=== PATIENT | female | born 1940 | race Caucasian/White ===

== ENCOUNTER 2024-08-25 16:09 | Inpatient (IN) | payer MEDICARE, SELFPAY ==
[2024-08-25] VITALS (8 sets, daily range): BP systolic 125–162; BP diastolic 47–122; BMI 27.3
[2024-08-25 11:14] LABS: % Basophils 0.6 % (0-2); % Eosinophils 2.3 % (0-6); % Immature Granulocytes 0.4 % (0-0.5); % Monocytes 8.4 % (1.7-9.3); % Neutrophils 79.3 % (42.2-75.2); Absolute Basophils 0.1 10^3/uL (0-0.2); Absolute Eosinophils 0.3 10^3/uL (0-0.7); Absolute Immature Granulocytes 0.1 10^3/uL (0-0.05); Absolute Neutrophils 9.2 10^3/uL (1.4-6.5); Hematocrit 25.5 % (37.0-47.0); Hemoglobin 8.4 g/dL (12.0-16.0); Mean Corp Hgb Conc. 32.9 g/dL (33.0-37.0); Mean Corpuscular Volume 87.9 fL (81.0-99.0); Mean Platelet Volume 8.8 fL (7.4-10.4); Nucleated Red Blood Cells % 0 %; Platelet Count 293 10^3/uL (130-400); Red Cell Dist. Width 14.1 % (11.5-14.5); White Blood Cell Count 11.5 10^3/uL (4.8-10.8)
[2024-08-25 11:38] LABS: ALT (SGPT) 16 U/L (0-35); AST (SGOT) 15 U/L (14-36); Albumin 3.8 g/dl (3.5-5.0); Alkaline Phosphatase 96 U/L (38-126); Blood Urea Nitrogen 37 mg/dl (7-17); Calcium 8.3 mg/dl (8.4-10.2); Carbon Dioxide 23 mmol/L (22-30); Chloride 96 mmol/L (98-107); Glucose 99 mg/dl (70-99); Potassium 4.5 mmol/L (3.5-5.1); Sodium 130 mmol/L (135-145); Total Bilirubin 0.4 mg/dl (0.2-1.3); Total Protein 6.4 g/dl (6.3-8.2); eGFR 19.19
[2024-08-25 11:43] LABS: NT-proBNP 12700 pg/ml
--- NOTE | 2024-08-25 15:09 | ED.GENMED ---
History of Present Illness
General
Chief Complaint: Cough
Source: patient and family
Exam Limitations: none
Time Seen by Provider: 08/25/24 14:45
Nursing documentation reviewed up to this point in time: agreed with
History of Present Illness
History of Present Illness:
84-year-old female with a past medical history of hypertension, hyperlipidemia, CHF, CKD, diabetes who presents to the emergency department for evaluation of worsening cough and shortness of breath. Patient presents with her daughter who aids with
collateral history. Apparently patient was hospitalized early last month for UTI at [facility]. She was discharged home and return to the hospital a week later with CHF and has had 2 visits to [facility] where she was admitted for
CHF since then; most recently discharged in early July 2 rehab at [facility]. She has been home for the past 2 weeks but has had progressive shortness of breath and cough as well as swelling in the legs since then. They have been
following with her service center representative Dr. Aaron Campos, she was recently switched from Lasix to Bumex 2 mg twice daily but despite compliance has noticed worsening symptoms and so daughter brought her to the emergency room to be evaluated.
Review of Systems
Review of Systems
All Other Systems: ROS reviewed and negative except as documented in HPI and ROS
Constitutional: Denies fever or chills
Respiratory: Reports cough and trouble breathing
ABD/GI: Denies abdominal pain, nausea or vomiting
: Denies flank pain
Musculoskeletal: Reports edema; Denies neck pain or back pain
Neurological: Denies dizzy or headache
Phy Exam
Physical Exam
Physical Exam:
General: Awake, alert, oriented x3; no acute distress
Head: Normocephalic, atraumatic
Eyes: Conjunctiva normal, sclera anicteric
Throat: Airway intact, handling secretions
Neck: Trachea midline, slight JVD
Lungs: Scattered wheezing throughout all lung rhodes; acceptable respiratory rate, acceptable pulse ox on room air
Heart: Regular rate and rhythm, faint systolic murmur
Abd: Soft, non distended, nontender
Neuro: No gross deficits
Skin: no rash
Extremities: +2 pitting edema bilateral lower extremities
Scores
Heart Failure Risk
Heart Failure Risk Score: Yes
History of Stroke or TIA: No
History of intubation for respiratory distress: No
Heart rate on ED arrival >/= 110: No
SaO2 <90% on arrival on room air: No
HR >/=110 during 3min walk test (or too ill to perform test): Yes
ECG has acute ischemic changes: No
Urea >/=12mmol/L (BUN 33.6mg/dL): Yes
Serum CO2>/=35mmol/L: No
Troponin I or T elevated to HI Level (0.4mg/dL): No
NT-proBNP >/=5,000ng/L (5,000pg/ml): Yes
HF Risk Score: 4
Admission Status: HIGH RISK 26.1% Consider SNF treatment or admission to hospital
Heart Score for Chest Pain Patients
STEMI patient?: Not applicable
Withdrawal Assessment of Alcohol
Withdrawal Assessment Completed?: Not applicable
Course
Orders/Labs/Results
Orders:
Orders
08/25/24 10:39
CR Chest - 2 Views Urgent
Comment:
Reason For Exam: cough
08/25/24 10:55
Complete Blood Count/With Diff Urgent
Comprehensive Metabolic Panel Urgent
NT-proBNP Urgent
08/25/24 15:09
Bumetanide [Bumex] 2 mg IV NOW STA
Abnormal Lab Results
08/25/24
10:55
WBC 11.5 H 10^3/uL
(4.8-10.8)
RBC 2.90 L 10^6/uL
(4.20-5.40)
Hgb 8.4 L g/dL
(12.0-16.0)
Hct 25.5 L %
(37.0-47.0)
MCHC 32.9 L g/dL
(33.0-37.0)
Abs Immat Gran (auto) 0.1 H 10^3/uL
(0-0.05)
Absolute Neuts (auto) 9.2 H 10^3/uL
(1.4-6.5)
Absolute Lymphs (auto) 1.0 L 10^3/uL
(1.2-3.4)
Absolute Monos (auto) 1.0 H 10^3/uL
(0.1-0.6)
Neutrophils % 79.3 H %
(42.2-75.2)
Lymphocytes % 9.0 L %
(20.5-51.1)
Sodium 130 L mmol/L
(135-145)
Chloride 96 L mmol/L
(98-107)
BUN 37 H mg/dl
(7-17)
Creatinine 2.4 H mg/dL
(0.6-1.0)
Calcium 8.3 L mg/dl
(8.4-10.2)
08/25/24 10:55
08/25/24 10:55
Vital Signs
Initial and Last Documented VS:
Initial Vital Signs
Temp Pulse Resp BP Pulse Ox
36.3 C 72 16 132/89 98
08/25/24 10:34 08/25/24 10:34 08/25/24 10:34 08/25/24 10:34 08/25/24 10:34
Last Documented Vital Signs
Temp Pulse Resp BP Pulse Ox
36.3 C 78 14 138/52 98
08/25/24 10:34 08/25/24 14:00 08/25/24 14:00 08/25/24 14:00 08/25/24 10:34
MDM/Problems Addressed
Differential Diagnosis Includes:
CHF, pneumonia, bronchitis
MDM/Problems Addressed:
84-year-old female presents to the emergency room for evaluation of increasing cough, shortness of breath, swelling of the legs despite multiple recent hospitalizations and outpatient adjustments to her diuretic. She has been compliant takes Bumex
2 mg twice daily. Follows with Dr. Aaron Campos for cardiology. She had labs sent off including a CBC and a CMP�she has marginal leukocytosis, anemia 8.4, chronic kidney disease with a creatinine of 2.40�no baseline available for comparison but
she does reports that she has been told she has stage IV CKD. Her proBNP is markedly elevated at 12,700. Chest x-ray consistent with CHF. With worsening symptoms despite outpatient adjustments and significant chronic kidney disease will plan to
admit for diuresis. Dose with 2 mg IV Bumex here. Case discussed with hospitalist for admission.
Chronic conditions affecting care:
CHF, CKD
*Radiology
Radiology exam reviewed: preliminary read by ED provider (CHF) and radiology read reviewed
*Pulse Oximetry
Patient hypoxic: no
*Critical Care Note
Total Time (30-74mins, 75-104mins- exclusive of procedures): Not Applicable
Data Reviewed
Source: patient, family and ambulance crew
Patient Management
Discussion with other providers: Hospitalist (Discussed with hospitalist)
Escalation/DeEscalation of care consider admission/obs:
Admission indicated
ED Attending Note
-
Portions of this chart may have been created with voice recognition software.� Occasional wrong word or��sound alike� substitutions may have occurred due to the inherent limitations of voice recognition software.
Discharge Plan
Departure
Patient Disposition: Admit
Date of Disposition: 08/25/24
Time of Disposition: 15:18
Admit to doctor: Hiren
Presentation/result/management discussed w/ accepting MD/DO: Hospitalist
Discharge Problem:
CHF exacerbation
Referrals:
BAMBI Mari [Other]
Discharge Date and Time
Print Language: HEBREW
[2024-08-25] MEDS: BUMEX 2 MG IV (15:27)
--- NOTE | 2024-08-25 16:00 | HPS.HSE ---
Addendum entered and electronically signed by Jada Maradiaga MD 08/25/24 16:04:
Hold Losartan due to potential ERICK.
Original Note:
Family Physician
-
Family Physician: BAMBI Mari
Chief Complaint
-
cough, swelling
History of Present Illness
84-year-old female past medical history of hypertension, hyperlipidemia, CHF, stage IV CKD, diabetes, presenting with worsening cough and shortness of breath. Patient was hospitalized earlier last month for UTI at [facility]. She was
discharged home and return to the hospital a week later with CHF exacerbation and had 2 visits at [facility] for CHF since then. Most recently she was discharged in early July to rehab at [facility]. She has been home for the past 2
weeks has had progressive cough minimal shortness of breath and swelling in the leg since then. She has gained 2 pounds. Her calender worker helper is Dr. Aaron Campos. She was recently switched from Lasix to Bumex 2 mg twice daily but despite this she
has had worsening symptoms so she was brought to the emergency room. She denies any fevers or chills. Denies any chest pain.
Medical History
Past Medical History
Past Medical History: Reports Other (hypertension, hyperlipidemia, CHF, stage IV CKD, diabetes)
Past Surgical History: Reports None
Social History
Tobacco: Non-smoker
Alcohol: None
Drug: None
Family History
Family History: Not pertinent
Allergies / Home Medications
Allergies reflects when Allergies were last updated in [facility].
Home Medications with original date entered in [facility]
Allergy/Medication List:
Allergies
Allergy/AdvReac Type Severity Reaction Status Date / Time
No Known Allergies Allergy Unverified 08/25/24 15:21
Home Medications
amlodipine 10 mg tablet (Norvasc) 10 mg PO DAILY 08/25/24
atorvastatin 80 mg tablet (Lipitor) 80 mg PO QPM 08/25/24
bumetanide 2 mg tablet 2 mg PO BID 08/25/24
cholecalciferol (vitamin D3) 25 mcg (1,000 unit) tablet (Vitamin D3) 25 mcg PO DAILY 08/25/24
coQ10 (ubiquinol) 100 mg capsule 300 mg PO DAILY 08/25/24
ferrous sulfate 325 mg (65 mg iron) tablet 325 mg PO DAILY 08/25/24
gabapentin 300 mg capsule 300 mg PO HS 08/25/24
glipizide 5 mg tablet 5 mg PO DAILY 08/25/24
labetalol 200 mg tablet 200 mg PO BID 08/25/24
losartan 100 mg tablet 100 mg PO DAILY 08/25/24
magnesium oxide 250 mg PO DAILY 08/25/24
pantoprazole 40 mg tablet,delayed release (Protonix) 40 mg PO DAILY 08/25/24
psyllium 1 packet PO DAILY 08/25/24
Review of Systems
-
History Source: Patient
A 12 point ROS was completed and negative except as noted: Yes
Constitutional: Reports No Symptoms
EENT: Reports No Symptoms
Respiratory: Reports See HPI
Cardiac: Reports See HPI
Abdomen/GI: Reports No Symptoms
: Reports No Symptoms
Musculoskeletal: Reports No Symptoms
Skin: Reports No Symptoms
Neurological: Reports No Symptoms
Endocrine: Reports No Symptoms
Hematologic/Lymphatic: Reports No Symptoms
Psych: Reports No Symptoms
Physical Exam
Vital Signs
Vital Signs
Temp Pulse Resp BP Pulse Ox
97.4 F 84 19 144/122 98
08/25/24 10:34 08/25/24 15:30 08/25/24 15:36 08/25/24 15:27 08/25/24 10:34
Physical Exam
General: Well Developed, Well Nourished and No Apparent Distress
HEENT: NormoCephalic, Moist mucous membranes and Atraumatic
Respiratory: Clear
Cardiac: S1/S2 and Regular Rhythm; No Murmur or Rub
GI: Soft, Non Tender, Non Distended and Normal Bowel Sounds; No Organomegaly
Rectal: Deferred by Provider
Musculoskeletal: No Clubbing, No Cyanosis and No Edema
Skin: No Rash
Neuro: Nonfocal/grossly intact
Laboratory Results
-
08/25/24 10:55
08/25/24 10:55
Laboratory Results
Total Bilirubin 0.4 mg/dl (0.2-1.3) 08/25/24 10:55
AST 15 U/L (14-36) 08/25/24 10:55
ALT 16 U/L (0-35) 08/25/24 10:55
Alkaline Phosphatase 96 U/L (38-126) 08/25/24 10:55
Data Reviewed
-
Lab Data: Labs Reviewed by me
Old Records: Reviewed
Impression/Plan
-
IMPRESSION:
PLAN:
# Acute CHF exacerbation
-BNP of 12,000
-Chest x-ray shows mild cardiomegaly, mild prominence of the interstitial compartment, mild cephalization of the pulmonary vasculature, small bilateral pleural effusions,
-Check I's and O's, daily weights
-Increase Bumex to 3 mg twice daily
-Will need to obtain records from calender worker helper Dr. Aaron Campos
-Cardiology consulted
Stage IV CKD
-Continue 2.4, unknown baseline
-Monitor with diuresis
Presumably chronic anemia
-Hemoglobin 8.4, no prior baseline
Essential hypertension
-Continue losartan, amlodipine, labetalol, hydralazine
Hyperlipidemia
-Continue statin
Type 2 diabetes
-Hold glipizide
-Insulin sliding scale
GERD
-continue Protonix
DNR/DNI
DVT prophylaxis�heparin
Cardiac diet
[2024-08-25] MEDS: BUMEX 1 MG IV (16:13)
[2024-08-25] MEDS: TRANDATE 200 MG PO (19:48)
[2024-08-25] MEDS: LIPITOR 80 MG PO (19:48)
[2024-08-25] MEDS: HEPARIN 5000 UNITS SC (19:50)
[2024-08-25] MEDS: NOVOLOG FLEXPEN-LOW RESISTANCE SC (19:51)
[2024-08-25] MEDS: NEURONTIN 300 MG PO (21:37)
[2024-08-25 21:41] LABS: Glucose - Point of Care 176 mg/dl (70-99)
[2024-08-26 03:50] VITALS: BP 133/59
[2024-08-26 05:04] VITALS: BMI 26.5
[2024-08-26 07:15] LABS: % Basophils 0.9 % (0-2); % Eosinophils 2.4 % (0-6); % Immature Granulocytes 0.4 % (0-0.5); % Lymphocytes 10.9 % (20.5-51.1); % Neutrophils 76.4 % (42.2-75.2); Absolute Basophils 0.1 10^3/uL (0-0.2); Absolute Eosinophils 0.2 10^3/uL (0-0.7); Absolute Lymphocytes 1.1 10^3/uL (1.2-3.4); Absolute Monocytes 0.9 10^3/uL (0.1-0.6); Absolute Neutrophils 7.5 10^3/uL (1.4-6.5); Hematocrit 26.5 % (37.0-47.0); Hemoglobin 8.9 g/dL (12.0-16.0); Mean Corp Hgb Conc. 33.6 g/dL (33.0-37.0); Mean Corpuscular Hgb 29.4 pg (27.0-31.0); Mean Corpuscular Volume 87.5 fL (81.0-99.0); Mean Platelet Volume 9.1 fL (7.4-10.4); Nucleated Red Blood Cells % 0 %; Platelet Count 332 10^3/uL (130-400); Red Blood Cell Count 3.03 10^6/uL (4.20-5.40); Red Cell Dist. Width 14.4 % (11.5-14.5); White Blood Cell Count 9.8 10^3/uL (4.8-10.8)
[2024-08-26 07:21] LABS: ALT (SGPT) 15 U/L (0-35); AST (SGOT) 15 U/L (14-36); Albumin 3.8 g/dl (3.5-5.0); Alkaline Phosphatase 108 U/L (38-126); Blood Urea Nitrogen 41 mg/dl (7-17); Calcium 8.5 mg/dl (8.4-10.2); Carbon Dioxide 24 mmol/L (22-30); Chloride 97 mmol/L (98-107); Estimated Creatinine Clearance 15 ml/min; Glucose 107 mg/dl (70-99); Potassium 4.6 mmol/L (3.5-5.1); Sodium 131 mmol/L (135-145); Total Bilirubin 0.5 mg/dl (0.2-1.3); Total Protein 6.5 g/dl (6.3-8.2); eGFR 19.19
[2024-08-26 07:22] LABS: Glucose - Point of Care 132 mg/dl (70-99)
[2024-08-26 07:25] VITALS: BP 141/62
--- NOTE | 2024-08-26 07:53 | CON.CAR ---
Addendum entered and electronically signed by Abiel Parker MD 08/26/24 13:54:
I saw and examined the patient.
The BIOMEDICAL EQUIPMENT TECHNICIAN's note was reviewed and I agree with the note.
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 Lasix was changed to Bumex. She is
here today for continuous cough- denies fever or chills. She has also noted weight gain and LE edema. This is likely related to dietary indiscretion.
- IV diuresis
Original Note:
Consultation
Consultation Request
Date/Time Consultation Requested: 08/25/242228
Date/Time Consultation Performed: 08/26/24 904
Requesting Provider: Dr. Maradiaga
Performing Provider: Margi GUEVARA for Dr. Parker
Reason for Consultation: CHF
Medical History
-
Chief Complaint: cough
History of Present Illness:
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 Lasix was changed to Bumex. She is here
today for continuous cough- denies fever or chills. She has also noted weight gain and LE edema. She is in no distress at the time of my assessment, but continues to cough.
Past Medical History
Past Medical History: CHF, GERD, HTN, Hypercholesterolemia, NIDDM and Renal Failure
Social History
Tobacco: Former Smoker (quit 1986)
Family History
Family History: Reviewed & Not Pertinent
Allergies / Home Medications
Allergy/AdvReac Type Severity Reaction Status Date / Time
No Known Allergies Allergy Unverified 08/25/24 15:21
�Medication �Instructions �Recorded �Confirmed �Type
amlodipine 10 mg tablet (Norvasc) 10 mg PO DAILY 08/25/24 08/25/24 History
atorvastatin 80 mg tablet (Lipitor) 80 mg PO QPM 08/25/24 08/25/24 History
bumetanide 2 mg tablet 2 mg PO BID 08/25/24 08/25/24 History
cholecalciferol (vitamin D3) 25 25 mcg PO DAILY 08/25/24 08/25/24 History
mcg (1,000 unit) tablet (Vitamin
D3)
coQ10 (ubiquinol) 100 mg capsule 300 mg PO DAILY 08/25/24 08/25/24 History
ferrous sulfate 325 mg (65 mg 325 mg PO DAILY 08/25/24 08/25/24 History
iron) tablet
gabapentin 300 mg capsule 300 mg PO HS 08/25/24 08/25/24 History
glipizide 5 mg tablet 5 mg PO DAILY 08/25/24 08/25/24 History
labetalol 200 mg tablet 200 mg PO BID 08/25/24 08/25/24 History
losartan 100 mg tablet 100 mg PO DAILY 08/25/24 08/25/24 History
magnesium oxide 250 mg PO DAILY 08/25/24 08/25/24 History
pantoprazole 40 mg tablet,delayed 40 mg PO DAILY 08/25/24 08/25/24 History
release (Protonix)
psyllium 1 packet PO DAILY 08/25/24 08/25/24 History
Review of Systems
-
History Source: Patient and Other (and chart)
All other systems: Negative unless noted
Constitutional: Weight Gain
Respiratory: Cough
Musculoskeletal: Edema
Physical Exam
Vital Signs
Temp Pulse Resp BP Pulse Ox
98.3 F 86 20 133/59 93
08/26/24 03:50 08/26/24 03:50 08/26/24 03:50 08/26/24 03:50 08/26/24 03:50
Lab Results
08/26/24 06:23
08/26/24 06:23
Iqg-Z-Honjzqrwqdc Pept 57922 pg/ml 08/25/24 10:55
Physical Exam
General: Well Developed, Well Nourished and No Apparent Distress
HEENT: Normocephalic and Anicteric
Respiratory: Other (coarse lung sounds to bases)
Cardiac: Regular Rhythm
Musculoskeletal: Edema (+1-2 BLE edema)
Skin: Warm and Dry
Neuro: AO x 3
Psych: Calm
Impression / Plan
-
Fasyt-tn-jkxoper HF (type unknown):
-obtain cardiology records. Otherwise, can get echo here.
-agree with IV Bumex, which requires intensive monitoring
-she believes her dry weight is 150-151 lbs. She is currently 154 lbs. LE edema noted and she normally does not have that.
-CHF education, diet
HTN:
-stable on medical therapy
CKD:
-monitor with diuresis
Anemia:
-unknown baseline, but stable from yesterday
DM:
-on medical therapy
-management per primary team
Data Reviewed
-
EKG: Tracing Personally Visualized and interpreted (NSR 78 BPM, NS ST and T abnormality)
Radiology: Report Reviewed by me (CXR: . Mild pulmonary edema. Small bilateral pleural effusions.)
Labs: Labs Reviewed by me
[2024-08-26] MEDS: NOVOLOG FLEXPEN-LOW RESISTANCE SC (08:14)
[2024-08-26] MEDS: FLUSH (NSS) 1 FLUSH IV ×3 (08:18→16:19)
[2024-08-26] MEDS: BUMEX 3 MG IV ×2 (08:18→16:19)
[2024-08-26] MEDS: MAGNESIUM OXIDE 250 MG PO (08:18)
[2024-08-26] MEDS: FEOSOL 325 MG PO (08:19)
[2024-08-26] MEDS: TRANDATE 200 MG PO ×2 (08:19→21:26)
[2024-08-26] MEDS: PROTONIX 40 MG PO (08:19)
[2024-08-26] MEDS: NORVASC 10 MG PO (08:19)
[2024-08-26] MEDS: METAMUCIL, KONSYL 1 PACKET PO (08:19)
[2024-08-26] MEDS: VITAMIN D3 (cholecalciferol) 25 MCG PO (08:20)
[2024-08-26] MEDS: HEPARIN 5000 UNITS SC ×2 (08:20→21:26)
[2024-08-26 09:06] LABS: Glycohemoglobin (HgbA1c) 6.2 % (4.0-5.6)
--- NOTE | 2024-08-26 10:32 | W.PN.HOSP.TC ---
Today's Communication/Plan
-
Treat as COPD with steroid and nebulizer
c/w Bumex IV
Assessment / Plan
Assessment / Plan
Physical Exam
General: Well Developed, Well Nourished and No Apparent Distress
HEENT: Normocephalic, Moist mucous membranes and Atraumatic
Respiratory: limited with fine rales/ wheezes.
Cardiac: S1/S2
GI: Soft, Non Tender, Non Distended and Normal Bowel Sounds;
Rectal: No bleeding
Musculoskeletal: No Clubbing, No Cyanosis and mild edema in both legs
Psych: calm
Neuro: Nonfocal/grossly intact
# Acute CHF exacerbation, unknown type . Pt is new to [facility] and [place] snot know details
-BNP of 12,000
-Chest x-ray shows mild cardiomegaly, mild prominence of the interstitial compartment, mild cephalization of the pulmonary vasculature, small bilateral pleural effusions,
-Check I's and O's, daily weights
-Increased Bumex to 3 mg twice daily
- Order echo
- Primary resident director Dr. Aaron Campos at [facility]. Tried to office on Wednesday but no answer.
-Cardiology consulted
# Acute respiratory distress
Hx of tobacco use > 20 years, 1ppd
She has wheezes and limited sounds, seems c/w COPD exacerbation
will do Nebulizer [place], add steroid to help reduce persistent cough
Stage IV CKD
-Continue 2.4, unknown baseline
-Monitor with diuresis
Anemia of chronic disease
No bleeding
denies melena
-Hemoglobin 8.4, no prior baseline
Hyponatremia
Essential hypertension
-Continue losartan, amlodipine, labetalol, hydralazine
Hyperlipidemia
-Continue statin
Type 2 diabetes
-Hold glipizide
-Insulin sliding scale
GERD
-continue Protonix
DNR/DNI
DVT prophylaxis�heparin
Cardiac diet
Total time spent to see the patient, examine the patient, review data and lab results, discuss the treatment plan with patient, nursing staff around 55 minutes
Anticipated Discharge: > 48 hours
Subjective/Interval History
-
Date of Service: August 26, 2024
No chest pain
Has persistent cough
Objective Data
-
Labs:
Laboratory Results
08/26/24
06:23
WBC 9.8
Hgb 8.9 L
Hct 26.5 L
Plt Count 332
Sodium 131 L
Potassium 4.6
Chloride 97 L
Carbon Dioxide 24
BUN 41 H
Creatinine 2.4 H
Glucose 107 H
Calcium 8.5
Total Bilirubin 0.5
AST 15
ALT 15
Alkaline Phosphatase 108
Vital Signs:
Vital Signs
Temp Pulse Resp BP Pulse Ox
97.7 F 86 16 140/62 95
08/26/24 07:25 08/26/24 08:19 08/26/24 07:25 08/26/24 08:19 08/26/24 08:14
[2024-08-26 11:10] VITALS: BP 149/58
[2024-08-26] MEDS: PULMICORT 0.25 MG INH (11:52)
[2024-08-26] MEDS: DUONEB 3 ML INH ×3 (11:52→19:37)
[2024-08-26 12:17] LABS: Glucose - Point of Care 211 mg/dl (70-99)
[2024-08-26] MEDS: SOLU-MEDROL PF 40 MG IV ×2 (12:31→17:12)
[2024-08-26] MEDS: NOVOLOG FLEXPEN-LOW RESISTANCE 2 UNITS SC (12:52)
--- NOTE | 2024-08-26 12:58 | CM ---
CM following re: discharge planning.
Reviewed pt's chart, met with pt.
Pt is an 84 year old female, admitted with primary dx of CHF exacerbation.
Pt reports she lives alone 2SH, 1 step to enter, has 5 supportive children. 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 Pt reports she did not have VN
services. Pt expressed her desire to return back home at discharge with family support.
PT and OT will evaluate the pt to determine a level of care at discharge.
PCP: Berta Box
Pharmacy: [facility]
D/c plan: most likely home with VN services and family support. Family to transport at discharge.
CM will follow with discharge plan updates as hospitalization progresses
[2024-08-26 15:30] VITALS: BP 144/68
--- NOTE | 2024-08-26 16:16 | PTCARENOTE ---
Pt AAO x3, BAUGH well, OOB to BR with minimal assistance/walker, aldo well, no c/o weakness/dizziness. VSS. Telemetry:NSR. On room air- pulse ox 96%, pt with frequent harsh,non-productive cough; denies SOB. Abd soft, rounded, aldo PO well. Voids in
BR without difficulty. resting in bed at present, no c/o. Will continue to monitor.
[2024-08-26] MEDS: TESSALON PERLES 100 MG PO (16:19)
[2024-08-26 16:38] LABS: Glucose - Point of Care 386 mg/dl (70-99)
[2024-08-26] MEDS: NOVOLOG FLEXPEN-LOW RESISTANCE 5 UNITS SC (16:41)
[2024-08-26] MEDS: LIPITOR 80 MG PO (17:12)
[2024-08-26 19:47] VITALS: BP 146/65
[2024-08-26 21:16] LABS: Glucose - Point of Care 389 mg/dl (70-99)
[2024-08-26] MEDS: NEURONTIN 300 MG PO (21:26)
[2024-08-26] MEDS: MUCINEX 600 MG PO (21:26)
[2024-08-26] MEDS: NOVOLOG FLEXPEN 5 UNITS SC (21:33)
[2024-08-26 23:17] VITALS: BP 127/56
[2024-08-27 03:17] VITALS: BP 137/61
[2024-08-27 04:26] LABS: Glucose - Point of Care 300 mg/dl (70-99)
[2024-08-27 06:00] VITALS: BMI 27.0
[2024-08-27 06:17] LABS: Hematocrit 22.8 % (37.0-47.0); Hemoglobin 7.9 g/dL (12.0-16.0); Mean Corp Hgb Conc. 34.6 g/dL (33.0-37.0); Mean Corpuscular Hgb 29.5 pg (27.0-31.0); Mean Corpuscular Volume 85.1 fL (81.0-99.0); Mean Platelet Volume 9.1 fL (7.4-10.4); Platelet Count 289 10^3/uL (130-400); Red Blood Cell Count 2.68 10^6/uL (4.20-5.40); White Blood Cell Count 12.1 10^3/uL (4.8-10.8)
[2024-08-27 06:42] LABS: Blood Urea Nitrogen 51 mg/dl (7-17); Calcium 8.2 mg/dl (8.4-10.2); Carbon Dioxide 19 mmol/L (22-30); Chloride 94 mmol/L (98-107); Estimated Creatinine Clearance 14 ml/min; Glucose 263 mg/dl (70-99); Potassium 5.2 mmol/L (3.5-5.1); Sodium 127 mmol/L (135-145); eGFR 18.27
[2024-08-27] MEDS: DUONEB 3 ML INH ×4 (07:29→19:17)
[2024-08-27 07:36] LABS: Iron 33 ug/dl (37-170)
[2024-08-27 07:38] VITALS: BP 134/65
[2024-08-27 07:56] LABS: Glucose - Point of Care 291 mg/dl (70-99)
[2024-08-27] MEDS: HEPARIN 5000 UNITS SC ×2 (08:15→20:51)
[2024-08-27] MEDS: NOVOLOG FLEXPEN-LOW RESISTANCE 3 UNITS SC (08:15)
[2024-08-27] MEDS: MUCINEX 600 MG PO ×2 (08:17→21:01)
[2024-08-27] MEDS: MAGNESIUM OXIDE 250 MG PO (08:17)
[2024-08-27] MEDS: TRANDATE 200 MG PO ×2 (08:19→21:00)
[2024-08-27] MEDS: METAMUCIL, KONSYL 1 PACKET PO (08:19)
[2024-08-27] MEDS: BUMEX 3 MG IV ×2 (08:20→15:20)
[2024-08-27] MEDS: PROTONIX 40 MG PO (08:20)
[2024-08-27] MEDS: NORVASC 10 MG PO (08:20)
[2024-08-27] MEDS: FEOSOL 325 MG PO (08:20)
[2024-08-27] MEDS: VITAMIN D3 (cholecalciferol) 25 MCG PO (08:20)
[2024-08-27] MEDS: SOLU-MEDROL PF IV (08:37)
[2024-08-27] MEDS: SOLU-MEDROL PF 20 MG IV (08:37)
[2024-08-27 11:50] VITALS: BP 131/60
--- NOTE | 2024-08-27 11:52 | W.PN.HOSP.TC ---
Today's Communication/Plan
-
Lokelma X one dose
Adjust insulin [place]
Reduce steroid
c/w Nebulizer, Mucinex and PRN cough medicine
Start on Iron pills
c/w Bumex
Assessment / Plan
Assessment / Plan
Physical Exam
General: Well Developed, Well Nourished and No Apparent Distress
HEENT: Normocephalic, Moist mucous membranes and Atraumatic
Respiratory: better today, less fine rales/ no wheezes.
Cardiac: S1/S2
GI: Soft, Non Tender, Non Distended and Normal Bowel Sounds;
Rectal: No bleeding
Musculoskeletal: No Clubbing, No Cyanosis and mild edema in both legs
Psych: calm
Neuro: Nonfocal/grossly intact
# Acute CHF exacerbation, unknown type . Pt is new to us and does not know details
-BNP of 12,000
-Chest x-ray shows mild cardiomegaly, mild prominence of the interstitial compartment, mild cephalization of the pulmonary vasculature, small bilateral pleural effusions,
-Check I's and O's, daily weights
-Increased Bumex to 3 mg twice daily
- Order echo 08/18
- Primary mobile nurse Dr. Aaron Campos at [facility]. Tried to office on Wednesday but no answer.
-Cardiology consulted
# Acute respiratory distress, possible acute bronchitis. She was treated for same cough at [facility] but she does not know exactly the diagnosis.
She feels better
No hypoxia
started on steroid IV with Nebulizer. Good response, decrease steroid dose, can change to oral in AM.
Hx of tobacco use > 20 years, 1ppd
She has wheezes and limited sounds, seems c/w COPD exacerbation
PRN cough medicine
# Stage IV CKD
-Continue 2.4, pt reports kidney problems and sees Dr Puri at
-Monitor with diuresis
# Anemia of chronic disease
No bleeding
denies melena
-Hemoglobin 7-8
Low iron level
started on oral iron.
# hyperkalemia due to CKD and hyperglycemia
, c/w Bumex
Give Lokelma
#Hyponatremia
Essential hypertension
-Continue losartan, amlodipine, labetalol, hydralazine
Hyperlipidemia
-Continue statin
Type 2 diabetes
Uncontrolled. Add Lantus and pre-meal insulin
Decrease dose of steroid
Resume glipizide
-Insulin sliding scale
GERD
-continue Protonix
DNR/DNI
DVT prophylaxis�heparin
Cardiac & diabetic diet
Total time spent to see the patient, examine the patient, review data and lab results, discuss the treatment plan with patient, nursing staff around 55 minutes
Anticipated Discharge: > 48 hours
Subjective/Interval History
-
Date of Service: August 27, 2024
She feels better
No chest pain
less sob
Less cough
Objective Data
-
Labs:
Laboratory Results
08/27/24
06:01
WBC 12.1 H
Hgb 7.9 L
Hct 22.8 L
Plt Count 289
Sodium 127 L
Potassium 5.2 H
Chloride 94 L
Carbon Dioxide 19 L
BUN 51 H
Creatinine 2.5 H
Glucose 263 H
Calcium 8.2 L
Vital Signs:
Vital Signs
Temp Pulse Resp BP Pulse Ox
98.4 F 81 16 134/65 93
08/27/24 07:38 08/27/24 11:24 08/27/24 11:24 08/27/24 07:38 08/27/24 11:24
I&O
08/26/24 08/27/24 08/28/24
06:59 06:59 06:59
Intake Total 1460 / 1460
Output Total 500 / 500
Balance 960 / 960
--- NOTE | 2024-08-27 12:10 | W.PN.CD ---
Today's Communication / Plan
-
Cont IV diuresis
Impression / Plan
-
Yqesl-op-cozxqkw HF (type unknown):
-obtain cardiology records. Otherwise, can get echo here.
-agree with IV Bumex, which requires intensive monitoring
-she believes her dry weight is 150-151 lbs. She is currently 154 lbs. LE edema noted and she normally does not have that.
-CHF education, diet
HTN:
-stable on medical therapy
CKD:
-monitor with diuresis
Anemia:
-unknown baseline, but stable from yesterday
DM:
-on medical therapy
-management per primary team
Subjective: Tired today but increased urination from yesterday
Physical Exam
Vital Signs/Labs
Vital Signs
Temp Pulse Resp BP Pulse Ox
98.4 F 81 16 134/65 93
08/27/24 07:38 08/27/24 11:24 08/27/24 11:24 08/27/24 07:38 08/27/24 11:24
08/26/24 08/27/24 08/28/24
06:59 06:59 06:59
Actual Weight 154 lb 3 oz 157 lb 3 oz
08/27/24 06:01
08/27/24 06:01
08/25/24
10:55
Jgr-P-Frizjwsvipf Pept [id number]
Physical Exam
Constitutional: No acute distress and Comfortable
EENT: Anicteric
Cardiovascular: Rhythm & rate is regular and Pedal edema present
Respiratory: Respiratory effort normal and Crackles Present
GI: Soft
Neuro/Psych: Alert and Oriented
Data Reviewed
-
Date of Service: August 27, 2024
EKG: Tracing Personally Visualized and interpreted (sr)
Echo: Ordered by me
Labs: Labs Reviewed by me
[2024-08-27 12:45] LABS: Glucose - Point of Care 325 mg/dl (70-99)
[2024-08-27] MEDS: NOVOLOG FLEXPEN-LOW RESISTANCE 4 UNITS SC ×2 (12:47→16:58)
[2024-08-27] MEDS: LOKELMA 10 GRAM PO (12:47)
[2024-08-27] MEDS: LANTUS 0.2 UNITS SC (12:48)
[2024-08-27 15:30] VITALS: BP 124/63
[2024-08-27 16:20] LABS: Glucose - Point of Care 321 mg/dl (70-99)
[2024-08-27] MEDS: NOVOLOG FLEXPEN 5 UNITS SC (16:58)
[2024-08-27] MEDS: LIPITOR 80 MG PO (16:59)
[2024-08-27 19:24] VITALS: BP 133/67
[2024-08-27] MEDS: TESSALON PERLES 100 MG PO (20:59)
[2024-08-27] MEDS: NEURONTIN 300 MG PO (21:00)
[2024-08-27 21:03] LABS: Glucose - Point of Care 286 mg/dl (70-99)
[2024-08-27 23:29] VITALS: BP 128/61
[2024-08-28] VITALS (8 sets, daily range): BP systolic 111–136; BP diastolic 54–66; PULSE 89; O2SAT 92–93; BMI 26.9
[2024-08-28] MEDS: DUONEB 3 ML INH ×3 (07:35→19:21)
[2024-08-28 07:49] LABS: Glucose - Point of Care 172 mg/dl (70-99)
[2024-08-28] MEDS: BUMEX 3 MG IV ×2 (08:57→16:42)
[2024-08-28] MEDS: MUCINEX 600 MG PO ×2 (09:00→21:23)
[2024-08-28] MEDS: VITAMIN D3 (cholecalciferol) 25 MCG PO (09:00)
[2024-08-28] MEDS: MAGNESIUM OXIDE 250 MG PO (09:00)
[2024-08-28] MEDS: NORVASC 10 MG PO (09:00)
[2024-08-28] MEDS: HEPARIN 5000 UNITS SC ×2 (09:01→21:24)
[2024-08-28] MEDS: TRANDATE 200 MG PO ×2 (09:01→21:23)
[2024-08-28] MEDS: PROTONIX 40 MG PO (09:01)
[2024-08-28] MEDS: METAMUCIL, KONSYL 1 PACKET PO (09:01)
[2024-08-28] MEDS: DELTASONE 20 MG PO (09:01)
[2024-08-28] MEDS: FEOSOL 325 MG PO (09:01)
[2024-08-28] MEDS: NOVOLOG FLEXPEN 5 UNITS SC ×3 (09:02→16:39)
[2024-08-28] MEDS: NOVOLOG FLEXPEN-LOW RESISTANCE 1 UNITS SC ×3 (09:03→16:38)
--- NOTE | 2024-08-28 09:11 | W.PN.CD ---
Addendum entered and electronically signed by Archana Christian MD 08/28/24 10:28:
I saw and examined the patient.
The DATABASE SECURITY ADMINISTRATOR's note was reviewed and I agree with the note.
Comment: She still quite short of breath. She has a cough that is nonproductive most of the times but at times can get up some sputum. No chest pain or pressure. On exam she is short of breath with conversation lying at about 30 degrees. Regular
rate and rhythm with a 2 out of 6 crescendo decrescendo murmur at the right upper sternal border, lungs have diffuse rhonchi with bibasilar rales. Extremities with 1-2+ pitting edema. JVP is elevated but large V wave seen. We will increase her
diuresis as she has not had a great response. Will add 2.5 mg of metolazone today and see how she responds in the p.m. This will require intensive monitoring of blood pressure and laboratories. Dr. Burton at the bedside, agree that there seems to
be some reactive airway as well. He plans to add nebulizer treatments which should help. Plan discussed with him at the bedside. Will follow.
Original Note:
Today's Communication / Plan
-
-Await AM labs before making any change to diuretic plan (such as add dose metolazone today), as she had renal dysfunction and hyponatremia- if these are worsening, may need nephrology help. If they are stable, will add PM metolazone dose.
Impression / Plan
-
Oqpfh-ir-bsacmiz HFpEF:
-I personally called Dr. Campos's office and recent OV note received and now in chart. Echo from 07/11/24: EF 55%, moderate MAC and mild MR, aortic sclerosis with mild stenosis (peak/mean 14/9 mmhg)
-agree with IV Bumex, which requires intensive monitoring- she is already on high dose, but not diuresing much- may need to add metolazone today- await labs
-she believes her dry weight is 150 lbs. She is currently 156 lbs. LE edema noted and she normally does not have that.
-CHF education, diet- there was reported dietary indiscretion before coming in
-she does not appear to be improving overall to my assessment (I saw her two days ago). I will await AM labs before making any changes, as she had renal dysfunction and hyponatremia- if these are worsening, may need nephrology help. If these are
okay, will add metolazone.
Cough: continues
-primary team treating for COPD as well
HTN:
-stable on medical therapy
CKD:
-monitor with diuresis
Anemia:
-unknown baseline
-monitor
DM:
-on medical therapy
-management per primary team
Subjective:
Patient reports she is feeling okay, but she clearly still has presenting cough. There is still LE edema and no significant diuresis.
Physical Exam
Vital Signs/Labs
Vital Signs
Temp Pulse Resp BP Pulse Ox
99.4 F 92 18 134/64 94
08/28/24 07:44 08/28/24 07:44 08/28/24 07:44 08/28/24 07:44 08/28/24 08:45
08/27/24 08/28/24 08/29/24
06:59 06:59 06:59
Actual Weight 71.299 kg 71.016 kg
08/25/24
10:55
Xvo-L-Qvlhnhfdidz Pept [id number]
Physical Exam
Constitutional: No acute distress
EENT: Anicteric
Cardiovascular: Rhythm & rate is regular, Pedal edema present (mild BLE edema) and Systolic murmur present (II/ systolic)
Respiratory: Crackles Present and Rhonchi Present
Neuro/Psych: AO x 3
Data Reviewed
-
Date of Service: August 28, 2024
EKG: Other (tele SR)
Medical Tests (PFT, Pathology etc): Report Reviewed by me (Echo report reviewed and as noted)
Labs: Other (yesterday's labs reviewed, this AM's labs pending)
Old Records: Reviewed (Dr. Campos OV 08/15/24- adjust diuretic from lasix to bumex due to excess volume)
[2024-08-28 10:14] LABS: Hematocrit 23.3 % (37.0-47.0); Hemoglobin 7.9 g/dL (12.0-16.0); Mean Corp Hgb Conc. 33.9 g/dL (33.0-37.0); Mean Corpuscular Hgb 29.7 pg (27.0-31.0); Mean Corpuscular Volume 87.6 fL (81.0-99.0); Mean Platelet Volume 9.2 fL (7.4-10.4); Platelet Count 388 10^3/uL (130-400); Red Blood Cell Count 2.66 10^6/uL (4.20-5.40); Red Cell Dist. Width 14.3 % (11.5-14.5); White Blood Cell Count 17.2 10^3/uL (4.8-10.8)
[2024-08-28 10:21] LABS: Blood Urea Nitrogen 55 mg/dl (7-17); Calcium 8.4 mg/dl (8.4-10.2); Carbon Dioxide 16 mmol/L (22-30); Chloride 93 mmol/L (98-107); Estimated Creatinine Clearance 14 ml/min; Glucose 205 mg/dl (70-99); Potassium 4.4 mmol/L (3.5-5.1); Sodium 128 mmol/L (135-145); eGFR 18.27
[2024-08-28] MEDS: DUONEB INH (11:12)
[2024-08-28 12:02] LABS: Glucose - Point of Care 185 mg/dl (70-99)
--- NOTE | 2024-08-28 12:35 | CM ---
Addendum entered by Katharina Motley 08/28/24 12:47:
Spoke with Bertha at [facility], Patient is current and they do use [facility].
Referral sent.
[facility]
phone# [phone]
fax# [phone]
Original Note:
Patient seen bedside.
PT/OT recommending home with VN.
Per patient she uis current with a VN, TC to daughter Jodi, patient current with [facility] [phone].
Plan: home with [facility] once stable
--- NOTE | 2024-08-28 13:35 | W.PN.HOSP.TC ---
Today's Communication/Plan
-
Assessment / Plan
Assessment / Plan
# Acute on chronic HFpEF exacerbation
-IV diuresis
-Add metolazone per cardiology
-Ins and outs
-Daily weights
-Keep K greater than 4
-Keep magnesium greater than 2
-Monitored on telemetry
-Cardiology following
Acute bronchitis, likely underlying COPD however not formulary diagnosed
-Steroids p.o. should be continued
-MDIs ATC
-Neb treatments
-Incentive spirometer
-As needed antitussive
-Check FLu and Covid
HAGMA
-Check VBG
-Check Urine Ketones
Stage IV CKD
-Baseline cr 2.4-2.5
-Monitor UOP
-Avoid Nephrotoxins and hypotension
Anemia of chronic disease
-Low iron level, high ferritin, likely
-Will DC Oral Iron
-Hgb stbale without evidence of acute bleeding
Hyperkalemia due to CKD and hyperglycemia
C/w Bumex
s/p Lokelma Lokelma
Hypervolemic Hyponatremia
-Fluid restrict
-Diurese
Essential hypertension
-Continue losartan, amlodipine, labetalol, hydralazine
Hyperlipidemia
-Continue statin
Type 2 diabetes
Uncontrolled. Add Lantus and pre-meal insulin
Decrease dose of steroid
Resume glipizide
-Insulin sliding scale
-BG Goal 140-180
-CCDiet
-Accuchecks
GERD
-Continue Protonix
DNR/DNI
DVT prophylaxis�heparin
Cardiac & diabetic diet
Anticipated Discharge: Today
Subjective/Interval History
-
Date of Service: August 28, 2024
Seen and examined. No new complaints. No acute overnight events.
Still has a cough nonproductive, sometimes able to cough stuff up when she sits forward
Has noted weight gain and lower extremity swelling
Objective Data
-
Labs:
Laboratory Results
08/28/24
08:45
WBC 17.2 H
Hgb 7.9 L
Hct 23.3 L
Plt Count 388 D
Sodium 128 L
Potassium 4.4
Chloride 93 L
Carbon Dioxide 16 L
BUN 55 H
Creatinine 2.5 H
Glucose 205 H
Calcium 8.4
Vital Signs:
Vital Signs
Temp Pulse Resp BP Pulse Ox
98.8 F 93 20 122/63 94
08/28/24 11:42 08/28/24 11:42 08/28/24 11:42 08/28/24 11:42 08/28/24 11:42
I&O
08/27/24 08/28/24 08/29/24
06:59 06:59 06:59
Intake Total 1460 / 1460 620 / 620
Output Total 500 / 500 250 / 250
Balance 960 / 960 370 / 370
Physical Exam
-
General: Well Developed and Well Nourished
HEENT: Normocephalic and Atraumatic
Respiratory: Rales and Crackles
Cardiac: Regular Rhythm, S1/S2, Murmur and JVD
GI: Soft, Nontender, Nondistended and Normal Bowel Sounds
Musculoskeletal: No Clubbing, No Cyanosis, Edema, Right Lower Extrem and Edema, Left Lower Extrem
Neuro: Awake, Alert, Oriented and AO x 3
Psych: Calm
[2024-08-28 15:04] LABS: COVID-19 Antigen Negative (Negative)
[2024-08-28] MEDS: ZAROXOLYN 2.5 MG PO (16:13)
[2024-08-28 16:22] LABS: Glucose - Point of Care 188 mg/dl (70-99)
[2024-08-28 16:36] LABS: Urine Albumin 1+ (Neg - Trace); Urine Bilirubin Negative (Negative); Urine Character Clear (Clear); Urine Color Yellow; Urine Glucose Negative (Negative); Urine Ketone Negative (Negative); Urine Leukocyte 2+ (Negative); Urine Nitrite Negative (Negative); Urine Occult Blood 1+ (Negative); Urine Specific Gravity 1.015 (<1.030); Urine Urobilinogen Negative (Neg - 1+)
[2024-08-28] MEDS: LIPITOR 80 MG PO (16:45)
[2024-08-28 16:48] LABS: Urine Sodium 31 mmol/L (30-90)
[2024-08-28 17:13] LABS: Urine Bacteria Few (Negative); Urine White Cell 50-60 /HPF (0-5)
[2024-08-28] MEDS: NEURONTIN 300 MG PO (21:23)
[2024-08-28 21:24] LABS: Glucose - Point of Care 264 mg/dl (70-99)
[2024-08-29 03:29] VITALS: BP 133/59
--- NOTE | 2024-08-29 04:00 | PTCARENOTE ---
Assumed care of patient. No changes from prior assessment. Pt is resting comfortable in bed at this time. Plan of care ongoing.
[2024-08-29 06:00] VITALS: BMI 26.8
[2024-08-29 07:21] LABS: Glucose - Point of Care 183 mg/dl (70-99)
[2024-08-29 07:25] VITALS: BP 153/65
[2024-08-29] MEDS: DUONEB 3 ML INH ×4 (07:27→20:44)
[2024-08-29] MEDS: NOVOLOG FLEXPEN 5 UNITS SC ×3 (07:50→17:48)
[2024-08-29] MEDS: NOVOLOG FLEXPEN-LOW RESISTANCE 1 UNITS SC (07:50)
[2024-08-29] MEDS: MAGNESIUM OXIDE 250 MG PO (07:51)
[2024-08-29] MEDS: MUCINEX 600 MG PO ×2 (07:51→21:58)
[2024-08-29] MEDS: TRANDATE 200 MG PO ×2 (07:51→22:01)
[2024-08-29] MEDS: PROTONIX 40 MG PO (07:51)
[2024-08-29] MEDS: NORVASC 10 MG PO (07:52)
[2024-08-29] MEDS: HEPARIN 5000 UNITS SC ×2 (07:52→22:00)
[2024-08-29] MEDS: DELTASONE 20 MG PO (07:52)
[2024-08-29] MEDS: VITAMIN D3 (cholecalciferol) 25 MCG PO (07:52)
[2024-08-29] MEDS: BUMEX 3 MG IV (07:52)
[2024-08-29] MEDS: METAMUCIL, KONSYL 1 PACKET PO (07:53)
--- NOTE | 2024-08-29 08:28 | W.PN.CD ---
Today's Communication / Plan
-
Awaiting AM labs. Apparnaetly phlebotomy had issue with draw this morning.
if renal function stable , then can consider metolazone dose again today
treatment of anemia as directed by primary team.
Patient wants to go home. At dischage she will follow up with her primary cardiolgoist in [place].
Impression / Plan
-
Rnoro-jy-bztajnr HFpEF:
- Dr. Campos's / OV note received and now in chart. Echo from 07/11/24: EF 55%, moderate MAC and mild MR, aortic sclerosis with mild stenosis (peak/mean 14/9 mmhg)
- IV Bumex . Also given metolazone 2.5mg on 08/28/24. weight tending down. I/O down 600over 24hr
-she believes her dry weight is 150 lbs.
-CHF education, diet- there was reported dietary indiscretion before coming in
anemia
- iron 33
- treatment of anemia as directed by primary team.
- improvement in anemia will help wiht overall management.
- mild
hyponamtremia - monitor with diuresis. fluid restrict
-
Cough: continues
-primary team treating for COPD as well
HTN:
-stable on medical therapy
CKD:
-monitor with diuresis
DM:
-on medical therapy
-management per primary team
Subjective:
no cp or sob. . mildedema present
Physical Exam
Vital Signs/Labs
Vital Signs
Temp Pulse Resp BP Pulse Ox
98.0 F 81 16 153/65 96
08/29/24 07:25 08/29/24 07:31 08/29/24 07:31 08/29/24 07:25 08/29/24 07:31
08/28/24 08/29/24 08/30/24
06:59 06:59 06:59
Actual Weight 71.016 kg 70.817 kg
08/28/24 08:45
08/25/24
10:55
Uow-C-Fnbqnpwrdoc Pept [id number]
Data Reviewed
-
Date of Service: August 29, 2024
Medical Decision Making: Reviewed Test Results
Medical Tests (PFT, Pathology etc): Report Reviewed by me
Labs: Labs Reviewed by me
--- NOTE | 2024-08-29 10:33 | CM ---
PT OT indicated VN.
Pt requested to resume with [facility]
Family will transport home.
[facility]
phone# [phone]
fax# [phone]
Plan: Home with [facility] once stable
[2024-08-29 11:57] LABS: Glucose - Point of Care 247 mg/dl (70-99)
[2024-08-29] MEDS: NOVOLOG FLEXPEN-LOW RESISTANCE 2 UNITS SC (12:44)
[2024-08-29 12:59] LABS: Venous Blood Gas B.E. -1.8 mmol/L (-4 to +4); Venous Blood Gas HCO3 23.1 mmol/L (22-27); Venous Blood Gas O2 Sat % 98.2 %; Venous Blood Gas pCO2 39 mmHg (35-48); Venous Blood Gas pH 7.38 (7.32-7.43); Venous Blood Gas pO2 95 mmHg (30-50)
[2024-08-29 13:47] LABS: Blood Urea Nitrogen 66 mg/dl (7-17); Calcium 8.5 mg/dl (8.4-10.2); Carbon Dioxide 23 mmol/L (22-30); Chloride 89 mmol/L (98-107); Estimated Creatinine Clearance 12 ml/min; Glucose 235 mg/dl (70-99); Potassium 4.4 mmol/L (3.5-5.1); Sodium 128 mmol/L (135-145); eGFR 15.95
[2024-08-29 15:04] VITALS: BP 130/60
--- NOTE | 2024-08-29 15:23 | W.PN.HOSP.TC ---
Today's Communication/Plan
-
Assessment / Plan
Assessment / Plan
# Acute on chronic HFpEF exacerbation
-Will hold additional IV diuretics as Cr bumped
-S/p metolazone
-Ins and outs
-Daily weights
-Keep K greater than 4
-Keep magnesium greater than 2
-Monitored on telemetry
-Cardiology following
Acute bronchitis, likely underlying COPD however not formulary diagnosed
-Steroids p.o. should be continued
-MDIs ATC
-Neb treatments
-Incentive spirometer
-As needed antitussive
-Check FLu and Covid
HAGMA
-Resolved
Stage IV CKD
-Baseline cr 2.4-2.5, slightly worse today, likely secondary to overdiuresis
-Monitor UOP
-Avoid Nephrotoxins and hypotension
-Repeat BMP in the a.m.
--Will stop Losartan
Anemia of chronic disease
-Low iron level, high ferritin, likely
-Will DC Oral Iron
-Hgb stbale without evidence of acute bleeding
Hyperkalemia due to CKD and hyperglycemia
C/w Bumex
s/p Lokelma Lokelma
Hypervolemic Hyponatremia
-Fluid restrict
-Diurese
Essential hypertension
-Continue losartan, amlodipine, labetalol, hydralazine
Hyperlipidemia
-Continue statin
Type 2 diabetes, complicated by hyperglycemia
Uncontrolled. Add Lantus and pre-meal insulin
Decrease dose of steroid
Resume glipizide
-Insulin sliding scale
-BG Goal 140-180
-CCDiet
-Accuchecks
GERD
-Continue Protonix
DNR/DNI
DVT prophylaxis�heparin
Cardiac & diabetic diet
Repeat BMP in the a.m. If blood pressure improved we will plan to discharge home
Anticipated Discharge: Within 24 hours
Subjective/Interval History
-
Date of Service: August 29, 2024
Seen and examined. No new complaints. No acute overnight events.
Objective Data
-
Labs:
Laboratory Results
08/29/24
12:45
Sodium 128 L
Potassium 4.4
Chloride 89 L
Carbon Dioxide 23
BUN 66 H
Creatinine 2.8 H
Glucose 235 H
Calcium 8.5
Vital Signs:
Vital Signs
Temp Pulse Resp BP Pulse Ox
97.8 F 79 18 130/60 94
08/29/24 15:04 08/29/24 15:04 08/29/24 15:04 08/29/24 15:04 08/29/24 15:04
I&O
08/28/24 08/29/24 08/30/24
06:59 06:59 06:59
Intake Total 620 / 620 720 / 720
Output Total 250 / 250 1325 / 1325
Balance 370 / 370 -605 / -605
Physical Exam
-
General: Well Developed and Well Nourished
HEENT: Normocephalic and Atraumatic
Respiratory: Clear to Auscultation
Cardiac: Regular Rhythm, S1/S2 and Murmur
GI: Soft, Nontender and Nondistended
Musculoskeletal: No Clubbing, No Cyanosis and No Edema
Neuro: Awake, Alert, Oriented and AO x 3
Psych: Calm
[2024-08-29 16:24] LABS: Glucose - Point of Care 264 mg/dl (70-99)
[2024-08-29] MEDS: NOVOLOG FLEXPEN-LOW RESISTANCE 3 UNITS SC (17:48)
[2024-08-29] MEDS: LIPITOR 80 MG PO (17:48)
[2024-08-29 19:55] VITALS: BP 150/72
[2024-08-29 21:26] LABS: Glucose - Point of Care 328 mg/dl (70-99)
[2024-08-29] MEDS: NOVOLOG FLEXPEN 4 UNITS SC (22:04)
[2024-08-29] MEDS: NEURONTIN 300 MG PO (22:21)
[2024-08-29 23:11] VITALS: BP 127/58
[2024-08-30 03:06] VITALS: BP 126/64
[2024-08-30 06:00] VITALS: BMI 26.5
[2024-08-30 06:59] LABS: Hematocrit 23.6 % (37.0-47.0); Hemoglobin 8.3 g/dL (12.0-16.0); Mean Corp Hgb Conc. 35.2 g/dL (33.0-37.0); Mean Corpuscular Hgb 29.6 pg (27.0-31.0); Mean Corpuscular Volume 84.3 fL (81.0-99.0); Mean Platelet Volume 9.1 fL (7.4-10.4); Platelet Count 403 10^3/uL (130-400); Red Cell Dist. Width 13.8 % (11.5-14.5); White Blood Cell Count 14.2 10^3/uL (4.8-10.8)
[2024-08-30 07:03] LABS: Glucose - Point of Care 172 mg/dl (70-99)
[2024-08-30] MEDS: DUONEB INH (07:18)
[2024-08-30 07:20] VITALS: BP 131/55
[2024-08-30 07:27] LABS: Blood Urea Nitrogen 75 mg/dl (7-17); Carbon Dioxide 22 mmol/L (22-30); Chloride 92 mmol/L (98-107); Estimated Creatinine Clearance 14 ml/min; Glucose 149 mg/dl (70-99); Sodium 129 mmol/L (135-145); eGFR 18.27
[2024-08-30] MEDS: METAMUCIL, KONSYL PO (08:21)
[2024-08-30] MEDS: NOVOLOG FLEXPEN 5 UNITS SC ×2 (08:22→13:00)
[2024-08-30] MEDS: NOVOLOG FLEXPEN-LOW RESISTANCE 1 UNITS SC ×2 (08:22→12:59)
[2024-08-30] MEDS: HEPARIN 5000 UNITS SC (08:23)
[2024-08-30] MEDS: MAGNESIUM OXIDE 250 MG PO (08:24)
[2024-08-30] MEDS: PROTONIX 40 MG PO (08:24)
[2024-08-30] MEDS: TRANDATE 200 MG PO (08:24)
[2024-08-30] MEDS: MUCINEX 600 MG PO (08:25)
[2024-08-30] MEDS: DELTASONE 10 MG PO (08:25)
[2024-08-30] MEDS: VITAMIN D3 (cholecalciferol) 25 MCG PO (08:25)
[2024-08-30] MEDS: NORVASC 10 MG PO (08:25)
[2024-08-30] MEDS: FLUSH (NSS) 1 FLUSH IV (08:26)
[2024-08-30 12:00] VITALS: BP 128/50
[2024-08-30 12:13] VITALS: BMI 26.5
[2024-08-30 12:19] LABS: Glucose - Point of Care 196 mg/dl (70-99)
--- NOTE | 2024-08-30 14:37 | W.PN.HOSP.TC ---
Today's Communication/Plan
-
DC home
More than 30 minutes spent in discharge including
Final examination of the patient
Summarizing hospital stay
Instructions for continuing care to all relevant caregivers
Preparation of discharge records, prescriptions, and referral forms
Total time spent (in minutes): 33mins
Assessment / Plan
Assessment / Plan
# Acute on chronic HFpEF exacerbation
-Transition to PO
-S/p metolazone
-Ins and outs
-Daily weights
-Keep K greater than 4
-Keep magnesium greater than 2
-Monitored on telemetry
-Cardiology following
Acute bronchitis, likely underlying COPD however not formulary diagnosed
-Steroids p.o. should be continued for additional 2days
-MDIs ATC
-Neb treatments
-Incentive spirometer
-As needed antitussive
-Check FLu and Covid
HAGMA
-Resolved
Stage IV CKD
-Baseline cr 2.4-2.5, slightly worse today, likely secondary to overdiuresis
-Monitor UOP
-Avoid Nephrotoxins and hypotension
-Repeat BMP in the a.m.
--Will stop Losartan
----Per daughter renal function was significantly higher then 2.5 and her proofer black and white was aware
Simple right renal cyst
Complex left renal cyst vs renal mass 2.2cm
--Outpt Uro follow up
---Discussed with Ms. Mina and her daughter over the phone
Anemia of chronic disease
-Low iron level, high ferritin, likely
-Will DC Oral Iron
-Hgb stbale without evidence of acute bleeding
Hyperkalemia due to CKD and hyperglycemia
C/w Bumex
s/p Lokelma Lokelma
Hypervolemic Hyponatremia
-Fluid restrict
Essential hypertension
-Continue losartan, amlodipine, labetalol, hydralazine
Hyperlipidemia
-Continue statin
Type 2 diabetes, complicated by hyperglycemia
Uncontrolled. Add Lantus and pre-meal insulin
Decrease dose of steroid
Resume glipizide
-Insulin sliding scale
-BG Goal 140-180
-CCDiet
-Accuchecks
GERD
-Continue Protonix
DNR/DNI
DVT prophylaxis�heparin
Cardiac & diabetic diet
Anticipated Discharge: Today
Subjective/Interval History
-
Date of Service: August 30, 2024
Seen and examined. No new complaints. No acute overnight events
Objective Data
-
Labs:
Laboratory Results
08/30/24
06:15
WBC 14.2 H
Hgb 8.3 L
Hct 23.6 L
Plt Count 403 H
Sodium 129 L
Potassium 4.0
Chloride 92 L
Carbon Dioxide 22
BUN 75 H
Creatinine 2.5 H
Glucose 149 H
Calcium 8.0 L
Vital Signs:
Vital Signs
Temp Pulse Resp BP Pulse Ox
97.9 F 82 16 131/55 95
08/30/24 07:20 08/30/24 08:25 08/30/24 07:20 08/30/24 08:25 08/30/24 08:17
I&O
08/29/24 08/30/24 08/31/24
06:59 06:59 06:59
Intake Total 720 / 720 720 / 720
Output Total 1325 / 1325 1800 / 1800
Balance -605 / -605 -1080 / -1080
Physical Exam
-
General: Well Developed and Well Nourished
HEENT: Normocephalic and Atraumatic
Respiratory: Clear to Auscultation
Cardiac: Regular Rhythm, S1/S2 and Murmur
GI: Soft, Nontender, Nondistended and Normal Bowel Sounds
Skin: Warm
Neuro: Awake, Alert, Oriented and AO x 3
Psych: Calm
--- NOTE | 2024-08-30 14:37 | W.DCSUMMARY ---
Discharge Summary
Discharge Data
Date of Admission: 08/25/24
Date of Discharge: 08/30/24
-
Pending Results: No
Hospital Course
84 female history of hypertension hyperlipidemia CHF stage IV CKD diabetes
Presented with worsening cough shortness of breath. Chest x-ray that showed pulmonary edema along with bilateral pleural effusions. BNP which was 12,700. Therefore, admitted for heart failure exacerbation with potential of acute bronchitis. 2D
echocardiogram demonstrated a EF of 55 to 60% with stage II diastolic dysfunction. Evaluated by cardiology. Recommended IV diuresis. Kidney function bumped to 2.8 and diuretics were held. Renal bladder ultrasound was obtained that demonstrated
right simple cyst, left 2.2 complex cyst versus solid mass with some debris in the bladder. Due to creatinine being consistently 2.5/2.8 in the hospital it was decided after speaking with cardiology to discontinue losartan 100 mg as this could
adversely affect kidney function even further and it would be unclear as to if it was still having renal protective properties.
-If gains more than 3 pounds in 1 day or 5 pounds in 5 days take 1 additional Bumex tablet. Please wear compression stocking while awake and remove while sleeping
Because of the cough and the high white count COVID and influenza was checked. This was negative. Was afebrile throughout the hospitalization therefore low concern for bacterial pneumonia. White count that peaked at 17.2 however this was believed
to be related to steroids and was coming down on the day of discharge.
It was recommended to follow-up with nephrology, cardiology, pulmonary and PCP.
CXR
IMPRESSION:
1. Mild pulmonary edema.
2. Small bilateral pleural effusions.
RBUS
IMPRESSION:
1. No sonographic evidence for hydronephrosis.
2. Large simple right renal cyst.
3. Indeterminate isoechoic lesion of the left midpole measuring 2.2 cm, which may represent a complex cyst or solid mass.
4. Mild debris in the urinary bladder lumen.
2d echo
CONCLUSIONS
Normal biventricular size and systolic function without regional wall motion
abnormality.
Stage II diastolic dysfunction suggestive of abnormal relaxation and increased
filling pressures.
Aortic sclerosis.
Moderate tricuspid regurgitation with moderate pulmonary hypertension.
No prior study available for comparison.
Discharge Plan
-
Patient Disposition: Home (Routine Discharge)
Discharge Diagnosis/Procedures: HFpEF exacterbation
Condition: Fair
Diet: Low Sodium, 2 Gram Sodium, No added salt and Restrict fluids to 48 oz
Activity: As tolerated
Driving Restrictions: As prior to admission
Activity Restrictions/Additional Instructions:
Presented with worsening cough shortness of breath. Chest x-ray that showed pulmonary edema along with bilateral pleural effusions. BNP which was 12,700. Therefore, admitted for heart failure exacerbation with potential of acute bronchitis. 2D
echocardiogram demonstrated a EF of 55 to 60% with stage II diastolic dysfunction. Evaluated by cardiology. Recommended IV diuresis. Kidney function bumped to 2.8 and diuretics were held. Renal bladder ultrasound was obtained that demonstrated
right simple cyst, left 2.2 complex cyst versus solid mass with some debris in the bladder. Due to creatinine being consistently 2.5/2.8 in the hospital it was decided after speaking with cardiology to discontinue losartan 100 mg as this could
adversely affect kidney function even further and it would be unclear as to if it was still having renal protective properties.
-If gains more than 3 pounds in 1 day or 5 pounds in 5 days take 1 additional Bumex tablet. Please wear compression stocking while awake and remove while sleeping
Because of the cough and the high white count COVID and influenza was checked. This was negative. Was afebrile throughout the hospitalization therefore low concern for bacterial pneumonia. White count that peaked at 17.2 however this was believed
to be related to steroids and was coming down on the day of discharge.
It was recommended to follow-up with nephrology, cardiology, pulmonary, urology and PCP.
CXR
IMPRESSION:
1. Mild pulmonary edema.
2. Small bilateral pleural effusions.
RBUS
IMPRESSION:
1. No sonographic evidence for hydronephrosis.
2. Large simple right renal cyst.
3. Indeterminate isoechoic lesion of the left midpole measuring 2.2 cm, which may represent a complex cyst or solid mass.
4. Mild debris in the urinary bladder lumen.
2d echo
CONCLUSIONS
Normal biventricular size and systolic function without regional wall motion
abnormality.
Stage II diastolic dysfunction suggestive of abnormal relaxation and increased
filling pressures.
Aortic sclerosis.
Moderate tricuspid regurgitation with moderate pulmonary hypertension.
No prior study available for comparison.
Instructions: Chronic kidney disease, Acute bronchitis in adults, Heart failure with preserved ejection fraction, *PCP/Other Blowing Engineer Heart Failure Instructions
Referrals:
Aaron Campos DO [Non-Admitting Privileges] - in one to two weeks
Juanito Ledbetter MD [Active] - in three to four weeks
Jordin Puri MD [Non-Admitting Privileges] - in two weeks
Bishnu Bond MD [Active] - in one month
UNKNOWN - PT NOT,INTERVIEWE [Family Provider] -
Prescriptions:
New
prednisone 10 mg Tablet
10 mg PO DAILY 2 Days Qty: 2 0RF
Continued
labetalol 200 mg Tablet
200 mg PO BID
atorvastatin [Lipitor] 80 mg Tablet
80 mg PO QPM
bumetanide 2 mg Tablet
2 mg PO BID
psyllium Packet
1 packet PO DAILY
amlodipine [Norvasc] 10 mg Tablet
10 mg PO DAILY
pantoprazole [Protonix] 40 mg Tablet,Delayed Release (Dr/Ec)
40 mg PO DAILY
ferrous sulfate 325 mg (65 mg iron) Tablet
325 mg PO DAILY
gabapentin 300 mg Capsule
300 mg PO HS
glipizide 5 mg Tablet
5 mg PO DAILY
magnesium oxide 250 mg magnesium Tablet
250 mg PO DAILY
cholecalciferol (vitamin D3) [Vitamin D3] 25 mcg (1,000 unit) Tablet
25 mcg PO DAILY
coQ10 (ubiquinol) 100 mg Capsule
300 mg PO DAILY
Discontinued
losartan 100 mg Tablet
100 mg PO DAILY
Discharge Orders:
Discharge Patient (As Directed); Ordered 08/30/24
Ordered By: Luis Burton
Discharge Date and Time
Print Language: VIET[place]ESE
== END 2024-08-30 16:19 | disposition home health service (06) | DRG 291 ==
LOC: 4 EAST ACU 16:09
PROVIDERS: Emergency Medicine; Internal Medicine; Nurse Practitioner; ADMITTING PHYSICIAN Hospitalist; ATTENDING PHYSICIAN Hospitalist; CONSULT PHYSICIAN Internal Medicine Cardiovascular Disease; EMERGENCY PHYSICIAN Emergency Medicine
DX: I13.0 Hypertensive heart and chronic kidney disease with heart failure and stage 1 through stage 4 chronic kidney disease, or unspecified chronic kidney disease (principal); I50.33 Acute on chronic diastolic (congestive) heart failure; N18.4 Chronic kidney disease, stage 4 (severe); E87.20 Acidosis, unspecified; E78.00 Pure hypercholesterolemia, unspecified; E11.22 Type 2 diabetes mellitus with diabetic chronic kidney disease; Z79.84 Long term (current) use of oral hypoglycemic drugs; T38.0X5A Adverse effect of glucocorticoids and synthetic analogues, initial encounter; D72.829 Elevated white blood cell count, unspecified; N28.1 Cyst of kidney, acquired; I70.0 Atherosclerosis of aorta; I27.20 Pulmonary hypertension, unspecified; I08.3 Combined rheumatic disorders of mitral, aortic and tricuspid valves; Z79.899 Other long term (current) drug therapy; J20.9 Acute bronchitis, unspecified; K21.9 Gastro-esophageal reflux disease without esophagitis; Z66 Do not resuscitate; Z87.891 Personal history of nicotine dependence; D64.9 Anemia, unspecified; D63.1 Anemia in chronic kidney disease
CPT/HCPCS: 71046; 76770; 80048; 80053; 81003; 81015; 82570; 82728; 82805; 82962; 83036; 83540; 83880; 84300; 85025; 85027; 87502; 87811; 93005; 93306; 94640; 96374; 97161; 97166; 99285

== ENCOUNTER 2024-12-12 15:11 | Inpatient (IN) | payer MEDICARE, SELFPAY ==
[2024-12-12] VITALS (8 sets, daily range): BP systolic 113–139; BP diastolic 49–71; BMI 25.8; BMI 26.2
[2024-12-12 11:48] LABS: % Basophils 0.2 % (0-2); % Eosinophils 4.1 % (0-6); % Immature Granulocytes 2.2 % (0-0.5); % Lymphocytes 5.3 % (20.5-51.1); % Monocytes 7.7 % (1.7-9.3); % Neutrophils 80.5 % (42.2-75.2); Absolute Eosinophils 0.5 10^3/uL (0-0.7); Absolute Immature Granulocytes 0.3 10^3/uL (0-0.05); Absolute Lymphocytes 0.6 10^3/uL (1.2-3.4); Absolute Monocytes 0.9 10^3/uL (0.1-0.6); Hematocrit 24.1 % (37.0-47.0); Hemoglobin 8.5 g/dL (12.0-16.0); Mean Corp Hgb Conc. 35.3 g/dL (33.0-37.0); Mean Corpuscular Hgb 29.7 pg (27.0-31.0); Mean Corpuscular Volume 84.3 fL (81.0-99.0); Mean Platelet Volume 9.9 fL (7.4-10.4); Nucleated Red Blood Cells % 0 %; Platelet Count 228 10^3/uL (130-400); Red Blood Cell Count 2.86 10^6/uL (4.20-5.40); White Blood Cell Count 11.2 10^3/uL (4.8-10.8)
[2024-12-12 12:12] LABS: Blood Urea Nitrogen 109 mg/dl (7-17); Calcium 7.5 mg/dl (8.4-10.2); Carbon Dioxide 16 mmol/L (22-30); Chloride 90 mmol/L (98-107); Estimated Creatinine Clearance 9 ml/min; Glucose 211 mg/dl (70-99); NT-proBNP > 27000 pg/ml; Sodium 125 mmol/L (135-145); eGFR 10.72
[2024-12-12] MEDS: NSS 1000 IV (12:35)
--- NOTE | 2024-12-12 12:38 | ED.GENMED ---
History of Present Illness
General
Chief Complaint: Breathing Problem
Time Seen by Provider: 12/12/24 11:34
History of Present Illness
History of Present Illness:
84-year-old female with history of CHF, hypertension, CKD, hyperlipidemia, diabetes presenting to the emergency department for persistent cough and fatigue. Patient notes that she was admitted for 6 days at [facility] for pneumonia, was
discharged 2 days ago. She reports that she still feeling very weak and has been coughing, and is now having some right-sided rib pain. She reports dyspnea with exertion. Patient lives at home by herself. No report of any fall or trauma. No
recent fevers. Daughter at bedside notes that she has recently gained 10 pounds since discharge from hospital, known history of heart failure. Patient denying any chest pain. No additional history obtained at this time
Phy Exam
Physical Exam
Physical Exam:
General: Well-appearing, no clinical signs of dehydration, nontoxic and in no acute distress
HEENT: protecting airway
Neck: appears supple
CV: Normal heart rate, regular rhythm
Resp: No accessory muscle use, no increased work of breathing, lungs clear to auscultation bilaterally. Mild tenderness to the right anterior and inferior rib angles. No crepitus
Abd: Soft and non-distended, no tenderness to palpation
Extremities: No deformities, no swelling, no erythema
Neuro: alert, no focal neurologic deficit
: deferred
Rectal: deferred
Psych: Normal affect
Skin: Intact
Scores
Heart Failure Risk
Heart Failure Risk Score: Not Applicable
Course
Orders/Labs/Results
Orders:
Orders
12/12/24 11:33
Electrocardiogram (*1) Urgent
Reason for Study: Shortness of Breath
EKG- Treatment ONCE
CR Chest - 2 Views Urgent
Comment:
Reason For Exam: SOB
12/12/24 11:39
Basic Metabolic Panel Urgent
Complete Blood Count/With Diff Urgent
Pro-BNP [NT-proBNP] Urgent
12/12/24 12:17
COVID-19 Antigen Urgent
Source: Nasal Swab
Comprehensive Metabolic Panel Urgent
Influenza A+B Rapid Molecular Urgent
PABLO Source: Nasal Swab
Specimen Description:
12/12/24 12:20
0.9% Sodium Chloride 1000 ml [Nss] 1,000 ml IV BOLUS
12/12/24 14:23
Cefepime HCl [Maxipime] 2,000 mg IV NOW STA
12/12/24 14:55
Furosemide [Lasix] 40 mg IV NOW STA
12/12/24 14:56
Admit/Transfer Patient As Directed
Co-Sign Provider:
Level of Care: Inpatient admission
Assign to:: Telemetry
Physician / Group: nam finley
Diagnosis: CHF/pneumonia
Reason for Telemetry: Subacute Heart Failure
Date to Stop Telemetry: 12/14/24
Time to Stop Telemetry: 11:00
Reason for Hospitalization: CHF exacerbation
pneumonia
Expected length of stay greater than two midnights?: Yes
ELOS- Estimated Length of Stay in days: 3
I certify the patient meets the requirements for IP care: Yes
PRN Pain Medication Management As Directed
May give lesser potent ordered pain med per pt: Yes
preference::
Protocol:: Medication orders for pain may be administered in a
manner that supports deferring to patient preference
when the pt is:
- Requesting an ordered lesser potent pain medication.
Least to most potent pain medications are defined
as: acetaminophen < NSAID < tramadol < opioids
(morphine, oxycodone, hydromorphone).
- Requesting a lesser dose of the same medication IF
ORDERED.
- Requesting a less intrusive route of administration
if both routes are prescribed by the provider (PO <
IV).
12/12/24 14:58
Code Status As Directed
Resuscitation Status: Do not resuscitate
Reached after discussion with pt or family/Healthcare POA: Yes
DNR Bracelet Application ONCE
12/12/24 15:00
Vancomycin [Vancocin] 1,500 mg 0.9% Sodium Chloride 500 ml [Nss] 500 ml IV NOW
12/14/24 11:00
DC Protocol for Telemetry ONCE
Abnormal Lab Results
12/12/24 12/12/24
11:39 12:17
WBC 11.2 H 10^3/uL
(4.8-10.8)
RBC 2.86 L 10^6/uL
(4.20-5.40)
Hgb 8.5 L g/dL
(12.0-16.0)
Hct 24.1 L %
(37.0-47.0)
RDW 17.0 H %
(11.5-14.5)
Abs Immat Gran (auto) 0.3 H 10^3/uL
(0-0.05)
Absolute Neuts (auto) 9.0 H 10^3/uL
(1.4-6.5)
Absolute Lymphs (auto) 0.6 L 10^3/uL
(1.2-3.4)
Absolute Monos (auto) 0.9 H 10^3/uL
(0.1-0.6)
Immature Gran % 2.2 H %
(0-0.5)
Neutrophils % 80.5 H %
(42.2-75.2)
Lymphocytes % 5.3 L %
(20.5-51.1)
Sodium 125 L mmol/L 124 L mmol/L
(135-145) (135-145)
Chloride 90 L mmol/L 91 L mmol/L
(98-107) (98-107)
Carbon Dioxide 16 L mmol/L 16 L mmol/L
(22-30) (22-30)
BUN 109 H* mg/dl 108 H* mg/dl
(7-17) (7-17)
Creatinine 3.9 H mg/dL 3.9 H mg/dL
(0.6-1.0) (0.6-1.0)
Glucose 211 H mg/dl 208 H mg/dl
(70-99) (70-99)
Calcium 7.5 L mg/dl 7.5 L mg/dl
(8.4-10.2) (8.4-10.2)
Total Protein 5.7 L g/dl
(6.3-8.2)
Albumin 3.1 L g/dl
(3.5-5.0)
12/12/24 11:39
12/12/24 12:17
Vital Signs
Initial and Last Documented VS:
Initial Vital Signs
BP
114/51
12/12/24 11:24
Last Documented Vital Signs
Temp Pulse Resp BP Pulse Ox
97.3 F 55 21 125/53 93
12/12/24 12:15 12/12/24 15:30 12/12/24 15:30 12/12/24 13:00 12/12/24 15:15
MDM/Problems Addressed
MDM/Problems Addressed:
84-year-old female with history of diabetes, hypertension, hyperlipidemia, CHF, CKD presenting for cough, shortness of breath, fatigue. Vital signs on arrival are significant for bradycardia.
On exam, patient is resting comfortably, no acute distress. She does appear fatigued, however nontoxic. She is in no respiratory distress with benign cardiac and pulmonary exam. Does have some reproducible tenderness to the right rib region.
Suspected muscular strain from persistent coughing due to recent pneumonia. Suspect that patient's symptoms could be from persistent infection from pneumonia versus deconditioned state after hospitalization versus dehydration. Plan for laboratory
analysis, chest x-ray imaging. No significant signs of volume overload at this time.
12:30 - Labs show mild leukocytosis. However chemistry panel is concerning for hyponatremia and acute on chronic renal disease. Starting IV fluids for suspected dehydration component.
14:00 -chest x-ray is consistent with pleural effusion and concern for pneumonia. Will start patient again on antibiotics with plan for admission given her dehydration, hyponatremia, failure of outpatient therapy. Patient will be admitted to
hospitalist service
*EKG
Interpreted by ED Provider?: Yes
EKG Intrepretation Date: 12/12/24
EKG Intrepretation Time: 12:41
Interpretation: normal
Comparison EKG: changes noted (david)
Heart Rate: 49
Rate: bradycardiac
Rhythm: sinus
Bigfoot: normal axis
Interval: normal interval
QRS Pattern: normal QRS
Ischemia: no ischemia
*Critical Care Note
Total Time (30-74mins, 75-104mins- exclusive of procedures): Not Applicable
ED Attending Note
-
Portions of this chart may have been created with voice recognition software.� Occasional wrong word or��sound alike� substitutions may have occurred due to the inherent limitations of voice recognition software.
Discharge Plan
Departure
Patient Disposition: Admit
Date of Disposition: 12/12/24
Time of Disposition: 14:32
Presentation/result/management discussed w/ accepting MD/DO: Hospitalist
Patient with high blood pressure during this ER visit?: No
Condition: Fair
Discharge Problem:
Acute hyponatremia, Acute on chronic kidney failure, Pneumonia involving right lung
Interventions
Interventions:
*Risk Screen - Suicide Last Done: 12/12/24 11:31
*General Assessment Last Done: 12/12/24 11:27
*Neglect/Abuse Screening Last Done: 12/12/24 11:31
*ED- Fall Risk Assessment Last Done: 12/12/24 11:31
*ED COVID-19 Vaccine History Last Done: 12/12/24 11:31
ED- Cardiac Assessment Last Done: 12/12/24 11:44
ED- Pulmonary Assessment Last Done: 12/12/24 11:44
[2024-12-12 12:50] LABS: ALT (SGPT) 17 U/L (0-35); AST (SGOT) 15 U/L (14-36); Albumin 3.1 g/dl (3.5-5.0); Alkaline Phosphatase 116 U/L (38-126); Blood Urea Nitrogen 108 mg/dl (7-17); Calcium 7.5 mg/dl (8.4-10.2); Carbon Dioxide 16 mmol/L (22-30); Chloride 91 mmol/L (98-107); Estimated Creatinine Clearance 9 ml/min; Glucose 208 mg/dl (70-99); Potassium 4.8 mmol/L (3.5-5.1); Sodium 124 mmol/L (135-145); Total Bilirubin 0.5 mg/dl (0.2-1.3); Total Protein 5.7 g/dl (6.3-8.2); eGFR 10.72
[2024-12-12 13:04] LABS: COVID-19 Antigen Negative (Negative)
--- NOTE | 2024-12-12 14:33 | HPS.HSE ---
Family Physician
-
Family Physician: Isauro Howard
Chief Complaint
-
fatiuge weakness
History of Present Illness
84-year-old female with history of CHF, hypertension, CKD, hyperlipidemia, diabetes presenting to the emergency department for persistent cough and fatigue. Patient notes that she was admitted for 6 days at [facility] for pneumonia, was
discharged 2 days ago on oral abx. she finished one abx. She reports that she still feeling very weak and has been coughing, and is now having some right-sided rib pain, shoulder pain from coughing. denied HOLMAN, dizzy or syncope. denied abdominal
pain,n,v,d. denied dysuria or hematuria. she noticed slight LE edema and gained 10lbs since the discharge.
On arrival WBCs 11.2, BNP >27,000, COVID flu negative. Chest x-ray concerning for moderate right pleural effusion. Mild right lower lobe pneumonia. Patient received cefepime and Vanco in ER. Normal saline in ER. Admitting for further management
Medical History
Past Medical History
Past Medical History: Reports Other
Additional Past Medical History:
hypertension, hyperlipidemia, CHF, stage IV CKD, diabetes
Past Surgical History: Reports None and Other
Social History
Tobacco: Former Smoker
Alcohol: None
Drug: None
Personal: Single
Living: Alone
Family History
Family History: Not pertinent
Allergies / Home Medications
Allergies reflects when Allergies were last updated in [facility].
Home Medications with original date entered in [facility]
Allergy/Medication List:
Allergies
Allergy/AdvReac Type Severity Reaction Status Date / Time
No Known Allergies Allergy Unverified 08/25/24 15:21
Home Medications
amlodipine 10 mg tablet (Norvasc) 10 mg PO DAILY 08/25/24
atorvastatin 80 mg tablet (Lipitor) 80 mg PO QPM 08/25/24
bumetanide 2 mg tablet 2 mg PO BID 08/25/24
cholecalciferol (vitamin D3) 25 mcg (1,000 unit) tablet (Vitamin D3) 25 mcg PO DAILY 08/25/24
coQ10 (ubiquinol) 100 mg capsule 300 mg PO DAILY 08/25/24
ferrous sulfate 325 mg (65 mg iron) tablet 325 mg PO DAILY 08/25/24
gabapentin 300 mg capsule 300 mg PO HS 08/25/24
labetalol 200 mg tablet 200 mg PO BID 08/25/24
magnesium oxide 400 mg PO DAILY 08/25/24
pantoprazole 40 mg tablet,delayed release (Protonix) 40 mg PO DAILY 08/25/24
psyllium 1 packet PO DAILY 08/25/24
acetaminophen 325 mg tablet (Tylenol) 650 mg PO DAILYPRN PRN mild pain 12/12/24
ascorbic acid (vitamin C) 500 mg tablet (Vitamin C) 500 mg PO DAILY 12/12/24
diphenhydramine 25 mg-acetaminophen 500 mg tablet (Acetaminophen PM) 2 tab PO HS 12/12/24
loratadine 10 mg tablet 10 mg PO DAILY 12/12/24
Review of Systems
-
Constitutional: Reports Weight Gain and Fatigue
EENT: Reports No Symptoms
Respiratory: Reports Cough
Cardiac: Reports No Symptoms
Abdomen/GI: Reports No Symptoms
: Reports No Symptoms
Musculoskeletal: Reports Edema
Skin: Reports No Symptoms
Neurological: Reports No Symptoms and Weakness
Endocrine: Reports No Symptoms
Hematologic/Lymphatic: Reports No Symptoms
Psych: Reports No Symptoms
Physical Exam
Vital Signs
Vital Signs
Temp Pulse Resp BP Pulse Ox
97.3 F 50 15 125/53 92
12/12/24 12:15 12/12/24 13:45 12/12/24 13:45 12/12/24 13:00 12/12/24 13:45
Physical Exam
General: Well Developed, Well Nourished and No Apparent Distress
HEENT: NormoCephalic, Moist mucous membranes and Atraumatic
Respiratory: Clear
Cardiac: S1/S2 and Regular Rhythm; No Murmur or Rub
GI: Soft, Non Tender, Non Distended and Normal Bowel Sounds; No Organomegaly
Rectal: Deferred by Provider
Musculoskeletal: No Clubbing, No Cyanosis and Other (Bilateral lower extremities edema)
Skin: No Rash
Neuro: Nonfocal/grossly intact
Laboratory Results
-
12/12/24 11:39
12/12/24 12:17
Laboratory Results
PT Cancelled 12/12/24 11:33
INR Cancelled 12/12/24 11:33
Total Bilirubin 0.5 mg/dl (0.2-1.3) 12/12/24 12:17
AST 15 U/L (14-36) 12/12/24 12:17
ALT 17 U/L (0-35) 12/12/24 12:17
Alkaline Phosphatase 116 U/L (38-126) 12/12/24 12:17
Data Reviewed
-
Diagnostic Radiology: Report Reviewed by me
Lab Data: Labs Reviewed by me
Impression/Plan
-
# Generalized weakness, fatigue, cough, short of breath likely from right lower lobe pneumonia/right pleural effusion
- WBC 11.2
- COVID-negative, flu 9
- Chest x-ray with moderate right pleural effusion progressed. Findings concerning for developing mild right lower lobe pneumonia
- IV cefepime and Vanco continued
- Tylenol as needed for fever or pain
- PT/OT consult
-IR consulted for pleural effusion
-Mucinex prn cough
# CHF exacerbation
- Bumex iv continued
- Echo with EF of 55-60 percentage
- Strict JAELYN, daily weight, fluid restriction
- Cardiology consulted
# Anemia of chronic disease
- Hemoglobin stable at 8.5
- No active bleeding
-ferrous sulfate
- Continue to monitor
# Chronic hyponatremia
- Sodium 124
- Continue to monitor
# anion gap Metabolic acidosis/ERICK on CKD stage IV likely from fluid overload
- Creatinine 3.9
- Diuretics
- BMP in a.m.
-nephrology consulted
#essential hypertension
-Continue Norvasc and labetalol
#Hyperlipidemia
-Continue statin
Type 2 diabetes with hyperglycemia complicated by hyperglycemia
#neuropathy
-sliding scale
-gabapentin continued
#GERD
-Continue Protonix
DNR/DNI
DVT prophylaxis�heparin
[2024-12-12] MEDS: MAXIPIME 2000 MG IV (14:34)
--- NOTE | 2024-12-12 15:09 | W.PN.UPDATE ---
Update Note
Progress Note Update
This note serves as an addendum to the H&P by leaf conditioner DIAN
Lizzy MAURI
HPI
84F HX Chr HFpEF, HTN, CKD4, DM, HX chr hyponatremia pw weakness, fatigue, cough.
- he was admitted at [facility] for 6 days for PNA then discharged 2 days ago
- she is feeling more weak and SO
CXR shows R-pleural effusion RLL pneumonia so giving abx
Vital Signs
Temp Pulse Resp BP Pulse Ox
97.3 F 50 15 125/53 92
12/12/24 12:15 12/12/24 13:45 12/12/24 13:45 12/12/24 13:00 12/12/24 13:45
PE
Gen: nontoxic and in no acute distress
HEENT:anicteric
Neck: supple
Lungs: CTA
Cor: RRR S1 S2
Abdomen: Soft and non-distended, no tenderness to palpation
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
MS: Giovany 3 + edema
Psych:nl mood
Abnormal Lab Results
12/12/24 12/12/24
11:39 12:17
WBC 11.2 H
RBC 2.86 L
Hgb 8.5 L
Hct 24.1 L
RDW 17.0 H
Abs Immat Gran (auto) 0.3 H
Absolute Neuts (auto) 9.0 H
Absolute Lymphs (auto) 0.6 L
Absolute Monos (auto) 0.9 H
Immature Gran % 2.2 H
Neutrophils % 80.5 H
Lymphocytes % 5.3 L
Sodium 125 L 124 L
Chloride 90 L 91 L
Carbon Dioxide 16 L 16 L
BUN 109 H* 108 H*
Creatinine 3.9 H 3.9 H
Glucose 211 H 208 H
Calcium 7.5 L 7.5 L
Total Protein 5.7 L
Albumin 3.1 L
CXR
- Moderate right pleural effusion. Progressed.
- Findings concerning for developing mild right lower lobe pneumonia.
- Moderate elevation of the right hemidiaphragm. Progressed.
EKG
Low atrial rhythm
CANNOT RULE OUT ANTERIOR INFARCT , AGE UNDETERMINED
ABNORMAL ECG
WHEN COMPARED WITH ECG OF 25-AUG-2024 15:23,
VENT. RATE HAS DECREASED BY 29 BPM
Confirmed by IRIS OVERTON MD ([id number]) on 12/12/2024 12:46:55 PM
08/28/24 TTE
Normal biventricular size and systolic function without regional wall motion abnormality.
Stage II diastolic dysfunction suggestive of abnormal relaxation and increased
filling pressures.
Aortic sclerosis.
Moderate tricuspid regurgitation with moderate pulmonary hypertension.
No prior study available for comparison.
ASSESSMENT & PLAN
Mod Rt sided pleural effusion presumed parapneumonic effusion
Underlying Rt LLL PNA
- Recently on ABx for PNA at OSH - would not BCx
- c/w IV vanco and CFP
- IR consult for eval on R sided thoracentesis ( Rxtic and Dxtic )
[id number] HFpEF: somewhat wt is stable
Echo from 07/11/24: EF 55%, mild aortic sclerosis with mild stenosis (peak/mean 14/9 mmhg)
- IV Bumex daily
- F/U IOs, daily Wt
- CBC card consult
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
HX Stage IV CKD with baselien cr mid 2s
ACDz with stable Hgb mid 8s
- avoid any nephrotoxic agents
- Trend Cr in response to IV Diuresis
- Renal consult
Chr hyponatremia suspect hypervolemic - monitor with diuresis. fluid restrict
- await Renal evaluation
Essential HTN
- c/w amlodipine, labetalol, hydralazine
Hyperlipidemia
- on statin
T2DM
- Holding Glipizide due to risk of hypoglycemia with low eGFR
- add ISS low
GERD
-continue Protonix
DVT Px: SQH
DNR
IP TLM
[2024-12-12] MEDS: VANCOCIN 530 MG IV (15:23)
[2024-12-12] MEDS: BUMEX 2 MG IV (15:39)
[2024-12-12] MEDS: LIDOCAINE 4% PATCH 1 PATCH TOPICAL (15:41)
--- NOTE | 2024-12-12 15:48 | PHA.VAN.IN ---
Assessment
- Assessment
Renal Function: Unknown baseline (3.9)
Concomitant Antimicrobials: Cefepime x1 dose
Plan
- Plan
Initial / Loading Dose: Vanco 1500mg loading dose administered 12/12/24 1523
Maintenance Regimen: Dose by level
Monitoring: R level 12/13/24 0600
Pharmacokinetics Vancomycin I
- -
Patient Age: 84
Patient Sex: Female
Vancomycin Day #: 1
Indication: Pulmonary/Respiratory
Requesting Provider: PANCHO
Pertinent Antimicrobial Allergies:
No known drug allergies
Height / Weight:
Height 5 ft 5 in
Actual Weight 70.4 kg
Pertinent Past Medical History: T2DM, CHF
- Vital Signs / Lab Results
Temp Pulse Resp BP Pulse Ox
97.3 F 60 21 137/57 93
12/12/24 12:15 12/12/24 15:39 12/12/24 15:30 12/12/24 15:39 12/12/24 15:15
Lab Results - Hematology
12/12/24
11:39
WBC 11.2 H
Lab Results - Chemistry
12/12/24 12/12/24
11:39 12:17
BUN 109 H* 108 H*
Creatinine 3.9 H 3.9 H
Estimated Creat Clear 9 9
Albumin Cancelled 3.1 L
Microbiology Results
12/12/24 12:17 Influenza Types A & B (JERRY) - Final
Nasal Swab Negative for Influenza A & B, NAAT
Negative results must be combined with clinical observations
and patient history.
Nucleic Acid Amplification test (NAAT)performed on the
[employer] platform.
[2024-12-12 16:46] LABS: Glucose - Point of Care 207 mg/dl (70-99)
--- NOTE | 2024-12-12 17:16 | CON.CAR ---
Addendum entered and electronically signed by Feroz Grant MD 12/12/24 17:57:
I saw and examined the patient.
The VEHICLE SERVICE ATTENDANT's note was reviewed and I agree with the note.
84-year-old woman with a history of HFpEF, CKD, diabetes and hypertension who was discharged from [facility] after recent admission with pneumonia patient presented with cough and fatigue. She says she just generally did not feel well.
Patient noted to have ERICK with creatinine up to 3.9 , metabolic acidosis and a bicarbonate of 16. Sodium 124 chest x-ray shows right-sided pleural effusion and right-sided pneumonia. Multiple factors may contribute to this patient feeling poorly
including, pneumonia, pleural effusion, ERICK, metabolic acidosis, hyponatremic natremia and anemia. And anemia. Patient currently breathing comfortably on room air. proBNP is elevated but difficult to interpret in the setting of ERICK.
# pneumonia and pleural effusion. Patient with recent hospitalization for pneumonia unclear how this x-ray compares to previous. Unclear if patient has inadequately treated pneumonia and has had progression of infiltrate and effusion.
-Antibiotics as directed by primary team
#ERICK. Monitor closely.
- Await input from nephrology consult
- Will need additional records including labs from [place] and list of antibiotics and meds from discharge
- Treatment of metabolic acidosis and hyponatremia as directed by primary team and nephrology.
# Hyponatremia. Treatment as directed by primary team and nephrology
# Treatment of anemia as directed by primary team
# HFpEF. Patient with history of HFpEF. Although she says her weight is normally 140 her weight is currently similar to her last hospitalization.. proBNP elevated but difficult to assess in setting of ERICK.
- Can continue current diuretic and monitor renal function closely.
- Monitor respiratory status.
- Will await additional input from nephrology
Original Note:
Consultation
Consultation Request
Date/Time Consultation Requested: 12/12/2024 16:25
Date/Time Consultation Performed: 12/12/2024 17:15
Requesting Provider: PAOLA Grimm
Performing Provider: PAOLA Reeder for Dr. Grant
Reason for Consultation: Acute on chronic heart failure
Medical History
-
History of Present Illness:
Kera Mina is an 84-year-old female (known to Dr. Aaron Campos, her primary product marketing coordinator), with chronic HFpEF, hypertension, dyslipidemia, chronic kidney disease, type 2 diabetes, and GERD with recent hospitalization at [facility] for
treatment of pneumonia who presents with fatigue and weakness. She was discharged 2 days ago from [facility] on oral antibiotics for pneumonia. She had a 6-day admission. She presented with fatigue, weakness, lower extremity edema, and
weight gain. She was found have a proBNP >27,000, CXR with moderate right pleural effusion, mild right lower lobe pneumonia, hyponatremia with a sodium of 125, and an acute kidney injury with a creatinine of 3.9. Cardiology was consulted for heart
failure management.
Past Medical History
Past Medical History: CHF, GERD, HTN, Hypercholesterolemia and Renal Failure (CKD)
Social History
Tobacco: Former Smoker
Allergies / Home Medications
Allergy/AdvReac Type Severity Reaction Status Date / Time
No Known Allergies Allergy Unverified 08/25/24 15:21
�Medication �Instructions �Recorded �Confirmed �Type
amlodipine 10 mg tablet (Norvasc) 10 mg PO DAILY 08/25/24 12/12/24 History
atorvastatin 80 mg tablet (Lipitor) 80 mg PO QPM 08/25/24 12/12/24 History
bumetanide 2 mg tablet 2 mg PO BID 08/25/24 12/12/24 History
cholecalciferol (vitamin D3) 25 25 mcg PO DAILY 08/25/24 12/12/24 History
mcg (1,000 unit) tablet (Vitamin
D3)
coQ10 (ubiquinol) 100 mg capsule 300 mg PO DAILY 08/25/24 12/12/24 History
ferrous sulfate 325 mg (65 mg 325 mg PO DAILY 08/25/24 12/12/24 History
iron) tablet
gabapentin 300 mg capsule 300 mg PO HS 08/25/24 12/12/24 History
labetalol 200 mg tablet 200 mg PO BID 08/25/24 12/12/24 History
magnesium oxide 400 mg PO DAILY 08/25/24 12/12/24 History
pantoprazole 40 mg tablet,delayed 40 mg PO DAILY 08/25/24 12/12/24 History
release (Protonix)
psyllium 1 packet PO DAILY 08/25/24 12/12/24 History
acetaminophen 325 mg tablet 650 mg PO DAILYPRN PRN mild pain 12/12/24 12/12/24 History
(Tylenol)
ascorbic acid (vitamin C) 500 mg 500 mg PO DAILY 12/12/24 12/12/24 History
tablet (Vitamin C)
diphenhydramine 25 2 tab PO HS 12/12/24 12/12/24 History
mg-acetaminophen 500 mg tablet
(Acetaminophen PM)
loratadine 10 mg tablet 10 mg PO DAILY 12/12/24 12/12/24 History
Review of Systems
-
History Source: Patient
All other systems: Negative unless noted
Constitutional: Weight Gain and Fatigue
EENT: No Symptoms
Respiratory: Cough
Cardiac: No Symptoms
Abdomen/GI: No Symptoms
: No Symptoms
Musculoskeletal: Edema
Skin: No Symptoms
Neurological: Weakness
Endocrine: No Symptoms
Hematologic/Lymphatic: No Symptoms
Physical Exam
Vital Signs
Temp Pulse Resp BP Pulse Ox
97.4 F 60 18 137/51 95
12/12/24 16:53 12/12/24 16:53 12/12/24 16:53 12/12/24 16:53 12/12/24 16:53
Lab Results
Qun-P-Yffpilcannh Pept > 39000 pg/ml 12/12/24 11:39
Physical Exam
General: Well Developed, Well Nourished, No Apparent Distress and Comfortable
HEENT: Normocephalic, Anicteric and Moist Mucous Membranes
Respiratory: Non Labored Respirations
Cardiac: S1/S2, Regular Rhythm and Murmur (I/ soft BRANDI)
Breast: Deferred by me
GI: Soft, Non Tender, Non Distended and Normal Bowel Sounds
Rectal: Deferred by Provider
Genito-urinary: No Costovertebral Tender
Musculoskeletal: Edema (trace LE)
Skin: Warm and Dry
Neuro: AO x 3
Hematologic/Lymphatic: No Lymphadenopathy
Psych: Calm
Impression / Plan
-
I/P: 84F with chronic HFpEF, hypertension, dyslipidemia, chronic kidney disease, type 2 diabetes, and GERD with recent hospitalization at [facility] for treatment of pneumonia who presents with fatigue and weakness.
Outpatient product marketing coordinator: Dr. Aaron Campos
HFpEF, acute on chronic
- proBNP >27,000 with a moderate right-sided pleural effusion
- IR consulted by primary service for thoracentesis
- Not a significant change in prior weights, up about 1 kg per our records, she thinks her dry weight is about 63 kg
- Diuresis with intravenous bumetanide, this requires intensive monitoring, of note she required metolazone 2.5mg last admission
- Trend daily weight, I/O, and BMP with diuresis
- HF education
RLL PNA, per primary
Sinus bradycardia, on labetalol, telemetry stable
Hyponatremia, appears chronic, follow with diuresis
ERICK on CKD, with acidosis, nephrology consulted
Mild aortic stenosis
Moderate tricuspid regurgitation
Hypertension, chronic, continue current medical therapy
DATA:
Transthoracic echocardiogram, 08/28/2024:
Normal biventricular size and systolic function without regional wall motion
abnormality.
Stage II diastolic dysfunction suggestive of abnormal relaxation and increased
filling pressures.
Aortic sclerosis.
Moderate tricuspid regurgitation with moderate pulmonary hypertension.
No prior study available for comparison.
Data Reviewed
-
EKG: Report Reviewed by me (Sinus bradycardia, rate 49)
Radiology: Report Reviewed by me (Moderate right pleural effusion, progressed. Mild opacification of the right lower lobe lung field concerning for pneumonia)
Labs: Labs Reviewed by me
Old Records: Reviewed
[2024-12-12] MEDS: NOVOLOG FLEXPEN-LOW RESISTANCE 2 UNITS SC (17:27)
[2024-12-12] MEDS: LIPITOR 80 MG PO (17:29)
[2024-12-12 19:59] LABS: Hematocrit 24.8 % (37.0-47.0)
[2024-12-12] MEDS: TRANDATE 200 MG PO (20:04)
[2024-12-12] MEDS: MUCINEX 600 MG PO (20:04)
[2024-12-12] MEDS: HEPARIN 5000 UNITS SC (20:04)
[2024-12-12 20:12] LABS: Glucose 184 mg/dl (70-99); LDH 164 U/L (120-246)
[2024-12-12 21:35] LABS: Glucose - Point of Care 226 mg/dl (70-99)
[2024-12-12] MEDS: NEURONTIN 300 MG PO (21:38)
[2024-12-12] MEDS: BENADRYL 50 MG PO (21:38)
[2024-12-12] MEDS: TYLENOL 1000 MG PO (21:38)
[2024-12-13] VITALS (8 sets, daily range): BP systolic 68–150; BP diastolic 43–65; PULSE 49–93; BMI 25.2
[2024-12-13] MEDS: TESSALON PERLES 100 MG PO (01:00)
--- NOTE | 2024-12-13 06:51 | W.PN.HOSP.TC ---
Today's Communication/Plan
-
cont abx
diuresis as per nephro cardio
monitor orthostatic vitals
blood pressure control
PT/OT
Assessment / Plan
Assessment / Plan
Physical Exam
General: no acute distress appears comfortable at this time
HEENT: NormoCephalic, Moist mucous membranes and Atraumatic
Respiratory: right sided basilar crackles
Cardiac: S1/S2 and Regular Rhythm; No Murmur or Rub
GI: Soft, Non Tender, Non Distended and Normal Bowel Sounds; No Organomegaly
Musculoskeletal: No Clubbing, No Cyanosis, No edema
Skin: No Rash
Neuro: Nonfocal/grossly intact
84F HFpEF HTN CKD4 HLD DM here for PNA possible Heart Failure and worsening Kidney Function ERICK vs progression CKD
# Generalized weakness, fatigue, cough, short of breath likely from right lower lobe pneumonia/right pleural effusion
#MRSA screen positive
- COVID/Flu neg
- Chest x-ray with moderate right pleural effusion progressed. Findings concerning for developing mild right lower lobe pneumonia
- IV cefepime and Vanco continued renally dosed
- Tylenol as needed for fever or pain
- PT/OT consult
-IR consulted for thoracentesis Rt pleural effusion however procedure was aborted as effusion was too small
-Mucinex prn cough
-follow cultures
# Possible Acute on Chronic vs simply Chronic HFpEF
- Bumex iv diuresis placed on hold as per Nephro
- ECHO appreciated EF 51% worsening MR TR and Pulm htn in comparison to babak ECHO 07/2024
- Strict JAELYN, daily weight, fluid restriction
- Cardiology consult appreciated
# Anemia of chronic disease
- H&H stable
- No active bleeding
- cont home ferrous sulfate
- Continue to monitor
# Chronic hyponatremia
-124 on admission since improved
- Continue to monitor
# anion gap Metabolic acidosis/ERICK on CKD stage IV vs progression CKD
-nephrology consult appreciated no acute need for HD at this time, hold diuretics
#essential hypertension
#Dizziness suspect symptomatic orthostatic hypotension
-Continue Norvasc and labetalol with holding parameters
-monitor orthostatic vitals
#Hyperlipidemia
-Continue statin
Type 2 diabetes with hyperglycemia complicated by hyperglycemia
#neuropathy
-sliding scale
-gabapentin continued
#GERD
-Continue Protonix
DNR/DNI
DVT prophylaxis�heparin
discussed with patient and patient's daughter Jodi
I spent a total of 50 minutes with the patient or on the floor. More than 50% of this time involved counseling and coordination of care.
Anticipated Discharge: 24 - 48 hours
Subjective/Interval History
-
Date of Service: December 13, 2024
Sitting up comfortably in chair no acute distress. Reporting dizziness/lightheadedness. Stable respiratory status on room air.
Objective Data
-
Labs:
Laboratory Results
12/12/24 12/13/24
19:50 06:00
WBC Pending
Hgb Pending
Hct 24.8 L Pending
Plt Count Pending
Sodium Pending
Potassium Pending
Chloride Pending
Carbon Dioxide Pending
BUN Pending
Creatinine Pending
Glucose 184 H Pending
Calcium Pending
Vital Signs:
Vital Signs
Temp Pulse Resp BP Pulse Ox
97.6 F 58 20 129/58 91
12/13/24 03:16 12/13/24 03:16 12/13/24 03:16 12/13/24 03:16 12/13/24 03:16
I&O
12/11/24 12/12/24 12/13/24
06:59 06:59 06:59
Intake Total 960 / 960
Output Total 450 / 450
Balance 510 / 510
[2024-12-13 07:52] LABS: Glucose - Point of Care 149 mg/dl (70-99)
[2024-12-13] MEDS: NOVOLOG FLEXPEN-LOW RESISTANCE SC (07:57)
[2024-12-13] MEDS: BUMEX 2 MG IV (07:58)
[2024-12-13] MEDS: CLARITIN 10 MG PO (07:59)
[2024-12-13] MEDS: MAG-TAB SR 84 MG PO (07:59)
[2024-12-13] MEDS: PROTONIX 40 MG PO (08:00)
[2024-12-13] MEDS: VITAMIN D3 (cholecalciferol) 25 MCG PO (08:00)
[2024-12-13] MEDS: MUCINEX 600 MG PO ×2 (08:00→21:40)
[2024-12-13] MEDS: FEOSOL 325 MG PO (08:01)
[2024-12-13] MEDS: LIDOCAINE 4% PATCH 1 PATCH TOPICAL (08:01)
[2024-12-13] MEDS: HEPARIN 5000 UNITS SC ×2 (08:01→21:40)
[2024-12-13] MEDS: METAMUCIL, KONSYL 1 PACKET PO (08:01)
[2024-12-13] MEDS: TRANDATE 200 MG PO ×2 (08:06→21:40)
[2024-12-13] MEDS: NORVASC 10 MG PO (08:06)
--- NOTE | 2024-12-13 08:56 | W.PN.CD ---
Today's Communication / Plan
-
IV diuresis
monitor Cr
nephro input pending
Impression / Plan
-
I/P: 84F with chronic HFpEF, hypertension, dyslipidemia, chronic kidney disease, type 2 diabetes, and GERD with recent hospitalization at [facility] for treatment of pneumonia who presents with fatigue and weakness.
Outpatient pamphlet distributor: Dr. Aaron Campos
HFpEF, acute on chronic
- proBNP >27,000 with a moderate right-sided pleural effusion
- IR consulted by primary service for thoracentesis
- Not a significant change in prior weights, up about 1 kg per our records, she thinks her dry weight is about 63 kg, 140 lbs, down to about 151 lbs today
- Cont IV bumex for now
- nephro to see
- Trend daily weight, I/O, and BMP with diuresis
- HF education
RLL PNA, per primary
Sinus bradycardia, on labetalol, telemetry stable
Hyponatremia, appears chronic, follow with diuresis
ERICK on CKD, with acidosis, nephrology consulted
- Cr 3.9 December 12
Mild aortic stenosis
Moderate tricuspid regurgitation
Hypertension, chronic, continue current medical therapy
DATA:
Transthoracic echocardiogram, 08/28/2024:
Normal biventricular size and systolic function without regional wall motion
abnormality.
Stage II diastolic dysfunction suggestive of abnormal relaxation and increased
filling pressures.
Aortic sclerosis.
Moderate tricuspid regurgitation with moderate pulmonary hypertension.
No prior study available for comparison.
Physical Exam
Vital Signs/Labs
Vital Signs
Temp Pulse Resp BP Pulse Ox
97.6 F 58 20 129/58 91
12/13/24 03:16 12/13/24 03:16 12/13/24 03:16 12/13/24 03:16 12/13/24 03:16
12/12/24 12/13/24 12/14/24
06:59 06:59 06:59
Actual Weight 151 lb 7 oz
PT Cancelled 12/12/24 11:33
INR Cancelled 12/12/24 11:33
12/12/24
11:39
Yyv-P-Ufgcqzvozxv Pept > 05558
Physical Exam
Constitutional: No acute distress and Comfortable
EENT: Anicteric
Cardiovascular: Rhythm & rate is regular and Pedal edema is absent
Respiratory: Respiratory effort normal and Crackles Present (soft b/l decreased b/s b/l bases)
GI: Soft
Neuro/Psych: Alert and Oriented
Data Reviewed
-
Date of Service: December 13, 2024
EKG: Tracing Personally Visualized and interpreted (sr)
Echo: Report Reviewed by me
Labs: Labs Reviewed by me
[2024-12-13 09:04] LABS: Hematocrit 25.4 % (37.0-47.0); Hemoglobin 8.6 g/dL (12.0-16.0); Mean Corp Hgb Conc. 33.9 g/dL (33.0-37.0); Mean Corpuscular Hgb 28.9 pg (27.0-31.0); Mean Corpuscular Volume 85.2 fL (81.0-99.0); Platelet Count 283 10^3/uL (130-400); Red Blood Cell Count 2.98 10^6/uL (4.20-5.40); Red Cell Dist. Width 17.2 % (11.5-14.5); White Blood Cell Count 11.8 10^3/uL (4.8-10.8)
[2024-12-13 09:43] LABS: Vancomycin Random 15.1 ug/ml
[2024-12-13 10:14] LABS: Blood Urea Nitrogen 107 mg/dl (7-17); Calcium 7.8 mg/dl (8.4-10.2); Carbon Dioxide 18 mmol/L (22-30); Chloride 95 mmol/L (98-107); Estimated Creatinine Clearance 9 ml/min; Glucose 135 mg/dl (70-99); HDL Cholesterol 18 mg/dl; LDL Cholesterol, Calculated 7.99999 mg/dl; Magnesium 2.3 mg/dl (1.6-2.3); Sodium 129 mmol/L (135-145); Total Cholesterol < 50 mg/dl (50-199); Triglyceride 120 mg/dl (10-149); Very Low Density Lipoprotein 24 mg/dl (0-30)
[2024-12-13 10:22] LABS: Glycohemoglobin (HgbA1c) 6.7 % (4.0-5.6)
--- NOTE | 2024-12-13 11:11 | PHA.VAN.FU ---
Vancomycin Assessment / Plan
- Assessment
Renal Function: SCR Increasing (3.9->4.2)
WBC's are: Stable (11.8)
Concomitant Antimicrobials: Cefepime
- Assessment - Therapeutic Drug Monitoring
Random Level: 15.1 ~29hrs after 1500mg loading dose
- Dosing Plan
Dosing by Level: Hold off on dosing today
- Monitoring Plan
Random Level: 12/14/24 0600
MRSA Screen: Ordered per protocol
- Follow Up
Pharmacy will continue to follow.
Vancomycin Follow UP
- -
Patient Age: 84
Patient Sex: Female
Vancomycin Day #: 2
Indication: Pulmonary/Respiratory
Requesting Provider: PANCHO
Pertinent Antimicrobial Allergies:
No known drug allergies
Height / Weight:
Height 5 ft 5 in
Actual Weight 68.691 kg
Pertinent Past Medical History: T2DM, CHF
- Vital Signs / Lab Results
Temp Pulse Resp BP Pulse Ox
98.0 F 68 16 143/57 95
12/13/24 08:55 12/13/24 08:55 12/13/24 08:55 12/13/24 08:55 12/13/24 08:55
Lab Results - Hematology
12/12/24 12/13/24
11:39 08:16
WBC 11.2 H 11.8 H
Lab Results - Chemistry
12/12/24 12/12/24 12/13/24
11:39 12:17 08:16
BUN 109 H* 108 H* 107 H*
Creatinine 3.9 H 3.9 H 4.2 H*
Estimated Creat Clear 9 9 9
Albumin Cancelled 3.1 L
Microbiology Results
12/12/24 19:58 Legionella Urinary Antigen - Final
Urine Negative for Legionella pneumophila Serogroup 1 antigen.
A negative result does not rule out the possiblity of
Legionella infection due to other serogroups or species of
Legionella. Clinical correlation is recommended.
Streptococcus pneumoniae Antigen (M - Final
Negative for Streptococcus pneumoniae antigen.
A negative result does not exclude infection with
Streptococcus pneumoniae. Clinical correlation is
recommended.
12/12/24 12:17 Influenza Types A & B (JERRY) - Final
Nasal Swab Negative for Influenza A & B, NAAT
Negative results must be combined with clinical observations
and patient history.
Nucleic Acid Amplification test (NAAT)performed on the
[employer] platform.
Therapeutic Drug Monitoring
Random Vancomycin 15.1 ug/ml 12/13/24 08:16
--- NOTE | 2024-12-13 11:47 | W.CON.NEPH ---
Consultation
-
Date/Time Consultation Requested: December 12, 2024 at 4 PM
Date/Time Consultation Performed: December 13, 2024 at 11 AM
Requesting Provider: Dr. Antonio
Performing Provider: Dr. Ricketts
Reason for Consultation: Acute on chronic kidney disease
Medical History
-
Chief Complaint: Acute on chronic kidney disease
History of Present Illness:
84-year-old female with history of CHF, hypertension, CKD, hyperlipidemia, diabetes presenting to the emergency department for persistent cough and fatigue. Patient notes that she was admitted for 6 days at [facility] for pneumonia, was
discharged 2 days ago on oral abx. she finished one abx. She reports that she still feeling very weak and has been coughing
Renal consult for acute on chronic kidney disease and hyponatremia.
Reviewed all records from [facility]. Her creatinine peaked at 4.2 on December 09.
follows with nephrology in [place]
Past Medical History
CHF, hypertension, CKD, hyperlipidemia, diabetes
Social History
Tobacco: Non-Smoker
Alcohol: None
Family History
Family History: Not Pertinent
Allergies / Home Medications
Allergy/AdvReac Type Severity Reaction Status Date / Time
No Known Allergies Allergy Unverified 08/25/24 15:21
�Medication �Instructions �Recorded �Confirmed �Type
amlodipine 10 mg tablet (Norvasc) 10 mg PO DAILY 08/25/24 12/12/24 History
atorvastatin 80 mg tablet (Lipitor) 80 mg PO QPM 08/25/24 12/12/24 History
bumetanide 2 mg tablet 2 mg PO BID 08/25/24 12/12/24 History
cholecalciferol (vitamin D3) 25 25 mcg PO DAILY 08/25/24 12/12/24 History
mcg (1,000 unit) tablet (Vitamin
D3)
coQ10 (ubiquinol) 100 mg capsule 300 mg PO DAILY 08/25/24 12/12/24 History
ferrous sulfate 325 mg (65 mg 325 mg PO BID 08/25/24 12/13/24 History
iron) tablet
gabapentin 300 mg capsule 300 mg PO HS 08/25/24 12/12/24 History
labetalol 200 mg tablet 200 mg PO BID 08/25/24 12/12/24 History
magnesium oxide 400 mg PO DAILY 08/25/24 12/12/24 History
pantoprazole 40 mg tablet,delayed 40 mg PO Q12H 08/25/24 12/13/24 History
release (Protonix)
psyllium 1 packet PO DAILY 08/25/24 12/12/24 History
acetaminophen 325 mg tablet 650 mg PO DAILYPRN PRN mild pain 12/12/24 12/12/24 History
(Tylenol)
ascorbic acid (vitamin C) 500 mg 1,000 mg PO BID 12/12/24 12/13/24 History
tablet (Vitamin C)
diphenhydramine 25 2 tab PO HS 12/12/24 12/12/24 History
mg-acetaminophen 500 mg tablet
(Acetaminophen PM)
loratadine 10 mg tablet 10 mg PO DAILY 12/12/24 12/12/24 History
azithromycin 500 mg tablet 500 mg PO DAILY PNA 12/13/24 12/13/24 History
cefuroxime axetil 500 mg tablet 500 mg PO BID PNA 12/13/24 12/13/24 History
cetirizine 10 mg chewable tablet 10 mg PO DAILY 12/13/24 12/13/24 History
(Zyrtec)
Review of Systems
-
Cough dizziness
All other systems: Negative unless noted
Physical Exam
Vital Signs
Vital Signs
Temp Pulse Resp BP Pulse Ox
98.0 F 68 16 143/57 95
12/13/24 08:55 12/13/24 08:55 12/13/24 08:55 12/13/24 08:55 12/13/24 08:55
Lab Results
WBC 11.8 10^3/uL (4.8-10.8) H 12/13/24 08:16
RBC 2.98 10^6/uL (4.20-5.40) L 12/13/24 08:16
Hgb 8.6 g/dL (12.0-16.0) L 12/13/24 08:16
Hct 25.4 % (37.0-47.0) L 12/13/24 08:16
Plt Count 283 10^3/uL (130-400) D 12/13/24 08:16
Sodium 129 mmol/L (135-145) L 12/13/24 08:16
Potassium 5.0 mmol/L (3.5-5.1) 12/13/24 08:16
Chloride 95 mmol/L (98-107) L 12/13/24 08:16
Carbon Dioxide 18 mmol/L (22-30) L 12/13/24 08:16
BUN 107 mg/dl (7-17) H* 12/13/24 08:16
Creatinine 4.2 mg/dL (0.6-1.0) H* 12/13/24 08:16
eGFR 9.80 12/13/24 08:16
Glucose 135 mg/dl (70-99) H 12/13/24 08:16
Calcium 7.8 mg/dl (8.4-10.2) L 12/13/24 08:16
Yul-N-Hzogyminazd Pept > 92937 pg/ml 12/12/24 11:39
Albumin 3.1 g/dl (3.5-5.0) L 12/12/24 12:17
Physical Exam
General no acute distress
HEENT no cephalic atraumatic extraocular muscle intact no scleral icterus no JVD neck supple
lungs rhonchi throughout lung rhodes
heart regular S1-S2 positive
abdomen soft nontender positive bowel sounds
extremities no edema pulses present bilateral
Neurologically nonfocal alert and oriented x 3
Skin no lesions no abrasions no petechiae
Psych normal affect no bizarre behavior
Data Reviewed
-
Radiology: Image Personally Visualized and interpreted
Labs: Labs Reviewed by me, Discussed with Physician and Discussed with Patient
Assessment/Plan
-
84-year-old female with history of CHF, hypertension, CKD, hyperlipidemia, diabetes presenting to the emergency department for persistent cough and fatigue. Patient notes that she was admitted for 6 days at [facility] for pneumonia, was
discharged 2 days ago on oral abx. she finished one abx. She reports that she still feeling very weak and has been coughing
Renal consult for acute on chronic kidney disease and hyponatremia.
Reviewed all records from [facility]. Her creatinine peaked at 4.2 on December 09.
follows with nephrology in [place]
Baseline creatinine 2.5 as of August 2024.
Sodium 125 on admission= 129 on consult
Impression.
Acute on chronic kidney disease stage IV.
Acute on chronic hyponatremia.
CHF�compensated.
Pneumonia.
Hypertension.
Plan.
No overt volume overload.
She was discharged from [facility] with creatinine 4.
I would hold diuretics now.
Continue antibiotics.
Check weights daily.
Check bladder scan.
No acute need for dialysis at this time.
Check urine indices
[2024-12-13 13:00] LABS: Urine Albumin 3+ (Neg - Trace); Urine Bilirubin Negative (Negative); Urine Character Clear (Clear); Urine Color Yellow; Urine Glucose Negative (Negative); Urine Ketone Negative (Negative); Urine Leukocyte 3+ (Negative); Urine Nitrite Negative (Negative); Urine Occult Blood 1+ (Negative); Urine Urobilinogen Negative (Neg - 1+)
[2024-12-13 13:10] LABS: Glucose - Point of Care 249 mg/dl (70-99)
[2024-12-13 13:25] LABS: Urine Bacteria Few (Negative); Urine Red Blood Cell 0-2 /HPF (0-2); Urine White Cell 21-25 /HPF (0-5)
[2024-12-13] MEDS: NOVOLOG FLEXPEN-LOW RESISTANCE 2 UNITS SC ×2 (13:32→18:03)
[2024-12-13 13:41] LABS: TSH Reflex To Free T4 1.52 uIU/ml (0.47-4.68)
[2024-12-13 16:36] LABS: Urine Sodium 21 mmol/L (30-90)
[2024-12-13 16:58] LABS: Glucose - Point of Care 236 mg/dl (70-99)
--- NOTE | 2024-12-13 16:59 | CM ---
restaurant floor manager reviewed patient's chart and met with patient and patient lives alone in a 2 story home with one step to enter, patient is independent with adl's and used a walker with ambulation.
PCP: Isauro
Pharmacy [facility].
Plan; Home when stable.
--- NOTE | 2024-12-13 17:11 | PTCARENOTE ---
pt transferred to [phone] from [phone] this afternoon. Her assesment remained consistant from this morning. Pt resting comfotably, call [facility]ison in reach
[2024-12-13] MEDS: MAXIPIME 1000 MG IV (18:04)
[2024-12-13] MEDS: STERILE WATER FOR INJECTION 10 ML IV (18:04)
[2024-12-13] MEDS: LIPITOR 80 MG PO (18:05)
[2024-12-13] MEDS: TYLENOL 1000 MG PO (21:40)
[2024-12-13] MEDS: BENADRYL 50 MG PO (21:40)
[2024-12-13] MEDS: NEURONTIN 300 MG PO (21:40)
[2024-12-13 21:41] LABS: Glucose - Point of Care 183 mg/dl (70-99)
[2024-12-14] VITALS (9 sets, daily range): BP systolic 105–145; BP diastolic 43–85; PULSE 63; O2SAT 95; BMI 25.5
[2024-12-14] MEDS: BenGay-Like 1 APPLIC TOPICAL ×5 (00:02→23:23)
[2024-12-14 01:00] LABS: Glucose - Point of Care 185 mg/dl (70-99)
[2024-12-14] MEDS: LIDOCAINE 4% PATCH 1 PATCH TOPICAL ×2 (01:39→08:41)
--- NOTE | 2024-12-14 03:58 | PTCARENOTE ---
Patient had an episode of confusion around 0115. She wanted to turn off the burners and was pointing in her bed, wanted global technical writer to put out stacks of money to help someone buy a car, and wanted to get dressed for the day. Blood sugar is 185, pulse ox
is 95% on room air, BP 107/57, temp 97.3 RR 16. RACKING MACHINE OPERATOR notified, discussed HS meds pt received.
--- NOTE | 2024-12-14 06:47 | W.PN.HOSP.TC ---
Today's Communication/Plan
-
cont abx as per ID
hold diuresis as per nephro cardio
PT/OT
blood pressure control
monitor orthostatic vitals
Assessment / Plan
Assessment / Plan
Physical Exam
General: no acute distress appears comfortable at this time
HEENT: NormoCephalic, Moist mucous membranes and Atraumatic
Respiratory: right sided basilar crackles
Cardiac: S1/S2 and Regular Rhythm; No Murmur or Rub
GI: Soft, Non Tender, Non Distended and Normal Bowel Sounds; No Organomegaly
Musculoskeletal: No Clubbing, No Cyanosis, No edema
Skin: No Rash
Neuro: Nonfocal/grossly intact
84F HFpEF HTN CKD4 HLD DM here for PNA possible Heart Failure and worsening Kidney Function ERICK vs progression CKD
# Generalized weakness, fatigue, cough, short of breath likely from right lower lobe pneumonia/right pleural effusion
#MRSA screen positive
- COVID/Flu neg
- Chest x-ray with moderate right pleural effusion progressed. Findings concerning for developing mild right lower lobe pneumonia
- ID eval appreciated IV cefepime and Vanco narrowed to ceftriaxone
- Tylenol as needed for fever or pain
- PT/OT consult appreciated SNF vs home PT
-IR consulted for thoracentesis Rt pleural effusion however procedure was aborted as effusion was too small
-Mucinex prn cough
# Possible Acute on Chronic vs simply Chronic HFpEF
- Bumex iv diuresis placed on hold as per Nephro
- ECHO appreciated EF 51% worsening MR TR and Pulm htn in comparison to babak ECHO 07/2024
- Strict JAELYN, daily weight
- Cardiology consult appreciated fluid restriction liberalized
# Anemia of chronic disease
- H&H stable
- No active bleeding
- cont home ferrous sulfate
- Continue to monitor
# Chronic hyponatremia
-124 on admission since improved
- Continue to monitor
# anion gap Metabolic acidosis/ERICK on CKD stage IV vs progression CKD
-nephrology consult appreciated no acute need for HD at this time, hold diuretics
-patient has made clear that she would not want HD even if indicated
#essential hypertension
#Dizziness suspect symptomatic orthostatic hypotension
-Continue Norvasc and labetalol with holding parameters
-monitor orthostatic vitals
#Hyperlipidemia
-Continue statin
Type 2 diabetes with hyperglycemia complicated by hyperglycemia
#neuropathy
-sliding scale
-gabapentin continued
#GERD
-Continue Protonix
DNR/DNI
DVT prophylaxis�heparin
discussed with patient
I spent a total of 50 minutes with the patient or on the floor. More than 50% of this time involved counseling and coordination of care.
Anticipated Discharge: 24 - 48 hours
Subjective/Interval History
-
Date of Service: December 14, 2024
No acute distress, appears comfortable. Notes improvement in dizziness. Frustrated with multiple hospitalizations in the last year.
Objective Data
-
Labs:
Laboratory Results
12/14/24
06:00
WBC Pending
Hgb Pending
Hct Pending
Plt Count Pending
Sodium Pending
Potassium Pending
Chloride Pending
Carbon Dioxide Pending
BUN Pending
Creatinine Pending
Glucose Pending
Calcium Pending
Vital Signs:
Vital Signs
Temp Pulse Resp BP Pulse Ox
97.5 F 67 16 140/48 97
12/14/24 03:25 12/14/24 03:25 12/14/24 03:25 12/14/24 03:25 12/14/24 03:25
I&O
12/12/24 12/13/24 12/14/24
06:59 06:59 06:59
Intake Total 960 / 960 1320 / 1320
Output Total 450 / 450
Balance 510 / 510 1320 / 1320
[2024-12-14 07:55] LABS: Glucose - Point of Care 182 mg/dl (70-99)
[2024-12-14 07:58] LABS: Hematocrit 24.1 % (37.0-47.0); Hemoglobin 8.3 g/dL (12.0-16.0); Mean Corp Hgb Conc. 34.4 g/dL (33.0-37.0); Mean Corpuscular Hgb 29.2 pg (27.0-31.0); Mean Corpuscular Volume 84.9 fL (81.0-99.0); Mean Platelet Volume 9.9 fL (7.4-10.4); Platelet Count 270 10^3/uL (130-400); Red Blood Cell Count 2.84 10^6/uL (4.20-5.40); Red Cell Dist. Width 17.2 % (11.5-14.5); White Blood Cell Count 9.8 10^3/uL (4.8-10.8)
[2024-12-14 08:15] LABS: Vancomycin Random 12.5 ug/ml
[2024-12-14] MEDS: NOVOLOG FLEXPEN-LOW RESISTANCE 1 UNITS SC ×2 (08:39→17:37)
[2024-12-14] MEDS: MUCINEX 600 MG PO ×2 (08:40→19:49)
[2024-12-14] MEDS: CLARITIN 10 MG PO (08:40)
[2024-12-14] MEDS: HEPARIN 5000 UNITS SC ×2 (08:40→19:49)
[2024-12-14] MEDS: MAG-TAB SR 84 MG PO (08:41)
[2024-12-14] MEDS: FEOSOL 325 MG PO (08:41)
[2024-12-14] MEDS: TRANDATE 200 MG PO ×2 (08:42→19:49)
[2024-12-14] MEDS: PROTONIX 40 MG PO (08:42)
[2024-12-14] MEDS: NORVASC 10 MG PO (08:42)
[2024-12-14] MEDS: METAMUCIL, KONSYL 1 PACKET PO (08:42)
[2024-12-14] MEDS: VITAMIN D3 (cholecalciferol) 25 MCG PO (08:43)
[2024-12-14 08:50] LABS: Blood Urea Nitrogen 107 mg/dl (7-17); Calcium 7.7 mg/dl (8.4-10.2); Carbon Dioxide 17 mmol/L (22-30); Chloride 96 mmol/L (98-107); Estimated Creatinine Clearance 8 ml/min; Glucose 137 mg/dl (70-99); Magnesium 2.2 mg/dl (1.6-2.3); Phosphorus 6.9 mg/dl (2.5-4.5); Potassium 4.4 mmol/L (3.5-5.1); Sodium 128 mmol/L (135-145); eGFR 9.53
--- NOTE | 2024-12-14 09:05 | W.PN.CD ---
Today's Communication / Plan
-
Hold diuresis
Liberalize fluid restriction
Impression / Plan
-
I/P: 84F with chronic HFpEF, hypertension, dyslipidemia, chronic kidney disease, type 2 diabetes, and GERD with recent hospitalization at [facility] for treatment of pneumonia who presents with fatigue and weakness. Cardiology is consulted
due to concern for acute on chronic HFpEF.
Outpatient health administrator: Dr. Aaron Campos
ERICK on CKD
- Wonder if she had prerenal ERICK with recent pneumonia. BUN:Cr ratio >20
- Hold diuresis
- Trend Cr
- Nephrology following
HFpEF, chronic
- TTE/: LVEF 51%, stage II DD, mod MR, severe TR, PASP 68 (previously 54)
- proBNP >27,000 on admission but in the setting of CKD. Had small R pleural effusion but maybe parapneumonic. Weight stable from prior admissions. Overall examines euvolemic
- Hold Bumex
- Trend daily weight, I/O, and BMP with diuresis
- HF education
- Liberalize fluid restriction
RLL PNA
- Abx per primary
Sinus bradycardia, on labetalol, telemetry stable
Hyponatremia, appears chronic, follow with diuresis
Mild aortic stenosis
Moderate tricuspid regurgitation
Hypertension, chronic, continue current medical therapy
DATA:
Transthoracic echocardiogram, 08/28/2024:
Normal biventricular size and systolic function without regional wall motion
abnormality.
Stage II diastolic dysfunction suggestive of abnormal relaxation and increased
filling pressures.
Aortic sclerosis.
Moderate tricuspid regurgitation with moderate pulmonary hypertension.
No prior study available for comparison.
Subjective: Prosper out of sorts this morning. Cough is improved. No CV complaints. She is complaining about fluid restriction.
Physical Exam
Vital Signs/Labs
Vital Signs
Temp Pulse Resp BP Pulse Ox
97.3 F 70 18 145/58 95
04/17/25 07:00 12/14/24 07:00 12/14/24 07:00 12/14/24 07:00 12/14/24 07:00
12/13/24 12/14/24 12/15/24
06:59 06:59 06:59
Actual Weight 151 lb 7 oz 153 lb 3 oz
12/14/24 07:08
12/14/24 07:08
PT Cancelled 12/12/24 11:33
INR Cancelled 12/12/24 11:33
Magnesium 2.2 mg/dl (1.6-2.3) 12/14/24 07:08
Triglycerides 120 mg/dl (10-149) 12/13/24 08:16
LDL Cholesterol, Calc 7.90689 mg/dl 12/13/24 08:16
VLDL Cholesterol, Calc 24 mg/dl (0-30) 12/13/24 08:16
HDL Cholesterol 18 mg/dl 12/13/24 08:16
12/12/24
11:39
Fhx-U-Soldstyvcjz Pept > 75822
Physical Exam
Constitutional: No acute distress and Comfortable
Cardiovascular: Rhythm & rate is regular, Pedal edema present (1+ pitting edema to ankles bilaterally), S1S2 is normal and Murmur/rub/gallop absent
Respiratory: Respiratory effort normal and Lungs clear to auscul.
Data Reviewed
-
Date of Service: December 14, 2024
Medical Decision Making: Reviewed Test Results, Independent Historian Assessment, Test Interpretation and Review of Case with other Provider
EKG: Tracing Personally Visualized and interpreted
Echo: Report Reviewed by me
X-Ray/CT/US/MRI/NUC/PET: Report Reviewed by me
Labs: Labs Reviewed by me
--- NOTE | 2024-12-14 09:43 | PHA.VAN.FU ---
Vancomycin Assessment / Plan
- Assessment
Renal Function: SCR Increasing (4.3)
WBC's are: WNL (9.8)
Concomitant Antimicrobials: Cefepime
- Assessment - Therapeutic Drug Monitoring
Random Level: 12.5 ~23hrs after previous level of 15.1
- Dosing Plan
Dosing by Level: Hold off on dosing today (Level expected to remain >10 for over 24H based on current PK)
- Monitoring Plan
Random Level: 12/15/24 0600
- Follow Up
Pharmacy will continue to follow.
Vancomycin Follow UP
- -
Patient Age: 84
Patient Sex: Female
Vancomycin Day #: 3
Indication: Pulmonary/Respiratory
Requesting Provider: S Jesse
Pertinent Antimicrobial Allergies:
No known drug allergies
Height / Weight:
Height 5 ft 5 in
Actual Weight 69.485 kg
Pertinent Past Medical History: T2DM, CHF
- Vital Signs / Lab Results
Temp Pulse Resp BP Pulse Ox
97.3 F 70 18 145/58 95
12/14/24 07:00 12/14/24 08:42 12/14/24 07:00 12/14/24 08:42 12/14/24 07:00
Lab Results - Hematology
12/12/24 12/13/24 12/14/24
11:39 08:16 07:08
WBC 11.2 H 11.8 H 9.8
Lab Results - Chemistry
12/12/24 12/12/24 12/13/24
11:39 12:17 08:16
BUN 109 H* 108 H* 107 H*
Creatinine 3.9 H 3.9 H 4.2 H*
Estimated Creat Clear 9 9 9
Albumin Cancelled 3.1 L
12/14/24
07:08
BUN 107 H*
Creatinine 4.3 H*
Estimated Creat Clear 8
Albumin
Lab Results - Urine
12/13/24
10:08
Urine Nitrite Negative
Ur Leukocyte Esterase 3+ A
Urine WBC 21-25 A
Ur Squamous Epith Cells 11-15
Urine Bacteria Few A
Microbiology Results
12/13/24 11:44 Nasal Screen MRSA (PCR) - Final
Nose Staph aureus MRSA
12/12/24 19:58 Legionella Urinary Antigen - Final
Urine Negative for Legionella pneumophila Serogroup 1 antigen.
A negative result does not rule out the possiblity of
Legionella infection due to other serogroups or species of
Legionella. Clinical correlation is recommended.
Streptococcus pneumoniae Antigen (M - Final
Negative for Streptococcus pneumoniae antigen.
A negative result does not exclude infection with
Streptococcus pneumoniae. Clinical correlation is
recommended.
12/12/24 12:17 Influenza Types A & B (JERRY) - Final
Nasal Swab Negative for Influenza A & B, NAAT
Negative results must be combined with clinical observations
and patient history.
Nucleic Acid Amplification test (NAAT)performed on the
[employer] platform.
Therapeutic Drug Monitoring
Random Vancomycin 12.5 ug/ml 12/14/24 07:08
[2024-12-14 11:35] LABS: Glucose - Point of Care 297 mg/dl (70-99)
[2024-12-14] MEDS: NOVOLOG FLEXPEN-LOW RESISTANCE 3 UNITS SC (12:18)
--- NOTE | 2024-12-14 13:51 | CON.ID ---
Consultation
-
Date/Time Consultation Requested: 12/14/2024 1212
Date/Time Consultation Performed: 12/14/24 1323
Requesting Provider: Dr. Conway
Performing Provider: Dr. Birmingham
Reason for Consultation: Pneumonia
Chief Complaint / Past History
History of Present Illness
Kera Mina is an 84-year-old female with a significant past medical history of CHF and chronic kidney disease being evaluated at the request of Dr. Conway in regards to pneumonia. History is obtained from chart review, along with patient interview.
The patient reports that approximately 8 days ago she was admitted to [facility] and treated for pneumonia. During that hospitalization she developed ERICK, with a peak creatinine of 4.2 on 12/09. She reports that she was discharged
approximately 4 days ago, to continue with a course of Ceftin and Azithromycin.
She reports that she was doing well for approximately 1 day at home, where she lives alone, but then began to have increasing cough and fatigue. She also reported some right rib discomfort. She admits to GRAFF.
She denies any fevers or chills. She admits to ongoing cough which is noted to be dry and nonproductive. Ultimately she came back to the hospital when she found it difficult to get around. According to reviewed notes she has had a 10 pound weight
gain since her hospitalization.
In the emergency room she was not found to be febrile, but did have a low-grade white count.
Past History
Additional Past Medical History:
CHF
CKD stage IV
HLD
DM
Additional Past Surgical History:
Cholecystectomy
SHREYAS
Left foot ORIF secondary to fracture
Tonsillectomy
Allergy History:
No Known Allergies Allergy (Unverified 08/25/24 15:21)
Medications Reviewed: Yes
Current Antibiotics:
Vancomycin
Cefepime
Social History
Tobacco: Former Smoker
Alcohol: None
Drug: None
Personal: Single
Living: Alone
Employment: Retired
Review of Systems
Vital Signs
Temp Pulse Resp BP Pulse Ox
97.3 F 63 22 119/52 96
12/14/24 07:00 12/14/24 11:11 12/14/24 11:11 12/14/24 11:11 12/14/24 11:11
Physical Exam
Physical Exam
Constitutional: Comfortable, Chronically Ill and Non-toxic
Head: Normocephalic
Eyes: Pupils Equal, Pupils Round and No Conjunctival Hemorrhage
Oral: No Thrush and No Ulcers
Cardiovascular: Regular Rate and S1/S2; Negative S3/S4
Pulmonary: Wheezes, Coarse and Non Labored; Negative Rales
Gastrointestinal: Soft, Non Tender, Non Distended and Normal Bowel Sounds
Extremities: Negative Edema, Cyanosis or Erythema
Musculoskeletal: Negative Joint Swelling or Joint Effusion
Skin: Warm and Dry; Negative Rash or Jaundice
Neurological: Awake, Alert and Oriented
Psychological: Calm
.
Lab / Diagnostic Study Results
12/14/24 07:08
12/14/24 07:08
Abs Immat Gran (auto) 0.3 10^3/uL (0-0.05) H 12/12/24 11:39
Absolute Neuts (auto) 9.0 10^3/uL (1.4-6.5) H 12/12/24 11:39
Absolute Lymphs (auto) 0.6 10^3/uL (1.2-3.4) L 12/12/24 11:39
Absolute Monos (auto) 0.9 10^3/uL (0.1-0.6) H 12/12/24 11:39
Absolute Basos (auto) 0.0 10^3/uL (0-0.2) 12/12/24 11:39
Immature Gran % 2.2 % (0-0.5) H 12/12/24 11:39
Neutrophils % 80.5 % (42.2-75.2) H 12/12/24 11:39
Lymphocytes % 5.3 % (20.5-51.1) L 12/12/24 11:39
Monocytes % 7.7 % (1.7-9.3) 12/12/24 11:39
Eosinophils % 4.1 % (0-6) 12/12/24 11:39
Basophils % 0.2 % (0-2) 12/12/24 11:39
PT Cancelled 12/12/24 11:33
INR Cancelled 12/12/24 11:33
Urine WBC 21-25 /HPF (0-5) A 12/13/24 10:08
Ur Squamous Epith Cells 11-15 /LPF (Few) 12/13/24 10:08
Microbiology Results
Micro:
12/13/24 11:44 Nasal Screen MRSA (PCR) - Final
Nose Staph aureus MRSA
12/12/24 19:58 Legionella Urinary Antigen - Final
Urine Negative for Legionella pneumophila Serogroup 1 antigen.
Streptococcus pneumoniae Antigen (M - Final
Negative for Streptococcus pneumoniae antigen.
12/12/24 12:17 Influenza Types A & B (JERRY) - Final
Nasal Swab Negative for Influenza A & B, NAAT
Imaging:
12/12/24 CXR (2 view): Mild opacification of the right lower lung field above the mid hemidiaphragm concerning for developing pneumonia. No pneumothorax. Moderate right pleural effusion.
Assessment / Plan
Cough
Recent diagnosis of PNA ([facility]; discharged 4 days ago on cefdinir and Zithromax)
Elevated BNP
Leukocytosis; resolved
ERICK on CKD stage IV
CHF
HLD
DM
Recommendations:
X-ray reviewed. Difficult to interpret acuity of infiltrates given recent diagnosis of pneumonia at OSH.
Continue antibiotic coverage, although narrow to ceftriaxone.
Follow white count and temperature curve.
Check procalcitonin
--- NOTE | 2024-12-14 14:06 | W.PN.NEPH.PH ---
Today's Communication / Plan
-
Continue to hold diuretics
Assessment/Plan
-
84-year-old female with history of CHF, hypertension, CKD, hyperlipidemia, diabetes presenting to the emergency department for persistent cough and fatigue. Patient notes that she was admitted for 6 days at [facility] for pneumonia, was
discharged 2 days ago on oral abx. she finished one abx. She reports that she still feeling very weak and has been coughing
Renal consult for acute on chronic kidney disease and hyponatremia.
Reviewed all records from [facility]. Her creatinine peaked at 4.2 on December 09.
follows with nephrology in [place]
Baseline creatinine 2.5 as of August 2024.
Sodium 125 on admission= 129 on consult
Impression.
Acute on chronic kidney disease stage IV.
Acute on chronic hyponatremia.
CHF�compensated.
Pneumonia.
Hypertension.
Plan.
No overt volume overload.
She was discharged from [place] with creatinine 4.
Continue hold diuretics now.
Continue antibiotics.
Check weights daily.
No acute need for dialysis at this time.
I brought up the discussion of dialysis with the patient she adamantly stop me before I finished and said she absolutely would not want that
Continue with supportive care medical management
-
-
Date of Service: December 14, 2024
CC / HPI / ROS
-
Chief Complaint:
Acute on chronic kidney disease
History of Present Illness:
Presents with shortness of breath cough pneumonia and progressive CKD stage V
Review of Systems:
Comfortable no chest pain or shortness of breath
Labs
-
Labs:
WBC 9.8 10^3/uL (4.8-10.8) 12/14/24 07:08
RBC 2.84 10^6/uL (4.20-5.40) L 12/14/24 07:08
Hgb 8.3 g/dL (12.0-16.0) L 12/14/24 07:08
Hct 24.1 % (37.0-47.0) L 12/14/24 07:08
Plt Count 270 10^3/uL (130-400) 12/14/24 07:08
Sodium 128 mmol/L (135-145) L 12/14/24 07:08
Potassium 4.4 mmol/L (3.5-5.1) 12/14/24 07:08
Chloride 96 mmol/L (98-107) L 12/14/24 07:08
Carbon Dioxide 17 mmol/L (22-30) L 12/14/24 07:08
BUN 107 mg/dl (7-17) H* 12/14/24 07:08
Creatinine 4.3 mg/dL (0.6-1.0) H* 12/14/24 07:08
eGFR 9.53 12/14/24 07:08
Glucose 137 mg/dl (70-99) H 12/14/24 07:08
Calcium 7.7 mg/dl (8.4-10.2) L 12/14/24 07:08
Phosphorus 6.9 mg/dl (2.5-4.5) H 12/14/24 07:08
Joo-J-Cynjwbzznue Pept > 53794 pg/ml 12/12/24 11:39
Albumin 3.1 g/dl (3.5-5.0) L 12/12/24 12:17
Physical Exam
-
Vital Signs:
Vital Signs
Temp Pulse Resp BP Pulse Ox
97.3 F 63 22 119/52 96
12/14/24 07:00 12/14/24 11:11 12/14/24 11:11 12/14/24 11:11 12/14/24 11:11
Respiratory:: Bilateral: Coarse
Lung Excursion:: Normal
Abdomen:: Soft
Bowel Sounds:: Normal
Extremity Edema:: +1: Bilateral:
[2024-12-14] MEDS: STERILE WATER FOR INJECTION 10 ML IV (14:21)
[2024-12-14] MEDS: ROCEPHIN 1000 MG IV (14:21)
--- NOTE | 2024-12-14 14:39 | CM ---
CM reviewed chart, patient seen bedside, discussed therapy recommendations of SNF vs VN. Patient reports she has been to [facility] SNF in the past, is unsure if she wants to return home with services versus SNF and will speak to her daughter.
No auth required. CM will continue to follow for all discharge planning needs.
Plan; SNF vs VN, patient will speak with daughter
[2024-12-14 15:33] LABS: Procalcitonin 0.45 ng/ml (0.0-0.25)
[2024-12-14 16:44] LABS: Glucose - Point of Care 194 mg/dl (70-99)
[2024-12-14] MEDS: LIPITOR 80 MG PO (17:38)
[2024-12-14 21:47] LABS: Glucose - Point of Care 213 mg/dl (70-99)
[2024-12-14] MEDS: BENADRYL PO (22:09)
[2024-12-14] MEDS: TYLENOL PO (22:09)
[2024-12-14] MEDS: NEURONTIN 300 MG PO (23:23)
[2024-12-14] MEDS: TYLENOL 1000 MG PO (23:25)
[2024-12-15] VITALS (7 sets, daily range): BP systolic 117–139; BP diastolic 43–60; PULSE 60–63; BMI 25.7
--- NOTE | 2024-12-15 07:31 | W.PN.HOSP.TC ---
Today's Communication/Plan
-
cont abx as per ID
hold diuresis and liberalize fluid restiction as per nephro cardio
PT/OT
blood pressure control
monitor orthostatic vitals
hold Labetalol d/t heart pause, hydralazine prn HTN
cont telemonitoring
Assessment / Plan
Assessment / Plan
Physical Exam
General: no acute distress appears comfortable at this time
HEENT: NormoCephalic, Moist mucous membranes and Atraumatic
Respiratory: right sided basilar crackles
Cardiac: S1/S2 and Regular Rhythm; No Murmur or Rub
GI: Soft, Non Tender, Non Distended and Normal Bowel Sounds; No Organomegaly
Musculoskeletal: No Clubbing, No Cyanosis, No edema
Skin: No Rash
Neuro: Nonfocal/grossly intact
84F HFpEF HTN CKD4 HLD DM here for PNA possible Heart Failure and worsening Kidney Function ERICK vs progression CKD
# Generalized weakness, fatigue, cough, short of breath likely from right lower lobe pneumonia/right pleural effusion
#MRSA screen positive
- COVID/Flu neg
- Chest x-ray with moderate right pleural effusion progressed. Findings concerning for developing mild right lower lobe pneumonia
- ID eval appreciated IV cefepime and Vanco narrowed to ceftriaxone
- Tylenol as needed for fever or pain
- PT/OT consult appreciated SNF vs home PT
-IR consulted for thoracentesis Rt pleural effusion however procedure was aborted as effusion was too small
-Mucinex prn cough
# Possible Acute on Chronic vs simply Chronic HFpEF
- Bumex iv diuresis placed on hold as per Nephro
- ECHO appreciated EF 51% worsening MR TR and Pulm htn in comparison to babak ECHO 07/2024
- Strict JAELYN, daily weight
- Cardiology consult appreciated fluid restriction liberalized
#Heart Pause noted on Telemonitor 12/15 asymptomatic
home Labetalol placed on hold as per discussion with Cardio
Hydralazine prn SBP>160 or DBP>100 ordered
# Anemia of chronic disease
- H&H stable
- No active bleeding
- cont home ferrous sulfate
- Continue to monitor
# Chronic hyponatremia
-124 on admission since improved
- Continue to monitor
# anion gap Metabolic acidosis/ERICK on CKD stage IV vs progression CKD
-nephrology consult appreciated no acute need for HD at this time, hold diuretics
-patient previously made clear that she would not want HD even if indicated, patient since changed her made, more open to considering, pt discussing with family, await decision
#essential hypertension
#Dizziness suspect symptomatic orthostatic hypotension
-Continue Norvasc with holding parameters
-Labetalol placed on hold d/t heart pause as above, hydralazine IV prn
-monitor orthostatic vitals
-TEDs
#Hyperlipidemia
-Continue statin
Type 2 diabetes with hyperglycemia complicated by hyperglycemia
#neuropathy
-sliding scale
-gabapentin continued
#GERD
-Continue Protonix
DNR/DNI
DVT prophylaxis�heparin
discussed with patient
I spent a total of 45 minutes with the patient or on the floor. More than 50% of this time involved counseling and coordination of care.
Anticipated Discharge: 24 - 48 hours
Subjective/Interval History
-
Date of Service: December 15, 2024
no acute distress resting comfortably in bed. Reports general malaise/fatigue.
Objective Data
-
Labs:
Laboratory Results
12/15/24
06:00
WBC Pending
Hgb Pending
Hct Pending
Plt Count Pending
Sodium Pending
Potassium Pending
Chloride Pending
Carbon Dioxide Pending
BUN Pending
Creatinine Pending
Glucose Pending
Calcium Pending
Vital Signs:
Vital Signs
Temp Pulse Resp BP Pulse Ox
97.3 F 65 18 136/57 94
12/15/24 03:22 12/15/24 03:22 12/15/24 03:22 12/15/24 03:22 12/15/24 03:22
I&O
12/14/24 12/15/24 12/16/24
06:59 06:59 06:59
Intake Total 1320 / 1320 780 / 780
Balance 1320 / 1320 780 / 780
[2024-12-15 08:51] LABS: Glucose - Point of Care 181 mg/dl (70-99)
[2024-12-15] MEDS: NOVOLOG FLEXPEN-LOW RESISTANCE 1 UNITS SC (10:00)
[2024-12-15 10:01] LABS: Hematocrit 23.9 % (37.0-47.0); Hemoglobin 8.3 g/dL (12.0-16.0); Mean Corp Hgb Conc. 34.7 g/dL (33.0-37.0); Mean Corpuscular Hgb 29.4 pg (27.0-31.0); Mean Corpuscular Volume 84.8 fL (81.0-99.0); Mean Platelet Volume 9.9 fL (7.4-10.4); Platelet Count 282 10^3/uL (130-400); Red Blood Cell Count 2.82 10^6/uL (4.20-5.40); Red Cell Dist. Width 17.2 % (11.5-14.5); White Blood Cell Count 9.4 10^3/uL (4.8-10.8)
[2024-12-15] MEDS: BenGay-Like 1 APPLIC TOPICAL ×4 (10:36→22:57)
[2024-12-15] MEDS: METAMUCIL, KONSYL PO (10:36)
[2024-12-15] MEDS: MUCINEX 600 MG PO ×2 (10:37→20:25)
[2024-12-15] MEDS: MAG-TAB SR 84 MG PO (10:37)
[2024-12-15] MEDS: NORVASC 10 MG PO (10:38)
[2024-12-15] MEDS: FEOSOL 325 MG PO (10:39)
[2024-12-15] MEDS: PROTONIX 40 MG PO (10:39)
[2024-12-15] MEDS: TRANDATE 200 MG PO (10:39)
[2024-12-15] MEDS: CLARITIN 10 MG PO (10:40)
[2024-12-15] MEDS: HEPARIN 5000 UNITS SC ×2 (10:40→20:25)
[2024-12-15] MEDS: VITAMIN D3 (cholecalciferol) 25 MCG PO (10:40)
[2024-12-15] MEDS: LIDOCAINE 4% PATCH 1 PATCH TOPICAL (10:41)
[2024-12-15 10:50] LABS: Blood Urea Nitrogen 109 mg/dl (7-17); Calcium 8.1 mg/dl (8.4-10.2); Carbon Dioxide 19 mmol/L (22-30); Chloride 97 mmol/L (98-107); Estimated Creatinine Clearance 9 ml/min; Glucose 145 mg/dl (70-99); Magnesium 2.3 mg/dl (1.6-2.3); Phosphorus 6.6 mg/dl (2.5-4.5); Potassium 5.3 mmol/L (3.5-5.1); Sodium 130 mmol/L (135-145)
--- NOTE | 2024-12-15 10:54 | W.PN.ID1 ---
Date of Service
Date of Service: December 15, 2024
Today's Communication
Continue ceftriaxone.
Assessment / Plan
Cough
Recent diagnosis of PNA ([facility]; discharged ~12/10 on cefdinir and Zithromax)
Elevated BNP
Leukocytosis
- improved
ERICK on CKD stage IV
Elevated procalcitonin
CHF
HLD
DM
Recommendations:
X-ray reviewed. Difficult to interpret acuity of infiltrates given recent diagnosis of pneumonia at OSH.
Continue ceftriaxone.
Follow white count and temperature curve.
Chief Complaint
-: Pneumonia
Subjective / Review of Systems
Review of Systems: No Fever, No Chills, Cough and No Sputum Production
Vital Signs / Physical Exam
Vital Signs
Vital Signs
Temp Pulse Resp BP Pulse Ox
97.3 F 65 18 136/57 94
12/15/24 03:22 12/15/24 03:22 12/15/24 03:22 12/15/24 03:22 12/15/24 03:22
Physical Exam
Constitutional: Comfortable, Chronically Ill and Non-toxic
Eyes: No Conjunctival Hemorrhage and Sclera Anicteric
Cardiovascular: S1/S2; Negative S3/S4
Pulmonary: Non Labored
Gastrointestinal: Soft and Non Tender
Neurological: Awake and Alert
Psychological: Calm
Objective Data
Lab Data
Lab Results
12/15/24 09:33
12/15/24 09:33
PT Cancelled 12/12/24 11:33
INR Cancelled 12/12/24 11:33
Estimated Creat Clear 9 ml/min 12/15/24 09:33
Total Bilirubin 0.5 mg/dl (0.2-1.3) 12/12/24 12:17
AST 15 U/L (14-36) 12/12/24 12:17
ALT 17 U/L (0-35) 12/12/24 12:17
Alkaline Phosphatase 116 U/L (38-126) 12/12/24 12:17
Most recent labs reviewed.
Micro Results:
12/13/24 11:44 Nasal Screen MRSA (PCR) - Final
Nose Staph aureus MRSA
12/12/24 19:58 Legionella Urinary Antigen - Final
Urine Negative for Legionella pneumophila Serogroup 1 antigen.
A negative result does not rule out the possiblity of
Legionella infection due to other serogroups or species of
Legionella. Clinical correlation is recommended.
Streptococcus pneumoniae Antigen (M - Final
Negative for Streptococcus pneumoniae antigen.
A negative result does not exclude infection with
Streptococcus pneumoniae. Clinical correlation is
recommended.
12/12/24 12:17 Influenza Types A & B (JERRY) - Final
Nasal Swab Negative for Influenza A & B, NAAT
Negative results must be combined with clinical observations
and patient history.
Nucleic Acid Amplification test (NAAT)performed on the
[employer] platform.
--- NOTE | 2024-12-15 11:15 | W.PN.CD ---
Today's Communication / Plan
-
Creatinine unchanged despite holding Lasix and liberalizing fluid restriction
Will possibly need initiation of HD this admission per renal
Impression / Plan
-
I/P: 84F with chronic HFpEF, hypertension, dyslipidemia, chronic kidney disease, type 2 diabetes, and GERD with recent hospitalization at [facility] for treatment of pneumonia who presents with fatigue and weakness. Cardiology is consulted
due to concern for acute on chronic HFpEF.
Outpatient metal buggy operator: Dr. Aaron Campos
ERICK on CKD
- Wonder if she had prerenal ERICK with recent pneumonia. BUN:Cr ratio >20. May just be worsening of CKD
- Hold diuresis
- Trend Cr
- Nephrology following. Possible HD this admission. Cr still not improving
HFpEF, chronic
- TTE 12/13/24: LVEF 51%, stage II DD, mod MR, severe TR, PASP 68 (previously 54)
- proBNP >27,000 on admission but in the setting of CKD. Had small R pleural effusion but maybe parapneumonic. Weight stable from prior admissions. Overall examines euvolemic
- Hold Bumex
- Trend daily weight, I/O, and BMP with diuresis
- HF education
- Liberalize fluid restriction
RLL PNA
- Abx per primary
Sinus bradycardia, on labetalol, telemetry stable
Hyponatremia, appears chronic, follow with diuresis
Mild aortic stenosis
Moderate tricuspid regurgitation
Hypertension, chronic, continue current medical therapy
DATA:
Transthoracic echocardiogram, 08/28/2024:
Normal biventricular size and systolic function without regional wall motion
abnormality.
Stage II diastolic dysfunction suggestive of abnormal relaxation and increased
filling pressures.
Aortic sclerosis.
Moderate tricuspid regurgitation with moderate pulmonary hypertension.
No prior study available for comparison.
Subjective: Feels very tired and dizzy.
Physical Exam
Vital Signs/Labs
Vital Signs
Temp Pulse Resp BP Pulse Ox
97.4 F 65 18 128/60 96
12/15/24 07:00 12/15/24 07:00 12/15/24 07:00 12/15/24 07:00 12/15/24 07:00
12/14/24 12/15/24 12/16/24
06:59 06:59 06:59
Actual Weight 153 lb 3 oz 154 lb 3 oz
12/15/24 09:33
12/15/24 09:33
PT Cancelled 12/12/24 11:33
INR Cancelled 12/12/24 11:33
Magnesium 2.3 mg/dl (1.6-2.3) 12/15/24 09:33
Triglycerides 120 mg/dl (10-149) 12/13/24 08:16
LDL Cholesterol, Calc 7.89198 mg/dl 12/13/24 08:16
VLDL Cholesterol, Calc 24 mg/dl (0-30) 12/13/24 08:16
HDL Cholesterol 18 mg/dl 12/13/24 08:16
12/12/24
11:39
Qrs-S-Fwafbslfikc Pept > [id number]
Physical Exam
Constitutional: No acute distress and Comfortable
Cardiovascular: Rhythm & rate is regular, Pedal edema is absent, S1S2 is normal and Murmur/rub/gallop absent
Respiratory: Respiratory effort normal and Lungs clear to auscul.
Data Reviewed
-
Date of Service: December 15, 2024
Medical Decision Making: Reviewed Test Results, Independent Historian Assessment, Test Interpretation and Review of Case with other Provider
EKG: Tracing Personally Visualized and interpreted
Echo: Report Reviewed by me
Labs: Labs Reviewed by me
[2024-12-15 11:55] LABS: Glucose - Point of Care 273 mg/dl (70-99)
--- NOTE | 2024-12-15 12:46 | CM ---
CM reviewed chart, patient seen bedside. Patient reports she would prefer to return home with VN when stable for discharge. Patient reports she has been to [facility] SNF in past and would not be opposed if necessary. Patient remains on IV
antibiotics. Patient reports she lives independently, has a walker at home but typically ambulates with no device. Nephro following. CM will continue to follow for all discharge planning needs.
Plan; home with VN vs SNF, watch for home antibiotic needs
[2024-12-15] MEDS: NOVOLOG FLEXPEN-LOW RESISTANCE 3 UNITS SC ×2 (13:00→17:16)
[2024-12-15] MEDS: TYLENOL 650 MG PO ×2 (14:34→20:08)
--- NOTE | 2024-12-15 15:49 | W.PN.NEPH.PH ---
Today's Communication / Plan
-
GOC discussion with pt and family
Assessment/Plan
-
84-year-old female with history of CHF, hypertension, CKD, hyperlipidemia, diabetes presenting to the emergency department for persistent cough and fatigue. Patient notes that she was admitted for 6 days at [facility] for pneumonia, was
discharged 2 days ago on oral abx. she finished one abx. She reports that she still feeling very weak and has been coughing
Renal consult for acute on chronic kidney disease and hyponatremia.
Reviewed all records from [facility]. Her creatinine peaked at 4.2 on December 09.
follows with nephrology in [place]
Baseline creatinine 2.5 as of August 2024.
Sodium 125 on admission= 129 on consult
Impression.
Acute on chronic kidney disease stage IV.
Acute on chronic hyponatremia.
CHF�compensated.
Pneumonia.
Hypertension.
Plan.
No overt volume overload.
She was discharged from [place] with creatinine 4.
cr remains at 4.2, BUN 109
Continue hold diuretics now.
Continue antibiotics.
Check weights daily-stable
mild met acidosis is better
mild hyperkalemia-low K diet , Lokelma
Continue with supportive care medical management
d/w daughter in detail about FISCAL SERVICES DIRECTOR and its total burden on QOL-no decision made, daughter will discuss with pt
Dr Ricketts brought up the discussion of dialysis with the patient she adamantly stopped before he finished and said she absolutely would not want that
high risk encounter
-
-
Date of Service: December 15, 2024
CC / HPI / ROS
-
Chief Complaint:
Acute on chronic kidney disease
History of Present Illness:
Presents with shortness of breath cough pneumonia and progressive CKD stage V
cr high at 4.2, k 5.3
bicabr better at 19
BP stable, wt no sig change
Review of Systems:
c/o not feeling well, right shoulder pain
Comfortable no chest pain or shortness of breath
Labs
-
Labs:
WBC 9.4 10^3/uL (4.8-10.8) 12/15/24 09:33
RBC 2.82 10^6/uL (4.20-5.40) L 12/15/24 09:33
Hgb 8.3 g/dL (12.0-16.0) L 12/15/24 09:33
Hct 23.9 % (37.0-47.0) L 12/15/24 09:
Plt Count 282 10^3/uL (130-400) 12/15/24 09:33
Sodium 130 mmol/L (135-145) L 12/15/24 09:33
Potassium 5.3 mmol/L (3.5-5.1) H 12/15/24 09:33
Chloride 97 mmol/L (98-107) L 12/15/24 09:33
Carbon Dioxide 19 mmol/L (22-30) L 12/15/24 09:33
BUN 109 mg/dl (7-17) H* 12/15/24 09:33
Creatinine 4.2 mg/dL (0.6-1.0) H* 12/15/24 09:33
eGFR 9.80 12/15/24 09:33
Glucose 145 mg/dl (70-99) H 12/15/24 09:33
Calcium 8.1 mg/dl (8.4-10.2) L 12/15/24 09:33
Phosphorus 6.6 mg/dl (2.5-4.5) H 12/15/24 09:33
Xfk-J-Uiaghvqfpgx Pept > 47526 pg/ml 12/12/24 11:39
Albumin 3.1 g/dl (3.5-5.0) L 12/12/24 12:17
Physical Exam
-
Vital Signs:
Vital Signs
Temp Pulse Resp BP Pulse Ox
97.3 F 60 20 126/53 95
12/15/24 11:00 12/15/24 11:00 12/15/24 11:00 12/15/24 11:00 12/15/24 11:00
Cardiovascular:: Regular rate and rhythm
Respiratory:: Bilateral: CTA (decreased)
Lung Excursion:: Normal
Abdomen:: Nontender and Soft
Bowel Sounds:: Normal
Extremity Edema:: None: Bilateral:
Kirkland Catheter: No
[2024-12-15] MEDS: ROCEPHIN 1000 MG IV (17:04)
[2024-12-15] MEDS: STERILE WATER FOR INJECTION 10 ML IV (17:04)
[2024-12-15] MEDS: LIPITOR 80 MG PO (17:04)
[2024-12-15 17:07] LABS: Glucose - Point of Care 265 mg/dl (70-99)
--- NOTE | 2024-12-15 18:45 | PTCARENOTE ---
1824 On telemetry rhythm bradycardia then noted had a first pause measure aproximately 4.23 second pause shorter measure aproximately 2.53. Checked Pt, Pt mention felt fatigue and her eyes felt watery. [place] text Dr. Conway and Dr. Garcia, sent a
copy of telemetry strip.
1839 Noted orders to hold trandate med, continue to monitor pt closely.
1844 Report given to shift engineer nurse.
[2024-12-15 22:17] LABS: Glucose - Point of Care 233 mg/dl (70-99)
[2024-12-15] MEDS: NEURONTIN 300 MG PO (22:57)
[2024-12-15] MEDS: BENADRYL PO (22:59)
[2024-12-15] MEDS: TYLENOL 1000 MG PO (23:09)
[2024-12-16] VITALS (9 sets, daily range): BP systolic 103–156; BP diastolic 50–85; BMI 25.3
--- NOTE | 2024-12-16 04:42 | PTCARENOTE ---
While assisting pt back to bed from [facility], tele alarm went off and recorded 5.3 sec pause. Pt asymptomatic, BP 120/70, 96% on RA. Pt also shown to be in afib on monitor, confirmed with EKG. Pt has had several pauses following this incident. Sherwin GUEVARA
made aware. No new orders received.
--- NOTE | 2024-12-16 06:30 | W.PN.HOSP.TC ---
Today's Communication/Plan
-
see a/p
Assessment / Plan
Assessment / Plan
Physical Exam
General: mild moderate distress
HEENT: NormoCephalic, Moist mucous membranes and Atraumatic
Respiratory: right sided basilar crackles
Cardiac: S1/S2 and Regular Rhythm; No Murmur or Rub
GI: Soft, Non Tender, Non Distended and Normal Bowel Sounds; No Organomegaly
Musculoskeletal: No Clubbing, No Cyanosis, No edema
Skin: No Rash
Neuro: AOx3 conversant coherent
Psych: Appears anxious tearful at times, frequently reporting that she wants to do, denies any thoughts or plans to harm herself or others
84F HFpEF HTN CKD4 HLD DM here for PNA possible Heart Failure and worsening Kidney Function ERICK vs progression CKD
# Generalized weakness, fatigue, cough, short of breath likely from right lower lobe pneumonia/right pleural effusion
#MRSA screen positive
- COVID/Flu neg
- Chest x-ray with moderate right pleural effusion progressed. Findings concerning for developing mild right lower lobe pneumonia
- ID eval appreciated IV cefepime and Vanco narrowed to ceftriaxone
- Tylenol as needed for fever or pain
- PT/OT consult appreciated SNF vs home PT
-IR consulted for thoracentesis Rt pleural effusion however procedure was aborted as effusion was too small
-Mucinex prn cough
# Possible Acute on Chronic vs simply Chronic HFpEF
- Bumex iv diuresis placed on hold as per Nephro
- ECHO appreciated EF 51% worsening MR TR and Pulm htn in comparison to babak ECHO 07/2024
- Strict JAELYN, daily weight
- Cardiology consult appreciated fluid restriction liberalized
#Heart Pauses noted on Telemonitor
#New onset afib
Possibly symptomatic general malaise (denied chest pain palpitations)
Cardio eval appreciated
-home Labetalol stopped
-Amiodarone and Anticoagulation started
-Eliquis not affordable, started on warfarin bridging with Eliquis 2.5 mg BID renally dosed
# Anemia of chronic disease
- H&H stable
- No active bleeding
- cont home ferrous sulfate
- Continue to monitor
# Chronic hyponatremia
-124 on admission since improved
- Continue to monitor
# anion gap Metabolic acidosis/ERICK on CKD stage IV vs progression CKD
-nephrology consult appreciated no acute need for HD at this time, hold diuretics
-pt initially refused to consider HD if indicated, has since changed her mind after discussion w/ family
#essential hypertension
#Dizziness suspect symptomatic orthostatic hypotension
-Continue Norvasc with holding parameters
-Labetalol placed on hold d/t heart pause as above, hydralazine IV prn
-monitor orthostatic vitals
-TEDs
#Hyperlipidemia
-Continue statin
Type 2 diabetes with hyperglycemia complicated by hyperglycemia
#neuropathy
-sliding scale
-gabapentin continued
#GERD
-Continue Protonix
#Anxiety/Depression/Insomnia
#Patient frequently reporting that she wants to , denies any thoughts/plans to harm herself or others
Psych eval appreciated bedtime Melatonin started
Low dose IV ativan prn anxiety
DNR/DNI
DVT prophylaxis�heparin
discussed with patient and patient's daughter Jodi
I spent a total of 50 minutes with the patient or on the floor. More than 50% of this time involved counseling and coordination of care.
Anticipated Discharge: 24 - 48 hours
Subjective/Interval History
-
Date of Service: December 16, 2024
Seen and examined at bedside in mild moderate distress. Patient reports feeling unwell but unable to further characterize why. Denied significant pain. Appeared anxious. Endorsed poor sleep.
Objective Data
-
Labs:
Laboratory Results
12/16/24
06:00
WBC Pending
Hgb Pending
Hct Pending
Plt Count Pending
Sodium Pending
Potassium Pending
Chloride Pending
Carbon Dioxide Pending
BUN Pending
Creatinine Pending
Glucose Pending
Calcium Pending
Vital Signs:
Vital Signs
Temp Pulse Resp BP Pulse Ox
97.8 F 53 18 120/70 96
12/16/24 03:40 12/16/24 03:40 12/16/24 04:35 12/16/24 04:35 12/16/24 04:35
I&O
12/14/24 12/15/24 12/16/24
06:59 06:59 06:59
Intake Total 1320 / 1320 780 / 780 1680 / 1680
Balance 1320 / 1320 780 / 780 1680 / 1680
[2024-12-16 07:17] LABS: Hematocrit 24.7 % (37.0-47.0); Hemoglobin 8.5 g/dL (12.0-16.0); Mean Corp Hgb Conc. 34.4 g/dL (33.0-37.0); Mean Corpuscular Hgb 29.3 pg (27.0-31.0); Mean Corpuscular Volume 85.2 fL (81.0-99.0); Mean Platelet Volume 9.9 fL (7.4-10.4); Platelet Count 297 10^3/uL (130-400); Red Cell Dist. Width 17.2 % (11.5-14.5); White Blood Cell Count 11.3 10^3/uL (4.8-10.8)
[2024-12-16 07:50] LABS: Blood Urea Nitrogen 108 mg/dl (7-17); Calcium 7.8 mg/dl (8.4-10.2); Carbon Dioxide 19 mmol/L (22-30); Chloride 98 mmol/L (98-107); Estimated Creatinine Clearance 9 ml/min; Glucose 157 mg/dl (70-99); Magnesium 2.3 mg/dl (1.6-2.3); Potassium 4.9 mmol/L (3.5-5.1); Sodium 130 mmol/L (135-145); eGFR 10.39
[2024-12-16 08:06] LABS: Glucose - Point of Care 175 mg/dl (70-99)
[2024-12-16] MEDS: NOVOLOG FLEXPEN-LOW RESISTANCE 1 UNITS SC (08:40)
--- NOTE | 2024-12-16 09:00 | PTCARENOTE ---
0845 Noted on heart monitor pt continue to have pauses at intervals, heart rhythm currently Atrial Fibrillation. Pt mention at times feels very tired and loss of appetite. Pt able to eat some yogurt with am meds. BP 119/50. heart rate currently 60's
to 70's.
[address] Conway and Dr. Garcia(cardiology), continue to monitor pt closely.
[2024-12-16] MEDS: LIDOCAINE 4% PATCH 1 PATCH TOPICAL (09:05)
[2024-12-16] MEDS: TYLENOL 650 MG PO ×2 (09:05→14:23)
[2024-12-16] MEDS: CLARITIN 10 MG PO (09:08)
[2024-12-16] MEDS: BenGay-Like 1 APPLIC TOPICAL ×3 (09:08→20:19)
[2024-12-16] MEDS: MAG-TAB SR 84 MG PO (09:09)
[2024-12-16] MEDS: NORVASC PO (09:09)
[2024-12-16] MEDS: HEPARIN 5000 UNITS SC (09:10)
[2024-12-16] MEDS: FEOSOL 325 MG PO (09:10)
[2024-12-16] MEDS: VITAMIN D3 (cholecalciferol) 25 MCG PO (09:11)
[2024-12-16] MEDS: METAMUCIL, KONSYL PO (09:11)
[2024-12-16] MEDS: MUCINEX 600 MG PO ×2 (09:11→20:15)
[2024-12-16] MEDS: PROTONIX 40 MG PO (09:11)
[2024-12-16 11:52] LABS: Glucose - Point of Care 239 mg/dl (70-99)
--- NOTE | 2024-12-16 11:52 | W.PN.CD ---
Addendum entered and electronically signed by Aryan Garcia MD 12/16/24 13:17:
Eliquis is not affordable. Will start warfarin.
Original Note:
Today's Communication / Plan
-
Start Amiodarone and Eliquis for AF
Monitor for long (>5 sec) symptomatic pauses and bradycardia
Impression / Plan
-
I/P: 84F with chronic HFpEF, hypertension, dyslipidemia, chronic kidney disease, type 2 diabetes, and GERD with recent hospitalization at [facility] for treatment of pneumonia who presents with fatigue and weakness. Cardiology is consulted
due to concern for acute on chronic HFpEF.
Outpatient medical physicist: Dr. Aaron Campos
Atrial fibrillation, new this admission
- Went into AF evening of 12/15. Not previously documented. HRs 100s in AF but with conversion pauses up to 5 sec and sinus HR 60s. Hard to tell if she is symptomatic
- Start PO Amiodarone 400mg BID for rhythm control. May need DCCV.
- Start Eliquis 2.5 mg BID. CHADsVasc 5. Consult CM for pricing.
- If she continues to be tachy-david with long pauses, may need PPM (would need to discuss GOC)
- Stop Labetalol
ERICK on CKD
- Severe. Poses a threat to life.
- Hold diuresis
- Trend Cr
- Nephrology following. Possible HD this admission. Cr still not improving
HFpEF, chronic
- TTE 12/13/24: LVEF 51%, stage II DD, mod MR, severe TR, PASP 68 (previously 54)
- proBNP >27,000 on admission but in the setting of CKD. Had small R pleural effusion but maybe parapneumonic. Weight stable from prior admissions. Overall examines euvolemic
- Hold Bumex
- Trend daily weight, I/O, and BMP with diuresis
- HF education
- Liberalize fluid restriction
RLL PNA
- Abx per primary
Hyponatremia, appears chronic, follow with diuresis
Mild aortic stenosis
Moderate tricuspid regurgitation
Hypertension, chronic, continue current medical therapy
DATA:
Transthoracic echocardiogram, 08/28/2024:
Normal biventricular size and systolic function without regional wall motion
abnormality.
Stage II diastolic dysfunction suggestive of abnormal relaxation and increased
filling pressures.
Aortic sclerosis.
Moderate tricuspid regurgitation with moderate pulmonary hypertension.
No prior study available for comparison.
Subjective: Feels very tired and dizzy. Worse than yesterday.
Physical Exam
Vital Signs/Labs
Vital Signs
Temp Pulse Resp BP Pulse Ox
97.8 F 65 18 119/50 96
12/16/24 03:40 12/16/24 09:09 12/16/24 04:35 12/16/24 09:09 12/16/24 04:35
12/15/24 12/16/24 12/17/24
06:59 06:59 06:59
Actual Weight 154 lb 3 oz 152 lb
12/16/24 06:58
12/16/24 06:58
PT Cancelled 12/12/24 11:33
INR Cancelled 12/12/24 11:33
Magnesium 2.3 mg/dl (1.6-2.3) 12/16/24 06:58
Triglycerides 120 mg/dl (10-149) 12/13/24 08:16
LDL Cholesterol, Calc 7.12660 mg/dl 12/13/24 08:16
VLDL Cholesterol, Calc 24 mg/dl (0-30) 12/13/24 08:16
HDL Cholesterol 18 mg/dl 12/13/24 08:16
12/12/24
11:39
Epz-S-Mbzpykgwgpd Pept > 12673
Physical Exam
Constitutional: No acute distress and Comfortable
Cardiovascular: Pedal edema is absent, Rhythm/rate is irregular, S1S2 is normal and Murmur/rub/gallop absent
Respiratory: Respiratory effort normal and Crackles Present
Data Reviewed
-
Date of Service: December 16, 2024
Medical Decision Making: Reviewed Test Results, Independent Historian Assessment, Test Interpretation and Review of Case with other Provider
EKG: Tracing Personally Visualized and interpreted
Echo: Report Reviewed by me
Labs: Labs Reviewed by me
[2024-12-16] MEDS: NOVOLOG FLEXPEN-LOW RESISTANCE 2 UNITS SC (12:30)
--- NOTE | 2024-12-16 13:29 | W.PN.ID1 ---
Date of Service
Date of Service: December 16, 2024
Today's Communication
Continue antibiotics.
Assessment / Plan
Cough
Recent diagnosis of PNA ([facility]; discharged ~12/10 on cefdinir and Zithromax)
Elevated BNP
Leukocytosis
- up today
ERICK on CKD stage IV
Elevated procalcitonin
CHF
HLD
DM
Recommendations:
X-ray reviewed. Difficult to interpret acuity of infiltrates given recent diagnosis of pneumonia at OSH.
Continue ceftriaxone.
Follow white count and temperature curve.
Chief Complaint
-: Pneumonia
Subjective / Review of Systems
Patient seen and examined. Reports overall feeling weak and drained. No shortness of breath. No significant cough.
Review of Systems: No Fever and No Chills
Vital Signs / Physical Exam
Vital Signs
Vital Signs
Temp Pulse Resp BP Pulse Ox
97.2 F 102 18 128/66 94
12/16/24 11:05 12/16/24 11:05 12/16/24 11:05 12/16/24 11:05 12/16/24 11:05
Physical Exam
Constitutional: No Acute Distress and Comfortable
Cardiovascular: S1/S2; Negative S3/S4
Pulmonary: Clear and Non Labored
Gastrointestinal: Soft and Non Tender
Neurological: AO x 3
Psychological: Calm
Objective Data
Lab Data
Lab Results
12/16/24 06:58
12/16/24 06:58
PT Cancelled 12/12/24 11:33
INR Cancelled 12/12/24 11:33
Estimated Creat Clear 9 ml/min 12/16/24 06:58
Total Bilirubin 0.5 mg/dl (0.2-1.3) 12/12/24 12:17
AST 15 U/L (14-36) 12/12/24 12:17
ALT 17 U/L (0-35) 12/12/24 12:17
Alkaline Phosphatase 116 U/L (38-126) 12/12/24 12:17
Most recent labs reviewed.
Micro Results:
12/13/24 11:44 Nasal Screen MRSA (PCR) - Final
Nose Staph aureus MRSA
12/12/24 19:58 Legionella Urinary Antigen - Final
Urine Negative for Legionella pneumophila Serogroup 1 antigen.
A negative result does not rule out the possiblity of
Legionella infection due to other serogroups or species of
Legionella. Clinical correlation is recommended.
Streptococcus pneumoniae Antigen (M - Final
Negative for Streptococcus pneumoniae antigen.
A negative result does not exclude infection with
Streptococcus pneumoniae. Clinical correlation is
recommended.
12/12/24 12:17 Influenza Types A & B (JERRY) - Final
Nasal Swab Negative for Influenza A & B, NAAT
Negative results must be combined with clinical observations
and patient history.
Nucleic Acid Amplification test (NAAT)performed on the
[employer] platform.
[2024-12-16] MEDS: PACERONE 400 MG PO ×2 (14:00→20:15)
[2024-12-16] MEDS: ELIQUIS 2.5 MG PO (14:00)
--- NOTE | 2024-12-16 14:55 | CS.PSYCHR ---
Consult Summary - Psychiatry
-
Pt is 84 yo female with hx of CHR, HTN, CKD4, HLD, DM, chronic hyponatremia, admitted with generalized weakness, pneumonia, concern for renal failure. Psychiatry asked to see due to tearfulness, malaise, pt declining hemodialysis. Pt seen, lying
in bed, alert, calm, cooperative, answering questions. Pt c/o of primarily feeling 'tired'. States she wants to get better. Pt also c/o insomnia, states she wakes repeatedly during the night. Pt denies severe depression, denies any suicidal
ideation. Sodium level on admission 124, improved to 130 today, on fluid restriction
Psych Hx: denied
SH: former smoker, single, living alone
MSE: alert, oriented, calm, cooperative. Speech coherent, thought clear/goal-directed. Mood mildly dysphoric, affect appropriate. Denies SI. Cognition grossly intact.
Imp: Adjustment d/o with depression. Pt is not a candidate for antidepressant due to chronic hyponatremia.
Rec: Will try Melatonin for c/o insomnia. Outpatient therapy when medically cleared/upon return home
Will follow
[2024-12-16 16:02] LABS: Glucose - Point of Care 276 mg/dl (70-99)
[2024-12-16] MEDS: ATIVAN 0.25 MG IV (16:06)
[2024-12-16] MEDS: NOVOLOG FLEXPEN-LOW RESISTANCE 3 UNITS SC (16:34)
--- NOTE | 2024-12-16 16:41 | W.PN.NEPH.PH ---
Today's Communication / Plan
-
follow labs
Assessment/Plan
-
84-year-old female with history of CHF, hypertension, CKD, hyperlipidemia, diabetes presenting to the emergency department for persistent cough and fatigue. Patient notes that she was admitted for 6 days at [facility] for pneumonia, was
discharged 2 days ago on oral abx. she finished one abx. She reports that she still feeling very weak and has been coughing
Renal consult for acute on chronic kidney disease and hyponatremia.
Reviewed all records from [facility]. Her creatinine peaked at 4.2 on December 09.
follows with nephrology in [place]
Baseline creatinine 2.5 as of August 2024.
Sodium 125 on admission= 129 on consult
Impression.
Acute on chronic kidney disease stage IV.
Acute on chronic hyponatremia.
CHF�compensated.
Pneumonia.
Hypertension.
Plan.
cr slightly better at 4, BUN 108
Continue hold diuretics now, vol status seem stable
she is agreeing to HD now however it may significantly impact her DOL, which she is aware of
no emergent need of HD today , will cont to monitor labs
BP stable
Continue antibiotics.
mild met acidosis is stable
mild hyperkalemia-better, maintain low K diet
Continue with supportive care medical management
d/w pt and daughter
high risk encounter
-
-
Date of Service: December 16, 2024
CC / HPI / ROS
-
Chief Complaint:
Acute on chronic kidney disease
History of Present Illness:
Presents with shortness of breath cough pneumonia and progressive CKD stage V
cr better at 4, k better at 4.9
bicabr stable at 19
BP stable, wt is down
Review of Systems:
c/o not feeling well, has insomnia
Comfortable no chest pain or shortness of breath
Labs
-
Labs:
WBC 11.3 10^3/uL (4.8-10.8) H 12/16/24 06:58
RBC 2.90 10^6/uL (4.20-5.40) L 12/16/24 06:58
Hgb 8.5 g/dL (12.0-16.0) L 12/16/24 06:58
Hct 24.7 % (37.0-47.0) L 12/16/24 06:58
Plt Count 297 10^3/uL (130-400) 12/16/24 06:58
Sodium 130 mmol/L (135-145) L 12/16/24 06:58
Potassium 4.9 mmol/L (3.5-5.1) 12/16/24 06:58
Chloride 98 mmol/L (98-107) 12/16/24 06:58
Carbon Dioxide 19 mmol/L (22-30) L 12/16/24 06:58
BUN 108 mg/dl (7-17) H* 12/16/24 06:58
Creatinine 4.0 mg/dL (0.6-1.0) H 12/16/24 06:58
eGFR 10.39 12/16/24 06:58
Glucose 157 mg/dl (70-99) H 12/16/24 06:58
Calcium 7.8 mg/dl (8.4-10.2) L 12/16/24 06:58
Phosphorus 6.0 mg/dl (2.5-4.5) H 12/16/24 06:58
Ovh-Q-Yyfmctnsmlt Pept > 44250 pg/ml 12/12/24 11:39
Albumin 3.1 g/dl (3.5-5.0) L 12/12/24 12:17
Physical Exam
-
Vital Signs:
Vital Signs
Temp Pulse Resp BP Pulse Ox
97.2 F 102 18 128/66 94
12/16/24 11:05 12/16/24 11:05 12/16/24 11:05 12/16/24 11:05 12/16/24 11:05
Cardiovascular:: Regular rate and rhythm
Respiratory:: Bilateral: CTA
Lung Excursion:: Normal
Abdomen:: Nontender and Soft
Extremity Edema:: None: Bilateral:
Kirkland Catheter: No
[2024-12-16] MEDS: ROCEPHIN 1000 MG IV (18:24)
[2024-12-16] MEDS: COUMADIN 2.5 MG PO (18:25)
[2024-12-16] MEDS: BenGay-Like TOPICAL ×2 (18:25→18:28)
[2024-12-16] MEDS: STERILE WATER FOR INJECTION 10 ML IV (18:25)
[2024-12-16] MEDS: LIPITOR 80 MG PO (18:25)
[2024-12-16] MEDS: MELATONIN 3 MG PO (20:17)
[2024-12-16] MEDS: TYLENOL 1000 MG PO (20:17)
[2024-12-16] MEDS: NEURONTIN 300 MG PO (20:17)
[2024-12-16] MEDS: BENADRYL 50 MG PO (20:17)
[2024-12-16 21:23] LABS: Glucose - Point of Care 204 mg/dl (70-99)
[2024-12-17] VITALS (8 sets, daily range): BP systolic 125–154; BP diastolic 52–78; PULSE 103–119; BMI 24.8
[2024-12-17] MEDS: TYLENOL 650 MG PO ×2 (04:17→11:21)
[2024-12-17 05:45] LABS: Hematocrit 26.3 % (37.0-47.0); Mean Corp Hgb Conc. 34.2 g/dL (33.0-37.0); Mean Corpuscular Hgb 29.4 pg (27.0-31.0); Mean Corpuscular Volume 85.9 fL (81.0-99.0); Mean Platelet Volume 9.6 fL (7.4-10.4); Platelet Count 313 10^3/uL (130-400); Red Blood Cell Count 3.06 10^6/uL (4.20-5.40); Red Cell Dist. Width 17.8 % (11.5-14.5); White Blood Cell Count 13.2 10^3/uL (4.8-10.8)
[2024-12-17 06:04] LABS: INR 1.22; PT 15.7 Sec (11.4-14.6)
[2024-12-17 06:07] LABS: Blood Urea Nitrogen 95 mg/dl (7-17); Calcium 8.2 mg/dl (8.4-10.2); Carbon Dioxide 19 mmol/L (22-30); Chloride 100 mmol/L (98-107); Estimated Creatinine Clearance 10 ml/min; Glucose 149 mg/dl (70-99); Magnesium 2.2 mg/dl (1.6-2.3); Phosphorus 5.5 mg/dl (2.5-4.5); Potassium 4.5 mmol/L (3.5-5.1); Sodium 133 mmol/L (135-145)
[2024-12-17 07:12] LABS: Glucose - Point of Care 184 mg/dl (70-99)
--- NOTE | 2024-12-17 07:53 | W.PN.HOSP.TC ---
Today's Communication/Plan
-
diet liberalized to regular per patient request
Palliative Eval requested for Mon
cont current treatment including abx, fluid restriction, sliding scale pending further goals of care discussion
Assessment / Plan
Assessment / Plan
Physical Exam
General: no acute distress, appears relatively comfortable at this time.
HEENT: NormoCephalic, Moist mucous membranes and Atraumatic
Respiratory: right sided basilar crackles
Cardiac: S1/S2 and Regular Rhythm; No Murmur or Rub
GI: Soft, Non Tender, Non Distended and Normal Bowel Sounds; No Organomegaly
Musculoskeletal: No Clubbing, No Cyanosis, No edema
Skin: No Rash
Neuro: AOx3 conversant coherent
Psych: relatively Calm
84F HFpEF HTN CKD4 HLD DM here for PNA possible Heart Failure and worsening Kidney Function ERICK vs progression CKD IV to V
# Generalized weakness, fatigue, cough, short of breath likely from right lower lobe pneumonia/right pleural effusion
#MRSA screen positive
- COVID/Flu neg
- Chest x-ray with moderate right pleural effusion progressed. Findings concerning for developing mild right lower lobe pneumonia
- ID eval appreciated IV cefepime and Vanco narrowed to ceftriaxone
- Tylenol as needed for fever or pain
- PT/OT consult appreciated SNF vs home PT
-IR consulted for thoracentesis Rt pleural effusion however procedure was aborted as effusion was too small
-Mucinex prn cough
# Possible Acute on Chronic vs simply Chronic HFpEF
- Bumex iv diuresis placed on hold as per Nephro
- ECHO appreciated EF 51% worsening MR TR and Pulm htn in comparison to babak ECHO 07/2024
- Strict JAELYN, daily weight
- Cardiology consult appreciated fluid restriction liberalized to 60 0z
#Heart Pauses noted on Telemonitor
#New onset afib
Possibly symptomatic general malaise (denied chest pain palpitations)
Cardio eval appreciated
-home Labetalol stopped
-Afib since converted back to NSR following start amiodarone (continue)
Per cardiology discussion with patient, pt does not want to continue with anticoagulation, Eliquis too expensive as per insurance and patient does not want to do INR checks with Warfarin, patient understands the risk no AC. Therapeutic AC
subsequently discontinued per pt request (originally was being bridged with renally dosed Eliquis and Warfarin till therapeutic INR)
# Anemia of chronic disease
- H&H stable
- No active bleeding
- cont home ferrous sulfate
- Continue to monitor
# Chronic hyponatremia
-124 on admission since improved
- Continue to monitor
# anion gap Metabolic acidosis/ERICK on CKD stage IV vs progression CKD
-nephrology consult appreciated no acute need for HD at this time, hold diuretics
-pt initially refused to consider HD if indicated, briefly changed her mind after discussion w/ family, then changed her mind again, no longer wants to pursue dialysis if indicated
#essential hypertension
#Dizziness suspect symptomatic orthostatic hypotension
-Continue Norvasc with holding parameters
-Labetalol stopped d/t heart pause as above, hydralazine IV prn
-monitor orthostatic vitals
-TEDs
#Hyperlipidemia
-Continue statin
Type 2 diabetes with hyperglycemia complicated by hyperglycemia
#neuropathy
-sliding scale low dose escalated to moderate dose algorithm
-gabapentin continued
#GERD
-Continue Protonix
#Anxiety/Depression/Insomnia
#Patient frequently reporting that she wants to , denies any thoughts/plans to harm herself or others
Psych eval appreciated bedtime Melatonin started
Low dose IV ativan prn anxiety
DNR/DNI
DVT prophylaxis SCD
12/17/24 Goals of Care Discussion: Patient consistently reporting that she no longer wants to continue with active treatment and that she is ready to . In particular she complained regarding being on a restricted diet. Insisted that she eats
whatever she wants outside the hospital. When it was pointed out that her diet may be contributing to her hospital returns, patient reported that she no longer cares and that she just wants to . Refusing dialysis if indicated and therapeutic
anticoagulation for paroxysmal afib, patient emphasized that she just wants to be comfortable in what time she has left. Offered hospice eval, patient unsure that she wants to pursue but was agreeable to palliative eval, consult requested
accordingly. Diet was liberalized to regular as per patient's request. Patient AOx3 at capacity to make her own decisions. Daughter Jodi aware and in support of patient's decisions.
I spent a total of 50 minutes with the patient or on the floor. More than 50% of this time involved counseling and coordination of care.
Anticipated Discharge: 24 - 48 hours
Subjective/Interval History
-
Date of Service: December 17, 2024
Seen and examined at bedside. afib since converted back to normal sinus rhythm. Patient visibly seems improved more comfortable and energetic compared to day prior. Patient nonetheless complaining regarding being on a restricted diet. Insists
that she eats whatever she wants outside the hospital. When it was pointed out that her diet is probably what keeps bringing her back to the hospital, patient reported that she no longer cares and just wants to .
Objective Data
-
Labs:
Laboratory Results
12/17/24
05:16
WBC 13.2 H
Hgb 9.0 L
Hct 26.3 L
Plt Count 313
PT 15.7 H
INR 1.22
Sodium 133 L
Potassium 4.5
Chloride 100
Carbon Dioxide 19 L
BUN 95 H
Creatinine 3.5 H
Glucose 149 H
Calcium 8.2 L
Vital Signs:
Vital Signs
Temp Pulse Resp BP Pulse Ox
97.2 F 71 18 142/60 95
12/17/24 03:37 12/17/24 03:37 12/17/24 03:37 12/17/24 03:37 12/17/24 03:37
I&O
12/16/24 12/17/24 12/18/24
06:59 06:59 06:59
Intake Total 1680 / 0 1110 / 1110
Output Total 250 / 250
Balance 1679 / 1680 860 / 860
[2024-12-17] MEDS: LIDOCAINE 4% PATCH 1 PATCH TOPICAL (08:12)
[2024-12-17] MEDS: VITAMIN D3 (cholecalciferol) 25 MCG PO (08:13)
[2024-12-17] MEDS: PROTONIX 40 MG PO (08:13)
[2024-12-17] MEDS: CLARITIN 10 MG PO (08:13)
[2024-12-17] MEDS: NORVASC 10 MG PO (08:13)
[2024-12-17] MEDS: MUCINEX 600 MG PO ×2 (08:14→19:19)
[2024-12-17] MEDS: NON-FORMULARY ITEM 1 UNIT PO (08:14)
[2024-12-17] MEDS: PACERONE 400 MG PO ×2 (08:14→19:20)
[2024-12-17] MEDS: MAG-TAB SR 84 MG PO (08:15)
[2024-12-17] MEDS: ELIQUIS 2.5 MG PO (08:15)
[2024-12-17] MEDS: FEOSOL 325 MG PO (08:15)
[2024-12-17] MEDS: BenGay-Like 1 APPLIC TOPICAL ×2 (08:15→19:22)
[2024-12-17] MEDS: NOVOLOG FLEXPEN-LOW RESISTANCE 1 UNITS SC (08:16)
[2024-12-17 12:13] LABS: Glucose - Point of Care 229 mg/dl (70-99)
[2024-12-17] MEDS: NOVOLOG FLEXPEN-LOW RESISTANCE 2 UNITS SC (12:23)
[2024-12-17] MEDS: BenGay-Like TOPICAL ×2 (12:25→16:27)
--- NOTE | 2024-12-17 12:45 | W.PN.CD ---
Today's Communication / Plan
-
Consider Hospice
She does not want AC - Eliquis too expensive, Warfarin too many labs
Continue Amiodarone with the goal of keeping her in sinus to avoid HF
Consider liberalizing diet
Impression / Plan
-
I/P: 84F with chronic HFpEF, hypertension, dyslipidemia, chronic kidney disease, type 2 diabetes, and GERD with recent hospitalization at [facility] for treatment of pneumonia who presents with fatigue and weakness. Cardiology is consulted
due to concern for acute on chronic HFpEF.
Outpatient seam stay stitcher: Dr. Aaron Campos
Atrial fibrillation, new this admission
- Went into AF evening of 12/15. Not previously documented. HRs 100s in AF but with conversion pauses up to 5 sec and sinus HR 60s, precluding BB/CCB. Hard to tell if she is symptomatic
- Started PO Amiodarone for rhythm control and she now seems to be in sinus more of the time
- Continue Amiodarone 400mg BID until 12/30 then switch to 200mg daily
- CHADsVasc 5. Eliquis is too expensive. She does not want to do Warfarin due to frequent INR checks. She understands the risk of no AC
- If she continues to be tachy-david with long pauses, may need PPM (would need to discuss GOC)
- Stop Labetalol
ERICK on CKD
- Severe. Poses a threat to life.
- Hold diuresis
- Trend Cr
- Nephrology following. Cr improving
- Consider liberalizing diet
HFpEF, chronic
- TTE 12/13/24: LVEF 51%, stage II DD, mod MR, severe TR, PASP 68 (previously 54)
- proBNP >27,000 on admission but in the setting of CKD. Had small R pleural effusion but maybe parapneumonic. Weight stable from prior admissions. Overall examines euvolemic
- Hold Bumex
- Trend daily weight, I/O, and BMP with diuresis
- HF education
- Liberalize fluid restriction
RLL PNA
- Abx per primary
Hyponatremia, appears chronic, follow with diuresis
Mild aortic stenosis
Moderate tricuspid regurgitation
Hypertension, chronic, continue current medical therapy
Goals of care
- Long discussion with patient 12/17. Says she is ready to . She is 'sick of all of this.'
- Hospice would be reasonable
DATA:
Transthoracic echocardiogram, 08/28/2024:
Normal biventricular size and systolic function without regional wall motion
abnormality.
Stage II diastolic dysfunction suggestive of abnormal relaxation and increased
filling pressures.
Aortic sclerosis.
Moderate tricuspid regurgitation with moderate pulmonary hypertension.
No prior study available for comparison.
Subjective: Had a long conversation with patient this AM. She is very upset about her dietary restrictions. I explained she is on a low K diet due to renal failure. She wants to be able to 'eat what I want to eat.' She says she doesn't care if she
dies, is done with life, wishes the lord would take her etc. I asked why she was amenable to HD yesterday and she said because her daughter thought she should try it.
Physical Exam
Vital Signs/Labs
Vital Signs
Temp Pulse Resp BP Pulse Ox
97.4 F 117 18 130/78 94
12/17/24 11:05 12/17/24 11:05 12/17/24 11:05 12/17/24 11:05 12/17/24 11:05
12/16/24 12/17/24 12/18/24
06:59 06:59 06:59
Actual Weight 152 lb 149 lb
12/17/24 05:16
12/17/24 05:16
PT 15.7 Sec (11.4-14.6) H 12/17/24 05:16
INR 1.22 12/17/24 05:16
Magnesium 2.2 mg/dl (1.6-2.3) 12/17/24 05:16
Triglycerides 120 mg/dl (10-149) 12/13/24 08:16
LDL Cholesterol, Calc 7.16398 mg/dl 12/13/24 08:16
VLDL Cholesterol, Calc 24 mg/dl (0-30) 12/13/24 08:16
HDL Cholesterol 18 mg/dl 12/13/24 08:16
12/12/24
11:39
Vhu-O-Azdxsmpxcrb Pept > 90518
Physical Exam
Constitutional: No acute distress and Comfortable
Cardiovascular: Pedal edema is absent, Rhythm/rate is irregular and S1S2 is normal
Respiratory: Respiratory effort normal and Lungs clear to auscul.
Data Reviewed
-
Date of Service: December 17, 2024
Medical Decision Making: Reviewed Test Results, Independent Historian Assessment, Test Interpretation and Review of Case with other Provider
EKG: Tracing Personally Visualized and interpreted
Echo: Report Reviewed by me
Labs: Labs Reviewed by me
Total Time Spent with Patient (in minutes): 30
[2024-12-17] MEDS: ROCEPHIN 1000 MG IV (13:47)
[2024-12-17] MEDS: STERILE WATER FOR INJECTION 10 ML IV (13:48)
--- NOTE | 2024-12-17 16:21 | W.PN.NEPH.PH ---
Today's Communication / Plan
-
follow lab s
Assessment/Plan
-
84-year-old female with history of CHF, hypertension, CKD, hyperlipidemia, diabetes presenting to the emergency department for persistent cough and fatigue. Patient notes that she was admitted for 6 days at [facility] for pneumonia, was
discharged 2 days ago on oral abx. she finished one abx. She reports that she still feeling very weak and has been coughing
Renal consult for acute on chronic kidney disease and hyponatremia.
Reviewed all records from [facility]. Her creatinine peaked at 4.2 on December 09.
follows with nephrology in [place]
Baseline creatinine 2.5 as of August 2024.
Sodium 125 on admission= 129 on consult
Impression.
Acute on chronic kidney disease stage IV.
Acute on chronic hyponatremia.
CHF�compensated.
Pneumonia.
Hypertension.
Plan.
cr better at 3.5 BUN 95
Continue hold diuretics now, vol status seem stable
she is agreeing to HD now however it may significantly impact her DOL, which she is aware of
likely no need of HD this admit
will cont to monitor labs
BP stable
Continue antibiotics.
mild met acidosis is stable
Continue with supportive care medical management
noted that pt may want hospice, no decision made yet, palliative consulted per primary
d/w pt
-
-
Date of Service: December 17, 2024
CC / HPI / ROS
-
Chief Complaint:
Acute on chronic kidney disease
History of Present Illness:
Presents with shortness of breath cough pneumonia and progressive CKD stage V
cr better at 3.5
bicabr stable at 19
BP stable, wt is down
Review of Systems:
c/o not feeling well,
Comfortable no chest pain or shortness of breath
Labs
-
Labs:
WBC 13.2 10^3/uL (4.8-10.8) H 12/17/24 05:16
RBC 3.06 10^6/uL (4.20-5.40) L 12/17/24 05:16
Hgb 9.0 g/dL (12.0-16.0) L 12/17/24 05:16
Hct 26.3 % (37.0-47.0) L 12/17/24 05:16
Plt Count 313 10^3/uL (130-400) 12/17/24 05:16
Sodium 133 mmol/L (135-145) L 12/17/24 05:16
Potassium 4.5 mmol/L (3.5-5.1) 12/17/24 05:16
Chloride 100 mmol/L (98-107) 12/17/24 05:16
Carbon Dioxide 19 mmol/L (22-30) L 12/17/24 05:16
BUN 95 mg/dl (7-17) H 12/17/24 05:16
Creatinine 3.5 mg/dL (0.6-1.0) H 12/17/24 05:16
eGFR 12.20 12/17/24 05:16
Glucose 149 mg/dl (70-99) H 12/17/24 05:16
Calcium 8.2 mg/dl (8.4-10.2) L 12/17/24 05:16
Phosphorus 5.5 mg/dl (2.5-4.5) H 12/17/24 05:16
Kry-Z-Otuoqbrwwoy Pept > 30949 pg/ml 12/12/24 11:39
Albumin 3.1 g/dl (3.5-5.0) L 12/12/24 12:17
Physical Exam
-
Vital Signs:
Vital Signs
Temp Pulse Resp BP Pulse Ox
97.6 F 68 16 134/52 94
12/17/24 15:20 12/17/24 15:20 12/17/24 15:20 12/17/24 15:20 12/17/24 15:20
Cardiovascular:: Regular rate and rhythm
Respiratory:: Bilateral: CTA
Lung Excursion:: Normal
Abdomen:: Nontender and Soft
Extremity Edema:: None: Bilateral:
[place] Catheter: No
[2024-12-17 16:49] LABS: Glucose - Point of Care 258 mg/dl (70-99)
[2024-12-17] MEDS: NOVOLOG FLEXPEN-MODERATE RESISTANCE 3 UNITS SC (17:03)
[2024-12-17] MEDS: LIPITOR 80 MG PO (17:03)
[2024-12-17] MEDS: NEURONTIN 300 MG PO (19:19)
[2024-12-17] MEDS: TYLENOL 1000 MG PO (19:19)
[2024-12-17] MEDS: BENADRYL 50 MG PO (19:24)
[2024-12-17] MEDS: MELATONIN 3 MG PO (19:24)
[2024-12-17 20:45] LABS: Glucose - Point of Care 156 mg/dl (70-99)
[2024-12-18] VITALS (8 sets, daily range): BP systolic 123–156; BP diastolic 50–88; PULSE 72–83; BMI 24.6
[2024-12-18] MEDS: TYLENOL 650 MG PO ×2 (04:51→17:33)
[2024-12-18 07:15] LABS: Glucose - Point of Care 161 mg/dl (70-99)
[2024-12-18] MEDS: NOVOLOG FLEXPEN-MODERATE RESISTANCE 1 UNITS SC (07:38)
[2024-12-18] MEDS: BenGay-Like 1 APPLIC TOPICAL ×3 (07:39→20:29)
[2024-12-18] MEDS: LIDOCAINE 4% PATCH 1 PATCH TOPICAL (07:39)
[2024-12-18] MEDS: MUCINEX 600 MG PO ×2 (07:40→20:27)
[2024-12-18] MEDS: PACERONE 400 MG PO ×2 (07:40→20:27)
[2024-12-18] MEDS: VITAMIN D3 (cholecalciferol) 25 MCG PO (07:40)
[2024-12-18] MEDS: PROTONIX 40 MG PO (07:40)
[2024-12-18] MEDS: FEOSOL 325 MG PO (07:40)
[2024-12-18] MEDS: MAG-TAB SR 84 MG PO (07:41)
[2024-12-18] MEDS: CLARITIN 10 MG PO (07:41)
[2024-12-18] MEDS: NORVASC 10 MG PO (07:41)
[2024-12-18] MEDS: NON-FORMULARY ITEM 1 UNIT PO (07:44)
[2024-12-18 08:30] LABS: Hematocrit 26.8 % (37.0-47.0); Hemoglobin 9.2 g/dL (12.0-16.0); Mean Corp Hgb Conc. 34.3 g/dL (33.0-37.0); Mean Corpuscular Hgb 29.8 pg (27.0-31.0); Mean Corpuscular Volume 86.7 fL (81.0-99.0); Mean Platelet Volume 9.7 fL (7.4-10.4); Platelet Count 349 10^3/uL (130-400); Red Blood Cell Count 3.09 10^6/uL (4.20-5.40); Red Cell Dist. Width 18.5 % (11.5-14.5); White Blood Cell Count 15.8 10^3/uL (4.8-10.8)
[2024-12-18 08:36] LABS: INR 1.31; PT 16.6 Sec (11.4-14.6)
[2024-12-18 09:07] LABS: Blood Urea Nitrogen 93 mg/dl (7-17); Calcium 8.4 mg/dl (8.4-10.2); Carbon Dioxide 18 mmol/L (22-30); Chloride 101 mmol/L (98-107); Estimated Creatinine Clearance 11 ml/min; Glucose 139 mg/dl (70-99); Magnesium 2.2 mg/dl (1.6-2.3); Phosphorus 5.7 mg/dl (2.5-4.5); Potassium 4.6 mmol/L (3.5-5.1); Sodium 134 mmol/L (135-145); eGFR 12.63
--- NOTE | 2024-12-18 09:10 | PTCARENOTE ---
Pt alarming on tele, pt having almost 5 second pauses. Pt resting in the 60s, afib. MD made aware. Chemical Processing Technician made aware.
[2024-12-18 11:08] LABS: Glucose - Point of Care 230 mg/dl (70-99)
--- NOTE | 2024-12-18 11:14 | W.PN.CD ---
Addendum entered and electronically signed by Aryan Garcia MD 12/18/24 12:35:
I saw and examined the patient.
The EXTRUSION DIE TEMPLATE MAKER's note was reviewed and I agree with the note.
Comment:
Patient continues to feel very tired. Sometimes dizzy when she tries to stand up.
Physical exam with regular rate and rhythm, no murmurs, clear lungs, no lower extremity edema
Telemetry with up to 5-second pauses. Less frequent than prior. Primarily in normal sinus rhythm. Not as much atrial fibrillation.
Despite pauses on telemetry, I recommend she continue amiodarone 400 mg twice daily. Pauses were present prior to initiating amiodarone and have not gotten worse. The pauses are conversion pauses, so if the amiodarone can keep her in normal sinus
rhythm pauses will no longer occur. She does not want anticoagulation.
Continue to hold diuresis as she examines euvolemic.
Agree with palliative care consult.
Original Note:
Today's Communication / Plan
-
Stop amiodarone
Palliative care consulted by primary service
Impression / Plan
-
I/P: 84F with chronic HFpEF, hypertension, dyslipidemia, chronic kidney disease, type 2 diabetes, and GERD with recent hospitalization at [facility] for treatment of pneumonia who presents with fatigue and weakness. Cardiology is consulted
due to concern for acute on chronic HFpEF.
Outpatient complaint inspector: Dr. Aaron Campos
Atrial fibrillation, new this admission
- Went into AF evening of 12/15. Not previously documented. HRs 100s in AF but with conversion pauses up to 5 sec and sinus HR 60s, precluding BB/CCB.
- Started PO Amiodarone for rhythm control. Pauses continue without symptoms -> Stop amiodarone
- CHADsVasc 5. Eliquis is too expensive. She does not want to do Warfarin due to frequent INR checks. She understands the risk of no AC
- If she continues to be tachy-david with long pauses, may need PPM (would need to discuss GOC)
- Follow telemetry
ERICK on CKD
- Severe. Poses a threat to life.
- Hold diuresis
- Trend Cr, improving
- Nephrology following.
- Diet liberalized
HFpEF, chronic
- TTE 12/13/24: LVEF 51%, stage II DD, mod MR, severe TR, PASP 68 (previously 54)
- proBNP >27,000 on admission but in the setting of CKD. Had small R pleural effusion but maybe parapneumonic (too small to tap). Weight stable from prior admissions. Overall examines euvolemic
- Hold Bumex, weight trending down without diuresis
- Trend daily weight, I/O, and BMP
- HF education
- Liberalize fluid restriction
RLL PNA
- Abx per primary
Hyponatremia, appears chronic, improving
Mild aortic stenosis
Moderate tricuspid regurgitation
Hypertension, chronic, continue current medical therapy
Type II DM
Goals of care
- Long discussion with patient 12/17. Says she is ready to . She is 'sick of all of this.'
- Hospice would be reasonable
DATA:
Transthoracic echocardiogram, 08/28/2024:
Normal biventricular size and systolic function without regional wall motion
abnormality.
Stage II diastolic dysfunction suggestive of abnormal relaxation and increased
filling pressures.
Aortic sclerosis.
Moderate tricuspid regurgitation with moderate pulmonary hypertension.
No prior study available for comparison.
SUBJECTIVE:
Very overwhelmed with current medical situation.
Physical Exam
Vital Signs/Labs
Vital Signs
Temp Pulse Resp BP Pulse Ox
98.3 F 72 18 156/88 97
12/18/24 07:42 12/18/24 07:42 12/18/24 07:42 12/18/24 07:42 12/18/24 07:42
12/17/24 12/18/24 12/19/24
06:59 06:59 06:59
Actual Weight 67.585 kg 67.188 kg
12/18/24 07:59
12/18/24 07:58
PT 16.6 Sec (11.4-14.6) H 12/18/24 07:58
INR 1.31 12/18/24 07:58
Magnesium 2.2 mg/dl (1.6-2.3) 12/18/24 07:58
Triglycerides 120 mg/dl (10-149) 12/13/24 08:16
LDL Cholesterol, Calc 7.94137 mg/dl 12/13/24 08:16
VLDL Cholesterol, Calc 24 mg/dl (0-30) 12/13/24 08:16
HDL Cholesterol 18 mg/dl 12/13/24 08:16
12/12/24
11:39
Dhr-D-Lshqbpdgexg Pept > 38679
Physical Exam
Constitutional: No acute distress and Comfortable
EENT: Anicteric and Moist mucous membranes
Cardiovascular: Rhythm/rate is irregular and S1S2 is normal
Respiratory: Respiratory effort normal and Lungs clear to auscul.
GI: Soft, Distention absent, Flat and Non tender
Neuro/Psych: Alert
Other: Skin (Warm and dry without edema)
Data Reviewed
-
Date of Service: December 18, 2024
[2024-12-18] MEDS: NOVOLOG FLEXPEN-MODERATE RESISTANCE 3 UNITS SC (11:44)
--- NOTE | 2024-12-18 13:15 | W.PN.HOSP.TC ---
Today's Communication/Plan
-
await Palliative eval
monitor Cr
OOB/monitor HR
Cont IV abx
Assessment / Plan
Assessment / Plan
Physical Exam
General: no acute distress, appears relatively comfortable at this time.
HEENT: NormoCephalic, Moist mucous membranes and Atraumatic
Respiratory: right sided basilar crackles
Cardiac: S1/S2 and Regular Rhythm; No Murmur or Rub
GI: Soft, Non Tender, Non Distended and Normal Bowel Sounds; No Organomegaly
Musculoskeletal: No Clubbing, No Cyanosis, No edema
Skin: No Rash
Neuro: AOx3 conversant coherent
Psych: relatively Calm
84F HFpEF HTN CKD4 HLD DM here for PNA possible Heart Failure and worsening Kidney Function ERICK vs progression CKD IV to V
# Generalized weakness, fatigue, cough, short of breath likely from right lower lobe pneumonia/right pleural effusion
#MRSA screen positive
- COVID/Flu neg
- Chest x-ray with moderate right pleural effusion progressed. Findings concerning for developing mild right lower lobe pneumonia
- ID eval appreciated IV cefepime and Vanco narrowed to ceftriaxone
- Tylenol as needed for fever or pain
- PT/OT consult appreciated SNF vs home PT
-IR consulted for thoracentesis Rt pleural effusion however procedure was aborted as effusion was too small
-Mucinex prn cough
# Possible Acute on Chronic vs simply Chronic HFpEF
- Bumex iv diuresis placed on hold as per Nephro
- ECHO appreciated EF 51% worsening MR TR and Pulm htn in comparison to babak ECHO 07/2024
- Strict JAELYN, daily weight
- Cardiology consult appreciated fluid restriction liberalized to 60 0z
#Sinus Pauses noted on Telemonitor
#New onset afib
Possibly symptomatic general malaise (denied chest pain palpitations)
Cardio eval appreciated
-home Labetalol stopped
-Afib since converted back to NSR following start amiodarone (continue)
Per cardiology discussion with patient, pt does not want to continue with anticoagulation, Eliquis too expensive as per insurance and patient does not want to do INR checks with Warfarin, patient understands the risk no AC. Therapeutic AC
subsequently discontinued per pt request (originally was being bridged with renally dosed Eliquis and Warfarin till therapeutic INR)
-Plan to continue Amiodarone. Prolonged discussion again today w/patient who stated if w/severe bradycardia She does not want PPM.
# Anemia of chronic disease
- H&H stable
- No active bleeding
- cont home ferrous sulfate
- Continue to monitor
# Chronic hyponatremia
-124 on admission since improved
- Continue to monitor
# anion gap Metabolic acidosis/ERICK on CKD stage IV vs progression CKD
-nephrology consult appreciated no acute need for HD at this time, hold diuretics
-Cr at 3.4 Follow labs.
#essential hypertension
#Dizziness suspect symptomatic orthostatic hypotension
-Continue Norvasc with holding parameters
-Labetalol stopped d/t heart pause as above, hydralazine IV prn
-monitor orthostatic vitals
-TEDs
#Hyperlipidemia
-Continue statin
Type 2 diabetes with hyperglycemia complicated by hyperglycemia
#neuropathy
-sliding scale low dose escalated to moderate dose algorithm
-gabapentin continued
#GERD
-Continue Protonix
#Anxiety/Depression/Insomnia
#Patient frequently reporting that she wants to , denies any thoughts/plans to harm herself or others
Psych eval appreciated bedtime Melatonin started
Low dose IV ativan prn anxiety
DNR/DNI-Awaiting Palliative care
DVT prophylaxis SCD
On12/17/24 Dr. Conway had Goals of Care Discussion: Patient consistently reporting that she no longer wants to continue with active treatment and that she is ready to . In particular she complained regarding being on a restricted diet. Insisted
that she eats whatever she wants outside the hospital. When it was pointed out that her diet may be contributing to her hospital returns, patient reported that she no longer cares and that she just wants to . Refusing dialysis if indicated and
therapeutic anticoagulation for paroxysmal afib, patient emphasized that she just wants to be comfortable in what time she has left. Offered hospice eval, patient unsure that she wants to pursue but was agreeable to palliative eval, consult
requested accordingly. Diet was liberalized to regular as per patient's request. Patient AOx3 at capacity to make her own decisions. Daughter Jodi aware and in support of patient's decisions.
d/w with cardiology
Anticipated Discharge: > 48 hours
Subjective/Interval History
-
Date of Service: December 18, 2024
states feeling tired and cold
didn't sleep much
Objective Data
-
Labs:
Laboratory Results
12/18/24 12/18/24
07:58 07:59
WBC 15.8 H
Hgb 9.2 L
Hct 26.8 L
Plt Count 349
PT 16.6 H
INR 1.31
Sodium 134 L
Potassium 4.6
Chloride 101
Carbon Dioxide 18 L
BUN 93 H
Creatinine 3.4 H
Glucose 139 H
Calcium 8.4
Vital Signs:
Vital Signs
Temp Pulse Resp BP Pulse Ox
97.3 F 77 18 152/56 98
12/18/24 11:30 12/18/24 11:30 12/18/24 11:30 12/18/24 11:30 12/18/24 11:30
I&O
12/17/24 12/18/24 12/19/24
06:59 06:59 06:59
Intake Total 1110 / 1110 240 / 240
Output Total 250 / 250
Balance 860 / 860 240 / 240
Data Reviewed
-
Total Time Spent with Patient (in minutes): 55
[2024-12-18] MEDS: ROCEPHIN 1000 MG IV (13:23)
[2024-12-18] MEDS: STERILE WATER FOR INJECTION 10 ML IV (13:23)
[2024-12-18] MEDS: BenGay-Like TOPICAL (13:23)
--- NOTE | 2024-12-18 13:41 | W.CON.PAL ---
Consultation
-
Date/Time Consultation Requested: 12/17/24
Date/Time Consultation Performed: 12/18/24
Reason for Consult: Goals of Care Discussion
Primary Diagnosis: heart failure, CKD
Reason for Admission
Illness Course/HPI
Kera is a 84 y/o female with a past medical hx of HFpEF, HTn, CKD4, DM who was rehospitalized after recent [place] hospital stay 1 week ago for PNA. this time with weakness.
Palliative care consulted for goals of care conversation. Current hospital stay complicated by ERICK - patient declined HD, and did not need it emergently. Patient requested liberalization of diet
Functional Status
prior to hospitalization patient had been recovering from hospital stays/rehab stays in [place]. had just staretd to improve in mobility, was receiving home care. now very weak and unable to walk very far. Lives alone, but daughter states after
current hospitalization she may come and stay with her daughter
Goals of Care Discussion
-
Individuals Present for Discussion & Relationship to Patient:
Patient, daughter sanjuanita, and close friend is present as well
Patient able to participate in discussion at time of visit: Yes
Patient's Information Preferences: Fully Involved/Able to Participate
Patient Goals
Discussed palliative care services, hospice services.
Discussed high risk of readmission to hospital if not following medication,dietary, and fluid advice - just a matter of time given the heart and kidney history
Discussed dialysis and impact on quality of life - patient clear that she would not want dialysis.
Discussed option of hospice care and focus on comfort. while patient is overall in agreement with this approach, daughter would like to trial a short course of rehab first before making that decision. Patient defers this decision to daughter.
Discussed option of palliative care after return home vs. hospice care and that for the level of support she needs at this time, hospice would be more appropriate.
Expressed concern about risk of rehospitalization while at rehab - they should consider if she declines in condition would they start hospice at the rehab rather than return to hospital.
Encouraged hospice meet and greet here in the hospital - family declines at this time.
Pain & Symptom Assessment
-
patietn reports fatigue, weakness. denies dyspnea. pain improved
Objective Data
-
Objective Data:
Vital Signs
Temp Pulse Resp BP Pulse Ox
97.3 F 77 18 152/56 98
12/18/24 11:30 12/18/24 11:30 12/18/24 11:30 12/18/24 11:30 12/18/24 11:30
Laboratory Results
12/18/24 07:59
12/18/24 07:58
PT 16.6 Sec (11.4-14.6) H 12/18/24 07:58
INR 1.31 12/18/24 07:58
Hemoglobin A1c 6.7 % (4.0-5.6) H 12/13/24 08:16
Total Protein 6.0 g/dl (6.3-8.2) L 12/12/24 19:50
Albumin 3.1 g/dl (3.5-5.0) L 12/12/24 12:17
Urine Color Yellow 12/13/24 10:08
Urine Clarity Clear (Clear) 12/13/24 10:08
Urine pH 5.0 (5.0-9.0) 12/13/24 10:08
Ur Specific Boykins 1.010 (<1.030) 12/13/24 10:08
Urine Ketones Negative (Negative) 12/13/24 10:08
Urine Occult Blood 1+ (Negative) A 12/13/24 10:08
Urine Nitrite Negative (Negative) 12/13/24 10:08
Urine Bilirubin Negative (Negative) 12/13/24 10:08
Ur Leukocyte Esterase 3+ (Negative) A 12/13/24 10:08
Urine Albumin 3+ (Neg - Trace) A 12/13/24 10:08
Palliative Performance Scale
Palliative Performance Scale:
PPS Level Ambulation Activity & Evidence of Disease Self Care Intake Conscious Level
100% Full Normal Activity & Work; Full Intake Full
No Evidence of Disease
90% Full Normal Activity & Work; Full Normal Full
Some Evidence of Disease
80% Full Normal Activity with Effort Full Normal or Full
Some Evidence of Disease Reduced
70% Reduced Unable Normal Job/Work Full Normal or Full
Significant Disease Reduced
60% Reduced Unable Hobby/Housework Occasional Normal or Full or Confusion
Significant Disease Assistance Reduced
50% Mainly Sit/Lie Unable to do Any Work Considerable Normal or Full or Confusion
Extensive Disease Assistance Req'd Reduced
40% Mainly in Bed Unable to do Most Activity Mainly Assistance Normal or Full or Drowsy;
Extensive Disease Reduced +/- Confusion
30% Totally Bed Unable to do Any Activity Total Care Normal or Full or Drowsy;
Bound Extensive Disease Reduced +/- Confusion
20% Totally Bed Bound Unable to do Any Activity Total Care Minimal to Full or Drowsy;
Extensive Disease Sips +/- Confusion
10% Totally Bed Bound Unable to do Any Activity Total Care Mouth Care Drowsy or Coma;
Extensive Disease Only +/- Confusion
0%
PPS Score Level:
Palliative Performance Score Response
Palliative Performance Score Response: 40%
Physical Exam
-
General: Well Nourished, No Apparent Distress and Comfortable
Neuro: Awake
Psych: Calm
Assessment / Plan
-
Assessment/Plan:
At this time, goals are rehabilitative - course of rehab/therapy followed by home palliative care. Potentially will transition to hospice in the future when condition declines.
Family declined hospice meet and greet.
Provided palliative care office contact info
Total time 60 mins.
--- NOTE | 2024-12-18 14:59 | W.PN.NEPH.PH ---
Today's Communication / Plan
-
follow lab s
po bicarb
Assessment/Plan
-
84-year-old female with history of CHF, hypertension, CKD, hyperlipidemia, diabetes presenting to the emergency department for persistent cough and fatigue. Patient notes that she was admitted for 6 days at [facility] for pneumonia, was
discharged 2 days ago on oral abx. she finished one abx. She reports that she still feeling very weak and has been coughing
Renal consult for acute on chronic kidney disease and hyponatremia.
Reviewed all records from [facility]. Her creatinine peaked at 4.2 on December 09.
follows with nephrology in [place]
Baseline creatinine 2.5 as of August 2024.
Sodium 125 on admission= 129 on consult
Impression.
Acute on chronic kidney disease stage IV.
Acute on chronic hyponatremia.
CHF�compensated.
Pneumonia.
Hypertension.
Plan.
cr better at 3.4 BUN 95
Continue hold diuretics now, vol status seem stable
she is not sure of [employer] in future if she will agree or not
no need of HD this admit
BP stable
Continue antibiotics.
mild met acidosis is stable, ad dpo bicarb
Continue with supportive care medical management
palliative care currently
d/w pt
-
-
Date of Service: December 18, 2024
CC / HPI / ROS
-
Chief Complaint:
Acute on chronic kidney disease
History of Present Illness:
Presents with shortness of breath cough pneumonia and progressive CKD stage V
cr better at 3.4
bicabr stable at 18
BP stable, wt is down
Review of Systems:
c/o not feeling well, no specific complaint
Comfortable no chest pain or shortness of breath
Labs
-
Labs:
WBC 15.8 10^3/uL (4.8-10.8) H 12/18/24 07:59
RBC 3.09 10^6/uL (4.20-5.40) L 12/18/24 07:59
Hgb 9.2 g/dL (12.0-16.0) L 12/18/24 07:59
Hct 26.8 % (37.0-47.0) L 12/18/24 07:59
Plt Count 349 10^3/uL (130-400) 12/18/24 07:59
Sodium 134 mmol/L (135-145) L 12/18/24 07:58
Potassium 4.6 mmol/L (3.5-5.1) 12/18/24 07:58
Chloride 101 mmol/L (98-107) 12/18/24 07:58
Carbon Dioxide 18 mmol/L (22-30) L 12/18/24 07:58
BUN 93 mg/dl (7-17) H 12/18/24 07:58
Creatinine 3.4 mg/dL (0.6-1.0) H 12/18/24 07:58
eGFR 12.63 12/18/24 07:58
Glucose 139 mg/dl (70-99) H 12/18/24 07:58
Calcium 8.4 mg/dl (8.4-10.2) 12/18/24 07:58
Phosphorus 5.7 mg/dl (2.5-4.5) H 12/18/24 07:58
Ntt-C-Ijdfmooansj Pept > 95673 pg/ml 12/12/24 11:39
Albumin 3.1 g/dl (3.5-5.0) L 12/12/24 12:17
Physical Exam
-
Vital Signs:
Vital Signs
Temp Pulse Resp BP Pulse Ox
97.3 F 77 18 152/56 98
12/18/24 11:30 12/18/24 11:30 12/18/24 11:30 12/18/24 11:12/18/24 11:30
Cardiovascular:: Regular rate and rhythm
Respiratory:: Bilateral: CTA
Lung Excursion:: Normal
Abdomen:: Nontender and Soft
Extremity Edema:: None: Bilateral:
Kirkland Catheter: No
--- NOTE | 2024-12-18 15:09 | CM ---
Addendum entered by Radha Cannon 12/18/24 15:16:
no auth required, Medicare insurance.
Original Note:
CM reviewed chart, patient seen bedside with family, discussed plan for short term rehab. Patient agreeable, requesting referral to [facility], will place in [facility]. Patient will require insurance auth. Per Palliative note, family not
interested in hospice at this time. CM will continue to follow for all discharge planning needs.
Plan; referral to [facility], will require auth once accepted.
--- NOTE | 2024-12-18 15:17 | W.PN.ID1 ---
Date of Service
Date of Service: December 18, 2024
Today's Communication
Transition to cefdinir
Assessment / Plan
Cough
Recent diagnosis of PNA ([facility]; discharged ~12/10 on cefdinir and Zithromax)
Elevated BNP
Leukocytosis
- up today
ERICK on CKD stage IV
Elevated procalcitonin
CHF
HLD
DM
Recommendations:
Rocephin (d#7 ... plus abx LEGAL SUPPORT ANALYST)
Narrow to cefdinir for an additional 3 days.
Follow white count and temperature curve.
Chief Complaint
-: Pneumonia
Subjective / Review of Systems
Review of Systems: No Fever and No Cough
Vital Signs / Physical Exam
Vital Signs
Vital Signs
Temp Pulse Resp BP Pulse Ox
97.6 F 75 18 150/50 95
12/18/24 15:10 12/18/24 15:10 12/18/24 15:10 12/18/24 15:10 12/18/24 15:10
Physical Exam
Constitutional: No Acute Distress and Comfortable
Cardiovascular: S1/S2; Negative S3/S4
Pulmonary: Clear and Non Labored; Negative Rhonchi
Gastrointestinal: Soft and Non Tender
Skin: Warm and Dry; Negative Rash
Neurological: AO x 3
Psychological: Calm
Objective Data
Lab Data
Lab Results
12/18/24 07:59
12/18/24 07:58
PT 16.6 Sec (11.4-14.6) H 12/18/24 07:58
INR 1.31 12/18/24 07:58
Estimated Creat Clear 11 ml/min 12/18/24 07:58
Total Bilirubin 0.5 mg/dl (0.2-1.3) 12/12/24 12:17
AST 15 U/L (14-36) 12/12/24 12:17
ALT 17 U/L (0-35) 12/12/24 12:17
Alkaline Phosphatase 116 U/L (38-126) 12/12/24 12:17
Most recent labs reviewed.
Micro Results:
12/13/24 11:44 Nasal Screen MRSA (PCR) - Final
Nose Staph aureus MRSA
12/12/24 19:58 Legionella Urinary Antigen - Final
Urine Negative for Legionella pneumophila Serogroup 1 antigen.
A negative result does not rule out the possiblity of
Legionella infection due to other serogroups or species of
Legionella. Clinical correlation is recommended.
Streptococcus pneumoniae Antigen (M - Final
Negative for Streptococcus pneumoniae antigen.
A negative result does not exclude infection with
Streptococcus pneumoniae. Clinical correlation is
recommended.
12/12/24 12:17 Influenza Types A & B (JERRY) - Final
Nasal Swab Negative for Influenza A & B, NAAT
Negative results must be combined with clinical observations
and patient history.
Nucleic Acid Amplification test (NAAT)performed on the
[employer] platform.
[2024-12-18 15:47] LABS: Glucose - Point of Care 353 mg/dl (70-99)
[2024-12-18] MEDS: LIPITOR 80 MG PO (17:29)
[2024-12-18] MEDS: NOVOLOG FLEXPEN-MODERATE RESISTANCE 9 UNITS SC (17:30)
[2024-12-18] MEDS: SODIUM BICARBONATE 650 MG PO (20:27)
[2024-12-18] MEDS: NEURONTIN 300 MG PO (20:28)
[2024-12-18] MEDS: MELATONIN 3 MG PO (20:28)
[2024-12-18] MEDS: TYLENOL 1000 MG PO (20:28)
[2024-12-18 21:00] LABS: Glucose - Point of Care 154 mg/dl (70-99)
[2024-12-19] VITALS (7 sets, daily range): BP systolic 127–159; BP diastolic 73–85; PULSE 117–120; O2SAT 93; BMI 24.4
[2024-12-19 07:42] LABS: Glucose - Point of Care 187 mg/dl (70-99)
[2024-12-19 08:08] LABS: Hematocrit 30.4 % (37.0-47.0); Hemoglobin 10.1 g/dL (12.0-16.0); Mean Corp Hgb Conc. 33.2 g/dL (33.0-37.0); Mean Corpuscular Hgb 29.3 pg (27.0-31.0); Mean Corpuscular Volume 88.1 fL (81.0-99.0); Mean Platelet Volume 9.6 fL (7.4-10.4); Platelet Count 389 10^3/uL (130-400); Red Blood Cell Count 3.45 10^6/uL (4.20-5.40); White Blood Cell Count 19.8 10^3/uL (4.8-10.8)
[2024-12-19] MEDS: NOVOLOG FLEXPEN-MODERATE RESISTANCE 1 UNITS SC (08:16)
[2024-12-19] MEDS: LIDOCAINE 4% PATCH 1 PATCH TOPICAL (08:18)
[2024-12-19] MEDS: BenGay-Like 1 APPLIC TOPICAL ×3 (08:18→21:25)
[2024-12-19] MEDS: MUCINEX 600 MG PO ×2 (08:19→19:34)
[2024-12-19] MEDS: PACERONE 400 MG PO ×2 (08:19→19:34)
[2024-12-19] MEDS: OMNICEF 300 MG PO (08:20)
[2024-12-19] MEDS: VITAMIN D3 (cholecalciferol) 25 MCG PO (08:20)
[2024-12-19] MEDS: MAG-TAB SR 84 MG PO (08:21)
[2024-12-19] MEDS: PROTONIX 40 MG PO (08:21)
[2024-12-19] MEDS: SODIUM BICARBONATE 650 MG PO ×2 (08:21→19:35)
[2024-12-19] MEDS: CLARITIN 10 MG PO (08:21)
[2024-12-19] MEDS: FEOSOL 325 MG PO (08:22)
[2024-12-19] MEDS: NON-FORMULARY ITEM 1 UNIT PO (08:22)
[2024-12-19] MEDS: NORVASC 10 MG PO (08:22)
[2024-12-19 08:27] LABS: INR 1.37; PT 17.2 Sec (11.4-14.6)
--- NOTE | 2024-12-19 08:31 | W.PN.CD ---
Today's Communication / Plan
-
- Started PO Amiodarone for rhythm control; continue.
- Poor candidate for permanent pacemaker; palliative care consulted.
- Sinus tachycardia on telemetry (likely secondary to underlying pneumonia); will not add rate-controlling medications as this could precipitate pauses.
- Continue to hold Bumex for now (creatinine slowly improving); may need to resume sooner rather than later if patient has worsening dyspnea.
- Abx per primary; WBC increasing.
Impression / Plan
-
I/P: 84F with chronic HFpEF, hypertension, dyslipidemia, chronic kidney disease, type 2 diabetes, and GERD with recent hospitalization at [facility] for treatment of pneumonia who presents with fatigue and weakness. Cardiology is consulted
due to concern for acute on chronic HFpEF.
Outpatient director biomedical engineering: Dr. Aaron Campos
Paroxysmal atrial fibrillation, new this admission
- Went into AF evening of 12/15. Not previously documented. HRs 100s in AF but with conversion pauses up to 5 sec and sinus HR 60s, precluding BB/CCB.
- Started PO Amiodarone for rhythm control; continue.
- CHADsVasc 5. Eliquis is too expensive. She does not want to do Warfarin due to frequent INR checks. She understands the risk of no AC
- Poor candidate for permanent pacemaker; palliative care consulted.
- Sinus tachycardia on telemetry (likely secondary to underlying pneumonia); will not add rate-controlling medications as this could precipitate pauses.
ERICK on CKD
- Severe. Poses a threat to life.
- Continue to hold Bumex for now (creatinine slowly improving); may need to resume sooner rather than later if patient has worsening dyspnea.
- Trend Cr, improving
- Nephrology following.
- Diet liberalized
HFpEF, chronic
- TTE 12/13/24: LVEF 51%, stage II DD, mod MR, severe TR, PASP 68 (previously 54)
- proBNP >27,000 on admission but in the setting of CKD. Had small R pleural effusion but maybe parapneumonic (too small to tap). Weight stable from prior admissions. Overall examines euvolemic
- Holding Bumex, weight trending down without diuresis
- Trend daily weight, I/O, and BMP
- HF education
- Liberalize fluid restriction
RLL PNA
- Abx per primary; WBC increasing.
Hyponatremia, appears chronic, improving
Mild aortic stenosis
Moderate tricuspid regurgitation
Hypertension, chronic, continue current medical therapy
Type II DM
Goals of care
- Long discussion with patient 12/17. Says she is ready to . She is 'sick of all of this.'
- Hospice would be reasonable
DATA:
Transthoracic echocardiogram, 08/28/2024:
Normal biventricular size and systolic function without regional wall motion
abnormality.
Stage II diastolic dysfunction suggestive of abnormal relaxation and increased
filling pressures.
Aortic sclerosis.
Moderate tricuspid regurgitation with moderate pulmonary hypertension.
No prior study available for comparison.
Physical Exam
Vital Signs/Labs
Vital Signs
Temp Pulse Resp BP Pulse Ox
98.1 F 117 18 159/85 94
12/19/24 07:33 12/19/24 07:33 12/19/24 07:33 12/19/24 07:33 12/19/24 07:33
12/18/24 12/19/24 12/20/24
06:59 06:59 06:59
Actual Weight 67.188 kg 66.423 kg
12/19/24 07:04
PT 16.6 Sec (11.4-14.6) H 12/18/24 07:58
INR 1.31 12/18/24 07:58
Magnesium 2.2 mg/dl (1.6-2.3) 12/18/24 07:58
Triglycerides 120 mg/dl (10-149) 12/13/24 08:16
LDL Cholesterol, Calc 7.56849 mg/dl 12/13/24 08:16
VLDL Cholesterol, Calc 24 mg/dl (0-30) 12/13/24 08:16
HDL Cholesterol 18 mg/dl 12/13/24 08:16
12/12/24
11:39
Whc-P-Miauwwyervj Pept > 22325
Physical Exam
Constitutional: No acute distress and Comfortable
EENT: Anicteric
Cardiovascular: Rhythm & rate is regular, Pedal edema is absent, Systolic murmur present (2/) and S1S2 is normal
Respiratory: Respiratory effort normal, Wheeze Present and Rhonchi Present
GI: Soft
Neuro/Psych: AO x 3
Other: Skin (Warm, dry, intact)
Data Reviewed
-
Date of Service: December 19, 2024
EKG: Tracing Personally Visualized and interpreted (Telemetry: Sinus tachycardia)
Echo: Report Reviewed by me
Medical Tests (PFT, Pathology etc): Discussed with Nurse and Discussed with Patient
Labs: Labs Reviewed by me
[2024-12-19 08:55] LABS: Blood Urea Nitrogen 87 mg/dl (7-17); Calcium 8.7 mg/dl (8.4-10.2); Carbon Dioxide 20 mmol/L (22-30); Chloride 104 mmol/L (98-107); Estimated Creatinine Clearance 10 ml/min; Glucose 168 mg/dl (70-99); Phosphorus 5.2 mg/dl (2.5-4.5); Potassium 5.1 mmol/L (3.5-5.1); Sodium 138 mmol/L (135-145)
[2024-12-19] MEDS: TYLENOL 650 MG PO (08:55)
--- NOTE | 2024-12-19 09:52 | W.PN.UPDATE ---
Update Note
Progress Note Update
Patient seen at bedside, chart reviewed, discussed with staff. Ms. Mina is calm and cooperative. She tells me she did not have a great night but is feeling better today/ There was talk of comfort care but Ms. Mina has decided to try rehab first.
Still refusing dialysis. Denies any SI/SB. Spirits are improved today.
Impression/Recommendations: Adjustment disorder with depression, unfortunately not a candidate for antidepressant due to chronic hyponatremia. Continue Melatonin for insomnia. Recommend outpatient psychotherapy when medically cleared. Psych will
sign off, call or reconsult with any new or immediate concerns.
[2024-12-19 11:15] LABS: Glucose - Point of Care 203 mg/dl (70-99)
--- NOTE | 2024-12-19 11:45 | CM ---
CM reviewed chart, reviewed with hospitalist. Patient seen bedside with family, discussed patient accepted at [facility] for SNF when medically stable. CM will continue to follow for all discharge planning needs.
Plan; [facility] SNF when stable, no auth required
[2024-12-19] MEDS: NOVOLOG FLEXPEN-MODERATE RESISTANCE 3 UNITS SC ×2 (12:31→17:26)
--- NOTE | 2024-12-19 13:04 | W.PN.HOSP.TC ---
Today's Communication/Plan
-
repeat CXR
nephro recs
cont amiodarone
Cont abx-bump in wbc noted. afebrile.
Assessment / Plan
Assessment / Plan
Physical Exam
General: no acute distress, appears relatively comfortable at this time.
HEENT: NormoCephalic, Moist mucous membranes and Atraumatic
Respiratory: dec bs, oxygen noted
Cardiac: S1/S2 and irregularly irregular; No Murmur or Rub
GI: Soft, Non Tender, Non Distended and Normal Bowel Sounds; No Organomegaly
Musculoskeletal: No Clubbing, No Cyanosis, No edema
Skin: No Rash
Neuro: AOx3 conversant coherent
Psych: relatively Calm
84F HFpEF HTN CKD4 HLD DM here for PNA possible Heart Failure and worsening Kidney Function ERICK vs progression CKD IV to V
# Generalized weakness, fatigue, cough, short of breath likely from right lower lobe pneumonia/right pleural effusion
#Acute hypoxic resp insufficiency
#MRSA screen positive
- COVID/Flu neg
- Chest x-ray with moderate right pleural effusion progressed. Findings concerning for developing mild right lower lobe pneumonia
- ID eval appreciated IV cefepime and Vanco narrowed to ceftriaxone. Bump in wbc noted.
- Tylenol as needed for fever or pain
- PT/OT consult appreciated SNF vs home PT
-IR consulted for thoracentesis Rt pleural effusion however procedure was aborted as effusion was too small
-Mucinex prn cough
-repaet CXR to assess for pulm edema
# Possible Acute on Chronic vs simply Chronic HFpEF
- Bumex iv diuresis placed on hold as per Nephro
- ECHO appreciated EF 51% worsening MR TR and Pulm htn in comparison to babak ECHO 07/2024
- Strict JAELYN, daily weight. Probnp >27k.
- Cardiology consult appreciated fluid restriction liberalized to 60 0z
#Sinus Pauses noted on Telemonitor
#New onset afib
Possibly symptomatic general malaise (denied chest pain palpitations)
Cardio eval appreciated
-home Labetalol stopped
-Afib since converted back to NSR following start amiodarone (continue)-now back in Atrial flutter
Per cardiology discussion with patient, pt does not want to continue with anticoagulation, Eliquis too expensive as per insurance and patient does not want to do INR checks with Warfarin, patient understands the risk no AC. Therapeutic AC
subsequently discontinued per pt request (originally was being bridged with renally dosed Eliquis and Warfarin till therapeutic INR)
-Plan to continue Amiodarone. Prolonged discussion w/patient who stated if w/severe bradycardia She does not want PPM.
# Anemia of chronic disease
- H&H stable
- No active bleeding
- cont home ferrous sulfate
- Continue to monitor
# Chronic hyponatremia
-124 on admission since improved
- Continue to monitor
# anion gap Metabolic acidosis/ERICK on CKD stage IV vs progression CKD
-nephrology consult appreciated no acute need for HD at this time, hold diuretics
-Cr at 3.5 Follow labs.
#essential hypertension
#Dizziness suspect symptomatic orthostatic hypotension
-Continue Norvasc with holding parameters
-Labetalol stopped d/t heart pause as above, hydralazine IV prn
-monitor orthostatic vitals
-TEDs
#Hyperlipidemia
-Continue statin
Type 2 diabetes with hyperglycemia complicated by hyperglycemia
#neuropathy
-sliding scale low dose escalated to moderate dose algorithm
-gabapentin continued
#GERD
-Continue Protonix
#Anxiety/Depression/Insomnia
#Patient frequently reporting that she wants to , denies any thoughts/plans to harm herself or others
Psych eval appreciated bedtime Melatonin started
Low dose IV ativan prn anxiety
DNR/DNI
DVT prophylaxis SCD
12/17/24 Dr. Conway had Goals of Care Discussion: Patient consistently reporting that she no longer wants to continue with active treatment and that she is ready to . In particular she complained regarding being on a restricted diet. Insisted
that she eats whatever she wants outside the hospital. When it was pointed out that her diet may be contributing to her hospital returns, patient reported that she no longer cares and that she just wants to . Refusing dialysis if indicated and
therapeutic anticoagulation for paroxysmal afib, patient emphasized that she just wants to be comfortable in what time she has left. Offered hospice eval, patient unsure that she wants to pursue but was agreeable to palliative eval, consult
requested accordingly. Diet was liberalized to regular as per patient's request. Patient AOx3 at capacity to make her own decisions. Daughter Jodi aware and in support of patient's decisions.
Anticipated Discharge: 24 - 48 hours
Subjective/Interval History
-
Date of Service: December 19, 2024
states of sob this morning
was feeling hot
now in a. flutter
Objective Data
-
Labs:
Laboratory Results
12/19/24
07:04
WBC 19.8 H
Hgb 10.1 L
Hct 30.4 L
Plt Count 389
PT 17.2 H
INR 1.37
Sodium 138
Potassium 5.1
Chloride 104
Carbon Dioxide 20 L
BUN 87 H
Creatinine 3.5 H
Glucose 168 H
Calcium 8.7
Vital Signs:
Vital Signs
Temp Pulse Resp BP Pulse Ox
98.1 F 100 18 150/80 95
12/19/24 10:58 12/19/24 10:58 12/19/24 10:58 12/19/24 10:58 12/19/24 10:58
I&O
12/18/24 12/19/24 12/20/24
06:59 06:59 06:59
Intake Total 240 / 240 960 / 960
Balance 240 / 240 960 / 960
Data Reviewed
-
Total Time Spent with Patient (in minutes): 55
--- NOTE | 2024-12-19 14:41 | W.PN.ID1 ---
Date of Service
Date of Service: December 19, 2024
Today's Communication
Continue abx.
Assessment / Plan
Cough
Recent diagnosis of PNA ([facility]; discharged ~12/10 on cefdinir and Zithromax)
Elevated BNP
Leukocytosis
- rising
ERICK on CKD stage IV
Elevated procalcitonin
CHF
HLD
DM
Recommendations:
Continue cefdinir for an additional 2 days.
Repeat CXR pending.
Follow white count and temperature curve.
Chief Complaint
-: Pneumonia
Subjective / Review of Systems
Review of Systems: No Fever
Vital Signs / Physical Exam
Vital Signs
Vital Signs
Temp Pulse Resp BP Pulse Ox
98.1 F 100 18 150/80 95
12/19/24 10:58 12/19/24 10:58 12/19/24 10:58 12/19/24 10:58 12/19/24 10:58
Physical Exam
Constitutional: No Acute Distress and Comfortable
Cardiovascular: S1/S2; Negative S3/S4
Pulmonary: Coarse and Non Labored; Negative Rhonchi
Gastrointestinal: Soft and Non Tender
Skin: Warm and Dry; Negative Rash
Neurological: Other (Resting comfortably)
Psychological: Calm
Objective Data
Lab Data
Lab Results
12/19/24 07:04
12/19/24 07:04
PT 17.2 Sec (11.4-14.6) H 12/19/24 07:04
INR 1.37 12/19/24 07:04
Estimated Creat Clear 10 ml/min 12/19/24 07:04
Total Bilirubin 0.5 mg/dl (0.2-1.3) 12/12/24 12:17
AST 15 U/L (14-36) 12/12/24 12:17
ALT 17 U/L (0-35) 12/12/24 12:17
Alkaline Phosphatase 116 U/L (38-126) 12/12/24 12:17
Most recent labs reviewed.
Micro Results:
12/13/24 11:44 Nasal Screen MRSA (PCR) - Final
Nose Staph aureus MRSA
12/12/24 19:58 Legionella Urinary Antigen - Final
Urine Negative for Legionella pneumophila Serogroup 1 antigen.
A negative result does not rule out the possiblity of
Legionella infection due to other serogroups or species of
Legionella. Clinical correlation is recommended.
Streptococcus pneumoniae Antigen (M - Final
Negative for Streptococcus pneumoniae antigen.
A negative result does not exclude infection with
Streptococcus pneumoniae. Clinical correlation is
recommended.
12/12/24 12:17 Influenza Types A & B (JERRY) - Final
Nasal Swab Negative for Influenza A & B, NAAT
Negative results must be combined with clinical observations
and patient history.
Nucleic Acid Amplification test (NAAT)performed on the
[employer] platform.
[2024-12-19 16:03] LABS: Glucose - Point of Care 220 mg/dl (70-99)
[2024-12-19 16:11] LABS: NT-proBNP > 27000 pg/ml
--- NOTE | 2024-12-19 16:43 | W.PN.NEPH.PH ---
Today's Communication / Plan
-
Follow BMP
Still holding diuretic
Assessment/Plan
-
84-year-old female with history of CHF, hypertension, CKD, hyperlipidemia, diabetes presenting to the emergency department for persistent cough and fatigue. Patient notes that she was admitted for 6 days at [facility] for pneumonia, was
discharged 2 days ago on oral abx. she finished one abx. She reports that she still feeling very weak and has been coughing
Renal consult for acute on chronic kidney disease and hyponatremia.
Reviewed all records from [facility]. Her creatinine peaked at 4.2 on December 09.
follows with nephrology in [place]
Baseline creatinine 2.5 as of August 2024.
Sodium 125 on admission= 129 on consult
Impression.
Acute on chronic kidney disease stage IV.
Acute on chronic hyponatremia.
CHF�compensated.
Pneumonia.
Hypertension.
Plan.
cr unchanged at 3.5 BUN 87
Continue hold diuretics now, weights seem stable but patient was sob this am
I am not sure how much longer she will be able to have her diuretics held off
she is not sure of COTTON EXPERT in future if she will agree or not, this puts us in a tenuous situation and I am not sure what else to do at this point
no need of HD acutely but will need in future but patient has been hesitent to commit to dialysis, which is not unreasonable given her advanced age
BP stable
Continue antibiotics.
mild met acidosis is stable on po bicarb
Continue with supportive care medical management
palliative care ?
d/w nursing
-
-
Date of Service: December 19, 2024
CC / HPI / ROS
-
Chief Complaint:
Acute on chronic kidney disease
History of Present Illness:
Presents with shortness of breath cough pneumonia and progressive CKD stage V
cr unchanged at 3 point
Bicarbonate stable at 20 on oral bicarb
BP stable
Review of Systems:
c/o not feeling well, no specific complaint
Weight stable
Comfortable no chest pain or shortness of breath
Labs
-
Labs:
WBC 19.8 10^3/uL (4.8-10.8) H 12/19/24 07:04
RBC 3.45 10^6/uL (4.20-5.40) L 12/19/24 07:04
Hgb 10.1 g/dL (12.0-16.0) L 12/19/24 07:04
Hct 30.4 % (37.0-47.0) L 12/19/24 07:04
Plt Count 389 10^3/uL (130-400) 12/19/24 07:04
Sodium 138 mmol/L (135-145) 12/19/24 07:04
Potassium 5.1 mmol/L (3.5-5.1) 12/19/24 07:04
Chloride 104 mmol/L (98-107) 12/19/24 07:04
Carbon Dioxide 20 mmol/L (22-30) L 12/19/24 07:04
BUN 87 mg/dl (7-17) H 12/19/24 07:04
Creatinine 3.5 mg/dL (0.6-1.0) H 12/19/24 07:04
eGFR 12.20 12/19/24 07:04
Glucose 168 mg/dl (70-99) H 12/19/24 07:04
Calcium 8.7 mg/dl (8.4-10.2) 12/19/24 07:04
Phosphorus 5.2 mg/dl (2.5-4.5) H 12/19/24 07:04
Albumin 3.1 g/dl (3.5-5.0) L 12/12/24 12:17
Rkg-Y-Fgrkzblulio Pept > 21751 pg/ml 12/19/24 07:04
Physical Exam
-
Vital Signs:
Vital Signs
Temp Pulse Resp BP Pulse Ox
97.4 F 114 20 155/79 93
12/19/24 15:47 12/19/24 15:47 12/19/24 15:47 12/19/24 15:47 12/19/24 15:47
Cardiovascular:: Regular rate and rhythm
Respiratory:: Bilateral: CTA
Lung Excursion:: Normal
Abdomen:: Nontender and Soft
Extremity Edema:: None: Bilateral:
Kikrland Catheter: No
[2024-12-19] MEDS: LIPITOR 80 MG PO (17:26)
[2024-12-19] MEDS: BenGay-Like TOPICAL (17:26)
[2024-12-19] MEDS: NEURONTIN 300 MG PO (21:26)
[2024-12-19] MEDS: TYLENOL 1000 MG PO (21:26)
[2024-12-19] MEDS: MELATONIN 3 MG PO (21:26)
[2024-12-19 21:41] LABS: Glucose - Point of Care 237 mg/dl (70-99)
[2024-12-20 03:17] VITALS: BP 134/71
[2024-12-20 06:00] VITALS: BMI 24.1
[2024-12-20 07:17] LABS: Glucose - Point of Care 199 mg/dl (70-99)
[2024-12-20] MEDS: LIDOCAINE 4% PATCH TOPICAL (07:27)
[2024-12-20] MEDS: PROTONIX 40 MG PO (07:29)
[2024-12-20] MEDS: MAG-TAB SR 84 MG PO (07:29)
[2024-12-20] MEDS: OMNICEF 300 MG PO (07:29)
[2024-12-20] MEDS: VITAMIN D3 (cholecalciferol) 25 MCG PO (07:29)
[2024-12-20] MEDS: SODIUM BICARBONATE 650 MG PO ×2 (07:29→19:19)
[2024-12-20] MEDS: TYLENOL 650 MG PO (07:29)
[2024-12-20] MEDS: FEOSOL 325 MG PO (07:29)
[2024-12-20] MEDS: MUCINEX 600 MG PO ×2 (07:30→19:18)
[2024-12-20] MEDS: CLARITIN 10 MG PO (07:30)
[2024-12-20] MEDS: PACERONE 400 MG PO ×2 (07:30→19:19)
[2024-12-20] MEDS: NON-FORMULARY ITEM 1 UNIT PO (07:30)
[2024-12-20] MEDS: NORVASC 10 MG PO (07:30)
[2024-12-20] MEDS: BenGay-Like 1 APPLIC TOPICAL (07:32)
[2024-12-20] MEDS: NOVOLOG FLEXPEN-MODERATE RESISTANCE 1 UNITS SC (07:33)
[2024-12-20 07:40] VITALS: BP 141/80
[2024-12-20 08:23] LABS: Hematocrit 30.1 % (37.0-47.0); Hemoglobin 10.1 g/dL (12.0-16.0); Mean Corp Hgb Conc. 33.6 g/dL (33.0-37.0); Mean Corpuscular Hgb 29.5 pg (27.0-31.0); Mean Platelet Volume 9.4 fL (7.4-10.4); Platelet Count 383 10^3/uL (130-400); Red Blood Cell Count 3.42 10^6/uL (4.20-5.40); White Blood Cell Count 16.6 10^3/uL (4.8-10.8)
[2024-12-20 08:30] LABS: INR 1.33
[2024-12-20 09:17] LABS: Blood Urea Nitrogen 79 mg/dl (7-17); Calcium 8.4 mg/dl (8.4-10.2); Carbon Dioxide 19 mmol/L (22-30); Chloride 104 mmol/L (98-107); Estimated Creatinine Clearance 11 ml/min; Glucose 180 mg/dl (70-99); Magnesium 2.1 mg/dl (1.6-2.3); Phosphorus 5.2 mg/dl (2.5-4.5); Potassium 4.9 mmol/L (3.5-5.1); Sodium 139 mmol/L (135-145); eGFR 12.63
--- NOTE | 2024-12-20 09:52 | W.PN.CD ---
Today's Communication / Plan
-
- Continue Amiodarone; no pauses.
- Poor candidate for permanent pacemaker; palliative care/hospice seems appropriate.
- Sinus tachycardia on telemetry (likely secondary to underlying pneumonia); not adding rate-controlling medications as this could precipitate pauses.
- Holding Bumex (BUN/creatinine slowly improving); Nephrology following.
Impression / Plan
-
I/P: 84F with chronic HFpEF, hypertension, dyslipidemia, chronic kidney disease, type 2 diabetes, and GERD with recent hospitalization at [facility] for treatment of pneumonia who presents with fatigue and weakness. Cardiology is consulted
due to concern for acute on chronic HFpEF.
Outpatient information systems security analyst: Dr. Aaron Campos
Paroxysmal atrial fibrillation, new this admission
- Went into AF evening of 12/15. Not previously documented. HRs 100s in AF but with conversion pauses up to 5 sec and sinus HR 60s, precluding BB/CCB.
- Continue Amiodarone; no pauses.
- CHADsVasc 5. Silvaquis is too expensive. She does not want to do Warfarin due to frequent INR checks. She understands the risk of no AC
- Poor candidate for permanent pacemaker; palliative care/hospice seems appropriate.
- Sinus tachycardia on telemetry (likely secondary to underlying pneumonia); not adding rate-controlling medications as this could precipitate pauses.
ERICK on CKD
- Severe. Poses a threat to life.
- Holding Bumex (BUN/creatinine slowly improving); Nephrology following.
- Continue to trend creatinine, improving.
HFpEF, chronic
- TTE 12/13/24: LVEF 51%, stage II DD, mod MR, severe TR, PASP 68 (previously 54)
- proBNP >27,000 on admission but in the setting of CKD. Had small R pleural effusion but maybe parapneumonic (too small to tap). Weight stable from prior admissions. Overall examines euvolemic
- Holding Bumex as above.
- Trend daily weight, I/O, and BMP
- HF education
- Liberalize fluid restriction
RLL PNA
- Continue antibiotics and management as per primary team.
Hyponatremia, appears chronic, improving
Mild aortic stenosis
Moderate tricuspid regurgitation
Hypertension, chronic, continue current medical therapy
Type II DM
Per previous Cardiology note:
Goals of care
- Long discussion with patient 12/17. Says she is ready to . She is 'sick of all of this.'
- Hospice would be reasonable
DATA:
Transthoracic echocardiogram, 08/28/2024:
Normal biventricular size and systolic function without regional wall motion
abnormality.
Stage II diastolic dysfunction suggestive of abnormal relaxation and increased
filling pressures.
Aortic sclerosis.
Moderate tricuspid regurgitation with moderate pulmonary hypertension.
No prior study available for comparison.
Physical Exam
Vital Signs/Labs
Vital Signs
Temp Pulse Resp BP Pulse Ox
98.3 F 127 20 141/80 94
12/20/24 07:40 12/20/24 07:40 12/20/24 07:40 12/20/24 07:40 12/20/24 07:40
12/19/24 12/20/24 12/21/24
06:59 06:59 06:59
Actual Weight 66.423 kg 65.572 kg
12/20/24 07:30
12/20/24 07:30
PT 17.0 Sec (11.4-14.6) H 12/20/24 07:30
INR 1.33 12/20/24 07:30
Magnesium 2.1 mg/dl (1.6-2.3) 12/20/24 07:30
Triglycerides 120 mg/dl (10-149) 12/13/24 08:16
LDL Cholesterol, Calc 7.80553 mg/dl 12/13/24 08:16
VLDL Cholesterol, Calc 24 mg/dl (0-30) 12/13/24 08:16
HDL Cholesterol 18 mg/dl 12/13/24 08:16
12/12/24 12/19/24
11:39 07:04
Iug-G-Thxxkgtewig Pept > 96015 > 78882
Physical Exam
Constitutional: No acute distress and Comfortable
EENT: Anicteric
Cardiovascular: Pedal edema is absent, Systolic murmur absent, Rhythm/rate is irregular and S1S2 is normal
Respiratory: Respiratory effort normal, Wheeze Absent and Rhonchi Present
GI: Soft
Neuro/Psych: AO x 3
Other: Skin (Warm, dry, intact)
Data Reviewed
-
Date of Service: December 20, 2024
EKG: Tracing Personally Visualized and interpreted (Telemetry: A-fib)
Medical Tests (PFT, Pathology etc): Discussed with Nurse and Discussed with Patient
Labs: Labs Reviewed by me
--- NOTE | 2024-12-20 10:47 | CM ---
CM reviewed chart, reviewed with Hospitalist, patient not stable for d/c at this time. Patient and family seen bedside, plan remains for patient to discharge to [facility] once stable/pending bed availability. CM will continue to update
[facility]. CM will continue to follow for all discharge planning needs.
Plan; [facility] once stable
[2024-12-20 10:50] LABS: Glucose - Point of Care 241 mg/dl (70-99)
[2024-12-20 11:05] VITALS: BP 138/70
[2024-12-20] MEDS: NOVOLOG FLEXPEN-MODERATE RESISTANCE 3 UNITS SC (11:54)
[2024-12-20] MEDS: BenGay-Like TOPICAL ×4 (12:00→20:58)
--- NOTE | 2024-12-20 12:05 | W.PN.HOSP.TC ---
Today's Communication/Plan
-
Wean oxygen as tolerated
Continue with amiodarone
Declined hospice
Assessment / Plan
Assessment / Plan
Physical Exam
General: no acute distress, appears relatively comfortable at this time.
HEENT: NormoCephalic, Moist mucous membranes and Atraumatic
Respiratory: dec bs, oxygen noted
Cardiac: S1/S2 and irregularly irregular; No Murmur or Rub
GI: Soft, Non Tender, Non Distended and Normal Bowel Sounds; No Organomegaly
Musculoskeletal: No Clubbing, No Cyanosis, No edema
Skin: No Rash
Neuro: AOx3 conversant coherent
Psych: relatively Calm
84F HFpEF HTN CKD4 HLD DM here for PNA possible Heart Failure and worsening Kidney Function ERICK vs progression CKD IV to V
# Generalized weakness, fatigue, cough, short of breath likely from right lower lobe pneumonia/right pleural effusion
#Acute hypoxic resp insufficiency
#MRSA screen positive
- COVID/Flu neg
- ID eval appreciated IV cefepime and Vanco narrowed to ceftriaxone. wbc downtrending.
-IR consulted for thoracentesis Rt pleural effusion however procedure was aborted as effusion was too small
-Chest x-ray with pulmonary edema
# Possible Acute on Chronic vs simply Chronic HFpEF
- Bumex iv diuresis placed on hold as per Nephro
- ECHO appreciated EF 51% worsening MR TR and Pulm htn in comparison to babak ECHO 07/2024
- Strict JAELYN, daily weight. Probnp >27k.
- Cardiology consult appreciated fluid restriction liberalized to 60 0z
# anion gap Metabolic acidosis/ERICK on CKD stage IV vs progression CKD
-nephrology consult appreciated no acute need for HD at this time, hold diuretics
-Cr at 3.6 Follow labs. BUN slowly downtrending
-Patient did stay she will most likely not accept hemodialysis
#Sinus Pauses noted on Telemonitor
#New onset afib
Possibly symptomatic general malaise (denied chest pain palpitations)
Cardio eval appreciated
-home Labetalol stopped
-Afib since converted back to NSR following start amiodarone (continue)-now back in Atrial flutter
Per cardiology discussion with patient, pt does not want to continue with anticoagulation, Eliquis too expensive as per insurance and patient does not want to do INR checks with Warfarin, patient understands the risk no AC. Therapeutic AC
subsequently discontinued per pt request (originally was being bridged with renally dosed Eliquis and Warfarin till therapeutic INR)
-Plan to continue Amiodarone. Prolonged discussion w/patient who stated if w/severe bradycardia She does not want PPM.
# Anemia of chronic disease
- H&H stable
- No active bleeding
- cont home ferrous sulfate
# Chronic hyponatremia
-124 on admission since improved
- Continue to monitor
#essential hypertension
#Dizziness suspect symptomatic orthostatic hypotension
-Continue Norvasc with holding parameters
-Labetalol stopped d/t heart pause as above, hydralazine IV prn
-monitor orthostatic vitals
-TEDs
#Hyperlipidemia
-Continue statin
Type 2 diabetes with hyperglycemia complicated by hyperglycemia
#neuropathy
-sliding scale low dose escalated to moderate dose algorithm
-gabapentin continued
#GERD
-Continue Protonix
#Anxiety/Depression/Insomnia
#Patient frequently reporting that she wants to , denies any thoughts/plans to harm herself or others
Psych eval appreciated bedtime Melatonin started
Low dose IV ativan prn anxiety
DNR/DNI
DVT prophylaxis SCD/hep sc
On12/17/24 Dr. Conway had Goals of Care Discussion: Patient consistently reporting that she no longer wants to continue with active treatment and that she is ready to . In particular she complained regarding being on a restricted diet. Insisted
that she eats whatever she wants outside the hospital. When it was pointed out that her diet may be contributing to her hospital returns, patient reported that she no longer cares and that she just wants to . Refusing dialysis if indicated and
therapeutic anticoagulation for paroxysmal afib, patient emphasized that she just wants to be comfortable in what time she has left. Offered hospice eval, patient unsure that she wants to pursue but was agreeable to palliative eval, consult
requested accordingly. Diet was liberalized to regular as per patient's request. Patient AOx3 at capacity to make her own decisions. Daughter Jodi aware and in support of patient's decisions.
Discussed with family member at bedside in details for prolonged period of time.
Palliative care evaluated patient. Family declined hospice.
Anticipated Discharge: > 48 hours
Subjective/Interval History
-
Date of Service: December 20, 2024
remains on oxygen
mildly tachycardiac
sob w/exertion
Objective Data
-
Labs:
Laboratory Results
12/20/24
07:30
WBC 16.6 H
Hgb 10.1 L
Hct 30.1 L
Plt Count 383
PT 17.0 H
INR 1.33
Sodium 139
Potassium 4.9
Chloride 104
Carbon Dioxide 19 L
BUN 79 H
Creatinine 3.4 H
Glucose 180 H
Calcium 8.4
Vital Signs:
Vital Signs
Temp Pulse Resp BP Pulse Ox
98.3 F 115 18 138/70 93
12/20/24 11:05 12/20/24 11:07 12/20/24 11:05 12/20/24 11:05 12/20/24 11:05
I&O
12/19/24 12/20/24 12/21/24
06:59 06:59 06:59
Intake Total 960 / 960 1680 / 1680
Balance 960 / 960 1680 / 1680
[2024-12-20 14:54] VITALS: BP 133/71
--- NOTE | 2024-12-20 15:27 | W.PN.NEPH.PH ---
Today's Communication / Plan
-
Continue to hold diuretics anticipate restarting tomorrow
Assessment/Plan
-
84-year-old female with history of CHF, hypertension, CKD, hyperlipidemia, diabetes presenting to the emergency department for persistent cough and fatigue. Patient notes that she was admitted for 6 days at [facility] for pneumonia, was
discharged 2 days ago on oral abx. she finished one abx. She reports that she still feeling very weak and has been coughing
Renal consult for acute on chronic kidney disease and hyponatremia.
Reviewed all records from [facility]. Her creatinine peaked at 4.2 on December 09.
follows with nephrology in [place]
Baseline creatinine 2.5 as of August 2024.
Sodium 125 on admission= 129 on consult
Impression.
Acute on chronic kidney disease stage IV.
Acute on chronic hyponatremia.
CHF�compensated.
Pneumonia.
Hypertension.
Plan.
cr unchanged at 3.5 BUN 87
she is not sure of PBX TECHNICIAN in future if she will agree or not, this puts us in a tenuous situation and I am not sure what else to do at this point
no need of HD acutely but will need in future but patient has been hesitent to commit to dialysis, which is not unreasonable given her advanced age
BP stable
Continue antibiotics.
mild met acidosis is stable on po bicarb
Continue with supportive care medical management
palliative care ?
Weights are down without diuretics
Monitor for another 24 hours but we should be able to restart her diuretics
-
-
Date of Service: December 20, 2024
CC / HPI / ROS
-
Chief Complaint:
Acute on chronic kidney disease
History of Present Illness:
Presents with shortness of breath cough pneumonia and progressive CKD stage V
cr stable
Review of Systems:
c/o not feeling well, no specific complaint
Weight stable
Comfortable no chest pain or shortness of breath remains on oxygen
Labs
-
Labs:
WBC 16.6 10^3/uL (4.8-10.8) H 12/20/24 07:30
RBC 3.42 10^6/uL (4.20-5.40) L 12/20/24 07:30
Hgb 10.1 g/dL (12.0-16.0) L 12/20/24 07:30
Hct 30.1 % (37.0-47.0) L 12/20/24 07:30
Plt Count 383 10^3/uL (130-400) 12/20/24 07:30
Sodium 139 mmol/L (135-145) 12/20/24 07:30
Potassium 4.9 mmol/L (3.5-5.1) 12/20/24 07:30
Chloride 104 mmol/L (98-107) 12/20/24 07:30
Carbon Dioxide 19 mmol/L (22-30) L 12/20/24 07:30
BUN 79 mg/dl (7-17) H 12/20/24 07:30
Creatinine 3.4 mg/dL (0.6-1.0) H 12/20/24 07:30
eGFR 12.63 12/20/24 07:30
Glucose 180 mg/dl (70-99) H 12/20/24 07:30
Calcium 8.4 mg/dl (8.4-10.2) 12/20/24 07:30
Phosphorus 5.2 mg/dl (2.5-4.5) H 12/20/24 07:30
Albumin 3.1 g/dl (3.5-5.0) L 12/12/24 12:17
Obt-C-Noifjxihvrs Pept > 67818 pg/ml 12/19/24 07:04
Physical Exam
-
Vital Signs:
Vital Signs
Temp Pulse Resp BP Pulse Ox
97.9 F 117 18 133/71 94
04/23/25 14:54 12/20/24 14:54 12/20/24 14:54 12/20/24 14:54 12/20/24 14:54
Cardiovascular:: Regular rate and rhythm
Respiratory:: Bilateral: Coarse, Bilateral: Rales and Bilateral: Rhonchi
Lung Excursion:: Normal
Abdomen:: Nontender and Soft
Extremity Edema:: None: Bilateral:
K[place]land Catheter: No
[2024-12-20 16:41] LABS: Glucose - Point of Care 278 mg/dl (70-99)
[2024-12-20] MEDS: NOVOLOG FLEXPEN-MODERATE RESISTANCE 5 UNITS SC (17:15)
[2024-12-20] MEDS: LIPITOR 80 MG PO (17:15)
[2024-12-20] MEDS: HEPARIN 5000 UNITS SC (19:18)
[2024-12-20 20:36] VITALS: BP 150/79
[2024-12-20] MEDS: NEURONTIN 300 MG PO (20:58)
[2024-12-20] MEDS: TYLENOL 1000 MG PO (20:59)
[2024-12-20] MEDS: MELATONIN 3 MG PO (20:59)
[2024-12-20 22:26] LABS: Glucose - Point of Care 187 mg/dl (70-99)
[2024-12-20 23:19] VITALS: BP 124/72
[2024-12-21] VITALS (8 sets, daily range): BP systolic 136–153; BP diastolic 57–77; PULSE 79–108; O2SAT 95–97; BMI 24.3
[2024-12-21] MEDS: TYLENOL 650 MG PO (01:21)
--- NOTE | 2024-12-21 03:30 | DOWNTIME ---
There was a [employer] Multiple Spindle Router Operator Downtime on 12/21/2024 from 0200 to 12/22/2023 at 0318 . Downtime documentation of patient's care, including medication administrations, has been reconciled in the electronic record per guidelines. Refer to the
patient's paper chart under the miscellaneous tab to see printed paper medication records and downtime forms.
[2024-12-21 08:03] LABS: Glucose - Point of Care 219 mg/dl (70-99)
[2024-12-21] MEDS: NOVOLOG FLEXPEN-MODERATE RESISTANCE 3 UNITS SC ×2 (08:14→13:37)
[2024-12-21] MEDS: MAG-TAB SR 84 MG PO (08:15)
[2024-12-21] MEDS: OMNICEF 300 MG PO (08:15)
[2024-12-21] MEDS: PACERONE 400 MG PO ×2 (08:15→20:16)
[2024-12-21] MEDS: CLARITIN 10 MG PO (08:15)
[2024-12-21] MEDS: SODIUM BICARBONATE 650 MG PO ×2 (08:16→20:16)
[2024-12-21] MEDS: PROTONIX 40 MG PO (08:16)
[2024-12-21] MEDS: MUCINEX 600 MG PO ×2 (08:16→20:15)
[2024-12-21] MEDS: FEOSOL 325 MG PO (08:16)
[2024-12-21] MEDS: NORVASC 10 MG PO (08:16)
[2024-12-21] MEDS: BenGay-Like 1 APPLIC TOPICAL (08:16)
[2024-12-21] MEDS: VITAMIN D3 (cholecalciferol) 25 MCG PO (08:16)
[2024-12-21] MEDS: HEPARIN 5000 UNITS SC ×2 (08:17→20:14)
[2024-12-21] MEDS: LIDOCAINE 4% PATCH TOPICAL ×2 (08:17→08:23)
[2024-12-21] MEDS: NON-FORMULARY ITEM 1 UNIT PO (08:17)
--- NOTE | 2024-12-21 08:23 | W.PN.CD ---
Today's Communication / Plan
-
- Back in atrial fibrillation on telemetry; not adding rate-controlling medications as this could precipitate pauses--continue amiodarone load.
- Still holding Bumex (BUN/creatinine slowly improving); labs this a.m. pending.
- Further recommendations as per Nephrology.
Impression / Plan
-
I/P: 84F with chronic HFpEF, hypertension, dyslipidemia, chronic kidney disease, type 2 diabetes, and GERD with recent hospitalization at [facility] for treatment of pneumonia who presents with fatigue and weakness. Cardiology is consulted
due to concern for acute on chronic HFpEF.
Outpatient investigation clerk: Dr. Aaron Campos
Paroxysmal atrial fibrillation, new this admission
- Went into AF evening of 12/15. Not previously documented. HRs 100s in AF but with conversion pauses up to 5 sec and sinus HR 60s, precluding BB/CCB.
- Continue Amiodarone--no pauses on telemetry.
- CHADsVasc 5. Silvaquis is too expensive. She does not want to do Warfarin due to frequent INR checks. She understands the risk of no AC
- Poor candidate for permanent pacemaker; palliative care/hospice seems appropriate.
- Back in atrial fibrillation on telemetry; not adding rate-controlling medications as this could precipitate pauses--continue amiodarone load.
ERICK on CKD
- Severe. Poses a threat to life.
- Still holding Bumex (BUN/creatinine slowly improving); labs this a.m. pending.
- Further recommendations as per Nephrology.
- Continue to trend creatinine.
HFpEF, chronic
- TTE 12/13/24: LVEF 51%, stage II DD, mod MR, severe TR, PASP 68 (previously 54)
- proBNP >27,000 on admission but in the setting of CKD. Had small R pleural effusion but maybe parapneumonic (too small to tap). Weight stable from prior admissions. Overall examines euvolemic
- Holding Bumex as above.
- Trend daily weight, I/O, and BMP
- HF education
- Liberalize fluid restriction
RLL PNA
- Continue antibiotics and management as per primary team.
Hyponatremia, appears chronic, improving
Mild aortic stenosis
Moderate tricuspid regurgitation
Hypertension, chronic, continue current medical therapy
Type II DM
Per previous Cardiology note:
Goals of care
- Long discussion with patient 12/17. Says she is ready to . She is 'sick of all of this.'
- Hospice would be reasonable
DATA:
Transthoracic echocardiogram, 08/28/2024:
Normal biventricular size and systolic function without regional wall motion
abnormality.
Stage II diastolic dysfunction suggestive of abnormal relaxation and increased
filling pressures.
Aortic sclerosis.
Moderate tricuspid regurgitation with moderate pulmonary hypertension.
No prior study available for comparison.
Physical Exam
Vital Signs/Labs
Vital Signs
Temp Pulse Resp BP Pulse Ox
97.4 F 112 18 153/77 94
12/21/24 07:14 12/21/24 07:14 12/21/24 07:14 12/21/24 07:14 12/21/24 07:14
12/20/24 12/21/24 12/22/24
06:59 06:59 06:59
Actual Weight 65.572 kg 66.253 kg
PT 17.0 Sec (11.4-14.6) H 12/20/24 07:30
INR 1.33 12/20/24 07:30
Magnesium 2.1 mg/dl (1.6-2.3) 12/20/24 07:30
Triglycerides 120 mg/dl (10-149) 12/13/24 08:16
LDL Cholesterol, Calc 7.82180 mg/dl 12/13/24 08:16
VLDL Cholesterol, Calc 24 mg/dl (0-30) 12/13/24 08:16
HDL Cholesterol 18 mg/dl 12/13/24 08:16
12/12/24 12/19/24
11:39 07:04
Xxy-N-Edtdhmfofab Pept > 51351 > 45852
Physical Exam
Constitutional: No acute distress and Comfortable
EENT: Anicteric
Cardiovascular: Pedal edema is absent, Systolic murmur absent, Rhythm/rate is irregular and S1S2 is normal
Respiratory: Respiratory effort normal, Wheeze Present (Minimal intermittent expiratory wheeze) and Rhonchi Present (Right base)
GI: Soft
Neuro/Psych: AO x 3
Other: Skin (Warm, dry, intact)
Data Reviewed
-
Date of Service: December 21, 2024
EKG: Tracing Personally Visualized and interpreted (Telemetry: Atrial fibrillation)
Labs: Other (Labs pending)
[2024-12-21 08:57] LABS: INR 1.41; PT 17.7 Sec (11.4-14.6)
[2024-12-21 09:06] LABS: Hematocrit 29.4 % (37.0-47.0); Hemoglobin 9.9 g/dL (12.0-16.0); Mean Corp Hgb Conc. 33.7 g/dL (33.0-37.0); Mean Corpuscular Hgb 29.7 pg (27.0-31.0); Mean Corpuscular Volume 88.3 fL (81.0-99.0); Mean Platelet Volume 9.2 fL (7.4-10.4); Platelet Count 360 10^3/uL (130-400); Red Blood Cell Count 3.33 10^6/uL (4.20-5.40); Red Cell Dist. Width 18.8 % (11.5-14.5); White Blood Cell Count 13.5 10^3/uL (4.8-10.8)
[2024-12-21 10:29] LABS: Blood Urea Nitrogen 73 mg/dl (7-17); Calcium 8.2 mg/dl (8.4-10.2); Carbon Dioxide 19 mmol/L (22-30); Chloride 106 mmol/L (98-107); Estimated Creatinine Clearance 11 ml/min; Glucose 188 mg/dl (70-99); Magnesium 1.9 mg/dl (1.6-2.3); Phosphorus 5.6 mg/dl (2.5-4.5); Potassium 5.1 mmol/L (3.5-5.1); Sodium 138 mmol/L (135-145); eGFR 12.63
--- NOTE | 2024-12-21 11:14 | W.PN.PAL2 ---
Today's Communication
-
Patient seen for follow up.
She feels ok at this time, dyspnea managed with oxygen. Has not yet been resumed on diuretics, but reports this may happen today
Encouraged her to rethink hospice as between her CHF and her CKD very limited interventions are possible. her goal of rehab followed by home palliative may not be feasible if she is not meaningfully improving. SHe understands that she does not need
to be in her last days to accept hospice and is eligible now.
She reports she will discuss this with her children.
Objective Data
-
Objective Data:
Vital Signs
Temp Pulse Resp BP Pulse Ox
97.4 F 112 18 153/77 94
12/21/24 07:14 12/21/24 07:14 12/21/24 07:14 12/21/24 07:14 12/21/24 07:14
Laboratory Results
12/21/24 07:47
12/21/24 07:47
PT 17.7 Sec (11.4-14.6) H 12/21/24 07:47
INR 1.41 12/21/24 07:47
Hemoglobin A1c 6.7 % (4.0-5.6) H 12/13/24 08:16
Total Protein 6.0 g/dl (6.3-8.2) L 12/12/24 19:50
Albumin 3.1 g/dl (3.5-5.0) L 12/12/24 12:17
Urine Color Yellow 12/13/24 10:08
Urine Clarity Clear (Clear) 12/13/24 10:08
Urine pH 5.0 (5.0-9.0) 12/13/24 10:08
Ur Specific [place] 1.010 (<1.030) 12/13/24 10:08
Urine Ketones Negative (Negative) 12/13/24 10:08
Urine Occult Blood 1+ (Negative) A 12/13/24 10:08
Urine Nitrite Negative (Negative) 12/13/24 10:08
Urine Bilirubin Negative (Negative) 12/13/24 10:08
Ur Leukocyte Esterase 3+ (Negative) A 12/13/24 10:08
Urine Albumin 3+ (Neg - Trace) A 12/13/24 10:08
Palliative Performance Scale
Palliative Performance Scale:
PPS Level Ambulation Activity & Evidence of Disease Self Care Intake Conscious Level
100% Full Normal Activity & Work; Full Intake Full
No Evidence of Disease
90% Full Normal Activity & Work; Full Normal Full
Some Evidence of Disease
80% Full Normal Activity with Effort Full Normal or Full
Some Evidence of Disease Reduced
70% Reduced Unable Normal Job/Work Full Normal or Full
Significant Disease Reduced
60% Reduced Unable Hobby/Housework Occasional Normal or Full or Confusion
Significant Disease Assistance Reduced
50% Mainly Sit/Lie Unable to do Any Work Considerable Normal or Full or Confusion
Extensive Disease Assistance Req'd Reduced
40% Mainly in Bed Unable to do Most Activity Mainly Assistance Normal or Full or Drowsy;
Extensive Disease Reduced +/- Confusion
30% Totally Bed Unable to do Any Activity Total Care Normal or Full or Drowsy;
Bound Extensive Disease Reduced +/- Confusion
20% Totally Bed Bound Unable to do Any Activity Total Care Minimal to Full or Drowsy;
Extensive Disease Sips +/- Confusion
10% Totally Bed Bound Unable to do Any Activity Total Care Mouth Care Drowsy or Coma;
Extensive Disease Only +/- Confusion
0%
PPS Score Level:
[2024-12-21 12:10] LABS: Glucose - Point of Care 230 mg/dl (70-99)
--- NOTE | 2024-12-21 13:08 | W.PN.HOSP.TC ---
Today's Communication/Plan
-
Await nephro recs with diuretics
Monitor heart rate
Long-term prognosis guarded
Assessment / Plan
Assessment / Plan
Physical Exam
General: no acute distress, appears relatively comfortable at this time.
HEENT: NormoCephalic, Moist mucous membranes and Atraumatic
Respiratory: dec bs, oxygen noted
Cardiac: S1/S2 and irregularly irregular; No Murmur or Rub
GI: Soft, Non Tender, Non Distended and Normal Bowel Sounds; No Organomegaly
Musculoskeletal: No Clubbing, No Cyanosis, No edema
Skin: No Rash
Neuro: AOx3 conversant coherent
Psych: relatively Calm
84F HFpEF HTN CKD4 HLD DM here for PNA possible Heart Failure and worsening Kidney Function ERICK vs progression CKD IV to V
# Generalized weakness, fatigue, cough, short of breath likely from right lower lobe pneumonia/right pleural effusion
#Acute hypoxic resp insufficiency
#MRSA screen positive
- COVID/Flu neg
- ID eval appreciated IV cefepime and Vanco narrowed to ceftriaxone. wbc downtrending.
-IR consulted for thoracentesis Rt pleural effusion however procedure was aborted as effusion was too small
-Chest x-ray with pulmonary edema
# Possible Acute on Chronic vs simply Chronic HFpEF
- Bumex iv diuresis placed on hold as per Nephro
- ECHO appreciated EF 51% worsening MR TR and Pulm htn in comparison to babak ECHO 07/2024
- Strict JAELYN, daily weight. Probnp >27k.
- Cardiology consult appreciated fluid restriction liberalized to 60 0z
# Anion gap Metabolic acidosis
#ERICK on CKD stage IV vs progression CKD
-nephrology consult appreciated no acute need for HD at this time, hold diuretics
-Cr at 3.4 Follow labs. BUN slowly downtrending
-Patient did stay she will not accept hemodialysis. Told patient discussed this with her family and express your wishes to them so they are aware. Did state without hemodialysis it becomes extremely difficult moving forward. Patient understands
progression of chronic kidney disease with her history of chronic heart failure
#Sinus Pauses noted on Telemonitor
#New onset afib with mild rapid ventricular response
Possibly symptomatic general malaise (denied chest pain palpitations)
Cardio eval appreciated
-home Labetalol stopped
- Remains in atrial fibrillation with mild rapid ventricular response. Per cardiology continue with current dose of amiodarone. Options limited as with increasing rate control agents might exacerbate sinus pauses and patient does not want
pacemaker.
Per cardiology discussion with patient, pt does not want to continue with anticoagulation, Eliquis too expensive as per insurance and patient does not want to do INR checks with Warfarin, patient understands the risk no AC. Therapeutic AC
subsequently discontinued per pt request (originally was being bridged with renally dosed Eliquis and Warfarin till therapeutic INR)
-Plan to continue Amiodarone. Prolonged discussion w/patient who stated if w/severe bradycardia She does not want PPM.
# Anemia of chronic disease
- H&H stable
- No active bleeding
- cont home ferrous sulfate
# Chronic hyponatremia
-124 on admission since improved
- Continue to monitor
#essential hypertension
#Dizziness suspect symptomatic orthostatic hypotension
-Continue Norvasc with holding parameters
-Labetalol stopped d/t heart pause as above, hydralazine IV prn
-monitor orthostatic vitals
-TEDs
#Hyperlipidemia
-Continue statin
Type 2 diabetes with hyperglycemia complicated by hyperglycemia
#neuropathy
-sliding scale low dose escalated to moderate dose algorithm
-gabapentin continued
#GERD
-Continue Protonix
#Anxiety/Depression/Insomnia
#Patient frequently reporting that she wants to , denies any thoughts/plans to harm herself or others
Psych eval appreciated bedtime Melatonin started
Low dose IV ativan prn anxiety
DNR/DNI
DVT prophylaxis SCD/hep sc
On12/17/24 Dr. Conway had Goals of Care Discussion: Patient consistently reporting that she no longer wants to continue with active treatment and that she is ready to . In particular she complained regarding being on a restricted diet. Insisted
that she eats whatever she wants outside the hospital. When it was pointed out that her diet may be contributing to her hospital returns, patient reported that she no longer cares and that she just wants to . Refusing dialysis if indicated and
therapeutic anticoagulation for paroxysmal afib, patient emphasized that she just wants to be comfortable in what time she has left. Offered hospice eval, patient unsure that she wants to pursue but was agreeable to palliative eval, consult
requested accordingly. Diet was liberalized to regular as per patient's request. Patient AOx3 at capacity to make her own decisions. Daughter Jodi aware and in support of patient's decisions.
Palliative care reevaluated patient.
Anticipated Discharge: Within 24 hours
Subjective/Interval History
-
Date of Service: December 21, 2024
Remains on oxygenation
States that she was feeling warm overnight
Was walking to the bathroom. Did not feel short of breath
Asking when she and can be discharged
Objective Data
-
Labs:
Laboratory Results
12/21/24
07:47
WBC 13.5 H
Hgb 9.9 L
Hct 29.4 L
Plt Count 360
PT 17.7 H
INR 1.41
Sodium 138
Potassium 5.1
Chloride 106
Carbon Dioxide 19 L
BUN 73 H
Creatinine 3.4 H
Glucose 188 H
Calcium 8.2 L
Vital Signs:
Vital Signs
Temp Pulse Resp BP Pulse Ox
97.9 F 109 18 136/69 95
12/21/24 11:29 12/21/24 11:29 12/21/24 11:29 12/21/24 11:29 12/21/24 11:29
I&O
12/20/24 12/21/24 12/22/24
06:59 06:59 06:59
Intake Total 1680 / 1680 1560 / 1560
Balance 1680 / 1680 1560 / 1560
[2024-12-21] MEDS: BenGay-Like TOPICAL ×3 (13:37→21:04)
--- NOTE | 2024-12-21 14:42 | W.PN.ID1 ---
Date of Service
Date of Service: December 21, 2024
Today's Communication
Complete course of antibiotics today.
Assessment / Plan
Cough
Recent diagnosis of PNA ([facility]; discharged ~12/10 on cefdinir and Zithromax)
Elevated BNP
Leukocytosis
- rising
ERICK on CKD stage IV
Elevated procalcitonin
CHF
HLD
DM
Recommendations:
Completing course of cefdinir today. Thereafter, follow off antibiotics
Chief Complaint
-: Pneumonia
Subjective / Review of Systems
Review of Systems: No Fever and No Chills
Vital Signs / Physical Exam
Vital Signs
Vital Signs
Temp Pulse Resp BP Pulse Ox
97.9 F 109 18 136/69 95
12/21/24 11:29 12/21/24 11:29 12/21/24 11:29 12/21/24 11:29 12/21/24 11:29
Physical Exam
Constitutional: No Acute Distress and Comfortable
Cardiovascular: S1/S2; Negative S3/S4
Pulmonary: Coarse and Non Labored; Negative Rhonchi
Gastrointestinal: Soft and Non Tender
Skin: Warm and Dry; Negative Rash
Neurological: Other (Resting comfortably)
Psychological: Calm
Objective Data
Lab Data
Lab Results
12/21/24 07:47
12/21/24 07:47
PT 17.7 Sec (11.4-14.6) H 12/21/24 07:47
INR 1.41 12/21/24 07:47
Estimated Creat Clear 11 ml/min 12/21/24 07:47
Total Bilirubin 0.5 mg/dl (0.2-1.3) 12/12/24 12:17
AST 15 U/L (14-36) 12/12/24 12:17
ALT 17 U/L (0-35) 12/12/24 12:17
Alkaline Phosphatase 116 U/L (38-126) 12/12/24 12:17
Most recent labs reviewed.
Micro Results:
12/13/24 11:44 Nasal Screen MRSA (PCR) - Final
Nose Staph aureus MRSA
12/12/24 19:58 Legionella Urinary Antigen - Final
Urine Negative for Legionella pneumophila Serogroup 1 antigen.
A negative result does not rule out the possiblity of
Legionella infection due to other serogroups or species of
Legionella. Clinical correlation is recommended.
Streptococcus pneumoniae Antigen (M - Final
Negative for Streptococcus pneumoniae antigen.
A negative result does not exclude infection with
Streptococcus pneumoniae. Clinical correlation is
recommended.
12/12/24 12:17 Influenza Types A & B (JERRY) - Final
Nasal Swab Negative for Influenza A & B, NAAT
Negative results must be combined with clinical observations
and patient history.
Nucleic Acid Amplification test (NAAT)performed on the
[employer] platform.
--- NOTE | 2024-12-21 15:01 | PN.CDI ---
CDI
- -
CDI:
Physician Documentation Request
Admit Date: 12/12/24 15:11
Dear Doctor Nicola,
Patient admitted with pneumonia.
12/19 WBC 19.8 and HR> 90.
12/19 PN 'ID eval appreciated IV cefepime and Vanco narrowed to ceftriaxone. Bump in wbc noted.'
Please clarify which of the following most accurately describes the status of the patient's infection:
Sepsis, evolved during hospitalization
Pneumonia only
Other
Sepsis
- Systemic manifestations of infection, with 2 or more SIRS criteria which include:
- Fever >100.4 degrees F or hypothermia < 96.8 degrees F
- Leukocytosis - WBC > 12,000 or leukopenia - WBC < 4,000 or > 10% bands
- Tachycardia > 90 beats per minute
- Tachypnea - RR > 20 breaths per minute or PaCO2 , 32mmHg
Source: Merck Manual 2013
- Indicate the known or suspected organism
- Indicate the known or suspected underlying infection, such as pneumonia
Localized Infection Only, Without Systemic Illness
- indicate the site/source, such as pneumonia
Other
Unable to Determine
Use of terms such as suspected, likely, concern for, or probable (associated with a specific diagnosis that is being evaluated, monitored, or treated as if it exists) are acceptable and can be coded in the inpatient setting, when documented at the
time of discharge.
Thank you,
Haley LEOSN,RN,CCDS
CDI Specialist
Available via [place] text
Please use your independent medical judgment in providing your response.
--- NOTE | 2024-12-21 15:38 | W.PN.NEPH.PH ---
Today's Communication / Plan
-
Bumex twice daily 2 mg
Okay for discharge from renal standpoint
Assessment/Plan
-
84-year-old female with history of CHF, hypertension, CKD, hyperlipidemia, diabetes presenting to the emergency department for persistent cough and fatigue. Patient notes that she was admitted for 6 days at [facility] for pneumonia, was
discharged 2 days ago on oral abx. she finished one abx. She reports that she still feeling very weak and has been coughing
Renal consult for acute on chronic kidney disease and hyponatremia.
Reviewed all records from [facility]. Her creatinine peaked at 4.2 on December 09.
follows with nephrology in [place]
Baseline creatinine 2.5 as of August 2024.
Sodium 125 on admission= 129 on consult
Impression.
Acute on chronic kidney disease stage IV.
Acute on chronic hyponatremia.
CHF�compensated.
Pneumonia.
Hypertension.
Plan.
cr unchanged at 3.5 BUN 87
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
no need of HD acutely but will need in future but patient has been hesitent to commit to dialysis, which is not unreasonable given her advanced age
BP stable
Continue antibiotics last day today for pneumonia
mild met acidosis is stable on po bicarb
Continue with supportive care medical management
palliative care ? Patient not ready for hospice or palliative care and pending rehab
Okay for discharge from renal standpoint on Bumex as discussed with the patient and her daughter who was at bedside
She can follow-up with her primary account support specialist in [place]
-
-
Date of Service: December 21, 2024
CC / HPI / ROS
-
Chief Complaint:
Acute on chronic kidney disease
History of Present Illness:
Presents with shortness of breath cough pneumonia and progressive CKD stage V
cr stable
Review of Systems:
Weight stable
Comfortable no chest pain or shortness of breath
Labs
-
Labs:
WBC 13.5 10^3/uL (4.8-10.8) H 12/21/24 07:47
RBC 3.33 10^6/uL (4.20-5.40) L 12/21/24 07:47
Hgb 9.9 g/dL (12.0-16.0) L 12/21/24 07:47
Hct 29.4 % (37.0-47.0) L 12/21/24 07:47
Plt Count 360 10^3/uL (130-400) 12/21/24 07:47
Sodium 138 mmol/L (135-145) 12/21/24 07:47
Potassium 5.1 mmol/L (3.5-5.1) 12/21/24 07:47
Chloride 106 mmol/L (98-107) 12/21/24 07:47
Carbon Dioxide 19 mmol/L (22-30) L 12/21/24 07:47
BUN 73 mg/dl (7-17) H 12/21/24 07:47
Creatinine 3.4 mg/dL (0.6-1.0) H 12/21/24 07:47
eGFR 12.63 12/21/24 07:47
Glucose 188 mg/dl (70-99) H 12/21/24 07:47
Calcium 8.2 mg/dl (8.4-10.2) L 12/21/24 07:47
Phosphorus 5.6 mg/dl (2.5-4.5) H 12/21/24 07:47
Albumin 3.1 g/dl (3.5-5.0) L 12/12/24 12:17
Mun-T-Ospxkuvxxod Pept > 28098 pg/ml 12/19/24 07:04
Physical Exam
-
Vital Signs:
Vital Signs
Temp Pulse Resp BP Pulse Ox
97.9 F 82 18 149/69 98
12/21/24 11:29 12/21/24 15:33 12/21/24 15:33 12/21/24 15:33 12/21/24 15:33
Cardiovascular:: Regular rate and rhythm
Respiratory:: Bilateral: Coarse
Lung Excursion:: Normal
Abdomen:: Nontender and Soft
Bowel Sounds:: Normal
Extremity Edema:: None: Bilateral:
K[place]land Catheter: No
--- NOTE | 2024-12-21 15:40 | CM ---
CM reviewed chart, plan remains [facility] when stable. CM will continue to follow for all discharge planning needs.
Plan; [facility] when stable
[2024-12-21 16:06] LABS: Glucose - Point of Care 261 mg/dl (70-99)
[2024-12-21] MEDS: NOVOLOG FLEXPEN-MODERATE RESISTANCE 5 UNITS SC (17:07)
[2024-12-21] MEDS: BUMEX 2 MG PO (17:09)
[2024-12-21] MEDS: LIPITOR 80 MG PO (17:09)
[2024-12-21] MEDS: NEURONTIN 300 MG PO (21:04)
[2024-12-21] MEDS: MELATONIN 3 MG PO (21:05)
[2024-12-21] MEDS: TYLENOL 1000 MG PO (21:05)
[2024-12-21 22:30] LABS: Glucose - Point of Care 189 mg/dl (70-99)
[2024-12-22 03:27] VITALS: BP 130/69
[2024-12-22 06:00] VITALS: BMI 24.2
[2024-12-22 07:12] VITALS: BP 137/76
[2024-12-22 07:39] LABS: Glucose - Point of Care 200 mg/dl (70-99)
[2024-12-22] MEDS: PACERONE 400 MG PO (07:53)
[2024-12-22] MEDS: LIDOCAINE 4% PATCH 1 PATCH TOPICAL (07:53)
[2024-12-22] MEDS: BUMEX 2 MG PO (07:54)
[2024-12-22] MEDS: VITAMIN D3 (cholecalciferol) 25 MCG PO (07:54)
[2024-12-22] MEDS: BenGay-Like 1 APPLIC TOPICAL (07:54)
[2024-12-22] MEDS: PROTONIX 40 MG PO (07:55)
[2024-12-22] MEDS: FEOSOL 325 MG PO (07:55)
[2024-12-22] MEDS: NORVASC PO (07:55)
[2024-12-22] MEDS: CLARITIN 10 MG PO (07:55)
[2024-12-22] MEDS: SODIUM BICARBONATE 650 MG PO (07:56)
[2024-12-22] MEDS: MAG-TAB SR 84 MG PO (07:56)
[2024-12-22] MEDS: HEPARIN 5000 UNITS SC (07:56)
[2024-12-22] MEDS: MUCINEX 600 MG PO (07:56)
[2024-12-22] MEDS: NOVOLOG FLEXPEN-MODERATE RESISTANCE 3 UNITS SC (07:56)
[2024-12-22] MEDS: NON-FORMULARY ITEM 1 UNIT PO (08:02)
[2024-12-22 08:42] LABS: Hematocrit 28.4 % (37.0-47.0); Hemoglobin 9.5 g/dL (12.0-16.0); Mean Corp Hgb Conc. 33.5 g/dL (33.0-37.0); Mean Corpuscular Hgb 29.9 pg (27.0-31.0); Mean Corpuscular Volume 89.3 fL (81.0-99.0); Mean Platelet Volume 9.6 fL (7.4-10.4); Platelet Count 366 10^3/uL (130-400); Red Blood Cell Count 3.18 10^6/uL (4.20-5.40); Red Cell Dist. Width 18.3 % (11.5-14.5); White Blood Cell Count 11.6 10^3/uL (4.8-10.8)
[2024-12-22 08:49] LABS: INR 1.45; PT 17.8 Sec (11.4-14.6)
--- NOTE | 2024-12-22 09:07 | W.PN.CD ---
Today's Communication / Plan
-
would discharge on amiodarone 200mg daily when stable
please call us back with additional questions
Impression / Plan
-
I/P: 84F with chronic HFpEF, hypertension, dyslipidemia, chronic kidney disease, type 2 diabetes, and GERD with recent hospitalization at [facility] for treatment of pneumonia who presents with fatigue and weakness. Cardiology is consulted
due to concern for acute on chronic HFpEF.
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
Paroxysmal atrial fibrillation, new this admission
- Went into AF evening of 12/15. Not previously documented. HRs 100s in AF but with conversion pauses up to 5 sec and sinus HR 60s
- Continue Amiodarone--no pauses on telemetry.
- CHADsVasc 5. Eliquis is too expensive. She does not want to do Warfarin due to frequent INR checks. She understands the risk of no AC
- Poor candidate for permanent pacemaker; palliative care/hospice seems appropriate.
- discharge on amiodarone 200mg daily
CKD4
- per nephrology
HFpEF, chronic
- TTE 12/13/24: LVEF 51%, stage II DD, mod MR, severe TR, PASP 68 (previously 54)
- proBNP >27,000 on admission but in the setting of CKD. Had small R pleural effusion but maybe parapneumonic (too small to tap). Weight stable from prior admissions. Overall examines euvolemic
- now on bumex 2mg bid per nephrology consult
RLL PNA
- antibiotics and management as per primary team.
Moderate mitral regurgitation
Severe tricuspid regurgitation
Hypertension, chronic, continue current medical therapy with amlodipine
Type II DM
Per previous Cardiology note:
Goals of care
- Long discussion with patient 12/17. Says she is ready to . She is 'sick of all of this.'
- Hospice would be reasonable
DATA:
Transthoracic echocardiogram, 08/28/2024:
Normal biventricular size and systolic function without regional wall motion
abnormality.
Stage II diastolic dysfunction suggestive of abnormal relaxation and increased
filling pressures.
Aortic sclerosis.
Moderate tricuspid regurgitation with moderate pulmonary hypertension.
No prior study available for comparison.
Physical Exam
Vital Signs/Labs
Vital Signs
Temp Pulse Resp BP Pulse Ox
98.0 F 107 18 137/76 94
12/22/24 07:12 12/22/24 07:12 12/22/24 07:12 12/22/24 07:55 12/22/24 07:12
12/21/24 12/22/24 12/23/24
06:59 06:59 06:59
Actual Weight 66.253 kg 65.952 kg
12/22/24 07:13
PT 17.8 Sec (11.4-14.6) H 12/22/24 07:13
INR 1.45 12/22/24 07:13
Magnesium 1.9 mg/dl (1.6-2.3) 12/21/24 07:47
Triglycerides 120 mg/dl (10-149) 12/13/24 08:16
LDL Cholesterol, Calc 7.96360 mg/dl 12/13/24 08:16
VLDL Cholesterol, Calc 24 mg/dl (0-30) 12/13/24 08:16
HDL Cholesterol 18 mg/dl 12/13/24 08:16
12/12/24 12/19/24
11:39 07:04
Xdv-X-Fulcoixspuq Pept > 07187 > 89019
Physical Exam
Constitutional: No acute distress and Comfortable
EENT: Moist mucous membranes
Cardiovascular: Pedal edema is absent, JVD pressure is normal, Rhythm/rate is irregular and Systolic murmur present
Respiratory: Respiratory effort normal and Lungs clear to auscul.
Neuro/Psych: Alert and Oriented
Data Reviewed
-
Date of Service: December 22, 2024
EKG: Other (Tele: paroxysmal A fib, HR 80s-100s)
Labs: Labs Reviewed by me
[2024-12-22 09:21] LABS: Blood Urea Nitrogen 70 mg/dl (7-17); Calcium 8.1 mg/dl (8.4-10.2); Carbon Dioxide 22 mmol/L (22-30); Chloride 105 mmol/L (98-107); Estimated Creatinine Clearance 11 ml/min; Glucose 178 mg/dl (70-99); Magnesium 1.8 mg/dl (1.6-2.3); Phosphorus 5.6 mg/dl (2.5-4.5); Sodium 139 mmol/L (135-145); eGFR 13.09
[2024-12-22 11:08] VITALS: BP 138/81
--- NOTE | 2024-12-22 11:16 | CM ---
Addendum entered by Radha Cannon 12/22/24 11:44:
Patient seen bedside, confirms her daughter and son in law will provide transportation.
Original Note:
CM reviewed chart, patient seen bedside, for discharge today. IMM reviewed, signed, placed in chart, patient provided with copy. Patient requesting call to daughter, Jodi, in regards to transportation. Left VM for daughter in regards to Van
transport or family transport. CM will continue to follow for all discharge planning needs.
Plan; [facility]
Report: [phone]
--- NOTE | 2024-12-22 12:15 | W.PN.HOSP.TC ---
Addendum entered and electronically signed by Cory Petersen MD 12/22/24 14:39:
pneumonia only
Original Note:
Today's Communication/Plan
-
dc to snf
po bumex/amiodarone
Assessment / Plan
Assessment / Plan
Physical Exam
General: no acute distress, appears relatively comfortable at this time.
HEENT: NormoCephalic, Moist mucous membranes and Atraumatic
Respiratory: dec bs, oxygen noted
Cardiac: S1/S2 and irregularly irregular; No Murmur or Rub
GI: Soft, Non Tender, Non Distended and Normal Bowel Sounds; No Organomegaly
Musculoskeletal: No Clubbing, No Cyanosis, No edema
Skin: No Rash
Neuro: AOx3 conversant coherent
Psych: relatively Calm
84F HFpEF HTN CKD4 HLD DM here for PNA possible Heart Failure and worsening Kidney Function ERICK vs progression CKD IV to V
# Generalized weakness, fatigue, cough, short of breath likely from right lower lobe pneumonia/right pleural effusion
#Acute hypoxic resp insufficiency
#MRSA screen positive
- COVID/Flu neg
- ID eval appreciated IV cefepime and Vanco narrowed to ceftriaxone. wbc downtrending.
-IR consulted for thoracentesis Rt pleural effusion however procedure was aborted as effusion was too small
-Chest x-ray with pulmonary edema
# Possible Acute on Chronic vs simply Chronic HFpEF
- Bumex iv diuresis placed on hold and restarted on home regimen of 2 mg p.o. twice daily
- ECHO appreciated EF 51% worsening MR TR and Pulm htn in comparison to babak ECHO 07/2024
- Strict JAELYN, daily weight. Probnp >27k.
- Cardiology consult appreciated fluid restriction liberalized to 60 0z
# Anion gap Metabolic acidosis
#ERICK on CKD stage IV vs progression CKD
-nephrology consult appreciated no acute need for HD at this time, hold diuretics
-Cr at 3.4 Follow labs. BUN slowly downtrending
-Patient did stay she will not accept hemodialysis. Told patient discussed this with her family and express your wishes to them so they are aware. Did state without hemodialysis it becomes extremely difficult moving forward. Patient understands
progression of chronic kidney disease with her history of chronic heart failure
#Sinus Pauses noted on Telemonitor
#New onset afib with mild rapid ventricular response
Possibly symptomatic general malaise (denied chest pain palpitations)
Cardio eval appreciated
-home Labetalol stopped
- Remains in atrial fibrillation with mild rapid ventricular response. Per cardiology continue with current dose of amiodarone. Options limited as with increasing rate control agents might exacerbate sinus pauses and patient does not want
pacemaker.
Per cardiology discussion with patient, pt does not want to continue with anticoagulation, Eliquis too expensive as per insurance and patient does not want to do INR checks with Warfarin, patient understands the risk no AC. Therapeutic AC
subsequently discontinued per pt request (originally was being bridged with renally dosed Eliquis and Warfarin till therapeutic INR)
-Plan to continue Amiodarone. Prolonged discussion w/patient who stated if w/severe bradycardia She does not want PPM.
- Discussed with cardiology and recommended amiodarone 200 mg daily on discharge.
# Anemia of chronic disease
- H&H stable
- No active bleeding
- cont home ferrous sulfate
# Chronic hyponatremia
-124 on admission since improved
- Continue to monitor
#essential hypertension
#Dizziness suspect symptomatic orthostatic hypotension
-Continue Norvasc with holding parameters
-Labetalol stopped d/t heart pause as above, hydralazine IV prn
-monitor orthostatic vitals
-TEDs
#Hyperlipidemia
-Continue statin
Type 2 diabetes with hyperglycemia complicated by hyperglycemia
#neuropathy
-sliding scale low dose escalated to moderate dose algorithm
-gabapentin continued
#GERD
-Continue Protonix
#Anxiety/Depression/Insomnia
#Patient frequently reporting that she wants to , denies any thoughts/plans to harm herself or others
Psych eval appreciated bedtime Melatonin started
Low dose IV ativan prn anxiety
DNR/DNI
DVT prophylaxis SCD/hep sc
On12/17/24 Dr. Conway had Goals of Care Discussion: Patient consistently reporting that she no longer wants to continue with active treatment and that she is ready to . In particular she complained regarding being on a restricted diet. Insisted
that she eats whatever she wants outside the hospital. When it was pointed out that her diet may be contributing to her hospital returns, patient reported that she no longer cares and that she just wants to . Refusing dialysis if indicated and
therapeutic anticoagulation for paroxysmal afib, patient emphasized that she just wants to be comfortable in what time she has left. Offered hospice eval, patient unsure that she wants to pursue but was agreeable to palliative eval, consult
requested accordingly. Diet was liberalized to regular as per patient's request. Patient AOx3 at capacity to make her own decisions. Daughter Jodi aware and in support of patient's decisions.
Palliative care reevaluated patient.
Discussed with cardiology. Patient with atrial fibrillation. Not symptomatic. Can be discharged from cardiology perspective
More than 30 minutes spent in discharge including
Final examination of the patient
Summarizing hospital stay
Instructions for continuing care to all relevant caregivers
Preparation of discharge records, prescriptions, and referral forms
Total time spent (in minutes): 52
Anticipated Discharge: Today
Subjective/Interval History
-
Date of Service: December 22, 2024
Feeling better
On room air
Denies any chest pain or palpitation
Remains in A-fib
Objective Data
-
Labs:
Laboratory Results
12/22/24
07:13
WBC 11.6 H
Hgb 9.5 L
Hct 28.4 L
Plt Count 366
PT 17.8 H
INR 1.45
Sodium 139
Potassium 5.0
Chloride 105
Carbon Dioxide 22
BUN 70 H
Creatinine 3.3 H
Glucose 178 H
Calcium 8.1 L
Vital Signs:
Vital Signs
Temp Pulse Resp BP Pulse Ox
98.0 F 113 18 138/81 95
12/22/24 11:08 12/22/24 11:08 12/22/24 11:08 12/22/24 11:08 12/22/24 11:08
I&O
12/21/24 12/22/24 12/23/24
06:59 06:59 06:59
Intake Total 1560 / 1560 960 / 960
Balance 1560 / 1560 960 / 960
[2024-12-22] MEDS: NOVOLOG FLEXPEN-MODERATE RESISTANCE SC (12:18)
[2024-12-22] MEDS: BenGay-Like TOPICAL (12:19)
--- NOTE | 2024-12-22 12:20 | W.DCSUMMARY ---
Discharge Summary
Discharge Data
Date of Admission: 12/12/24
Date of Discharge: 12/22/24
-
Pending Results: No
Hospital Course
84-year-old female extensive past medical history of chronic HFrEF, CKD stage IV, anemia of chronic disease, chronic hyponatremia, hyperlipidemia, diabetes mellitus, GERD, anxiety, depression, insomnia, who is presenting complaints of persistent
cough and fatigue. Patient was evaluated by cardiology, nephrology, palliative care and infectious disease. Patient was recently admitted to [facility] for pneumonia and was discharged on antibiotics. Patient states of persistent weakness
and coughing. Patient was found to be in heart failure exacerbation. patient was started on IV diuretics. Patient with bump in creatinine and Bumex was held per nephrology. Patient underwent echocardiogram EF of 51%. Cardiology was also
consulted. Patient also underwent into new onset of atrial fibrillation. With persistent tachycardia patient was started on amiodarone. Patient also had sinus pauses and beta-akshat was not amenable and labetalol was discontinued. Patient also
stated that if with persistent bradycardia or sinus pauses she does not want a pacemaker. Patient was started on anticoagulation however patient refused due to frequent INR checks with Coumadin and not able to afford Eliquis. Patient understood
her risk of being off anticoagulation and risk of stroke. Patient imaging studies with pleural effusion and interventional radiology was consulted. However not enough fluid for thoracentesis. Patient also with persistent fever and infectious
disease was consulted. COVID influenza was negative. IV cefepime and vancomycin was narrowed to ceftriaxone per infectious disease. Patient fever subsided. Ceftriaxone was transitioned to p.o. cefdinir. Leukocytosis down trended. After
multiple discussion patient stated she most likely would not except hemodialysis and understand her prognosis of Chronic worsening of CKD and heart failure. Patient was restarted on her home regimen of Bumex 2 mg p.o. twice daily. Patient with
intermittent tachycardia atrial fibrillation however patient was asymptomatic. Per cardiology patient can be transitioned to amiodarone 200 mg daily. 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 Patient was eval
by physical and Occupational Therapy with plan to longterm facility.
Discharge Plan
-
Patient Disposition: [facility]
Discharge Diagnosis/Procedures: Right lower lobe pneumonia
Right pleural effusion
Acute hypoxic respiratory insufficiency
Anion gap metabolic acidosis
Acute kidney injury on chronic kidney disease stage IV versus progression of chronic kidney disease
Chronic HFpEF
Proximal atrial fibrillation new
History of sinus pauses
Condition: Fair
Diet: As tolerated
Activity: With assistance and As tolerated
Driving Restrictions: As prior to admission
Blood Work: bmp in 3-5 days via primary doctor
Activity Restrictions/Additional Instructions:
Follow-up with your primary commercial specialist and cardiology at [place].
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
Referrals:
Isauro Howard DO [Family Provider] - in less than 1 week
Prescriptions:
New
sodium bicarbonate 650 mg Tablet
650 mg PO BID Qty: 30 0RF
amiodarone 200 mg Tablet
200 mg PO DAILY Qty: 30 0RF
Continued
atorvastatin [Lipitor] 80 mg Tablet
80 mg PO QPM
bumetanide 2 mg Tablet
2 mg PO BID
psyllium Packet
1 packet PO DAILY
amlodipine [Norvasc] 10 mg Tablet
10 mg PO DAILY
pantoprazole [Protonix] 40 mg Tablet,Delayed Release (Dr/Ec)
40 mg PO Q12H
gabapentin 300 mg Capsule
300 mg PO HS
magnesium oxide 250 mg magnesium Tablet
400 mg PO DAILY
cholecalciferol (vitamin D3) [Vitamin D3] 25 mcg (1,000 unit) Tablet
25 mcg PO DAILY
coQ10 (ubiquinol) 100 mg Capsule
300 mg PO DAILY
acetaminophen [Tylenol] 325 mg Tablet
650 mg PO DAILYPRN PRN (Reason: mild pain)
ascorbic acid (vitamin C) [Vitamin C] 500 mg Tablet
1,000 mg PO BID
loratadine 10 mg Tablet
10 mg PO DAILY
cetirizine [Zyrtec] 10 mg Tablet,Chewable
10 mg PO DAILY
Changed
ferrous sulfate 325 mg (65 mg iron) Tablet
325 mg PO DAILY Qty: 0 0RF
Discontinued
labetalol 200 mg Tablet
200 mg PO BID
diphenhydramine-acetaminophen [Acetaminophen PM] 25-500 mg Tablet
2 tab PO HS
cefuroxime axetil [Ceftin] 500 mg Tablet
500 mg PO BID
Rx Instructions:
Take 1 tab by mouth BID for 3 days.
azithromycin 500 mg Tablet
500 mg PO DAILY
Rx Instructions:
Take daily for 3 days. First dose given November.
Discharge Orders:
Discharge Patient (As Directed); Ordered 12/22/24
Ordered By: Cory Petersen
Discharge Date and Time
Print Language: OCCITAN
== END 2024-12-22 14:25 | DRG 291 ==
LOC: 4 WEST ACU 15:11
PROVIDERS: Internal Medicine; Registered Nurse; Student in an Organized Health Care Education/Training Program; ADMITTING PHYSICIAN Internal Medicine; ATTENDING PHYSICIAN Hospitalist; CONSULT PHYSICIAN Internal Medicine Cardiovascular Disease; CONSULT PHYSICIAN Internal Medicine Hospice and Palliative Medicine; CONSULT PHYSICIAN Internal Medicine Infectious Disease; CONSULT PHYSICIAN Internal Medicine Nephrology; EMERGENCY PHYSICIAN Student in an Organized Health Care Education/Training Program; FAMILY PHYSICIAN Family Medicine; OTHER PHYSICIAN Psychiatry & Neurology Psychiatry
DX: I13.0 Hypertensive heart and chronic kidney disease with heart failure and stage 1 through stage 4 chronic kidney disease, or unspecified chronic kidney disease (principal); I50.33 Acute on chronic diastolic (congestive) heart failure; J18.9 Pneumonia, unspecified organism; E87.20 Acidosis, unspecified; N17.9 Acute kidney failure, unspecified; N18.4 Chronic kidney disease, stage 4 (severe); E87.1 Hypo-osmolality and hyponatremia; E11.22 Type 2 diabetes mellitus with diabetic chronic kidney disease; R09.02 Hypoxemia; I48.0 Paroxysmal atrial fibrillation; Z11.52 Encounter for screening for COVID-19; E78.00 Pure hypercholesterolemia, unspecified; Z87.891 Personal history of nicotine dependence; D63.1 Anemia in chronic kidney disease; K21.9 Gastro-esophageal reflux disease without esophagitis; E11.65 Type 2 diabetes mellitus with hyperglycemia; Z66 Do not resuscitate; E11.40 Type 2 diabetes mellitus with diabetic neuropathy, unspecified; F43.21 Adjustment disorder with depressed mood; F41.9 Anxiety disorder, unspecified; G47.00 Insomnia, unspecified; Z79.899 Other long term (current) drug therapy
CPT/HCPCS: 71046; 76604; 80048; 80053; 80061; 80202; 81003; 81015; 82570; 82947; 82962; 83036; 83615; 83735; 83880; 84100; 84145; 84155; 84300; 84443; 85014; 85025; 85027; 85610; 87449; 87502; 87641; 87811; 87899; 93005; 93306; 96361; 96374; 97116; 97162; 97166; 97530; 97535; 99285

== ENCOUNTER 2025-02-02 01:25 | Inpatient (IN) | payer MEDICARE, SELFPAY ==
[2025-02-01 21:05] VITALS: BMI 24.2
[2025-02-01 21:28] LABS: % Basophils 0.5 % (0-2); % Immature Granulocytes 0.5 % (0-0.5); % Lymphocytes 5.1 % (20.5-51.1); % Neutrophils 81.9 % (42.2-75.2); Absolute Basophils 0.1 10^3/uL (0-0.2); Absolute Immature Granulocytes 0.1 10^3/uL (0-0.05); Absolute Lymphocytes 0.6 10^3/uL (1.2-3.4); Absolute Monocytes 1.5 10^3/uL (0.1-0.6); Absolute Neutrophils 9.9 10^3/uL (1.4-6.5); Hemoglobin 9.9 g/dL (12.0-16.0); Mean Corp Hgb Conc. 35.4 g/dL (33.0-37.0); Mean Corpuscular Hgb 29.9 pg (27.0-31.0); Mean Corpuscular Volume 84.6 fL (81.0-99.0); Mean Platelet Volume 9.3 fL (7.4-10.4); Nucleated Red Blood Cells % 0 %; Platelet Count 249 10^3/uL (130-400); Red Blood Cell Count 3.31 10^6/uL (4.20-5.40); Red Cell Dist. Width 13.6 % (11.5-14.5); White Blood Cell Count 12.1 10^3/uL (4.8-10.8)
[2025-02-01 21:40] LABS: Lactic Acid 0.8 mmol/L (0.7-2.0)
[2025-02-01 21:49] LABS: NT-proBNP 26900 pg/ml
[2025-02-01 21:53] LABS: Blood Urea Nitrogen 45 mg/dl (7-17); Carbon Dioxide 21 mmol/L (22-30); Chloride 98 mmol/L (98-107); Estimated Creatinine Clearance 13 ml/min; Glucose 191 mg/dl (70-99); Sodium 130 mmol/L (135-145); eGFR 17.43
[2025-02-01 22:15] LABS: COVID-19 Antigen Negative (Negative)
[2025-02-01 22:24] VITALS: BP 143/59
--- NOTE | 2025-02-01 22:30 | ED.GENMED ---
History of Present Illness
General
Chief Complaint: Breathing Problem
Source: patient and family (daughter)
Exam Limitations: none
Time Seen by Provider: 02/01/25 21:39
Nursing documentation reviewed up to this point in time: agreed with
History of Present Illness
History of Present Illness:
Patient to ED with complaint of SOB, Symptoms started this evening. States she was not able to lie flat in bed. SHe called 911 and was brought to ED. Pulse ox 87%RA. Placed on 2L NC, maintaining at 94%. Reports fever tomight also. SHe thought
she had a UTI so she notified her PCP earlier today. SHe was placed on augmenting for suspected UTI. She has had 1 dose. No abdominal pain, cp/pressure. No n/v/d
Past History
Past History
ED Past Medical History: CHF, GERD, HTN, Hypercholesterolemia and NIDDM
Review of Systems
Review of Systems
Allergies reviewed?: Yes
All Other Systems: ROS reviewed and negative except as documented in HPI and ROS
Constitutional: Reports not done
EENT: Reports no symptoms
Respiratory: Reports trouble breathing
ABD/GI: Reports no symptoms
: Reports difficulty voiding and urgency
Musculoskeletal: Reports no symptoms
Skin: Reports no symptoms
Neurological: Reports weakness
Psychiatric: Reports no symptoms
Phy Exam
General Physical Exam
General Presentation: mild distress
General age: appears stated age
General Skin: warm and dry
General Habitus: frail
Cardiovascular Exam
Cardiovascular Exam: regular rate/rhythm
Pulmonary Exam
Pulmonary Exam: chest non tender
Oxygen Status: room air (87% RA. Placed on 2L NC)
Breath Sounds: Crackles: left lower and right lower
Gastrointestinal Exam
Gastrointestinal Exam: normal bowel sounds, non tender, soft and no organomegaly
Musculoskeletal Exam
Musculoskeletal Exam: full ROM and neuro vasc intact
Skin Exam
Skin Exam: normal color, warm/dry and no rash
Psychiatric Exam
Psychiatric Exam: normal mood/affect
Scores
Heart Failure Risk
Heart Failure Risk Score: Yes
History of Stroke or TIA: No
History of intubation for respiratory distress: No
Heart rate on ED arrival >/= 110: No
SaO2 <90% on arrival on room air: Yes
HR >/=110 during 3min walk test (or too ill to perform test): Yes
ECG has acute ischemic changes: No
Urea >/=12mmol/L (BUN 33.6mg/dL): Yes
Serum CO2>/=35mmol/L: No
Troponin I or T elevated to PA Level (0.4mg/dL): No
NT-proBNP >/=5,000ng/L (5,000pg/ml): Yes
HF Risk Score: 5
Admission Status: VERY HIGH RISK 39.8% Consider admission to hospital
Course
Orders/Labs/Results
Orders:
Orders
02/01/25 21:03
Electrocardiogram (*1) Urgent
Reason for Study: Other
Other Reason for Exam: Possible Sepsis
Cardiac Monitoring- Treatment ONCE
IV Insert/Care/Rem.- Treatment PRN
Straight cath- Treatment ONCE
O2 Therapy [RESP] Urgent
Titrate/Wean O2 to maintain O2 sat greater than (%): 93
Special Instructions: TO MAINTAIN CONTINUOUS O2 SATS > OR = 93%
Pulse Ox/cont/shift [RESP] Urgent
Quantity: 1
Special Instructions: CONTINUOUS
02/01/25 21:04
EKG- Treatment ONCE
02/01/25 21:15
Basic Metabolic Panel Urgent
Complete Blood Count/With Diff Urgent
Lactic Acid Q4H
Comment: ON ICE, CANCEL 2ND ORDER IF FIRST LACTIC ACID LEVEL <2
Pro-BNP [NT-proBNP] Urgent
Urinalysis Reflex To Culture Urgent
Date Specimen was Collected: 02/01/25
Time Specimen was Collected: 21:04
Blood Culture Q20M
PABLO Source: Blood/Venous
Specimen Description:
Comment: Urgent from separate sites. If patient screens positive for possible sepsis
02/01/25 21:40
CR Chest - 2 Views Urgent
Comment:
Reason For Exam: fever, SOB
02/01/25 21:51
COVID-19 Antigen Urgent
Source: Nasal Swab
Influenza A+B Rapid Molecular Urgent
PABLO Source: Nasal Swab
Specimen Description:
02/01/25 22:06
Comprehensive Metabolic Panel Urgent
Blood Culture Q20M
PABLO Source: Blood/Venous
Specimen Description:
Comment: Urgent from separate sites. If patient screens positive for possible sepsis
02/01/25 22:29
Acetaminophen [Tylenol] 1,000 mg PO NOW STA
02/01/25 23:50
Bumetanide [Bumex] 1 mg IV NOW STA
Abnormal Lab Results
02/01/25 02/01/25
21:15 22:06
WBC 12.1 H 10^3/uL
(4.8-10.8)
RBC 3.31 L 10^6/uL
(4.20-5.40)
Hgb 9.9 L g/dL
(12.0-16.0)
Hct 28.0 L %
(37.0-47.0)
Abs Immat Gran (auto) 0.1 H 10^3/uL
(0-0.05)
Absolute Neuts (auto) 9.9 H 10^3/uL
(1.4-6.5)
Absolute Lymphs (auto) 0.6 L 10^3/uL
(1.2-3.4)
Absolute Monos (auto) 1.5 H 10^3/uL
(0.1-0.6)
Neutrophils % 81.9 H %
(42.2-75.2)
Lymphocytes % 5.1 L %
(20.5-51.1)
Monocytes % 12.0 H %
(1.7-9.3)
Sodium 130 L mmol/L 132 L mmol/L
(135-145) (135-145)
Carbon Dioxide 21 L mmol/L
(22-30)
BUN 45 H mg/dl 43 H mg/dl
(7-17) (7-17)
Creatinine 2.6 H mg/dL 2.7 H mg/dL
(0.6-1.0) (0.6-1.0)
Glucose 191 H mg/dl 181 H mg/dl
(70-99) (70-99)
Calcium 8.0 L mg/dl 8.1 L mg/dl
(8.4-10.2) (8.4-10.2)
02/01/25 21:15
02/01/25 22:06
Vital Signs
Initial and Last Documented VS:
Initial Vital Signs
Temp Pulse Resp Pulse Ox
101.1 F H 100 22 87
02/01/25 20:59 02/01/25 20:59 02/01/25 20:59 02/01/25 20:59
Last Documented Vital Signs
Temp Pulse Resp BP Pulse Ox
101.1 F H 82 18 133/63 95
02/01/25 20:59 02/01/25 23:45 02/01/25 23:45 02/01/25 23:00 02/01/25 23:45
*Radiology
Radiology exam reviewed: radiology read reviewed
*Pulse Oximetry
Patient hypoxic: yes
Comment: 87% RA. On 2L NC, pulse ox 94%
*Critical Care Note
Total Time (30-74mins, 75-104mins- exclusive of procedures): Not Applicable
Update Note
Update Note:
Patient to ED with complaint of SOB. Symptoms started tonight. PUlse ox 87% RA on arrival. Placed on 2L NC, pulse ox holding at 94%. Xray reviewed. +CHF, no evidence of pneumonia. Will admit to hospitalist service. Given 1mg Bumex IV. She
also notes that she was placed on an 'antibiotc' today for suspected UTI. SHe has had 1 dose. UA ordered tonight, results p;ending.
ED Attending Note
-
Portions of this chart may have been created with voice recognition software.� Occasional wrong word or��sound alike� substitutions may have occurred due to the inherent limitations of voice recognition software.
Discharge Plan
Departure
Patient Disposition: Admit
Date of Disposition: 02/01/25
Time of Disposition: 23:50
Presentation/result/management discussed w/ accepting MD/DO: Hospitalist
Patient with high blood pressure during this ER visit?: No
Condition: Fair
Covid-19: Not Applicable
Discharge Problem:
CHF (congestive heart failure)
Prescriptions:
No Action
atorvastatin [Lipitor] 80 mg Tablet
80 mg PO QPM
bumetanide 2 mg Tablet
2 mg PO BID
amlodipine [Norvasc] 10 mg Tablet
10 mg PO DAILY
pantoprazole [Protonix] 40 mg Tablet,Delayed Release (Dr/Ec)
40 mg PO Q12H
gabapentin 300 mg Capsule
300 mg PO HS
magnesium oxide 250 mg magnesium Tablet
400 mg PO DAILY
cholecalciferol (vitamin D3) [Vitamin D3] 25 mcg (1,000 unit) Tablet
25 mcg PO DAILY
coQ10 (ubiquinol) 100 mg Capsule
300 mg PO DAILY
ascorbic acid (vitamin C) [Vitamin C] 500 mg Tablet
1,000 mg PO BID
loratadine 10 mg Tablet
10 mg PO DAILY
sodium bicarbonate 650 mg Tablet
650 mg PO BID Qty: 30 0RF
ferrous sulfate 325 mg (65 mg iron) Tablet
325 mg PO DAILY Qty: 0 0RF
amiodarone 200 mg Tablet
200 mg PO DAILY Qty: 30 0RF
diphenhydramine-acetaminophen [Tylenol PM Extra Strength] 25-500 mg Tablet
2 tab PO HS PRN (Reason: sleep)
glipizide 5 mg Tablet
5 mg PO DAILY
melatonin 5 mg Tablet
5 mg PO HS PRN (Reason: sleep)
Referrals:
Isauro Howard DO [Family Provider, Family Practice]
Interventions
Interventions:
*Risk Screen - Suicide Last Done: 02/01/25 21:06
*General Assessment Last Done: 02/01/25 21:34
*Neglect/Abuse Screening Last Done: 02/01/25 21:06
*ED- Fall Risk Assessment Last Done: 02/01/25 21:34
ED- Cardiac Assessment Last Done: 02/01/25 21:33
ED- Pulmonary Assessment Last Done: 02/01/25 21:33
Discharge Date and Time
Print Language: ERITREAN
[2025-02-01] MEDS: TYLENOL 1000 MG PO (22:43)
[2025-02-01 22:44] LABS: Albumin 3.7 g/dl (3.5-5.0); Blood Urea Nitrogen 43 mg/dl (7-17); Carbon Dioxide 25 mmol/L (22-30); Estimated Creatinine Clearance 13 ml/min; Total Bilirubin 0.9 mg/dl (0.2-1.3); eGFR 16.66
[2025-02-01 23:00] VITALS: BP 133/63
[2025-02-01 23:00] LABS: ALT (SGPT) 14 U/L (0-35); AST (SGOT) 19 U/L (14-36); Alkaline Phosphatase 96 U/L (38-126); Calcium 8.1 mg/dl (8.4-10.2); Chloride 100 mmol/L (98-107); Glucose 181 mg/dl (70-99); Potassium 3.8 mmol/L (3.5-5.1); Sodium 132 mmol/L (135-145)
[2025-02-01] MEDS: BUMEX 1 MG IV (23:54)
--- NOTE | 2025-02-01 23:59 | HPS.HSE ---
Family Physician
-
Family Physician: Isauro Howard
Chief Complaint
-
Shortness of breath
History of Present Illness
This is an 84-year-old female with past medical history significant for CHF with EF of around 50%, AR, CLL, wyp-lzekzab-lxdrsijef diabetes, advanced CKD stage IV, atrial fibrillation not on anticoagulation who presents to the emergency department
with acute episode of shortness of breath.
Patient reported that she started having urinary symptoms about 1 day ago. She reports urinary frequency and incontinence urgency and some hesitancy overnight. She reported that last night she took 1 oral dose of antibiotic and she took another
oral dose of antibiotics this morning. Despite that she felt sick and nauseous. She says she always feels cold but does not have any fever at home. Patient denies having any cough. She states that when she had pneumonia she usually has a
productive cough. She did not feel short of breath up until this morning when she suddenly developed severe dyspnea on exertion and shortness of breath about an hour or 2 prior to EMS arrival. She felt she could not catch her breath but denies
having any chest pain. She reports no lower extremity edema. She states that she has been on Bumex 2 mg twice daily with a very steady weight for the last several weeks. Denies any acute weight loss or weight gain. She denies any dietary
indiscretion. She denies any other medication changes. There has been no sick contacts. No recent travel
In the emergency room she was febrile to 101.1, blood pressure was 132/63, pulse rate of 82, satting 95% on 6 L. She is now down to 97% on 4 L. Chest x-ray shows interstitial markings consistent with pulmonary edema versus interstitial
pneumonitis. White count was 12.1, hemoglobin 9.9, platelet count 249. ECG with normal sinus rhythm, no acute ST or T wave changes. BNP remains markedly elevated at 27,000. Electrolytes notable for sodium of 132, down from 139 at her last
discharge. The rest of her electrolytes were stable with BUN and creatinine unchanged from prior. Influenza test is negative. COVID test is negative.
UA is pending
Medical History
Past Medical History
Past Medical History: Reports Other
Additional Past Medical History:
hypertension, hyperlipidemia, CHF, stage IV CKD, diabetes
Past Surgical History: Reports None and Other
Social History
Tobacco: Former Smoker
Alcohol: None
Drug: None
Personal: Single
Living: Alone
Family History
Family History: Not pertinent
Allergies / Home Medications
Allergies reflects when Allergies were last updated in [facility].
Home Medications with original date entered in [facility]
Allergy/Medication List:
Allergies
Allergy/AdvReac Type Severity Reaction Status Date / Time
No Known Allergies Allergy Unverified 08/25/24 15:21
Home Medications
amlodipine 10 mg tablet (Norvasc) 10 mg PO DAILY 08/25/24
atorvastatin 80 mg tablet (Lipitor) 80 mg PO QPM 08/25/24
bumetanide 2 mg tablet 2 mg PO BID 08/25/24
cholecalciferol (vitamin D3) 25 mcg (1,000 unit) tablet (Vitamin D3) 25 mcg PO DAILY 08/25/24
coQ10 (ubiquinol) 100 mg capsule 300 mg PO DAILY 08/25/24
ferrous sulfate 325 mg (65 mg iron) tablet 325 mg PO DAILY 08/25/24
gabapentin 300 mg capsule 300 mg PO HS 08/25/24
labetalol 200 mg tablet 200 mg PO BID 08/25/24
magnesium oxide 400 mg PO DAILY 08/25/24
pantoprazole 40 mg tablet,delayed release (Protonix) 40 mg PO DAILY 08/25/24
psyllium 1 packet PO DAILY 08/25/24
acetaminophen 325 mg tablet (Tylenol) 650 mg PO DAILYPRN PRN mild pain 12/12/24
ascorbic acid (vitamin C) 500 mg tablet (Vitamin C) 500 mg PO DAILY 12/12/24
diphenhydramine 25 mg-acetaminophen 500 mg tablet (Acetaminophen PM) 2 tab PO HS 12/12/24
loratadine 10 mg tablet 10 mg PO DAILY 12/12/24
Review of Systems
-
Constitutional: Denies Weight Gain or Weight Loss
EENT: Reports No Symptoms
Respiratory: Reports Trouble Breathing
Cardiac: Reports No Symptoms
Abdomen/GI: Reports No Symptoms
: Reports Frequency, Incontinence and Urgency
Musculoskeletal: Reports Edema
Skin: Reports No Symptoms
Neurological: Reports No Symptoms and Weakness
Endocrine: Reports No Symptoms
Hematologic/Lymphatic: Reports No Symptoms
Psych: Reports No Symptoms
Physical Exam
Vital Signs
Vital Signs
Temp Pulse Resp BP Pulse Ox
101.1 F H 82 18 133/63 95
02/01/25 20:59 02/01/25 23:45 02/01/25 23:45 02/01/25 23:00 02/01/25 23:45
Physical Exam
General: Well Developed, Well Nourished and No Apparent Distress
HEENT: NormoCephalic, Moist mucous membranes and Atraumatic
Respiratory: Crackles (Bibasilar crackles, slightly more prominent on the left)
Cardiac: S1/S2 and Regular Rhythm; No Murmur or Rub
GI: Soft, Non Tender, Non Distended and Normal Bowel Sounds; No Organomegaly
Rectal: Deferred by Provider
Musculoskeletal: No Clubbing, No Cyanosis and Other (Bilateral lower extremities edema)
Skin: No Rash
Neuro: Nonfocal/grossly intact
Hematologic/Lymphatic: No Lymphadenopathy
Psych: Calm
Laboratory Results
-
02/01/25 21:15
02/01/25 22:06
Laboratory Results
Lactic Acid 0.8 mmol/L (0.7-2.0) 02/01/25 21:15
Total Bilirubin 0.9 mg/dl (0.2-1.3) 02/01/25 22:06
AST 19 U/L (14-36) 02/01/25 22:06
ALT 14 U/L (0-35) 02/01/25 22:06
Alkaline Phosphatase 96 U/L (38-126) 02/01/25 22:06
Data Reviewed
-
Diagnostic Radiology: Image Personally Visualized and interpreted and Report Reviewed by me
Medical Tests (Nuc Med, Echo, EKG etc): Image Personally Visualized and interpreted
Lab Data: Labs Reviewed by me
Old Records: Reviewed
Impression/Plan
-
IMPRESSION:
84-year-old with history of congestive heart failure EF of 50%, moderate MR, severe TR presenting to the emergency management with acute episode of shortness of breath. She is found to have a fever to 101 in the emergency department. She reports
symptoms of urinary incontinence, frequency, urgency overnight. She was started on oral antibiotics at home. She denies any cough. She was hypoxic requiring nonrebreather at home. Suspect flash pulmonary edema in the setting of a urinary tract
infection.
PLAN:
1. SOB -suspect/pulmonary edema, no recent weight gain, no JVD, minimal to trace lower extremity edema. Currently blood pressure was improved from admission at systolic blood pressure of 120 at this time. She is nontachycardic and in normal sinus
rhythm. No acute ischemia on EKG. Chest x-ray with interstitial markings that are increased and correlate with pulmonary edema but cannot rule out interstitial pneumonitis. Patient self denies any cough.
-Admit to telemetry
-Will continue Bumex/IV 2 mg twice daily for now as tolerated by blood pressure
-Daily weight and ins and outs
-Hold amlodipine
-No indication to repeat echo at this time will monitor
2. Fever -suspect urinary tract infection versus pneumonia, UA is pending at this time but patient has already started oral antibiotics at home
-Blood and urine culture sent
-Stat IV ceftriaxone for now, d/c if negative u/a
3. CKD -unchanged renal function
-Continue sodium bicarbonate
4. 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
-Free water restriction
-Diuretics as above
-Orthostatics
-Check a.m. cortisol
5. DM II
- Hold glipizide, sliding scale insulin for now
DVT PPX - heparin sq
Code status - DNR
[2025-02-02] VITALS (12 sets, daily range): BP systolic 111–138; BP diastolic 46–65; PULSE 93–94; BMI 24.0
[2025-02-02] MEDS: ROCEPHIN 1000 MG IV ×2 (02:47→23:24)
[2025-02-02] MEDS: PROTONIX PO (02:47)
[2025-02-02] MEDS: STERILE WATER FOR INJECTION IV (04:33)
[2025-02-02 07:00] LABS: Hemoglobin 10.3 g/dL (12.0-16.0); Mean Corp Hgb Conc. 34.3 g/dL (33.0-37.0); Mean Corpuscular Hgb 29.6 pg (27.0-31.0); Mean Corpuscular Volume 86.2 fL (81.0-99.0); Mean Platelet Volume 9.3 fL (7.4-10.4); Platelet Count 247 10^3/uL (130-400); Red Blood Cell Count 3.48 10^6/uL (4.20-5.40); Red Cell Dist. Width 13.4 % (11.5-14.5); White Blood Cell Count 10.8 10^3/uL (4.8-10.8)
[2025-02-02 07:25] LABS: Blood Urea Nitrogen 46 mg/dl (7-17); Calcium 8.5 mg/dl (8.4-10.2); Carbon Dioxide 24 mmol/L (22-30); Chloride 100 mmol/L (98-107); Estimated Creatinine Clearance 11 ml/min; Glucose 85 mg/dl (70-99); Magnesium 1.9 mg/dl (1.6-2.3); Potassium 3.8 mmol/L (3.5-5.1); Sodium 135 mmol/L (135-145); eGFR 14.11
[2025-02-02 07:55] LABS: Cortisol, Random 40.5 ug/dl; TSH Reflex To Free T4 1.52 uIU/ml (0.47-4.68)
[2025-02-02 07:58] LABS: Glucose - Point of Care 97 mg/dl (70-99)
--- NOTE | 2025-02-02 08:12 | CON.CAR ---
Consultation
Consultation Request
Date/Time Consultation Requested: 02/02/25
Date/Time Consultation Performed: 02/02/25
Requesting Provider:
Performing Provider: Dr Christian (Primary supervisor calibration Aaron Campos)
Reason for Consultation: sob
Medical History
-
History of Present Illness:
Kera Mina is an 84-year-old female (known to Dr. Aaron Campos, her primary supervisor calibration), with chronic HFpEF, PAF refused warfairn, hypertension, dyslipidemia, chronic kidney disease, type 2 diabetes, and GERD with recurrent hospitalizations
recently at [facility] for treatment of pneumonia and discharge on 12/22/24 for CHF. She presents with acute sob, fever to 101.1, ProBNP 27,000 and CXR showing pulm edema vs interstitial pneumonitis.
She reports she was feeling ok, became sob yesterday. No CP. She wasn't eatting much as they were feeding her 'slop'.
She is feeling a little better, asking when she will go home, but wont go back to rehab.
Past Medical History
Past Medical History: CHF, GERD, HTN, Hypercholesterolemia and Renal Failure (CKD)
Social History
Tobacco: Former Smoker
Family History
Family History: Reviewed & Not Pertinent
Allergies / Home Medications
Allergy/AdvReac Type Severity Reaction Status Date / Time
No Known Allergies Allergy Unverified 08/25/24 15:21
�Medication �Instructions �Recorded �Confirmed �Type
amlodipine 10 mg tablet (Norvasc) 10 mg PO DAILY 08/25/24 02/01/25 History
atorvastatin 80 mg tablet (Lipitor) 80 mg PO QPM 08/25/24 02/01/25 History
bumetanide 2 mg tablet 2 mg PO BID 08/25/24 02/01/25 History
cholecalciferol (vitamin D3) 25 25 mcg PO DAILY 08/25/24 02/01/25 History
mcg (1,000 unit) tablet (Vitamin
D3)
coQ10 (ubiquinol) 100 mg capsule 300 mg PO DAILY 08/25/24 02/01/25 History
gabapentin 300 mg capsule 300 mg PO HS 08/25/24 02/01/25 History
magnesium oxide 400 mg PO DAILY 08/25/24 02/01/25 History
pantoprazole 40 mg tablet,delayed 40 mg PO Q12H 08/25/24 02/01/25 History
release (Protonix)
ascorbic acid (vitamin C) 500 mg 1,000 mg PO BID 12/12/24 02/01/25 History
tablet (Vitamin C)
loratadine 10 mg tablet 10 mg PO DAILY 12/12/24 02/01/25 History
amiodarone 200 mg tablet 200 mg PO DAILY #30 tabs 12/22/24 02/01/25 Rx
ferrous sulfate 325 mg (65 mg 325 mg PO DAILY #0 tabs 12/22/24 02/01/25 Rx
iron) tablet
sodium bicarbonate 650 mg tablet 650 mg PO BID #30 tabs 12/22/24 02/01/25 Rx
diphenhydramine 25 2 tab PO HS PRN sleep 02/01/25 02/01/25 History
mg-acetaminophen 500 mg tablet
(Tylenol PM Extra Strength)
glipizide 5 mg tablet 5 mg PO DAILY 02/01/25 02/01/25 History
melatonin 5 mg tablet 5 mg PO HS PRN sleep 02/01/25 02/01/25 History
Review of Systems
-
All other systems: Negative unless noted
Physical Exam
Vital Signs
Temp Pulse Resp BP Pulse Ox
98.7 F 82 18 138/60 98
02/02/25 04:02 02/02/25 04:02 02/02/25 04:02 02/02/25 04:02 02/02/25 04:02
Lab Results
02/02/25 06:33
02/02/25 06:33
Osm-B-Ykbkovilryn Pept 88055 pg/ml 02/01/25 21:15
Physical Exam
General: Respiratory Distress (tachypneic) and Other (chronically ill)
HEENT: Normocephalic
Respiratory: Clear; Negative Wheezes, Crackles or Rhonchi
Cardiac: S1/S2 and Regular Rhythm; Negative Murmur, Rub or Peripheral Edema
Neuro: AO x 3
Impression / Plan
-
84F with chronic HFpEF, hypertension, dyslipidemia, chronic kidney disease, type 2 diabetes, and GERD with recent hospitalization at [facility] for treatment of pneumonia who presents with SOB, fever and c/f pna vs CHF.
Cardiology is consulted due to concern for acute on chronic HFpEF.
Outpatient supervisor calibration: Dr. Aaron Campos
Acute hypoxic respiratory fialure.
PNA vs HF
treating both
HFpEF, chronic
- TTE 12/13/24: LVEF 51%, stage II DD, mod MR, severe TR, PASP 68 (previously 54)
- proBNP >27,000 on admission but in the setting of CKD. Had small R pleural effusion but maybe parapneumonic (too small to tap). Weight stable from prior admissions. Overall examines euvolemic
- now on bumex 2mg bid per nephrology consult
Paroxysmal atrial fibrillation, new this admission
- Continue Amiodarone
- CHADsVasc 5. She refused OAT, could not afford DOAC
PNA
- antibiotics and management as per primary team.
CKD4
- per nephrology
Moderate mitral regurgitation
Severe tricuspid regurgitation
Hypertension, chronic, continue current medical therapy with amlodipine
Type II DM
In review of the chart during the last hospitalization, she had said she was sick of all this hospital care. Given recurrent hospitalizations in the last several months, discussions of hospice are reasonable. Will defer to primary team. Discussed
with Dr. Armenta.
DATA:
TTE 12/13/24:
LV ejection fraction is 51% by Christy's method of discs.
Stage II diastolic dysfunction suggestive of abnormal relaxation and increased
filling pressures.
Mild biatrial enlargement.
Moderate mitral regurgitation.
Severe tricuspid regurgitation.
Estimated PASP 68 mmHg and estimated RA 8 mmHg.
Sinus bradycardia, mid 50s.
Compared to previous echo dated 08/28/2024 MR and TR and estimated PASP have
all increased.
Data Reviewed
-
EKG: Tracing Personally Visualized and interpreted (nsr poor r wave progression)
Radiology: Image Personally Visualized and interpreted (small left pleural efsuion. improved right sided infiltrate from prior. Very)
Labs: Labs Reviewed by me (see hpi)
[2025-02-02] MEDS: NOVOLOG FLEXPEN-LOW RESISTANCE SC (08:26)
[2025-02-02] MEDS: BUMEX 2 MG IV ×2 (09:17→16:25)
[2025-02-02] MEDS: HEPARIN 5000 UNITS SC ×3 (09:18→23:19)
[2025-02-02] MEDS: MAGNESIUM OXIDE 500 MG PO (09:18)
[2025-02-02] MEDS: CLARITIN 10 MG PO (09:18)
[2025-02-02] MEDS: PACERONE 200 MG PO (09:18)
[2025-02-02] MEDS: NORVASC 10 MG PO (09:19)
[2025-02-02] MEDS: SODIUM BICARBONATE 650 MG PO ×2 (09:19→20:44)
[2025-02-02] MEDS: FEOSOL 325 MG PO (09:19)
--- NOTE | 2025-02-02 09:33 | W.PN.HOSP.TC ---
Today's Communication/Plan
-
IV diuretics. IV antibiotics.
Assessment / Plan
Assessment / Plan
Physical exam:
General: Acutely ill
HEENT: Normocephalic, Atraumatic and Moist Mucous Membranes
Respiratory: Few coarse crackles in the bases; Negative Wheezes, or Rhonchi
Cardiac: Regular Rhythm and S1/S2
GI: Soft, Nontender and Nondistended
Musculoskeletal: No Clubbing, No Cyanosis and No Edema
Neuro: Awake, Alert and Oriented, no gross neurological deficit
Psych: Calm
A/P:
Acute hypoxic respiratory insufficiency:
Multifactorial etiology, heart failure, pneumonia, other
Continue diuretics and antibiotics
On 4 L of oxygen
Discussed with daughter at bedside-we also broached the subject of palliative care/hospice. Patient has recommended this in the past and she turned around for good so she is not sure at this point and she wants to continue pursuing medical
treatment and reevaluate the topic of her next few days depending on her clinical course.
Discussed with cardiology as well
Acute on chronic HFpEF:
Continue IV diuresis, Bumex 2 mg twice a day
Monitor ins and out
Monitor daily weight
Pneumonia:
Continue antibiotic, IV ceftriaxone
Add oral doxycycline
Check sputum culture
Check strep and Legionella antigen
Hypertension:
Continue home antihypertensive
Hyperlipidemia:
Continue home statin
Hyponatremia:
Monitor sodium
Diabetes mellitus type 2:
Insulin sliding scale
Holding oral hypoglycemics
Paroxysmal atrial fibrillation:
Continue antiarrhythmic, amiodarone
Patient refused anticoagulation/could not afford
ERICK on chronic kidney disease stage IV:
Avoid nephrotoxic
Monitor renal function closely while diuresis
Cardiac valvulopathy:
Moderate mitral regurgitation
Severe tricuspid regurgitation
DVT prophylaxis:
Heparin SC
CODE STATUS:
DNR
Total time spent on today's encounter was 52 minutes which included time spent in counseling the patient/family regarding diagnosis and treatment plan as listed above, goals of care, and symptom management. Case was discussed with nursing staff,
specialists, and care coordinators/case management. All labs and imaging personally reviewed by me. Remainder the time spent in detailed review of previous records, lab data, imaging, and other medical provider documentation.
Anticipated Discharge: > 48 hours
Subjective/Interval History
-
Date of Service: February 02, 2025
Patient still feels short of breath although better than before, still have some cough. She feels very tired. She is on supplemental oxygen. Afebrile
Objective Data
-
Labs:
Laboratory Results
02/01/25 02/01/25 02/02/25
21:15 22:06 06:33
WBC 10.8
Hgb 10.3 L
Hct 30.0 L
Plt Count 247
Sodium 130 L 132 L 135
Potassium 3.8 3.8
Chloride 98 100 100
Carbon Dioxide 21 L 25 24
BUN 45 H 43 H 46 H
Creatinine 2.6 H 2.7 H 3.1 H
Glucose 191 H 181 H 85
Calcium 8.0 L 8.1 L 8.5
Total Bilirubin Cancelled 0.9
AST Cancelled 19
ALT Cancelled 14
Alkaline Phosphatase Cancelled 96
Vital Signs:
Vital Signs
Temp Pulse Resp BP Pulse Ox
99.1 F 114 18 130/61 94
02/02/25 07:05 02/02/25 09:19 02/02/25 07:05 02/02/25 09:19 02/02/25 07:05
--- NOTE | 2025-02-02 10:18 | CM ---
CM following re: discharge planning.
Reviewed pt's chart, met with pt.
Pt is an 84 year old female, admitted with primary dx of CHF. PMH includes: significant for CHF with EF of around 50%, NV, CLL, ymy-tnvjotl-bgwgtbmid diabetes, advanced CKD stage IV, atrial fibrillation not on anticoagulation
Pt reports she lives alone 2SH, 1 step to enter, has 5 children and only daughter lives in [place] and helps as needed. Pt reports she ambulates with a walker, had VN services last month and was at [facility] in November of this year.
Pt made it very clear she will not go to a SNF but rather goes to daughter's house with VN services. Pt does not remember VN provided and pt stated her daughter knows.
PT and OT will evaluate the pt to determine a level of care at discharge.
PCP: Isauro Howard
Pharmacy: [facility]
D/C plan: per pt's request, home with VN and family support.
CM will follow with discharge plan updates as hospitalization progresses
[2025-02-02 10:33] LABS: Osmolality Urine 341 mOsm/kg (300-900)
[2025-02-02 10:43] LABS: Urine Sodium 34 mmol/L (30-90)
[2025-02-02] MEDS: VIBRAMYCIN 100 MG PO ×2 (11:11→20:44)
[2025-02-02] MEDS: PROTONIX 40 MG PO ×2 (11:11→21:10)
[2025-02-02 12:20] LABS: Glucose - Point of Care 158 mg/dl (70-99)
[2025-02-02] MEDS: NOVOLOG FLEXPEN-LOW RESISTANCE 1 UNITS SC ×2 (12:53→17:37)
[2025-02-02 16:46] LABS: Glucose - Point of Care 174 mg/dl (70-99)
[2025-02-02] MEDS: LIPITOR 80 MG PO (17:38)
[2025-02-02] MEDS: NEURONTIN 300 MG PO (21:10)
[2025-02-02 21:29] LABS: Glucose - Point of Care 149 mg/dl (70-99)
[2025-02-02] MEDS: STERILE WATER FOR INJECTION 10 ML IV (23:23)
[2025-02-02] MEDS: FLUSH (NSS) 2 FLUSH IV (23:25)
[2025-02-03] VITALS (7 sets, daily range): BP systolic 100–130; BP diastolic 51–66; PULSE 87–88; BMI 24.4
[2025-02-03 06:42] LABS: Blood Urea Nitrogen 55 mg/dl (7-17); Calcium 7.6 mg/dl (8.4-10.2); Carbon Dioxide 22 mmol/L (22-30); Chloride 97 mmol/L (98-107); Estimated Creatinine Clearance 10 ml/min; Glucose 150 mg/dl (70-99); Potassium 4.2 mmol/L (3.5-5.1); Sodium 130 mmol/L (135-145)
[2025-02-03 07:25] LABS: Glucose - Point of Care 202 mg/dl (70-99)
[2025-02-03] MEDS: NOVOLOG FLEXPEN-LOW RESISTANCE 2 UNITS SC ×2 (09:07→12:06)
[2025-02-03] MEDS: CLARITIN 10 MG PO (09:08)
[2025-02-03] MEDS: MAGNESIUM OXIDE 500 MG PO (09:09)
[2025-02-03] MEDS: HEPARIN 5000 UNITS SC ×2 (09:09→16:44)
[2025-02-03] MEDS: VIBRAMYCIN 100 MG PO ×2 (09:09→20:23)
[2025-02-03] MEDS: PACERONE 200 MG PO (09:09)
[2025-02-03] MEDS: FEOSOL 325 MG PO (09:09)
[2025-02-03] MEDS: SODIUM BICARBONATE 650 MG PO ×2 (09:09→20:23)
[2025-02-03] MEDS: BUMEX IV (09:10)
[2025-02-03] MEDS: NORVASC PO (09:10)
--- NOTE | 2025-02-03 09:10 | W.PN.HOSP.TC ---
Today's Communication/Plan
-
IV diuresis. Antibiotic
Assessment / Plan
Assessment / Plan
Physical exam:
General: Acutely ill
HEENT: Normocephalic, Atraumatic and Moist Mucous Membranes
Respiratory: Few coarse crackles in the bases; Negative Wheezes, or Rhonchi
Cardiac: Regular Rhythm and S1/S2
GI: Soft, Nontender and Nondistended
Musculoskeletal: No Clubbing, No Cyanosis and No Edema
Neuro: Awake, Alert and Oriented, no gross neurological deficit
Psych: Calm
A/P:
Acute hypoxic respiratory insufficiency:
Multifactorial etiology, heart failure, pneumonia, other
Continue diuretics and antibiotics
On 3 to 4 L of oxygen
Discussed with daughter at bedside yesterday-we also broached the subject of palliative care/hospice. Patient has recommended this in the past and she turned around for good so she is not sure at this point and she wants to continue pursuing
medical treatment and reevaluate the topic of her next few days depending on her clinical course. At the moment she does not want heroic measures or aggressive interventions but does not want hospice either.
Cardiology consult appreciated
Acute on chronic HFpEF:
Continue IV diuresis, Bumex 2 mg twice a day
Monitor ins and out
Monitor daily weight
Pneumonia:
Continue antibiotic, IV ceftriaxone and oral doxycycline
Check sputum culture
Check strep and Legionella antigen
ERICK on chronic kidney disease stage IV:
Nephrology consult-discussed with nephrology via Chambers text today
Avoid nephrotoxic
Monitor renal function closely while diuresis
Hypertension:
Continue home antihypertensive
Hyperlipidemia:
Continue home statin
Hyponatremia:
Monitor sodium
Diabetes mellitus type 2:
Insulin sliding scale
Holding oral hypoglycemics
Paroxysmal atrial fibrillation:
Continue antiarrhythmic, amiodarone
Patient refused anticoagulation/could not afford
Cardiac valvulopathy:
Moderate mitral regurgitation
Severe tricuspid regurgitation
DVT prophylaxis:
Heparin SC
CODE STATUS:
DNR
Total time spent on today's encounter was 52 minutes which included time spent in counseling the patient/family regarding diagnosis and treatment plan as listed above, goals of care, and symptom management. Case was discussed with nursing staff,
specialists, and care coordinators/case management. All labs and imaging personally reviewed by me. Remainder the time spent in detailed review of previous records, lab data, imaging, and other medical provider documentation.
Anticipated Discharge: > 48 hours
Subjective/Interval History
-
Date of Service: February 03, 2025
Patient still having some shortness of breath. Requires supplemental oxygen.
Objective Data
-
Labs:
Laboratory Results
02/03/25
05:58
Sodium 130 L
Potassium 4.2
Chloride 97 L
Carbon Dioxide 22
BUN 55 H
Creatinine 3.5 H
Glucose 150 H
Calcium 7.6 L
Vital Signs:
Vital Signs
Temp Pulse Resp BP Pulse Ox
98.1 F 91 21 100/51 95
02/03/25 07:00 02/03/25 07:00 02/03/25 07:00 02/03/25 07:00 02/03/25 07:00
I&O
02/02/25 02/03/25 02/04/25
06:59 06:59 06:59
Intake Total 780 / 780
Balance 780 / 780
--- NOTE | 2025-02-03 09:24 | W.PN.CD ---
Today's Communication / Plan
-
- Continue Bumex 2 mg BID.
Impression / Plan
-
84F with chronic HFpEF, hypertension, dyslipidemia, chronic kidney disease, type 2 diabetes, and GERD with recent hospitalization at [facility] for treatment of pneumonia who presents with SOB, fever and c/f pna vs CHF.
Cardiology is consulted due to concern for acute on chronic HFpEF.
Outpatient process tank tender: Dr. Aaron Campos
Acute hypoxic respiratory fialure.
PNA vs HF
treating both
Acute on chronic HFpEF:
- TTE 12/13/24: LVEF 51%, stage II DD, mod MR, severe TR, PASP 68 (previously 54)
- proBNP >27,000 on admission but in the setting of CKD. Had small R pleural effusion but maybe parapneumonic (too small to tap). Weight stable from prior admissions.
- Continue Bumex 2 mg BID.
- Nephrology following.
Paroxysmal atrial fibrillation, new this admission
- Continue Amiodarone
- CHADsVasc 5. She refused OAT, could not afford DOAC
PNA
- antibiotics and management as per primary team.
CKD4
- Management as per Nephrology.
Moderate mitral regurgitation/severe tricuspid regurgitation
- Contributing to HFpEF.
- Bumex as above.
Hypertension, chronic, continue current medical therapy with amlodipine
Type II DM
In review of the chart during the last hospitalization, she had said she was sick of all this hospital care. Given recurrent hospitalizations in the last several months, discussions of hospice are reasonable. Will defer to primary team.
DATA:
TTE 12/13/24:
LV ejection fraction is 51% by Christy's method of discs.
Stage II diastolic dysfunction suggestive of abnormal relaxation and increased
filling pressures.
Mild biatrial enlargement.
Moderate mitral regurgitation.
Severe tricuspid regurgitation.
Estimated PASP 68 mmHg and estimated RA 8 mmHg.
Sinus bradycardia, mid 50s.
Compared to previous echo dated 08/28/2024 MR and TR and estimated PASP have
all increased.
Physical Exam
Vital Signs/Labs
Vital Signs
Temp Pulse Resp BP Pulse Ox
98.1 F 91 21 100/51 95
02/03/25 07:00 02/03/25 09:10 02/03/25 07:00 02/03/25 09:10 02/03/25 07:00
02/02/25 02/03/25 02/04/25
06:59 06:59 06:59
Actual Weight 63.503 kg 64.365 kg
02/02/25 06:33
02/03/25 05:58
Magnesium 1.9 mg/dl (1.6-2.3) 02/02/25 06:33
02/01/25
21:15
Npz-Z-Oabevarcoss Pept [id number]
Physical Exam
Constitutional: No acute distress and Comfortable
EENT: Anicteric
Cardiovascular: Rhythm & rate is regular, Pedal edema present (trace), Systolic murmur present (Soft 2/6 BRANDI) and S1S2 is normal
Respiratory: Respiratory effort normal and Crackles Present (Bibasilar)
GI: Soft
Neuro/Psych: AO x 3
Other: Skin (warm, dry, dry intact)
Data Reviewed
-
Date of Service: February 03, 2025
EKG: Report Reviewed by me (telemetry: sinus rhythm)
Echo: Report Reviewed by me (EF 51%, severe TR, moderate MR)
Labs: Labs Reviewed by me
--- NOTE | 2025-02-03 09:56 | W.CON.NEPH ---
Consultation
-
Date/Time Consultation Requested: 02/03/25 9 AM
Date/Time Consultation Performed: 02/03/2025 9 AM
Requesting Provider: Dr. Armenta
Performing Provider: Dr. Walker
Reason for Consultation: ERICK
Medical History
-
Chief Complaint: Acute on chronic kidney disease
History of Present Illness:
84-year-old female with HFpEF 50%, severe valvular heart disease on chronic diuretic therapy with stable weights at home around 140 pounds, hypertension controlled on a multidrug regimen, CKD stage IV baseline creatinine 3.7�4, hyperlipidemia on
statin therapy, diabetes mellitus type II controlled with glipizide therapy presented to the emergency department for acute worsening of shortness of breath. This occurred abruptly the afternoon of admission. She was recently in the hospital in
November with heart failure. Since discharge she has been at home with a visiting nurse and therapy. She follows a low-salt diet and watches her volume intake. She had follow-up with both cardiology and nephrology since her discharge and was found
to be stable at those visits.
While here her sodium has fallen to 130 and her creatinine has risen from 3.1 up to 3.5.
Past Medical History
Heart failure preserved ejection fraction, moderate MR, severe TR, hypertension, CKD 4, hyperlipidemia, diabetes mellitus type II
Social History
Tobacco: Non-Smoker
Alcohol: None
Family History
Family History: Not Pertinent
Allergies / Home Medications
Allergy/AdvReac Type Severity Reaction Status Date / Time
No Known Allergies Allergy Unverified 08/25/24 15:21
�Medication �Instructions �Recorded �Confirmed �Type
amlodipine 10 mg tablet (Norvasc) 10 mg PO DAILY Blood Pressure 08/25/24 02/01/25 History
atorvastatin 80 mg tablet (Lipitor) 80 mg PO QPM High Cholesterol 08/25/24 02/01/25 History
bumetanide 2 mg tablet 2 mg PO BID Fluid 08/25/24 02/01/25 History
Retention/Swelling
cholecalciferol (vitamin D3) 25 25 mcg PO DAILY Supplement 08/25/24 02/01/25 History
mcg (1,000 unit) tablet (Vitamin
D3)
coQ10 (ubiquinol) 100 mg capsule 300 mg PO DAILY Supplement 08/25/24 02/01/25 History
gabapentin 300 mg capsule 300 mg PO HS Pain 08/25/24 02/01/25 History
magnesium oxide 400 mg PO DAILY Electrolyte 08/25/24 02/01/25 History
Repletion
pantoprazole 40 mg tablet,delayed 40 mg PO Q12H Gastrointestinal 08/25/24 02/01/25 History
release (Protonix) Issue
ascorbic acid (vitamin C) 500 mg 1,000 mg PO BID Supplement 12/12/24 02/01/25 History
tablet (Vitamin C)
loratadine 10 mg tablet 10 mg PO DAILY Allergies 12/12/24 02/01/25 History
amiodarone 200 mg tablet 200 mg PO DAILY #30 tabs 12/22/24 02/01/25 Rx
ferrous sulfate 325 mg (65 mg 325 mg PO DAILY #0 tabs 12/22/24 02/01/25 Rx
iron) tablet
sodium bicarbonate 650 mg tablet 650 mg PO BID #30 tabs 12/22/24 02/01/25 Rx
diphenhydramine 25 2 tab PO HS PRN sleep 02/01/25 02/01/25 History
mg-acetaminophen 500 mg tablet
(Tylenol PM Extra Strength)
glipizide 5 mg tablet 5 mg PO DAILY Diabetes 02/01/25 02/01/25 History
melatonin 5 mg tablet 5 mg PO HS PRN sleep 02/01/25 02/01/25 History
Review of Systems
-
Shortness of breath improving
All other systems: Negative unless noted
Physical Exam
Vital Signs
Vital Signs
Temp Pulse Resp BP Pulse Ox
98.1 F 91 21 100/51 95
02/03/25 07:00 02/03/25 09:10 02/03/25 07:00 02/03/25 09:10 02/03/25 09:41
Lab Results
WBC 10.8 10^3/uL (4.8-10.8) 02/02/25 06:33
RBC 3.48 10^6/uL (4.20-5.40) L 02/02/25 06:33
Hgb 10.3 g/dL (12.0-16.0) L 02/02/25 06:33
Hct 30.0 % (37.0-47.0) L 02/02/25 06:33
Plt Count 247 10^3/uL (130-400) 02/02/25 06:33
Sodium 130 mmol/L (135-145) L 02/03/25 05:58
Potassium 4.2 mmol/L (3.5-5.1) 02/03/25 05:58
Chloride 97 mmol/L (98-107) L 02/03/25 05:58
Carbon Dioxide 22 mmol/L (22-30) 02/03/25 05:58
BUN 55 mg/dl (7-17) H 02/03/25 05:58
Creatinine 3.5 mg/dL (0.6-1.0) H 02/03/25 05:58
eGFR 12.20 02/03/25 05:58
Glucose 150 mg/dl (70-99) H 02/03/25 05:58
Calcium 7.6 mg/dl (8.4-10.2) L 02/03/25 05:58
Shl-C-Zwxkyplnpss Pept 99158 pg/ml 02/01/25 21:15
Albumin 3.7 g/dl (3.5-5.0) 02/01/25 22:06
Echo 12/13/24
LV ejection fraction is 51% by Christy's method of discs.
Stage II diastolic dysfunction suggestive of abnormal relaxation and increased
filling pressures.
Mild biatrial enlargement.
Moderate mitral regurgitation.
Severe tricuspid regurgitation.
Estimated PASP 68 mmHg and estimated RA 8 mmHg.
Sinus bradycardia, mid 50s.
Compared to previous echo dated 08/28/2024 MR and TR and estimated PASP have
all increased.
Physical Exam
Patient is awake alert oriented and in no distress. Mood and affect were pleasant, insight and judgment were good. Pupils are equal round and reactive to light, extraocular movements are intact, sclera were anicteric. Hearing was normal, ears and
nose are intact. Oropharynx was clear. Neck was supple with trachea midline and no thyromegaly. Heart was regular rate and rhythm without rubs. Lower extremities without edema. Lungs were with rales to auscultation bilaterally and with normal
excursion. Abdomen was soft, nontender, with normal active bowel sounds, and no hepatosplenomegaly. Skin was without rash and with normal turgor.
Data Reviewed
-
Radiology: Image Personally Visualized and interpreted (Chest x-ray 02/01/2025 by my reading shows vascular prominence)
Medical Tests (Nuc Med, Echo etc): Image Personally Visualized and interpreted (EKG 02/01/2025 by reading normal sinus rhythm anterior Q)
Labs: Labs Reviewed by me
Old Records: Reviewed
Assessment/Plan
-
Impression.
ERICK on chronic kidney disease stage IV.
hyponatremia.
Heart failure preserved ejection fraction decompensated
Moderate MR, severe TR
Hypertension.
Plan.
Suspect that she has lost some body mass over time and that her stable weights at home are more reflective of slowly rising volume weights.
On examination she appears to be volume overloaded
Continue IV Bumex, goal diuresis around 3 to 5 pounds
Follow BMP
She stated quite clearly to me that she had a discussion with her daughter and she is decided that she will not accept dialysis under any circumstances.
She was also very clear that she did not want to do hospice that she does have visiting nurse and therapy at home which she finds very beneficial and would not want to lose
Antibiotics per primary team though I do not believe she has any active infection
[2025-02-03] MEDS: BUMEX 2 MG IV ×2 (10:26→17:47)
--- NOTE | 2025-02-03 10:33 | PTCARENOTE ---
Patient bp at this time 115/54,88. Dr aware. Per dr fragoso to give am Bumex dose now. Dose given as ordered. No s/s of distress noted. Plan of care ongoing . call [facility] within reach.
[2025-02-03] MEDS: PROTONIX 40 MG PO ×2 (11:09→20:23)
[2025-02-03 11:20] LABS: Glucose - Point of Care 235 mg/dl (70-99)
[2025-02-03 15:55] LABS: Glucose - Point of Care 258 mg/dl (70-99)
[2025-02-03] MEDS: NOVOLOG FLEXPEN-LOW RESISTANCE 3 UNITS SC (16:50)
[2025-02-03] MEDS: LIPITOR 80 MG PO (17:47)
[2025-02-03] MEDS: NEURONTIN 300 MG PO (20:23)
[2025-02-03 21:10] LABS: Glucose - Point of Care 203 mg/dl (70-99)
[2025-02-04] MEDS: ROCEPHIN 1000 MG IV (01:36)
[2025-02-04] MEDS: STERILE WATER FOR INJECTION 10 ML IV (01:37)
[2025-02-04] MEDS: HEPARIN 5000 UNITS SC ×3 (01:37→16:41)
[2025-02-04 03:18] VITALS: BP 119/57
[2025-02-04 05:20] VITALS: BMI 24.8
[2025-02-04 06:36] LABS: Blood Urea Nitrogen 71 mg/dl (7-17); Calcium 7.8 mg/dl (8.4-10.2); Carbon Dioxide 24 mmol/L (22-30); Chloride 97 mmol/L (98-107); Estimated Creatinine Clearance 9 ml/min; Glucose 142 mg/dl (70-99); Sodium 132 mmol/L (135-145); eGFR 10.39
[2025-02-04 07:05] VITALS: BP 123/53
[2025-02-04 07:10] LABS: Glucose - Point of Care 186 mg/dl (70-99)
[2025-02-04] MEDS: VIBRAMYCIN 100 MG PO ×2 (08:25→21:02)
[2025-02-04] MEDS: MAGNESIUM OXIDE 500 MG PO (08:25)
[2025-02-04] MEDS: PACERONE 200 MG PO (08:25)
[2025-02-04] MEDS: NORVASC 10 MG PO (08:25)
[2025-02-04] MEDS: CLARITIN 10 MG PO (08:25)
[2025-02-04] MEDS: BUMEX 2 MG IV ×2 (08:25→16:41)
[2025-02-04] MEDS: SODIUM BICARBONATE 650 MG PO ×2 (08:25→21:02)
[2025-02-04] MEDS: FEOSOL 325 MG PO (08:25)
[2025-02-04] MEDS: PROTONIX 40 MG PO ×2 (08:25→21:03)
[2025-02-04] MEDS: NOVOLOG FLEXPEN-LOW RESISTANCE 1 UNITS SC (08:26)
--- NOTE | 2025-02-04 09:14 | W.PN.HOSP.TC ---
Today's Communication/Plan
-
IV diuresis. Antibiotics. GOC discussions
Assessment / Plan
Assessment / Plan
Physical exam:
General: Acutely ill
HEENT: Normocephalic, Atraumatic and Moist Mucous Membranes
Respiratory: Few coarse crackles in the bases; Negative Wheezes, or Rhonchi
Cardiac: Regular Rhythm and S1/S2
GI: Soft, Nontender and Nondistended
Musculoskeletal: No Clubbing, No Cyanosis and No Edema
Neuro: Awake, Alert and Oriented, no gross neurological deficit
Psych: Calm
A/P:
Acute hypoxic respiratory insufficiency:
Multifactorial etiology, heart failure, pneumonia, other
Continue diuretics and antibiotics
On 3 to 4 L of oxygen
Discussed with daughter at bedside prior-we also broached the subject of palliative care/hospice. Patient has recommended this in the past and she turned around for good so she is not sure at this point and she wants to continue pursuing medical
treatment and reevaluate the topic of her next few days depending on her clinical course. At the moment she does not want heroic measures or aggressive interventions but does not want hospice either.
Cardiology consult appreciated
Discussed with cardiology today-cardiology recommended hospice but patient does not agree at this point but will think about it.
Nephrology also suggest right heart cath but cardio does not feel she would benefit from procedure.
Acute on chronic HFpEF:
Continue IV diuresis, Bumex 2 mg twice a day
Monitor ins and out
Monitor daily weight
ERICK on chronic kidney disease stage IV:
Worsening renal function
Nephrology consulted yesterday
Avoid nephrotoxic
Monitor renal function closely while diuresis
Pneumonia:
Continue antibiotic, IV ceftriaxone and oral doxycycline
Check sputum culture
Check strep and Legionella antigen
Hypertension:
Continue home antihypertensive
Hyperlipidemia:
Continue home statin
Hyponatremia:
Monitor sodium
Diabetes mellitus type 2:
Insulin sliding scale
Holding oral hypoglycemics
Paroxysmal atrial fibrillation:
Continue antiarrhythmic, amiodarone
Patient refused anticoagulation/could not afford
Cardiac valvulopathy:
Moderate mitral regurgitation
Severe tricuspid regurgitation
DVT prophylaxis:
Heparin SC
CODE STATUS:
DNR
Total time spent on today's encounter was 52 minutes which included time spent in counseling the patient/family regarding diagnosis and treatment plan as listed above, goals of care, and symptom management. Case was discussed with nursing staff,
specialists, and care coordinators/case management. All labs and imaging personally reviewed by me. Remainder the time spent in detailed review of previous records, lab data, imaging, and other medical provider documentation.
Anticipated Discharge: > 48 hours
Subjective/Interval History
-
Date of Service: February 04, 2025
Patient does not report worsening shortness of breath. No chest pain. Afebrile
Objective Data
-
Labs:
Laboratory Results
02/04/25
05:38
Sodium 132 L
Potassium 4.0
Chloride 97 L
Carbon Dioxide 24
BUN 71 H
Creatinine 4.0 H
Glucose 142 H
Calcium 7.8 L
Vital Signs:
Vital Signs
Temp Pulse Resp BP Pulse Ox
97.4 F 83 17 123/53 100
02/04/25 07:05 02/04/25 07:05 02/04/25 07:05 02/04/25 07:05 02/04/25 07:05
I&O
02/03/25 02/04/25 02/05/25
06:59 06:59 06:59
Intake Total 780 / 780 660 / 660
Balance 780 / 780 660 / 660
[2025-02-04 11:00] VITALS: BP 125/58
--- NOTE | 2025-02-04 11:08 | W.PN.NEPH.PH ---
Addendum entered and electronically signed by Rico Walker MD 02/04/25 11:12:
could consider RHC later this week if weights do not improve and we have no detailed I/Os.
She seemed mildly inclined to refuse it though
Original Note:
Today's Communication / Plan
-
diurese
Assessment/Plan
-
Impression.
ERICK on chronic kidney disease stage IV.
hyponatremia.
Heart failure preserved ejection fraction decompensated
Moderate MR, severe TR
Hypertension.
Plan.
Suspect that she has lost some body mass over time and that her stable weights at home are more reflective of slowly rising volume weights.
On examination she appears to be volume overloaded still
Continue IV Bumex, goal diuresis around 3 to 5 pounds
Follow BMP, may need at accept higher Cr values for optimized volume status
She stated quite clearly to me that she had a discussion with her daughter and she is decided that she will not accept dialysis under any circumstances.
She was also very clear that she did not want to do hospice that she does have visiting nurse and therapy at home which she finds very beneficial and would not want to lose
Antibiotics per primary team though I do not believe she has any active infection
-
-
Date of Service: February 04, 2025
CC / HPI / ROS
-
Chief Complaint:
ERICK
History of Present Illness:
ERICK/Cr worse to 4
Na low better 132
BP stable
on IV bumex for decompensated HF
weights up
Review of Systems:
no CP/SOB
Labs
-
Labs:
WBC 10.8 10^3/uL (4.8-10.8) 02/02/25 06:33
RBC 3.48 10^6/uL (4.20-5.40) L 02/02/25 06:33
Hgb 10.3 g/dL (12.0-16.0) L 02/02/25 06:33
Hct 30.0 % (37.0-47.0) L 02/02/25 06:33
Plt Count 247 10^3/uL (130-400) 02/02/25 06:33
Sodium 132 mmol/L (135-145) L 02/04/25 05:38
Potassium 4.0 mmol/L (3.5-5.1) 02/04/25 05:38
Chloride 97 mmol/L (98-107) L 02/04/25 05:38
Carbon Dioxide 24 mmol/L (22-30) 02/04/25 05:38
BUN 71 mg/dl (7-17) H 02/04/25 05:38
Creatinine 4.0 mg/dL (0.6-1.0) H 02/04/25 05:38
eGFR 10.39 02/04/25 05:38
Glucose 142 mg/dl (70-99) H 02/04/25 05:38
Calcium 7.8 mg/dl (8.4-10.2) L 02/04/25 05:38
Ecs-G-Hqthsdxtdog Pept 70635 pg/ml 02/01/25 21:15
Albumin 3.7 g/dl (3.5-5.0) 02/01/25 22:06
Physical Exam
-
Vital Signs:
Vital Signs
Temp Pulse Resp BP Pulse Ox
97.4 F 83 17 123/53 100
02/04/25 07:05 02/04/25 07:05 02/04/25 07:05 02/04/25 07:05 02/04/25 07:05
Cardiovascular:: Regular rate and rhythm
Respiratory:: Bilateral: Coarse
Lung Excursion:: Normal
Abdomen:: Nontender and Soft
Bowel Sounds:: Normal
Extremity Edema:: +1: Bilateral:
[2025-02-04 11:56] LABS: Glucose - Point of Care 213 mg/dl (70-99)
[2025-02-04] MEDS: NOVOLOG FLEXPEN-LOW RESISTANCE 2 UNITS SC (12:28)
--- NOTE | 2025-02-04 12:49 | W.PN.CD ---
Today's Communication / Plan
-
- Creatinine is now 4.0 (up from 3.5) on Bumex 2 mg BID.
- I would rather not subject the patient to a right heart catheterization as this appears to be futility of care; hospice seems appropriate.
Impression / Plan
-
84F with chronic HFpEF, hypertension, dyslipidemia, chronic kidney disease, type 2 diabetes, and GERD with recent hospitalization at [facility] for treatment of pneumonia who presents with SOB, fever and c/f pna vs CHF.
Cardiology is consulted due to concern for acute on chronic HFpEF.
Outpatient business development intern: Dr. Aaron Campos
Acute hypoxic respiratory fialure.
PNA vs HF
treating both
Acute on chronic HFpEF/Acute chronic CKD:
- TTE 12/13/24: LVEF 51%, stage II DD, mod MR, severe TR, PASP 68 (previously 54)
- proBNP >27,000 on admission but in the setting of CKD. Had small R pleural effusion but maybe parapneumonic (too small to tap). Weight stable from prior admissions.
- Creatinine is now 4.0 (up from 3.5) on Bumex 2 mg BID.
- Nephrology following.
- I would rather not subject the patient to a right heart catheterization as this appears to be futility of care; hospice seems appropriate.
Paroxysmal atrial fibrillation, new this admission
- Continue Amiodarone
- CHADsVasc 5. She refused OAT, could not afford DOAC
PNA
- antibiotics and management as per primary team.
CKD4
- Nephrology following; worsening renal function.
Moderate mitral regurgitation/severe tricuspid regurgitation
- Contributing to HFpEF.
- Bumex as above.
Hypertension, chronic, continue current medical therapy with amlodipine
Type II DM
In review of the chart during the last hospitalization, she had said she was sick of all this hospital care. Given recurrent hospitalizations in the last several months, discussions of hospice are reasonable. Will defer to primary team.
DATA:
TTE 4/16/25:
LV ejection fraction is 51% by Christy's method of discs.
Stage II diastolic dysfunction suggestive of abnormal relaxation and increased
filling pressures.
Mild biatrial enlargement.
Moderate mitral regurgitation.
Severe tricuspid regurgitation.
Estimated PASP 68 mmHg and estimated RA 8 mmHg.
Sinus bradycardia, mid 50s.
Compared to previous echo dated 08/28/2024 MR and TR and estimated PASP have
all increased.
Physical Exam
Vital Signs/Labs
Vital Signs
Temp Pulse Resp BP Pulse Ox
98.2 F 83 16 125/58 99
02/04/25 11:00 02/04/25 11:00 02/04/25 11:00 02/04/25 11:00 02/04/25 11:00
02/03/25 02/04/25 02/05/25
06:59 06:59 06:59
Actual Weight 64.365 kg 65.453 kg
02/02/25 06:33
02/04/25 05:38
Magnesium 1.9 mg/dl (1.6-2.3) 02/02/25 06:33
02/01/25
21:15
Ngo-J-Vnqdksbdiix Pept [id number]
Physical Exam
Constitutional: No acute distress and Comfortable
EENT: Anicteric
Cardiovascular: Rhythm & rate is regular, Pedal edema present (Trace), Systolic murmur present (2/6) and S1S2 is normal
Respiratory: Respiratory effort normal and Other (Decreased bibasilar breath sounds)
Neuro/Psych: Alert
Other: Skin (warm)
Data Reviewed
-
Date of Service: February 04, 2025
EKG: Tracing Personally Visualized and interpreted (Telemetry: Sinus rhythm)
Labs: Labs Reviewed by me
[2025-02-04 15:00] VITALS: BP 130/55; BP 132/54; BP 142/50; PULSE 100; PULSE 95
[2025-02-04 16:34] LABS: Glucose - Point of Care 263 mg/dl (70-99)
[2025-02-04] MEDS: NOVOLOG FLEXPEN-LOW RESISTANCE 3 UNITS SC (16:39)
[2025-02-04] MEDS: LIPITOR 80 MG PO (16:41)
[2025-02-04 19:05] VITALS: BP 130/61
[2025-02-04] MEDS: NEURONTIN 300 MG PO (21:02)
[2025-02-04 21:16] LABS: Glucose - Point of Care 139 mg/dl (70-99)
[2025-02-04 23:03] VITALS: BP 132/60
[2025-02-05] MEDS: STERILE WATER FOR INJECTION 10 ML IV (00:38)
[2025-02-05] MEDS: ROCEPHIN 1000 MG IV (00:38)
[2025-02-05] MEDS: HEPARIN 5000 UNITS SC ×2 (00:38→09:15)
[2025-02-05 05:16] VITALS: BMI 24.3
[2025-02-05 07:00] VITALS: BP 133/55; BP 139/58; BP 143/50; PULSE 81; PULSE 82; PULSE 83
[2025-02-05 07:25] LABS: Blood Urea Nitrogen 79 mg/dl (7-17); Calcium 7.7 mg/dl (8.4-10.2); Carbon Dioxide 26 mmol/L (22-30); Chloride 96 mmol/L (98-107); Estimated Creatinine Clearance 8 ml/min; Glucose 150 mg/dl (70-99); Sodium 130 mmol/L (135-145); eGFR 9.27
--- NOTE | 2025-02-05 07:41 | W.PN.CD ---
Today's Communication / Plan
-
- Diuresis for now
- Nephrology on board for diuresis / ultrafiltration.
Impression / Plan
-
84F with chronic HFpEF, hypertension, dyslipidemia, chronic kidney disease, type 2 diabetes, and GERD with recent hospitalization at [facility] for treatment of pneumonia who presents with SOB, fever and c/f pna vs CHF.
Cardiology is consulted due to concern for acute on chronic HFpEF.
Outpatient electrical calibrator: Dr. Aaron Campos
Acute hypoxic respiratory failure.
PNA vs HF
treating both
Acute on chronic HFpEF/Acute chronic CKD:
- TTE 12/13/24: LVEF 51%, stage II DD, mod MR, severe TR, PASP 68 (previously 54)
- proBNP >27,000 on admission but in the setting of CKD. Had small R pleural effusion but maybe parapneumonic (too small to tap). Weight stable from prior admissions.
- Creatinine is now 4.4 (up from 3.5) on Bumex 2 mg BID. rising with diuresis.
- Nephrology following.
- Refused dialysis. Consider ultrafiltration. RHC is of little value given her MR and TR.
Paroxysmal atrial fibrillation, new this admission
- Continue Amiodarone
- CHADsVasc 5. She refused OAT, could not afford DOAC
PNA
- antibiotics and management as per primary team.
CKD4
- Nephrology following; worsening renal function.
Moderate mitral regurgitation/severe tricuspid regurgitation
- Contributing to HFpEF.
- Bumex as above.
Hypertension, chronic, continue current medical therapy with amlodipine
Type II DM
In review of the chart during the last hospitalization, she had said she was sick of all this hospital care. Given recurrent hospitalizations in the last several months, discussions of hospice are reasonable. Will defer to primary team.
DATA:
TTE 12/13/24:
LV ejection fraction is 51% by Christy's method of discs.
Stage II diastolic dysfunction suggestive of abnormal relaxation and increased
filling pressures.
Mild biatrial enlargement.
Moderate mitral regurgitation.
Severe tricuspid regurgitation.
Estimated PASP 68 mmHg and estimated RA 8 mmHg.
Sinus bradycardia, mid 50s.
Compared to previous echo dated 08/28/2024 MR and TR and estimated PASP have
all increased.
Physical Exam
Vital Signs/Labs
Vital Signs
Temp Pulse Resp BP Pulse Ox
98.4 F 85 16 132/60 97
02/04/25 23:03 02/04/25 23:03 02/04/25 23:03 02/04/25 23:03 02/04/25 23:03
02/04/25 02/05/25 02/06/25
06:59 06:59 06:59
Actual Weight 65.453 kg 64.093 kg
02/02/25 06:33
02/05/25 06:11
Magnesium 1.9 mg/dl (1.6-2.3) 02/02/25 06:33
02/01/25
21:15
Jlv-Q-Vsbvgnsbfmf Pept [id number]
Physical Exam
Constitutional: No acute distress and Comfortable
EENT: Anicteric and Moist mucous membranes
Cardiovascular: Rhythm & rate is regular, Pedal edema present, JVD present and Systolic murmur present
Respiratory: Respiratory effort normal and Crackles Present
GI: Soft, Non tender and Normal bowel sounds
Neuro/Psych: Alert
Data Reviewed
-
Date of Service: February 05, 2025
Medical Decision Making: Reviewed Test Results, Test Interpretation and Review of Case with other Provider
EKG: Tracing Personally Visualized and interpreted
Echo: Tracing Personally Visualized and interpreted
Labs: Labs Reviewed by me
Old Records: Reviewed
[2025-02-05 08:34] LABS: Glucose - Point of Care 270 mg/dl (70-99)
[2025-02-05] MEDS: VIBRAMYCIN 100 MG PO ×2 (09:14→21:15)
[2025-02-05] MEDS: MAGNESIUM OXIDE 500 MG PO (09:14)
[2025-02-05] MEDS: PACERONE 200 MG PO (09:14)
[2025-02-05] MEDS: SODIUM BICARBONATE 650 MG PO ×2 (09:14→21:15)
[2025-02-05] MEDS: CLARITIN 10 MG PO (09:14)
[2025-02-05] MEDS: NORVASC 10 MG PO (09:14)
[2025-02-05] MEDS: BUMEX 2 MG IV ×2 (09:15→16:21)
[2025-02-05] MEDS: FEOSOL 325 MG PO (09:15)
[2025-02-05] MEDS: NOVOLOG FLEXPEN-LOW RESISTANCE 3 UNITS SC ×2 (09:16→17:40)
--- NOTE | 2025-02-05 09:17 | W.PN.HOSP.TC ---
Today's Communication/Plan
-
see plan
Assessment / Plan
Assessment / Plan
Gen: NAD, AAOx3.
Eyes: EOMI, PERRLA, no scleral icterus.
Neck: supple.
CV: RRR, +S1/S2, 2/6 systolic murmur.
Resp: CTAB, no rales, wheezes, or rhonchi.
Abd: +BS, soft, NT, ND
Skin: No rashes.
Neuro: CN 2-12 intact, non-focal.
Psych: Normal mood and affect.
02/01/25 22:06 Blood/Venous Blood Culture - Preliminary
No Growth in 72 hours- Final report to follow
02/01/25 21:15 Blood/Venous Blood Culture - Preliminary
No Growth in 72 hours- Final report to follow
02/02/25 10:00 Urine Legionella Urinary Antigen - Final
Negative for Legionella pneumophila Serogroup 1 antigen.
A negative result does not rule out the possiblity of
Legionella infection due to other serogroups or species of
Legionella. Clinical correlation is recommended.
02/02/25 10:00 Urine Streptococcus pneumoniae Antigen (M - Final
Negative for Streptococcus pneumoniae antigen.
A negative result does not exclude infection with
Streptococcus pneumoniae. Clinical correlation is
recommended.
02/01/25 21:51 Nasal Swab Influenza Types A & B (JERRY) - Final
Negative for Influenza A & B, NAAT
Negative results must be combined with clinical observations
and patient history.
Nucleic Acid Amplification test (NAAT)performed on the
[employer] platform.
CXR 02/01/25: Findings again seen suggesting acute interstitial markings suggesting cardiogenic pulmonary edema although slightly less prominent in comparison to prior study. Interstitial pneumonitis cannot be excluded.
Acute hypoxic respiratory failure:
-was on 4L NC O2, now on 2L NC O2
-fever of 101.1 F and tachycardic on admission, sepsis POA due to interstitial pneumonitis
-appears to be multifactorial due to acute on chronic HFpEF and possibly interstitial pneumonitis
-cardiology following. No benefit from RHC. Cardiology has recommended hospice.
-cont IV Bumex, daily wts, I/Os
-currently on Rocephin/Doxy since 02/02/25
-urinary strep and Legionella antigens negative, BCxs NGTD, Flu/COVID NEG
ERICK on CKD4:
-renal following
-Cr worsening
-pt would not want, nor is she a candidate for hemodialysis
Other problems:
Essential HTN: cont Norvasc
HLD: cont statin
Hyponatremia, mild
DM2: SSI/accuchecks
Paroxysmal atrial fibrillation: cont Amio, has refused AC
Mod MR, severe TR
Extremely poor prognosis. Hospice has been consulted.
DNR/heparin
Anticipated Discharge: 24 - 48 hours
Subjective/Interval History
-
Date of Service: February 05, 2025
Denies chest pain or shortness of breath. Reports that she is not drinking much or urinating much.
Objective Data
-
Labs:
Laboratory Results
02/05/25
06:11
Sodium 130 L
Potassium 4.0
Chloride 96 L
Carbon Dioxide 26
BUN 79 H
Creatinine 4.4 H*
Glucose 150 H
Calcium 7.7 L
Vital Signs:
Vital Signs
Temp Pulse Resp BP Pulse Ox
98.8 F 81 17 139/58 100
02/05/25 07:00 02/05/25 07:00 02/05/25 07:00 02/05/25 07:00 02/05/25 07:00
I&O
02/04/25 02/05/25 02/06/25
06:59 06:59 06:59
Intake Total 660 / 660 1260 / 1260
Balance 660 / 660 1260 / 1260
[2025-02-05 09:37] LABS: Hematocrit 25.1 % (37.0-47.0); Hemoglobin 8.5 g/dL (12.0-16.0); Mean Corp Hgb Conc. 33.9 g/dL (33.0-37.0); Mean Corpuscular Hgb 29.3 pg (27.0-31.0); Mean Corpuscular Volume 86.6 fL (81.0-99.0); Mean Platelet Volume 10.6 fL (7.4-10.4); Platelet Count 238 10^3/uL (130-400); Red Cell Dist. Width 13.4 % (11.5-14.5); White Blood Cell Count 6.3 10^3/uL (4.8-10.8)
[2025-02-05] MEDS: PROTONIX 40 MG PO ×2 (11:14→21:15)
[2025-02-05 11:28] LABS: Glucose - Point of Care 191 mg/dl (70-99)
[2025-02-05] MEDS: NOVOLOG FLEXPEN-LOW RESISTANCE 1 UNITS SC (12:18)
--- NOTE | 2025-02-05 13:13 | HOSPNOTE ---
Notified of hospice referral. Patient stated to talk to her daughter Jodi. Called and spoke to Jodi. She reports that she is not sure if her mom is ready for hospice. She did state that her brother is against hospice. Reviewed briefly the difference
between hospice and palliative care. Jodi would like us to meet with her and the patient tomorrow at 1030am to discuss together hospice vs palliative. Will meet them tomorrow at 1030 am to discuss. More information to follow.
--- NOTE | 2025-02-05 14:08 | W.PN.NEPH.PH ---
Today's Communication / Plan
-
Possible hospice consult
ERICK continues to worsen
Options limited
Assessment/Plan
-
Impression.
ERICK on chronic kidney disease stage IV.
hyponatremia.
Heart failure preserved ejection fraction decompensated
Moderate MR, severe TR
Hypertension.
Plan.
Creatinine up to 4.4
Suspect that she has lost some body mass over time and that her stable weights at home are more reflective of slowly rising volume weights.
On examination she appears to be volume overloaded still
Continue IV Bumex 2 mL grams twice daily, goal diuresis around 3 to 5 pounds
Follow BMP, may need at accept higher Cr values for optimized volume status
She stated quite clearly that she had a discussion with her daughter and she is decided that she will not accept dialysis under any circumstances.
She was also very clear that she did not want to do hospice that she does have visiting nurse and therapy at home which she finds very beneficial and would not want to lose
Antibiotics per primary team though I do not believe she has any active infection
-
-
Date of Service: February 05, 2025
CC / HPI / ROS
-
Chief Complaint:
ERICK
History of Present Illness:
ERICK/Cr worse to 4.4
Na low better 130
BP stable
on IV bumex for decompensated HF
weights up
Review of Systems:
no CP/SOB
Resting comfortable
Labs
-
Labs:
WBC 6.3 10^3/uL (4.8-10.8) 02/05/25 06:11
RBC 2.90 10^6/uL (4.20-5.40) L 02/05/25 06:11
Hgb 8.5 g/dL (12.0-16.0) L 02/05/25 06:11
Hct 25.1 % (37.0-47.0) L 02/05/25 06:11
Plt Count 238 10^3/uL (130-400) 02/05/25 06:11
Sodium 130 mmol/L (135-145) L 02/05/25 06:11
Potassium 4.0 mmol/L (3.5-5.1) 02/05/25 06:11
Chloride 96 mmol/L (98-107) L 02/05/25 06:11
Carbon Dioxide 26 mmol/L (22-30) 02/05/25 06:11
BUN 79 mg/dl (7-17) H 02/05/25 06:11
Creatinine 4.4 mg/dL (0.6-1.0) H* 02/05/25 06:11
eGFR 9.27 02/05/25 06:11
Glucose 150 mg/dl (70-99) H 02/05/25 06:11
Calcium 7.7 mg/dl (8.4-10.2) L 02/05/25 06:11
Clg-W-Kuauxlscvuc Pept [id number] pg/ml 02/01/25 21:15
Albumin 3.7 g/dl (3.5-5.0) 02/01/25 22:06
Physical Exam
-
Vital Signs:
Vital Signs
Temp Pulse Resp BP Pulse Ox
98.8 F 81 17 139/58 100
02/05/25 07:00 02/05/25 07:00 02/05/25 07:00 02/05/25 09:15 02/05/25 12:12
Cardiovascular:: Regular rate and rhythm
Respiratory:: Bilateral: Coarse
Lung Excursion:: Normal
Abdomen:: Nontender and Soft
Bowel Sounds:: Normal
Extremity Edema:: +1: Bilateral:
--- NOTE | 2025-02-05 14:14 | CM ---
CM following re: discharge planning.
Reviewed pt's chart.
Per nephrology, ERICK continues to worsen, options limited, possible goals of care discussion.
D/C plan: uncertain at this time and will depend on pt's progress.
CM will follow with discharge plan updates as hospitalization progresses
[2025-02-05 15:15] VITALS: BP 145/69
[2025-02-05] MEDS: HEPARIN SC (16:00)
[2025-02-05 16:26] LABS: Glucose - Point of Care 273 mg/dl (70-99)
[2025-02-05] MEDS: LIPITOR 80 MG PO (17:40)
[2025-02-05] MEDS: NEURONTIN 300 MG PO (21:15)
[2025-02-05 21:36] LABS: Glucose - Point of Care 211 mg/dl (70-99)
[2025-02-05 23:29] VITALS: BP 132/56
[2025-02-05 23:30] VITALS: BP 136/59
[2025-02-06] MEDS: STERILE WATER FOR INJECTION 10 ML IV (00:21)
[2025-02-06] MEDS: HEPARIN 5000 UNITS SC ×2 (00:21→08:27)
[2025-02-06] MEDS: ROCEPHIN 1000 MG IV (00:21)
[2025-02-06 05:30] VITALS: BMI 24.1
[2025-02-06 07:37] LABS: Glucose - Point of Care 184 mg/dl (70-99)
--- NOTE | 2025-02-06 07:49 | W.PN.CD ---
Today's Communication / Plan
-
await decisions on goals of care
agree with hospice discussions
will sign off and return at your request.
Impression / Plan
-
84F with chronic HFpEF, hypertension, dyslipidemia, chronic kidney disease, type 2 diabetes, and GERD with recent hospitalization at [facility] for treatment of pneumonia who presents with SOB, fever and c/f pna vs CHF.
Cardiology is consulted due to concern for acute on chronic HFpEF.
Outpatient bill distributor: Dr. Aaron Campos
Acute hypoxic respiratory failure.
PNA vs HF
treating both
Acute on chronic HFpEF/Acute chronic CKD:
- TTE 12/13/24: LVEF 51%, stage II DD, mod MR, severe TR, PASP 68 (previously 54)
- proBNP >27,000 on admission but in the setting of CKD. Had small R pleural effusion but maybe parapneumonic (too small to tap). Weight stable from prior admissions.
- Creatinine is 02/05/25 is 4.4 (up from 3.5) on Bumex 2 mg BID. rising with diuresis.
-labs pending
- Nephrology following, patient doesn't want HD. She is considering hospice
- Consider ultrafiltration. RHC is of little value given her MR and TR.
Paroxysmal atrial fibrillation, new this admission
- Continue Amiodarone
- CHADsVasc 5. She refused OAT, could not afford DOAC
PNA
- antibiotics and management as per primary team.
CKD4
- Nephrology following; worsening renal function.
Moderate mitral regurgitation/severe tricuspid regurgitation
- Contributing to HFpEF.
- Bumex as above.
Hypertension, chronic, continue current medical therapy with amlodipine
Type II DM
In review of the chart during the last hospitalization, she had said she was sick of all this hospital care. Given recurrent hospitalizations in the last several months, current renal failure, discussions of hospice are reasonable. Will defer to
primary team.
DATA:
TTE 12/13/24:
LV ejection fraction is 51% by Christy's method of discs.
Stage II diastolic dysfunction suggestive of abnormal relaxation and increased
filling pressures.
Mild biatrial enlargement.
Moderate mitral regurgitation.
Severe tricuspid regurgitation.
Estimated PASP 68 mmHg and estimated RA 8 mmHg.
Sinus bradycardia, mid 50s.
Compared to previous echo dated 08/28/2024 MR and TR and estimated PASP have
all increased.
Physical Exam
Vital Signs/Labs
Vital Signs
Temp Pulse Resp BP Pulse Ox
99.1 F 75 18 132/56 95
02/05/25 23:29 02/05/25 23:29 02/05/25 23:29 02/05/25 23:29 02/06/25 01:20
02/05/25 02/06/25 02/07/25
06:59 06:59 06:59
Actual Weight 141 lb 4.8 oz 140 lb 6.4 oz
02/05/25 06:11
02/05/25 06:11
Magnesium 1.9 mg/dl (1.6-2.3) 02/02/25 06:33
02/01/25
21:15
Str-M-Kluzjkakslp Pept [id number]
Physical Exam
Constitutional: No acute distress
Cardiovascular: Rhythm & rate is regular, Pedal edema is absent, Systolic murmur absent and Diastolic murmur absent
Respiratory: Respiratory effort normal and Lungs clear to auscul. (anteriorly)
Neuro/Psych: AO x 3 (she is sure she doesn't want hd)
Data Reviewed
-
Date of Service: February 06, 2025
Medical Decision Making: Review of Case with other Provider (Dr Campos will sign off)
--- NOTE | 2025-02-06 08:10 | W.PN.HOSP.TC ---
Today's Communication/Plan
-
hospice meeting today
Assessment / Plan
Assessment / Plan
Gen: NAD, AAOx3, appears chronically ill.
Eyes: EOMI, PERRLA, no scleral icterus.
Neck: supple.
CV: RRR, +S1/S2, 2/6 systolic murmur.
Resp: Decreased breath sounds and rales in the bases
Abd: +BS, soft, NT, ND
Skin: No rashes. Trace lower extremity edema
Neuro: CN 2-12 intact, non-focal.
Psych: Normal mood and affect.
02/01/25 22:06 Blood/Venous Blood Culture - Preliminary
No Growth in 4 days- Final report to follow
02/01/25 21:15 Blood/Venous Blood Culture - Preliminary
No Growth in 4 days- Final report to follow
02/02/25 10:00 Urine Legionella Urinary Antigen - Final
Negative for Legionella pneumophila Serogroup 1 antigen.
A negative result does not rule out the possiblity of
Legionella infection due to other serogroups or species of
Legionella. Clinical correlation is recommended.
02/02/25 10:00 Urine Streptococcus pneumoniae Antigen (M - Final
Negative for Streptococcus pneumoniae antigen.
A negative result does not exclude infection with
Streptococcus pneumoniae. Clinical correlation is
recommended.
02/01/25 21:51 Nasal Swab Influenza Types A & B (JERRY) - Final
Negative for Influenza A & B, NAAT
Negative results must be combined with clinical observations
and patient history.
Nucleic Acid Amplification test (NAAT)performed on the
[employer] NOW platform.
CXR 02/01/25: Findings again seen suggesting acute interstitial markings suggesting cardiogenic pulmonary edema although slightly less prominent in comparison to prior study. Interstitial pneumonitis cannot be excluded.
Acute hypoxic respiratory failure:
-was on 4L NC O2, now on 2L NC O2
-fever of 101.1 F and tachycardic on admission, sepsis POA due to interstitial pneumonitis
-appears to be multifactorial due to acute on chronic HFpEF and possibly interstitial pneumonitis
-cardiology following. No benefit from RHC. Cardiology has recommended hospice.
-cont IV Bumex, daily wts, I/Os
-currently on Rocephin/Doxy since 02/02/25 (today will be last day abx for a total of 5 days)
-urinary strep and Legionella antigens negative, BCxs NGTD, Flu/COVID NEG
ERICK on CKD4:
-renal following
-Cr alightly improved from yesterday but still 4.0 from 2.6 on admission
-pt would not want, nor is she a candidate for hemodialysis
Other problems:
Essential HTN: cont Norvasc
HLD: cont statin
Hyponatremia, worsening
DM2: SSI/accuchecks
Paroxysmal atrial fibrillation: cont Amio, has refused AC
Mod MR, severe TR
Extremely poor prognosis. Hospice has been consulted.
DNR/heparin
Anticipated Discharge: Within 24 hours
Subjective/Interval History
-
Date of Service: February 06, 2025
Currently denies shortness of breath.
Objective Data
-
Vital Signs:
Vital Signs
Temp Pulse Resp BP Pulse Ox
99.1 F 75 18 132/56 95
02/05/25 23:29 02/05/25 23:29 02/05/25 23:29 02/05/25 23:29 02/06/25 01:20
I&O
02/05/25 02/06/25 02/07/25
06:59 06:59 06:59
Intake Total 1260 / 1260 960 / 960
Balance 1260 / 1260 960 / 960
[2025-02-06] MEDS: PACERONE 200 MG PO (08:25)
[2025-02-06] MEDS: CLARITIN 10 MG PO (08:25)
[2025-02-06] MEDS: MAGNESIUM OXIDE 500 MG PO (08:25)
[2025-02-06] MEDS: VIBRAMYCIN 100 MG PO ×2 (08:25→20:49)
[2025-02-06] MEDS: SODIUM BICARBONATE 650 MG PO ×2 (08:25→20:49)
[2025-02-06] MEDS: FEOSOL 325 MG PO (08:25)
[2025-02-06] MEDS: NOVOLOG FLEXPEN-LOW RESISTANCE 1 UNITS SC (08:26)
[2025-02-06] MEDS: BUMEX 2 MG IV ×2 (08:26→16:24)
[2025-02-06] MEDS: NORVASC 10 MG PO (08:26)
[2025-02-06 08:28] VITALS: BP 138/61; BP 139/55; BP 145/50; PULSE 88; PULSE 90; PULSE 92
[2025-02-06 09:45] LABS: Blood Urea Nitrogen 86 mg/dl (7-17); Carbon Dioxide 22 mmol/L (22-30); Chloride 95 mmol/L (98-107); Estimated Creatinine Clearance 9 ml/min; Glucose 260 mg/dl (70-99); Potassium 4.3 mmol/L (3.5-5.1); Sodium 128 mmol/L (135-145); eGFR 10.39
--- NOTE | 2025-02-06 11:53 | VNURNOTE ---
[facility] rec'[facility] message from warehouse stocker Agata that pt is declining hospice. Liaison spoke w/ daughter Jodi. Jodi stated SCENE AND LIGHTING DESIGN LECTURER the patient was seeing [facility] from [place] [phone]. She had a nurse and PT in home. Patient
would want to resume care w/ them upon DC. JASON Abraham updated.
--- NOTE | 2025-02-06 11:55 | HOSPNOTE ---
Long meeting with patient and daughter. The patient does not wish to go to rehab would like to go home with daughter and resume care with [facility] and add palliative care. The patient fully understands that she may have to come back to the hospital and
if she does she will wish for hospice services. I texted home health liaison and she will be in to speak with patient. Attending and CM aware.
[2025-02-06 12:17] LABS: Glucose - Point of Care 276 mg/dl (70-99)
[2025-02-06] MEDS: NOVOLOG FLEXPEN-LOW RESISTANCE 3 UNITS SC ×2 (12:19→18:41)
[2025-02-06] MEDS: PROTONIX 40 MG PO ×2 (12:19→20:49)
--- NOTE | 2025-02-06 14:01 | CM ---
Addendum entered by Jarad Owens 02/06/25 16:21:
IMM reviewed, placed on chart, pt has a copy.
Original Note:
CM following re: discharge planning.
Reviewed pt's chart, met with pt.
A family meeting held today with hospice executive director. Pt and her daughter declined hospice care and they preferred pt returns back home with [facility] and Palliative care.
[facility] to [facility], spoke to loss prevention representative Nicolle [phone] and she confirmed they just discharged the pt from their services and they will accept the pt again. Per Nicolle, [facility] will set up Palliative care.
Please fax discharge instructions to [facility] at [phone]
D/C plan: home with [facility], palliative care and family support.
CM will follow with discharge plan updates as hospitalization progresses
[2025-02-06 14:59] VITALS: BP 146/61
--- NOTE | 2025-02-06 15:30 | W.PN.NEPH.PH ---
Today's Communication / Plan
-
For discharge tomorrow on palliative care
Maintain IV diuretics while patient still here for volume overload and hyponatremia
Assessment/Plan
-
Impression.
ERICK on chronic kidney disease stage IV.
hyponatremia.
Heart failure preserved ejection fraction decompensated
Moderate MR, severe TR
Hypertension.
Plan.
Creatinine at 4, sodium dropping to 128
Suspect that she has lost some body mass over time and that her stable weights at home are more reflective of slowly rising volume weights.
On examination she appears to be volume overloaded in setting of congestive heart failure
Patient to be discharged home on palliative care
Continue IV Bumex 2 mL grams twice daily, goal diuresis around 3 to 5 pounds while inpatient
Follow BMP, may need at accept higher Cr values for optimized volume status
Previously She stated quite clearly that she had a discussion with her daughter and she is decided that she will not accept dialysis under any circumstances.
-
-
Date of Service: February 06, 2025
CC / HPI / ROS
-
Chief Complaint:
ERICK
History of Present Illness:
ERICK/Cr at 4
Na down to 128
BP stable
on IV bumex for decompensated HF
Review of Systems:
no CP/SOB
weights down
Labs
-
Labs:
WBC 6.3 10^3/uL (4.8-10.8) 02/05/25 06:11
RBC 2.90 10^6/uL (4.20-5.40) L 02/05/25 06:11
Hgb 8.5 g/dL (12.0-16.0) L 02/05/25 06:11
Hct 25.1 % (37.0-47.0) L 02/05/25 06:11
Plt Count 238 10^3/uL (130-400) 02/05/25 06:11
Sodium 128 mmol/L (135-145) L 02/06/25 09:16
Potassium 4.3 mmol/L (3.5-5.1) 02/06/25 09:16
Chloride 95 mmol/L (98-107) L 02/06/25 09:16
Carbon Dioxide 22 mmol/L (22-30) 02/06/25 09:16
BUN 86 mg/dl (7-17) H 02/06/25 09:16
Creatinine 4.0 mg/dL (0.6-1.0) H 02/06/25 09:16
eGFR 10.39 02/06/25 09:16
Glucose 260 mg/dl (70-99) H 02/06/25 09:16
Calcium 8.0 mg/dl (8.4-10.2) L 02/06/25 09:16
Pqi-U-Kkpomiohajy Pept 56049 pg/ml 02/01/25 21:15
Albumin 3.7 g/dl (3.5-5.0) 02/01/25 22:06
Physical Exam
-
Vital Signs:
Vital Signs
Temp Pulse Resp BP Pulse Ox
99.4 F 82 16 146/61 98
02/06/25 14:59 02/06/25 14:59 02/06/25 14:59 02/06/25 14:59 02/06/25 14:59
Cardiovascular:: Regular rate and rhythm
Respiratory:: Bilateral: Coarse
Lung Excursion:: Normal
Abdomen:: Nontender
Extremity Edema:: +1: Bilateral:
[place] Catheter: No
[2025-02-06] MEDS: HEPARIN SC (16:24)
[2025-02-06 18:02] LABS: Glucose - Point of Care 263 mg/dl (70-99)
[2025-02-06] MEDS: LIPITOR 80 MG PO (18:41)
[2025-02-06] MEDS: NEURONTIN 300 MG PO (20:49)
[2025-02-06 21:11] LABS: Glucose - Point of Care 275 mg/dl (70-99)
[2025-02-06 22:57] VITALS: BP 134/54
[2025-02-07] MEDS: ROCEPHIN 1000 MG IV (00:28)
[2025-02-07] MEDS: STERILE WATER FOR INJECTION 10 ML IV (00:29)
[2025-02-07] MEDS: HEPARIN 5000 UNITS SC ×2 (00:29→08:20)
[2025-02-07 05:22] VITALS: BMI 22.6
[2025-02-07 06:43] LABS: Blood Urea Nitrogen 89 mg/dl (7-17); Calcium 8.1 mg/dl (8.4-10.2); Carbon Dioxide 26 mmol/L (22-30); Chloride 93 mmol/L (98-107); Estimated Creatinine Clearance 8 ml/min; Glucose 180 mg/dl (70-99); Potassium 4.3 mmol/L (3.5-5.1); Sodium 130 mmol/L (135-145)
[2025-02-07 07:00] VITALS: BP 136/56
[2025-02-07 08:13] LABS: Glucose - Point of Care 225 mg/dl (70-99)
[2025-02-07] MEDS: CLARITIN 10 MG PO (08:19)
[2025-02-07] MEDS: PACERONE 200 MG PO (08:19)
[2025-02-07] MEDS: SODIUM BICARBONATE 650 MG PO (08:19)
[2025-02-07] MEDS: MAGNESIUM OXIDE 500 MG PO (08:20)
[2025-02-07] MEDS: BUMEX 2 MG IV (08:20)
[2025-02-07] MEDS: NORVASC 10 MG PO (08:20)
[2025-02-07] MEDS: VIBRAMYCIN 100 MG PO (08:20)
[2025-02-07] MEDS: FEOSOL 325 MG PO (08:20)
[2025-02-07] MEDS: NOVOLOG FLEXPEN-LOW RESISTANCE 2 UNITS SC (08:21)
--- NOTE | 2025-02-07 08:21 | W.PN.HOSP.TC ---
Addendum entered and electronically signed by Dustin Campos MD 02/07/25 10:23:
Total time spent on d/c = 35 min. This included today's physical exam, progress note, review of laboratory and diagnostic data, preparation of discharge documents and prescriptions, and discussions about the pt's hospital course and discharge plan
with the patient and other medical staff services coordinator involved in the patient's care.
Original Note:
Today's Communication/Plan
-
see bold
Assessment / Plan
Assessment / Plan
Gen: NAD, AAOx3, appears chronically ill.
Eyes: EOMI, PERRLA, no scleral icterus.
Neck: supple.
CV: Remains RRR, +S1/S2, 2/6 systolic murmur.
Resp: Faint rales in the left base, decreased breath sounds in the right base
Abd: +BS, soft, NT, ND
Skin: No rashes. Very trace lower extremity edema
Neuro: CN 2-12 intact, non-focal.
Psych: Normal mood and affect.
02/01/25 22:06 Blood/Venous Blood Culture - Final
No Growth - Final Report
02/01/25 21:15 Blood/Venous Blood Culture - Final
No Growth - Final Report
02/02/25 10:00 Urine Legionella Urinary Antigen - Final
Negative for Legionella pneumophila Serogroup 1 antigen.
A negative result does not rule out the possiblity of
Legionella infection due to other serogroups or species of
Legionella. Clinical correlation is recommended.
02/02/25 10:00 Urine Streptococcus pneumoniae Antigen (M - Final
Negative for Streptococcus pneumoniae antigen.
A negative result does not exclude infection with
Streptococcus pneumoniae. Clinical correlation is
recommended.
02/01/25 21:51 Nasal Swab Influenza Types A & B (JERRY) - Final
Negative for Influenza A & B, NAAT
Negative results must be combined with clinical observations
and patient history.
Nucleic Acid Amplification test (NAAT)performed on the
[employer] NOW platform.
CXR 02/01/25: Findings again seen suggesting acute interstitial markings suggesting cardiogenic pulmonary edema although slightly less prominent in comparison to prior study. Interstitial pneumonitis cannot be excluded.
Acute hypoxic respiratory failure:
-was on 4L NC O2, now on 2L NC O2
-fever of 101.1 F and tachycardic on admission, sepsis POA due to interstitial pneumonitis
-appears to be multifactorial due to acute on chronic HFpEF and possibly interstitial pneumonitis
-cardiology following. No benefit from RHC. Cardiology has recommended hospice.
-cont IV Bumex, daily wts, I/Os
-urinary strep and Legionella antigens negative, BCxs NGTD, Flu/COVID NEG
-stop Rocephin/Doxy as pt has completed 5 days abx
ERICK on CKD4:
-renal following
-Cr 4.2 from 2.6 on admission, likely new baseline
-pt would not want, nor is she a candidate for hemodialysis
Other problems:
Essential HTN: cont Norvasc
HLD: cont statin
Hyponatremia, stable
DM2: SSI/accuchecks
Paroxysmal atrial fibrillation: cont Amio, has refused AC
Mod MR, severe TR
Extremely poor prognosis. Hospice was been consulted. Pt would like to be discharged and initiate palliative care. Patient reiterates today that she would not want hemodialysis.
DNR/heparin
Medically cleared for discharge if nephrology changes the patient to oral diuretics.
Anticipated Discharge: Today
Subjective/Interval History
-
Date of Service: February 07, 2025
Denies shortness of breath. States she feels tired.
Objective Data
-
Labs:
Laboratory Results
02/07/25
05:47
Sodium 130 L
Potassium 4.3
Chloride 93 L
Carbon Dioxide 26
BUN 89 H
Creatinine 4.2 H*
Glucose 180 H
Calcium 8.1 L
Vital Signs:
Vital Signs
Temp Pulse Resp BP Pulse Ox
99.0 F 79 16 134/54 98
02/06/25 22:57 02/06/25 22:57 02/06/25 22:57 02/06/25 22:57 02/06/25 22:57
I&O
02/06/25 02/07/25 02/08/25
06:59 06:59 06:59
Intake Total 960 / 960 420 / 420
Balance 960 / 960 420 / 420
--- NOTE | 2025-02-07 10:22 | W.PN.NEPH.PH ---
Today's Communication / Plan
-
Oral Bumex
Assessment/Plan
-
Impression.
ERICK on chronic kidney disease stage IV.
hyponatremia.
Heart failure preserved ejection fraction decompensated
Moderate MR, severe TR
Hypertension.
Plan.
Plan is for discharge for palliative care
Patient has stated she would not do dialysis under any circumstance
weights have improved significantly
Convert IV Bumex to 2 mg orally daily
Outpatient follow-up with sales account manager
Continue bicarbonate
-
-
Date of Service: February 07, 2025
CC / HPI / ROS
-
Chief Complaint:
ERICK
History of Present Illness:
ERICK/Cr at 4.2
Na Stable 30
BP stable
on IV bumex for decompensated HF, weight stable
Review of Systems:
no CP/SOB
weights down
Labs
-
Labs:
WBC 6.3 10^3/uL (4.8-10.8) 02/05/25 06:11
RBC 2.90 10^6/uL (4.20-5.40) L 02/05/25 06:11
Hgb 8.5 g/dL (12.0-16.0) L 02/05/25 06:11
Hct 25.1 % (37.0-47.0) L 02/05/25 06:11
Plt Count 238 10^3/uL (130-400) 02/05/25 06:11
Sodium 130 mmol/L (135-145) L 02/07/25 05:47
Potassium 4.3 mmol/L (3.5-5.1) 02/07/25 05:47
Chloride 93 mmol/L (98-107) L 02/07/25 05:47
Carbon Dioxide 26 mmol/L (22-30) 02/07/25 05:47
BUN 89 mg/dl (7-17) H 02/07/25 05:47
Creatinine 4.2 mg/dL (0.6-1.0) H* 02/07/25 05:47
eGFR 9.80 02/07/25 05:47
Glucose 180 mg/dl (70-99) H 02/07/25 05:47
Calcium 8.1 mg/dl (8.4-10.2) L 02/07/25 05:47
Qrh-N-Iqfhwkedxwy Pept 53589 pg/ml 02/01/25 21:15
Albumin 3.7 g/dl (3.5-5.0) 02/01/25 22:06
Physical Exam
-
Vital Signs:
Vital Signs
Temp Pulse Resp BP Pulse Ox
98.9 F 82 18 136/56 93
02/07/25 07:00 02/07/25 08:19 02/07/25 07:00 02/07/25 08:19 02/07/25 07:00
Cardiovascular:: Regular rate and rhythm
Respiratory:: Bilateral: CTA
Lung Excursion:: Normal
Abdomen:: Nontender and Soft
Bowel Sounds:: Normal
Extremity Edema:: +1: Bilateral:
[2025-02-07 11:00] VITALS: BP 126/58; BP 127/53; BP 129/54; PULSE 85; PULSE 87
[2025-02-07 11:05] VITALS: BP 126/58
[2025-02-07] MEDS: PROTONIX 40 MG PO (11:09)
[2025-02-07 11:39] LABS: Glucose - Point of Care 289 mg/dl (70-99)
[2025-02-07] MEDS: NOVOLOG FLEXPEN-LOW RESISTANCE 3 UNITS SC (13:10)
--- NOTE | 2025-02-07 13:40 | CM ---
Addendum entered by Jarad Owens 02/07/25 14:28:
JASON spoke to pt's daughter Jodi [phone] and she confirmed she will transport the pt home and pt will go to daughter's [address] : [address] [id number]
JASON spoke to [facility] DME liakelly Farias, updated her on pt's new address and Dinora confirmed that portable O2 tank will be delivered to pt's room within an hour.
Original Note:
CM following re: discharge planning.
Reviewed pt' s chart, met with pt.
Discharge order noted. Pt is aware, expressed her agreement and pt stated her daughter will transport her home after 3:00 p.m. IMM reviewed yesterday.
Ambulatory pulse-ox requested this morning. RT evaluated the pt and determined that pt needs home Oxygen.
JASON placed an order for home Oxygen with [facility], spoke to liakelly Farias and she confirmed that portable O2 tank will be delivered to pt's room at [facility] and oxygen concentrator will be delivered to pt's home when pt is home.
Pt is aware that [facility] will re-start services upon the discharge.
Please fax discharge instructions to [facility] at [phone].
D/C plan: home with [facility], palliative care, home oxygen and family support. Daughter to transport.
Awaiting for portable O2 tank delivery
[2025-02-07 15:00] VITALS: BP 125/55
--- NOTE | 2025-02-07 15:02 | W.DCSUMMARY ---
Discharge Summary
Discharge Data
Date of Admission: 02/02/25
Date of Discharge: 02/07/25
-
Pending Results: No
Hospital Course
Primary diagnoses:
Sepsis due to interstitial pneumonitis
Acute hypoxic respiratory failure, multifactorial, and due to acute on chronic heart failure preserved ejection fraction and possibly interstitial pneumonitis
Acute kidney injury on chronic kidney disease stage IV
Secondary diagnoses:
Essential hypertension
Hyperlipidemia
Hyponatremia
Type 2 diabetes mellitus
Paroxysmal atrial fibrillation
Moderate mitral regurgitation
Severe tricuspid
Severe tricuspid regurgitation
Consultants:
Nephrology
Cardiology
Imaging:
CXR 02/01/25: Findings again seen suggesting acute interstitial markings suggesting cardiogenic pulmonary edema although slightly less prominent in comparison to prior study. Interstitial pneumonitis cannot be excluded.
84-year-old female initially presented with chief complaint of shortness of breath as outlined in the H&P done on admission. Hospital course by problem was:
Acute hypoxic respiratory failure: Chest x-ray above. The patient was on 4L NC O2 and was weaned to 2L NC O2 (discharged on home O2). On admission the patient had a fever of 101.1 F and was tachycardic on admission. She had sepsis POA due to
interstitial pneumonitis. Ultimately her acute hypoxemic respiratory failure appeared to have been multifactorial and due to acute on chronic HFpEF and possibly interstitial pneumonitis. Cardiology saw in consultation and felt there would be no
benefit from RHC. Cardiology recommended hospice. The patient was diuresed with IV Bumex and transition to oral Bumex at the time of discharge. Urinary strep and Legionella antigens negative, BCxs NGTD, Flu/COVID NEG. the patient completed 5 days
of antibiotics with Rocephin and doxycycline.
ERICK on CKD4: Patient was seen in consultation by nephrology. Her creatinine was 2.6 on admission and was 4.2 at the time of discharge. This is likely her new baseline and is due to cardiorenal syndrome. The patient was not a candidate for, nor
would she want, hemodialysis.
Extremely poor prognosis. Hospice was consulted. The patient decided she wanted to be discharged and initiate palliative care. Patient reiterates today that she would not want hemodialysis.
Discharge Plan
-
Patient Disposition: Home (Routine Discharge)
Condition: Fair
Diet: Diabetic, Carb Controlled and Other diet
Additional Diets: fluid restrict to 1200cc/day
Activity: As tolerated
Driving Restrictions: Not until seen by your Dr
Instructions: *PCP/Other Household Appliances Service Technician Heart Failure Instructions
Referrals:
Isauro Howard DO [Family Provider, Family Practice] - in less than 1 week
Prescriptions:
New
bumetanide 2 mg tablet
2 mg PO DAILY Qty: 30 0RF
Continued
atorvastatin [Lipitor] 80 mg Tablet
80 mg PO QPM
amlodipine [Norvasc] 10 mg Tablet
10 mg PO DAILY
pantoprazole [Protonix] 40 mg Tablet,Delayed Release (Dr/Ec)
40 mg PO Q12H
gabapentin 300 mg Capsule
300 mg PO HS
magnesium oxide 250 mg magnesium Tablet
400 mg PO DAILY
cholecalciferol (vitamin D3) [Vitamin D3] 25 mcg (1,000 unit) Tablet
25 mcg PO DAILY
coQ10 (ubiquinol) 100 mg Capsule
300 mg PO DAILY
ascorbic acid (vitamin C) [Vitamin C] 500 mg Tablet
1,000 mg PO BID
loratadine 10 mg Tablet
10 mg PO DAILY
sodium bicarbonate 650 mg Tablet
650 mg PO BID Qty: 30 0RF
ferrous sulfate 325 mg (65 mg iron) Tablet
325 mg PO DAILY Qty: 0 0RF
amiodarone 200 mg Tablet
200 mg PO DAILY Qty: 30 0RF
diphenhydramine-acetaminophen [Tylenol PM Extra Strength] 25-500 mg Tablet
2 tab PO HS PRN (Reason: sleep)
glipizide 5 mg Tablet
5 mg PO DAILY
melatonin 5 mg Tablet
5 mg PO HS PRN (Reason: sleep)
Discontinued
bumetanide 2 mg Tablet
2 mg PO BID
Discharge Orders:
Discharge Patient (As Directed); Ordered 02/07/25
Ordered By: Dustin Campos
Discharge Date and Time
Print Language: KYRGYZ
--- NOTE | 2025-02-08 15:25 | W.HF.CON ---
Heart Failure
- LV Function
Left ventricular function study result: LV Ejection fraction >/= 50% (ECHO 12/13/24)
Ejection Fraction Percentage: 51
- ARNI
Patient already on ARNI: No
Heart Failure ARNI Not Indicated: LV Ejection Fraction >/= 40%
- ACEI/ARB
Patient already on ACEI/ARB: No
Heart Failure ACEI/ARB Not Indicated: LV Ejection Fraction > 40%
- Beta Janee
Patient already on Evidence Based Beta Janee: No
Heart Failure Evidence Based Beta Janee Not Indicated: LV Ejection Fraction > 40%
- Mineralocorticord Receptor Antagonist
Patient already on MRA: No
Heart Failure MRA Not Indicated: LV Ejection Fraction > 40%
- SGLT-2 Inhibitor
Patient already on SGLT-2 Inhibitor: No
Heart Failure SGLT-2 Inhibitor Contraindication: eGFR < 25
- Afib Anticoagulation
Patient already on Anticoagulation for Afib: No
Heart Failure Afib Anticoagulation Contraindication: Patient Refusal
- NYHA CHF Classification
NYHA CHF Classification Level: Class III - Symptoms w/ min exertion, interferes w/ nml daily activity (adding palliative care along with VN resumption)
- ACC/AHA Stage
ACC/AHA Stage: Stage C: Symptomatic Heart Failure (CKD IV)
== END 2025-02-07 16:44 | disposition home health service (06) | DRG 871 ==
LOC: 2 NORTH 01:25
PROVIDERS: Hospitalist; Nurse Practitioner; ADMITTING PHYSICIAN Internal Medicine; ATTENDING PHYSICIAN Internal Medicine; CONSULT PHYSICIAN Specialist; EMERGENCY PHYSICIAN Emergency Medicine; FAMILY PHYSICIAN Family Medicine; OTHER PHYSICIAN Internal Medicine Cardiovascular Disease
DX: A41.9 Sepsis, unspecified organism (principal); I50.33 Acute on chronic diastolic (congestive) heart failure; J96.01 Acute respiratory failure with hypoxia; J18.9 Pneumonia, unspecified organism; E22.2 Syndrome of inappropriate secretion of antidiuretic hormone; N18.4 Chronic kidney disease, stage 4 (severe); N17.9 Acute kidney failure, unspecified; I13.0 Hypertensive heart and chronic kidney disease with heart failure and stage 1 through stage 4 chronic kidney disease, or unspecified chronic kidney disease; Z11.52 Encounter for screening for COVID-19; Z87.891 Personal history of nicotine dependence; E11.22 Type 2 diabetes mellitus with diabetic chronic kidney disease; Z66 Do not resuscitate; R06.89 Other abnormalities of breathing; E78.00 Pure hypercholesterolemia, unspecified; I48.0 Paroxysmal atrial fibrillation; J84.89 Other specified interstitial pulmonary diseases
CPT/HCPCS: 51798; 71046; 80048; 80053; 82533; 82962; 83605; 83735; 83880; 83935; 84300; 84443; 85025; 85027; 87040; 87449; 87502; 87811; 87899; 93005; 94760; 96374; 99285